=== PATIENT | female | born 1960 | race Caucasian/White ===

== ENCOUNTER 2021-01-13 15:37 | Outpatient (CLI) | payer MEDICARE, OTHER, SELFPAY ==
--- NOTE | ~2021-01-13 | US_ITS ---
EXAMINATION: US venous doppler [facility] DATE: 01/13/2021 16:29 INDICATION: Bilateral lower limb swelling TECHNIQUE: Townsend scale images without and with compression and Doppler images of the bilateral lower e xtremity veins were obtained. COMPARISON: None FINDINGS: The right common femoral vein, profunda femoral vein, femoral vein, popliteal vein, peroneal trunk, p osterior tibial veins, and greater saphenous vein are patent. The left common femoral vein, profunda femoral vein, femoral vein, popliteal vein, peroneal trunk, po sterior tibial veins, and greater saphenous vein are patent. IMPRESSION: 1. Patent bilateral lower extremity veins. No evidence of deep venous thrombosis. Reviewed, dictated and finalized at location A. M BOILER FIREMAN IMPRESSION: 1. Patent bilateral lower extremity veins. No evidence of deep venous thrombosi s.
== END 2021-01-13 15:38 | disposition home or self-care (01) ==
PROVIDERS: PCP Family Medicine; Visit Provider Family Medicine
DX: R60.9 Edema, unspecified (principal)
CPT/HCPCS: 93970

== ENCOUNTER 2021-10-06 12:41 | Outpatient (CLI) | payer MEDICARE, OTHER, SELFPAY ==
--- NOTE | ~2021-10-06 | US_ITS ---
EXAMINATION: US thyroid EXAM DATE: 10/06/2021 13:32 INDICATION: E04.9 - Nontoxic goiter, unspecified. TECHNIQUE: Multiple grayscale and Doppler images of the thyroid were obtained (by a technologist who performed the scan) and subsequently reviewed. Individual nodules and recommendations may be reporte d in accordance with TI-RADS system as designated by the 2017 ACR White Paper TI-RADS committee. The re is no prior study for comparison. FINDINGS: Right there are lobe measures 4.7 x 1.6 x 1.6 cm, the left measuring 4.8 x 1.5 x 1.4 cm. Mildly diffu sely heterogeneous thyroid echogenicity with expected amount of vascularity. Scattered thyroid nodule s which are all subcentimeter except for one in the left lower lobe inferior pole. Largest nodule in the left lower lobe measures 2.1 x 1.5 x 1.5 cm, solid (2 points), hypoechoic (2 po ints), wider than tall, smooth well defined margin, containing macrocalcification(s) causing acoustic shadowing (1 point), category TR4 for this nodule. IMPRESSION: 1. Left thyroid lobe nodule large enough to recommend ultrasound-guided FNA. 2. Mild thyromegaly. Reviewed, dictated and finalized at location A. TECHNICIAN
== END 2021-10-06 12:42 | disposition home or self-care (01) ==
PROVIDERS: PCP Family Medicine; Visit Provider Physician Assistant
DX: E04.9 Nontoxic goiter, unspecified (principal)
CPT/HCPCS: 76536

== ENCOUNTER 2022-08-11 13:03 | Outpatient (CLI) | payer MEDICARE, SELFPAY ==
--- NOTE | ~2022-08-11 | US_ITS ---
EXAMINATION: US thyroid DATE: 08/11/2022 13:55 INDICATION: Nontoxic goiter, unspecified. TECHNIQUE: Multiple ultrasound images of the thyroid were obtained. COMPARISON: Thyroid ultrasound 10/06/2021 FINDINGS: The right thyroid lobe measures 4.8 x 1.1 x 1.4 cm. The left thyroid lobe measures 5.0 x 1.5 x 1.7 c m. There are multiple subcentimeter nodules in the thyroid. In the left thyroid lobe, there is a 2.2 cm solid, hypoechoic, wider than tall nodule with smooth margin without echogenic foci (TI-RADS TR4) . IMPRESSION: 1. Stable left thyroid nodule. Ultrasound-guided fine-needle aspiration is recommended in this nodule has not previously been biopsied. Reviewed, dictated and finalized at location A. IMPRESSION: 1. Stable left thyroid nodule. Ultrasound-guided fine-needle aspiration is allison mmended in this nodule has not previously been biopsied.
== END 2022-08-11 13:04 | disposition home or self-care (01) ==
PROVIDERS: PCP Family Medicine; Visit Provider Physician Assistant
DX: E04.9 Nontoxic goiter, unspecified (principal)
CPT/HCPCS: 76536

== ENCOUNTER 2022-12-22 13:36 | Outpatient (CLI) | payer MEDICARE, SELFPAY ==
--- NOTE | ~2022-12-22 | CT_ITS ---
Non-contrast Head CT History: TIA, history of infarct Technique: Axial non-contrast imaging of the brain was performed. Dose reduction technique was used on this scan by utilizing automated exposure control and iterative reconstruction technique. The dose -length product (DLP) was 605.33 mGy-cm. Findings: There is no evidence of intracranial hemorrhage, mass lesion, or acute infarct. Brain par enchyma appears normal. The ventricles and subarachnoid spaces are normal in size. The calvarium ap pears normal. The visualized paranasal sinuses and mastoid air cells are clear. Impression: No significant abnormality seen. Reviewed, dictated and finalized at location . D CROP II FARMWORKER Impression: No significant abnormality seen.
--- NOTE | ~2022-12-22 | US_ITS ---
EXAMINATION: US thyroid DATE: 12/22/2022 14:47 INDICATION: Nontoxic goiter, unspecified. TECHNIQUE: Multiple ultrasound images of the thyroid were obtained. COMPARISON: Ultrasound 08/03/2022, 10/06/21 FINDINGS: The right thyroid lobe measures 5.0 x 1.6 x 1.2 cm. The left thyroid lobe measures 5.1 x 1.5 x 1.8 c m. In the right thyroid lobe, there is a 6 mm mixed cystic and solid, hypoechoic, wider than tall no dule with smooth margin without echogenic foci (TI-RADS TR3). In the right thyroid lobe, there is an 8 mm solid, hypoechoic, wider than tall nodule with ill-defined margin without echogenic foci (TR4). In the left thyroid lobe, there is a 2.1 cm predominantly solid, hypoechoic, wider than tall nodule w ith lobulated margin and macrocalcifications (TR5). IMPRESSION: 1. 2.1 cm left thyroid nodule, stable from 10/06/2021. Ultrasound-guided fine-needle aspiration is re commended. Reviewed, dictated and finalized at location A. R CREASER IMPRESSION: 1. 2.1 cm left thyroid nodule, stable from 10/06/2021. Ultrasound-guided fine-n eedle aspiration is recommended.
--- NOTE | ~2022-12-22 | CT_ITS ---
EXAMINATION:CT lung screening DATE: 12/22/2022 14:17 INDICATION: Tobacco use. Current smoker with 52 pack year history. TECHNIQUE: Computed tomography (CT) of the chest was performed without intravenous contrast. Automate d exposure control and iterative reconstruction technique were employed. The dose-length product (DLP ) was 605.33 mGy-cm. COMPARISON: None. FINDINGS: There is mild emphysema. A calcified right lung nodule is consistent with old granulomatous disease. There is peripheral septal thickening in the lower lobes. No pleural effusion. The heart si ze is normal. There are coronary artery calcifications. No pericardial effusion. There is a small sli ding hiatal hernia. There are surgical changes in the stomach. There are changes of cholecystectomy. There is levocurvature of thoracic spine. There is mild thoracic spondylosis. IMPRESSION: 1. Lung-RADS category 1: Negative. Continue annual screening with noncontrast low-dose chest CT in 12 months. Reviewed, dictated and finalized at location A. ENCY EXAMINER IMPRESSION: 1. Lung-RADS category 1: Negative. Continue annual screening with noncontrast l ow-dose chest CT in 12 months.
== END 2022-12-22 13:37 | disposition home or self-care (01) ==
PROVIDERS: PCP Family Medicine; Visit Provider Nurse Practitioner Gerontology
DX: R51.9 Headache, unspecified (principal); Z86.73 Personal history of transient ischemic attack (TIA), and cerebral infarction without residual deficits; E04.9 Nontoxic goiter, unspecified; Z87.891 Personal history of nicotine dependence; E04.1 Nontoxic single thyroid nodule
CPT/HCPCS: 70450; 71271; 76536

== ENCOUNTER 2023-01-03 12:24 | Outpatient (CLI) | payer MEDICARE, SELFPAY ==
--- NOTE | ~2023-01-03 | US_ITS ---
EXAMINATION: US FNA w image guidance DATE: 01/03/2023 13:36 INDICATION: Left thyroid mass TECHNIQUE: A time-out was performed to verify the patient's name, date of , and procedure to be performed . The procedure and its benefits and risks were discussed with the patient. Risks specifically discus sed included bleeding and infection. The patient understood the risks and agreed to proceed. The neck was prepped and draped in the usual sterile manner. 3 mL 1% lidocaine was used for local anesthesia . 6 passes were made with a 25G needle into the lesion. Appropriate needle location was documented with continuous sonographic guidance. A sterile bandage was applied. There were no immediate compli cations. FINDINGS: Grayscale ultrasound images demonstrate biopsy needles advanced into a 2.4 cm solid hypoechoic TI-RAD S 5 nodule with central coarse calcification at the inferior left thyroid. IMPRESSION: 1. Successful ultrasound-guided fine needle aspiration of a 2.4 cm TI RADS 5 left thyroid nodule. Reviewed, dictated and finalized at location A. TRONIC GLUER IMPRESSION: 1. Successful ultrasound-guided fine needle aspiration of a 2.4 cm TI RADS 5 l eft thyroid nodule.
== END 2023-01-03 12:25 | disposition home or self-care (01) ==
PROVIDERS: PCP Family Medicine; Visit Provider Nurse Practitioner Gerontology
DX: E04.1 Nontoxic single thyroid nodule (principal); R93.89 Abnormal findings on diagnostic imaging of other specified body structures
CPT/HCPCS: 10005; 88173; 88305

== ENCOUNTER 2025-03-07 14:18 | Outpatient (CLI) | payer MEDICARE, SELFPAY ==
[2025-03-07 14:53] LABS: Basophils Absolute Auto 0.1 K/mm3 (0.0-0.1); Basophils Percent Auto 0.9 % (0.2-1.2); Eosinophils Absolute Auto 0.1 K/mm3 (0-0.3); Hematocrit 35.6 % (37.0-47.0); Hemoglobin 10.7 g/dL (12.0-15.0); Immature Granulocyte Absolute 0.02 K/mm3 (0.00-0.031); Immature Granulocyte Percent A 0.3 % (0-0.5); Lymphocytes Absolute Auto 2.77 K/mm3 (0.9-3.2); Lymphocytes Percent Auto 39.6 % (18.3-44.2); Mean Corpuscular HGB Conc 30.1 g/dl (32-36); Mean Corpuscular Hemoglobin 25.2 pg (26-34); Mean Platelet Volume 9.6 fl (7.4-10.4); Monocytes Absolute Auto 0.6 K/mm3 (0.1-0.6); Monocytes Percent Auto 7.9 % (2.6-8.5); Neutrophils Absolute Auto 3.5 K/mm3 (1.3-6.7); Neutrophils Percent Auto 49.3 % (45.5-73.1); Platelet Count Result 280 k/mm3 (150-375); Red Blood Count 4.24 M/mm3 (4.2-5.4); Red Cell Distribution Width 23.6 % (11.5-14.5)
[2025-03-07 14:55] LABS: Add Urine Microscopic? NO; Appearance Urine Clear (Clear); Bilirubin Urine Negative (Negative); Blood Urine Negative (Negative); Color Urine Yellow (Yellow); Glucose Urine UA Negative (Negative); Ketones Urine Negative (Negative); Leukocyte Esterase Ur Negative LEU/UL (Negative); Nitrate Urine Negative (Negative); Protein Urine Negative (Negative); Urobilinogen Urine 0.2 mg/dL (<2.0)
[2025-03-07 15:04] LABS: Alanine Aminotransferase 24 U/L (6-35); Alkaline Phosphatase 134 U/L (38-126); Anion Gap 13 mmol/L (4-12); Aspartate Amino Transferase 24 U/L (14-36); Bilirubin,Total 0.4 mg/dL (0.2-1.3); Blood Urea Nitrogen 30 mg/dL (7-17); Calcium 10.2 mg/dL (8.4-10.2); Carbon Dioxide 21 mmol/L (22-30); Chloride 106 mmol/L (98-107); Estimated Glomerular Filt Rate 46; Glucose 121 mg/dL (65-110); Magnesium 1.9 mg/dL (1.6-2.3); Potassium 5.4 mmol/L (3.4-5.0); Sodium 140 mmol/L (137-145)
[2025-03-07 15:11] LABS: Anisocytosis 1+; Ovalocytes 1+; Platelet Estimate Adequate (Adequate)
[2025-03-07 15:12] LABS: Schistocytes None Seen
[2025-03-07 15:21] LABS: Free T4 Free Thyroxine 0.94 ng/dL (0.78-2.19)
--- OUTSIDE RECORDS SUMMARY | 2025-03-07 15:30 | XMS_ITS | Encounter Summary ---
Author Organization [facility] Address [address] [place] [address] Care Team Providers Care Bat Boy/Girl Name Role Phone Israel Carrillo MD Primary Care Provider Fadi Twin Hunter MD Primary Care Provider [phone] Darlene Saeed MD Primary Care Provider [phone] Kal Tellez MD Primary Care Provider [phone] Theresa Connors Primary Care Provider [phone] Encounter Details Date Type Department Care Team (Late st Contact Info) Description 11/12/2014 Abstract [facility] [address] [place] [address] , Generic Conversion, Social History Tobacco Use Types Packs/Day Years Used Date Smoking Tobacco: Never Assessed Comments Unknown Sex and Gender Information Value Date Recorded Sex Assigned at Female 12/21/2024 4:56 PM STATISTICAL PROGRAMMER Legal Sex Female 11:23 PM CDT Gender Identity Not on file Sexual Orientation Not on file documented as of this encounter Plan of Treatment Upcoming Encounters Date Type Department Care Team (Late st Contact Info) Description 03/22/2025 1:15 PM CDT Office Visit [facility], [address] [place] [address] Uche Leonard MD [facility] [address] [place], [place] [id number] documented as of this encounter Visit Diagnoses Not on filedocumented in this encounter Care Teams Bat Boy/Girl Relationship Specialty Start Date End Date Israel Carrillo MD PCP - General 10/17/14 11/02/19 Twin Tello MD [address] [facility] [address] [place] [address] PCP - General INTERNAL MEDICINE 11/03/19 09/26/21 Darlene Saeed MD [address] [facility] [address] [place] [address] PCP - General FAMILY PRACTICE 09/27/21 01/27/25 Kal Tellez MD [address] [place] [address] [address] [place] [address] PCP - General 01/28/25 02/19/25 Theresa Connors PA [address] [place] [address] PCP - General PHYSICIAN OPTICAL SALES ASSOCIATE 02/20/25 documented as of this encounter
--- OUTSIDE RECORDS SUMMARY | 2025-03-07 15:30 | XMS_ITS | Encounter Summary ---
Author Organization [facility] Address [address] [place] [address] Phone Care Team Providers Care Bee Worker Name Role Phone Israel Carrillo MD Unavailable [phone] Darlene Saeed MD Primary Care Provider Manish Singer MD Unavailable [phone] Katya Carpenter RN Unavailable [phone] Reason for Visit * Reason Onset Date Comments Tyron Clarification 07/14/2021 Encounter Details Date Type Department Care Team (Late st Contact Info) Description 07/14/2021 Telephone [facility] Orthopaedic Surgery [address] [place] [address] 2nd [address] [place] [address] Twin Machado MD [address] [facility] [address] [place] [address] MedRosalinoAllery Clarification Social History Tobacco Use Types Packs/Day Years Used Date Smoking Tobacco: Every Day Cigarettes 0.5 48 Smokeless Tobacco: Never Alcohol Use Standard Drinks/Week Comments Not Currently 0 (1 standard drink = 0.6 oz pur e alcohol) AUDIT-C Answer Date Recorded Q1: How often do you have a drink containing alc ohol? Never 07/03/2021 Average Number of Drinks Not on file 021 Q3: How often do you have si x or more drinks on one occasion? Never 07/03/2021 Comments No Sex and Gender Information Value Date Recorded Sex Assigned at Not on file Legal Sex Female 8:10 PM TERMINAL WORKER Gender Identity Not on file Sexual Orientation Not on file documented as of this encounter Miscellaneous Notes * Telephone Encounter - Narendra Singh CMA - 07/15/2021 1:57 PM CDT Rx canceled with [facility]. * Telephone Encounter - Scarlet Frazier - 07/15/2021 1:44 PM CDT Pharmacy is calling back needing a call back at [phone] option 2 reference number [id number] regarding drug/possible reaction * Telephone Encounter - Narendra Singh CMA - 07/14/2021 4:20 PM CDT Rx sent to Dr. Machado for e-scribe high priority. * Telephone Encounter - Scarlet Frazier - 07/14/2021 3:17 PM CDT Call [phone] before the end of the day regarding medication for the imaging that is tomorrow * Telephone Encounter - Brenda London - 07/14/2021 2:42 PM CDT Please see Prescription Clarification Request form that was received from [facility]. Possible drug allergy. Form placed in Dr Machado's E-Folder. documented in this encounter Plan of Treatment Not on file documented as of this encounter Goals Goal Patient Goal Type Associated Problems Recent Progress Patient-Stated? Author CCM Chronic Pain Care Plan Chronic Care Management On track(2021 12:44 PM CDT) Kirstie Stevens RN Note: Problem: Chronic Pain Goals: 1. Minimize further functional decline 2. Maximize quality of life 3. Control pain Strategies: - Activity/exercise program recommendation - Conservative stepwise pain medicine strategy with multi-disciplinary approach - Recommend healthy lifestyle strategies and compensatory methods as needed documented as of this encounter Visit Diagnoses Diagnosis Lumbosacral radiculopathy Thoracic or lumbosacral neuritis or radiculitis, unspecified documented in this encounter Additional Health Concerns Infection Onset Date Last Indicated Resolved Time Diarrhea 12/02/2023 12/02/2023 12/16/2023 3:06 AM TERMINAL WORKER COVID: Suspected 02/06/2024 02/06/2024 02/06/2024 2:46 PM CDT documented as of this encounter Care Teams Bee Worker Relationship Specialty Start Date End Date Darlene Saeed MD [address] [place] [address] PCP - General Family Medicine 01/09/21 Israel Carrillo MD [address] [facility] [address] [place] [address] Referring Physician Endocrinology Diabetes & Metabolism 06/01/19 Manish iSnger MD [address] [place] [address] Consulting Physician Otolaryngology 01/17/22 Katya Carpenter RN [address] [facility] [address] [place] [address] SHOP Outpatient Systems Architect 02/13/24 02/19/24 documented as of this encounter
--- OUTSIDE RECORDS SUMMARY | 2025-03-07 15:30 | XMS_ITS | Encounter Summary ---
Author Organization [facility] Healthcare Address [address] [place] [address] Care Team Providers Care Bioinformatics Research Technician Name Role Phone Israel Carrillo MD Primary Care Provider Gene Padilla MD Primary Care Provider [phone] Israel Carrillo MD Primary Care Provider Twin Tello MD Primary Care Provider Israel Carrillo MD Unavailable [phone] Twin Tello MD Primary Care Provider [phone] Miguel Field MD Primary Care Provider Israel Carrillo MD Primary Care Provider [phone] Miguel Field MD Primary Care Provider [phone] Israel Carrillo MD Primary Care Provider Darlene Saeed MD Primary Care Provider Manish Singer MD Unavailable [phone] Katya Carpenter RN Unavailable [phone] Encounter Details Date Type Department Care Team (Late st Contact Info) Description 05/18/2018 Community Orders [facility] EpicCare Link Israel Carrillo MD [address] [facility] [address] [place] [address] Social History Tobacco Use Types Packs/Day Years Used Date Smoking Tobacco: Some Days Smokeless Tobacco: Never Alcohol Use Standard Drinks/Week Comments Yes 0 (1 standard drink = 0.6 oz pur e alcohol) Comments Unknown Sex and Gender Information Value Date Recorded Sex Assigned at Not on file Legal Sex Female 8:10 PM SECURITY INTERN Gender Identity Not on file Sexual Orientation Not on file documented as of this encounter Plan of Treatment Not on file documented as of this encounter Visit Diagnoses Not on filedocumented in this encounter Additional Health Concerns Infection Onset Date Last Indicated Resolved Time COVID: Suspected 12/17/2020 12/17/2020 12/17/2020 6:45 PM SECURITY INTERN Diarrhea 12/02/2023 12/02/2023 12/16/2023 3:06 AM SECURITY INTERN COVID: Suspected 02/06/2024 02/06/2024 02/06/2024 2:46 PM CDT documented as of this encounter Care Teams Bioinformatics Research Technician Relationship Specialty Start Date End Date Israel Carrillo MD [address] [address] PCP - General 08/02/07 09/26/18 Gene Padilla MD [address] [place] [address] PCP - General Cardiovascular Disease 09/27/18 Israel Carrillo MD [address] [address] PCP - General 10/02/18 05/31/19 Twin Tello MD [address] [address] PCP - General Endocrinology Diabetes & Metabolism 06/01/19 07/03/19 Twin Tello MD [address] [address] PCP - General 07/04/19 05/04/20 Miguel Field MD [address] [address] PCP - General Internal Medicine 05/05/20 08/03/20 Israel Carrillo MD [address] [address] PCP - General Endocrinology Diabetes & Metabolism 08/04/20 09/02/20 Miguel Field MD [address] [address] PCP - General 09/03/20 10/05/20 Israel Carrillo MD [address] [address] PCP - General Endocrinology Diabetes & Metabolism 10/06/20 01/08/21 Darlene Saeed MD [address] [address] PCP - General Family Medicine 01/09/21 Israel Carrillo MD [address] [address] Referring Physician Endocrinology Diabetes & Metabolism 06/01/19 Manish Singer MD [address] [address] Consulting Physician Otolaryngology 01/17/22 Katya Carpenter RN [address] [facility] [address] [place] [address] SHOP Outpatient Hard Metals Engraver Hand 02/13/24 02/19/24 documented as of this encounter
--- OUTSIDE RECORDS SUMMARY | 2025-03-07 15:30 | XMS_ITS | Encounter Summary ---
Author Organization [facility] Address [facility] [place] [address] Care Team Providers Care Kilnman Name Role Phone Israel Carrillo MD Primary Care Provider Twin Smiley MD Primary Care Provider [phone] Darlene Saeed MD Primary Care Provider [phone] Kal Tellez MD Primary Care Provider [phone] Theresa Connors Primary Care Provider [phone] Encounter Details Date Type Department Care Team (Late st Contact Info) Description 11/07/2015 Abstract [facility] Juan Jose Vaz, Sujata Ingram MD Social History Tobacco Use Types Packs/Day Years Used Date Smoking Tobacco: Never Assessed Comments Unknown Sex and Gender Information Value Date Recorded Sex Assigned at Female 12/21/2024 4:56 PM BIOSOLIDS MANAGEMENT TECHNICIAN Legal Sex Female 11:23 PM CDT Gender Identity Not on file Sexual Orientation Not on file documented as of this encounter Plan of Treatment Upcoming Encounters Date Type Department Care Team (Late st Contact Info) Description 03/22/2025 1:15 PM CDT Office Visit [facility], [address] [place] [address] Uche Leonard MD [facility] [address] [place] [address] documented as of this encounter Visit Diagnoses Not on filedocumented in this encounter Care Teams Kilnman Relationship Specialty Start Date End Date Israel Carrillo MD PCP - General 10/17/14 11/02/19 Twin Tello MD [address] [facility] [address] [place] [address] PCP - General INTERNAL MEDICINE 11/03/19 09/26/21 Darlene Saeed MD [address] [facility] [address] [place] [address] PCP - General FAMILY PRACTICE 09/27/21 01/27/25 Kal Tellez MD [address] [place] [address] PCP - General 01/28/25 02/19/25 Theresa Connors PA [address] [place] [address] PCP - General PHYSICIAN GEOLOGY ASSOCIATE 02/20/25 documented as of this encounter
--- OUTSIDE RECORDS SUMMARY | 2025-03-07 15:30 | XMS_ITS | Encounter Summary ---
Author Organization [facility] Healthcare Address [address] [place] [address] Care Team Providers Care Refrigeration Tech Name Role Phone Israel Carrillo MD Primary Care Provider Gene Padilla MD Primary Care Provider [phone] Israel Carrillo MD Primary Care Provider [phone] Twin Tello MD Primary Care Provider Israel Carrillo MD Unavailable [phone] Twin Tello MD Primary Care Provider Miguel Field MD Primary Care Provider [phone] Israel Carrillo MD Primary Care Provider Miguel Field MD Primary Care Provider Israel Carrillo MD Primary Care Provider Darlene Saeed MD Primary Care Provider Manish Signer MD Unavailable [phone] Katya Carpenter RN Unavailable [phone] Reason for Visit * Reason Onset Date Comments FYI 09/26/2018 Encounter Details Date Type Department Care Team (Late st Contact Info) Description 09/26/2018 Telephone [facility] [address] [facility] [address] [place] [address] Momo Pérez MD [address] [facility] [phone] [place] [address] FYI Social History Tobacco Use Types Packs/Day Years Used Date Smoking Tobacco: Some Days Smokeless Tobacco: Never Alcohol Use Standard Drinks/Week Comments Yes 0 (1 standard drink = 0.6 oz pur e alcohol) Comments No Sex and Gender Information Value Date Recorded Sex Assigned at Not on file Legal Sex Female 8:10 PM CURING OVEN TENDER Gender Identity Not on file Sexual Orientation Not on file documented as of this encounter Plan of Treatment Not on file documented as of this encounter Visit Diagnoses Not on filedocumented in this encounter Additional Health Concerns Infection Onset Date Last Indicated Resolved Time COVID: Suspected 12/17/2020 12/17/2020 12/17/2020 6:45 PM CURING OVEN TENDER Diarrhea 12/02/2023 12/02/2023 12/16/2023 3:06 AM CURING OVEN TENDER COVID: Suspected 02/06/2024 02/06/2024 02/06/2024 2:46 PM CDT documented as of this encounter Care Teams Refrigeration Tech Relationship Specialty Start Date End Date Israel Carrillo MD [address] [address] PCP - General 08/02/07 09/26/18 Gene Padilla MD [address] [place] [address] [address] [address] PCP - General Cardiovascular Disease 09/27/18 Israel Carrillo MD [address] [address] PCP - General 10/02/18 05/31/19 Twin Tello MD [address] [address] PCP - General Endocrinology Diabetes & Metabolism 06/01/19 07/03/19 Twin Tello MD [address] [address] PCP - General 07/04/19 05/04/20 Miguel Field MD [address] [address] PCP - General Internal Medicine 05/05/20 08/03/20 Israel Carrillo MD [address] [address] PCP - General Endocrinology Diabetes & Metabolism 08/04/20 09/02/20 Miguel Field MD [address] [address] PCP - General 09/03/20 10/05/20 Israel Carrillo MD [address] [address] PCP - General Endocrinology Diabetes & Metabolism 10/06/20 01/08/21 Darlene Saeed MD [address] [address] PCP - General Family Medicine 01/09/21 Israel Carrillo MD [address] [address] Referring Physician Endocrinology Diabetes & Metabolism 06/01/19 Manish Singer MD [address] [place] [address] Consulting Physician Otolaryngology 01/17/22 Katya Carpenter, RN [address] [facility] [address] [place] [address] SHOP Outpatient Circus Hand 02/13/24 02/19/24 documented as of this encounter
--- OUTSIDE RECORDS SUMMARY | 2025-03-07 15:30 | XMS_ITS | Encounter Summary ---
Author Organization [facility] Address [address] [place] [address] Care Team Providers Care Batch Freezer Operator Name Role Phone Israel Carrillo MD Primary Care Provider Fadi Twin Hunter MD Primary Care Provider [phone] Darlene Saeed MD Primary Care Provider [phone] Kal Tellez MD Primary Care Provider [phone] Theresa Connors Primary Care Provider [phone] Encounter Details Date Type Department Care Team (Late st Contact Info) Description 09/17/2017 Abstract [place] [address] , Generic Conversion, Social History Tobacco Use Types Packs/Day Years Used Date Smoking Tobacco: Never Assessed Comments Unknown Sex and Gender Information Value Date Recorded Sex Assigned at Female 12/21/2024 4:56 PM HOSPITAL MEDICAL ASSISTANT Legal Sex Female 11:23 PM CDT Gender Identity Not on file Sexual Orientation Not on file documented as of this encounter Plan of Treatment Upcoming Encounters Date Type Department Care Team (Late st Contact Info) Description 03/22/2025 1:15 PM CDT Office Visit [facility] [place] [facility], [address] [place], [place] [id number] Uche Leonard MD [facility] [address] [place], [place] [id number] documented as of this encounter Visit Diagnoses Not on filedocumented in this encounter Care Teams Batch Freezer Operator Relationship Specialty Start Date End Date Israel Carrillo MD PCP - General 10/17/14 11/02/19 Twin Tello MD [address] [facility] [address] [place] [address] PCP - General INTERNAL MEDICINE 11/03/19 09/26/21 Darlene Saeed MD [address] [facility] [address] [place] [address] PCP - General FAMILY PRACTICE 09/27/21 01/27/25 Kal Tellez MD [address] [facility] [address] [place] [address] PCP - General 01/28/25 02/19/25 Theresa Connors PA [address] [facility] [address] [place] [address] PCP - General PHYSICIAN ICE CREAM TRUCK DRIVER 02/20/25 documented as of this encounter
--- OUTSIDE RECORDS SUMMARY | 2025-03-07 15:31 | XMS_ITS | Clinical Summary ---
Author Organization [facility] Address [address] [place] [address] Care Team Providers Care Federal Appellate Clerk Name Role Phone Theresa Connors Primary Care Provider [phone] Allergies Active Allergy Reactions Criticality Noted Date Comments Bee Venom Anaphylaxis High 09/19/2018 Cortisone Unknown 09/19/2018 Ibuprofen Other (see comment) High 03/31/2019 Muscle constriction of not being able to move Ketorolac Other (see comment) Medium 12/22/2021 Eye drops -itching; eyes also swell Latex Unknown 11/03/2019 Levofloxacin Unknown 09/19/2018 Naproxen Other (see comment) Medium 09/19/2007 Disoriented/ dysphoric Nsaids Unknown 09/19/2018 Oxycodone Unknown 09/19/2018 Prednisone Unknown 09/19/2018 Weight gain per patient. Has used topical steriods in past with no issue Wasp Venom Protein Anaphylaxis High 03/19/2024 Medications lisinopril (PRINIVIL) 40 MG tablet Take 1 tablet (40 mg total) by mouth daily. 04/24/2024 Active glucagon (GLUCAGON EMERGENCY) 1 MG injection Inject 1 mg into the muscle once as needed. 04/24/2024 Active budesonide EC (ENTOCORT EC) 3 MG capsule Take 1 capsule (3 mg total) by mouth daily. 04/24/2024 Active Cholecalciferol 50 MCG (2000 UT) Tab Take 2,000 Units by mouth daily. 04/24/2024 Active omeprazole (PRILOSEC) 40 MG capsule Take 1 capsule (40 mg total) by mouth 2 (two) times a day. 04/24/2024 Active PARoxetine (PAXIL) 20 MG tablet Take 1 tablet (20 mg total) by mouth daily. 04/24/2024 Active rosuvastatin (CRESTOR) 5 MG tablet Take 1 tablet (5 mg total) by mouth daily. 04/24/2024 Active SUMAtriptan (IMITREX) 50 MG tablet Take 1 tablet (50 mg total) by mouth 2 (two) times daily as needed for Migraine. Max of 4 tablets (200 mg) in 24 hours. 04/24/2024 Active tolterodine LA (DETROL LA) 4 MG 24 hr capsule Take 1 capsule (4 mg total) by mouth daily. 04/24/2024 Active pregabalin (LYRICA) 150 MG capsuleIndicati ons:Polyneuropa thy Take 1 capsule (150 mg total) by mouth 3 (three) times daily. 04/24/2024 Active multivitamin (THERA) tablet Take 1 tablet by mouth daily. 04/24/2024 Active tiZANidine (ZANAFLEX) 4 MG tablet Take 1 tablet (4 mg total) by mouth every 6 (six) hours as needed. 12/18/2024 Active HYDROcodone-yaa taminophen (NORCO) 5-325 MG tablet Take 1 tablet by mouth every 8 (eight) hours as needed for Pain. 11/29/2024 Active amLODIPine (NORVASC) 5 MG tablet Take 1 tablet (5 mg total) by mouth daily. 90 tablet 1 01/09/2025 Active furosemide (LASIX) 40 MG tablet Take 1 tablet (40 mg total) by mouth 2 (two) times daily. New dose 180 tablet 1 01/09/2025 Active metoprolol succinate ER (TOPROL-XL) 25 MG 24 hr tablet TAKE 1 TABLET BY MOUTH DAILY 30 tablet 3 01/21/2025 Active Active Problems Problem Noted Date Diagnosed Date Iron deficiency anemia due to chronic blood loss 03/20/2024 Shortness of breath 03/20/2024 Physical deconditioning 02/20/2024 Angina at rest 02/15/2024 Hypotension 02/14/2024 Hyperkalemia 02/06/2024 Overview (03/13/2024): Last Assessment & Plan: K 6.7 in setting of DEANNE and lisinopril. S/p calcium gluconate. Managed medically with insulin/dextrose, lasix, lokelma to 4's - Hold ACEi - Trend renal function Vertigo 02/26/2022 Ataxia due to recent stroke 02/04/2021 History of hemorrhagic strok e with residual hemiparesis ([facility]) 02/04/2021 Syncope due to sick sinus syndrome ([facility]) 02/04/2021 Hypoglycemia 12/10/2020 Overview (03/13/2024): Last Assessment & Plan: - resolved. - reported on admission that patient has had this issue before. Has gotten as low as 12 with convulsions but no issues over the last few years and usually reports that her BS remains more than 100. No notes from endocrinology for hypoglycemia. Ddx factitious ( says no access to insulin) vs poor nutrition vs ?possible sepsis vs insulin tumor - initially required to be on D5. Patient has extremely poor oral intake. Monitored with q6h blood glucose check. Subsequently improved. With hypokalemia I had concerns for possible insulinoma as well but her glucose spontaneously improved and held off from checking C peptide, proinsulin levels. GERD (gastroesophageal reflux disease) 9 Hyperlipidemia, unspecified 03/31/2019 Paroxysmal atrial fibrillation ([facility]) 03/31/2019 COPD (chronic obstructive pu lmonary disease) ([facility]) 01/09/2019 Resolved Problems Problem Noted Date Diagnosed Date Resolved Date Chest pain 02/14/2024 03/20/2024 Near syncope 02/13/2024 03/20/2024 Encounters Date Type Department Care Team Description 02/27/2025 Results Follow-Up [facility] [place] [address] [place] [address] Kaylee Joseph, ANP-BC NM NUC STRESS TEST SINGLE 02/21/2025 10:08 AM CDT - 02/21/2025 11:59 PM CDT Hospital Encounter [facility] [place] [address] Uche Leonard MD Discharge Disposition: Home or Self Care (Routine Discharge) 02/21/2025 Travel 01/31/2025 MyChart Message [facility] [address] [place] [phone] Kaylee Joseph ANP-BC Test Results 01/29/2025 2:27 PM CDT - 01/29/2025 11:59 PM CDT Hospital Encounter [facility] [place] [address] Uche Leonard MD Discharge Disposition: Home or Self Care (Routine Discharge) 01/29/2025 Travel 01/09/2025 12:00 PM DESIGN ENGINEER Office Visit [address] [address] Uche Leonard MD Coronary Artery Disease (F/up) 01/09/2025 Travel 12/21/2024 4:58 PM DESIGN ENGINEER - 12/21/2024 10:13 PM DESIGN ENGINEER Emergency [facility] [place] [address] Nick Miller MD Chest Pain Discharge Disposition: Home or Self Care (Routine Discharge) 12/21/2024 Travel 12/20/[address] [address] Kaylee Joseph ANP-AKILAH Concerns from Last 3 Months Immunizations Immunization Administration Dates Next Due Influenza (Generic) 11/09/2013 Influenza Adult (Generic) 09/16/2020,12/19/2018, 01/15/2018 Tdap (Generic) 09/23/2014 Social History Tobacco Use Types Packs/Day Years Used Date Smoking Tobacco: Every Day Cigarettes 0.3 51 Started: 02/18/1974 Smokeless Tobacco: Never Tobacco Cessation:Ready to Q uit: Not Asked; Counseling Given: Not Answered Alcohol Use Standard Drinks/Week Comments No 0 (1 standard drink = 0.6 oz pur e alcohol) [facility] Utilities Answer Date Recorded In the past 12 months has th e electric, gas, oil, or water company threatened to shut off services in your home? Patient unable to answer 02/13/2024 Humiliation, Afraid, Rape, a nd Kick questionnaire Answer Date Recorded Within the last year, have y ou been afraid of your partner or ex-partner? Patient unable to answer 02/13/2024 Within the last year, have y ou been humiliated or emotionally abused in other ways by your partner or ex-partner? Patient unable to answer 02/13/2024 Within the last year, have y ou been kicked, hit, slapped, or otherwise physically hurt by your partner or ex-partner? Patient unable to answer 02/13/2024 Within the last year, have y ou been raped or forced to have any kind of sexual activity by your partner or ex-partner? Patient unable to answer 02/13/2024 AUDIT-C Answer Date Recorded Frequency of Alcohol Consumption Never 11/03/2019 Average Number of Drinks Not on file 019 Frequency of Binge Drinking Not on file 10/15 Overall Financial Resource Strain (CARDIA) Answe r Date Recorded How hard is it for you to pa y for the very basics like food, housing, medical care, and heating? Patient unable to answer 02/13/2024 Hunger Vital Sign Answer Date Recorded Within the past 12 months, y ou worried that your food would run out before you got the money to buy more. Patient unable to answer 02/13/2024 Within the past 12 months, t he food you bought just didn't last and you didn't have money to get more. Patient unable to answer 02/13/2024 PRAPARE - Transportation Answer Date Re corded In the past 12 months, has l ack of transportation kept you from medical appointments or from getting medications? Patient unable to answer 02/13/2024 In the past 12 months, has l ack of transportation kept you from meetings, work, or from getting things needed for daily living? Patient unable to answer 02/13/2024 Housing Stability Vital Sign Answer Alec e Recorded In the last 12 months, was t here a time when you were not able to pay the mortgage or rent on time? Patient unable to answer 02/13/2024 In the last 12 months, how m any places have you lived? 1 02/13/2024 In the last 12 months, was t here a time when you did not have a steady place to sleep or slept in a group home (including now)? Patient unable to answer 02/13/2024 Housing Stability Vital Sign Answer Alec e Recorded Unable to Pay for Housing in the Last Year Not o n file 02/19/2024 In the past 12 months, how m any times have you moved where you were living? 0 02/19/2024 At any time in the past 12 m [facility], were you homeless or living in a group home (including now)? No 02/19/2024 Comments Unknown Sex and Gender Information Value Date Recorded Sex Assigned at Female 12/21/2024 4:56 PM DESIGN ENGINEER Legal Sex Female 11:23 PM CDT Gender Identity Not on file Sexual Orientation Not on file Last Filed Vital Signs Vital Sign Reading Time Taken Comments Blood Pressure 142/88 01/09/2025 11:44 AM DESIGN ENGINEER Pulse 106 01/09/2025 11:44 AM DESIGN ENGINEER Temperature 36.4 C (97.6 F) 12/21/2024 4:58 PM DESIGN ENGINEER Respiratory Rate 21 12/21/2024 8:30 PM DESIGN ENGINEER Oxygen Saturation 98% 01/09/2025 11:44 AM DESIGN ENGINEER Inhaled Oxygen Concentration - - Weight 101.2 kg (223 lb) 01/09/2025 11:44 AM DESIGN ENGINEER Height 147.3 cm (4' 10 ) 01/09/2025 11:44 AM DESIGN ENGINEER Body Mass Index 46.61 01/09/2025 11:44 AM DESIGN ENGINEER Plan of Treatment Upcoming Encounters Date Type Department Care Team (Late st Contact Info) Description 03/22/2025 1:15 PM CDT Office Visit [facility] [address] [place] [address] Uche Leonard MD [facility] [address] [place] [address] Health Maintenance Due Date Last Done Comments Pneumococcal Vaccine: 50+ Years (1 of 2 - PCV) 1978 Zoster Vaccines (1 of 2) 2009 RSV Immunization or 60+ Years (1 - Risk 60-74 years 1-dose series) 2019 Mammogram Screening 07/16/2022 07/16/2020, 9 Annual Medicare Wellness Visit 02/12/2024 COVID-19 Vaccine (1 - season) 2024 DTaP, Tdap and Td Vaccines (2 - Td or Tdap) 09/23/2024 09/23/2014 Colorectal Cancer Screening FIT/FOBT (1 Year) 02/12/2025 02/13/2024 ASCVD LDL 02/13/2025 02/14/2024 Dexa Scan (General) Completed 08/04/2021, 06/16/2020, 05/08/2019, Additional history exists Hepatitis C Completed 02/07/2024 Meningococcal B Vaccine Aged Out No l onger eligible based on patient's age to complete this topic Meningococcal Vaccine Aged Out No august eleuterio eligible based on patient's age to complete this topic RSV Immunizations Under 20 Months Aged Out No longer eligible based on patient's age to complete this topic Procedures Procedure Name Priority Date/Time Associated Diagnosis Comments NM NUC STRESS TEST SINGLE Routine 2024 1:21 PM CDT SOB (shortness of breath) Chest pain, unspecified CARDIOLOGY STRESS TEST ONLY, EXERCISE Routine 02/21/2025 10:08 AM CDT SOB (shortness of breath) Chest pain, unspecified USE ECHOCARDIOGRAM Routine 01/29/2025 4: 42 PM CDT SOB (shortness of breath) Chest pain, unspecified ELECTROCARDIOGRAM REPORT Routine 025 7:22 PM DESIGN ENGINEER ELECTROCARDIOGRAM REPORT Routine 025 7:22 PM DESIGN ENGINEER ECG 12-LEAD STAT 12/21/2024 7:16 PM DESIGN ENGINEER GI PANEL PCR - STOOL STAT 12/21/2024 7:04 PM DESIGN ENGINEER TROPONIN, QUANT STAT 12/21/2024 7:04 PM DESIGN ENGINEER XR CHEST PORTABLE STAT 12/21/2024 5:1 0 PM DESIGN ENGINEER TROPONIN, QUANT STAT 12/21/2024 5:05 PM DESIGN ENGINEER COMPREHENSIVE METABOLIC PANEL STAT 12/21/2024 5:05 PM DESIGN ENGINEER CBC W/DIFF AUTOMATED STAT 12/21/2024 5:05 PM DESIGN ENGINEER ECG 12-LEAD STAT 12/21/2024 4:56 PM DESIGN ENGINEER LIPID PANEL STAT 02/14/2024 6:06 AM CDT OCCULT BLOOD, FECES STAT 02/13/2024 7 :26 PM CDT from Last 3 Months or Most Recently Relevant to Health Maintenance Results * NM NUC STRESS TEST SINGLE (02/21/2025 1:21 PM CDT) Anatomical Region Laterality Modality Cardiac Nuclear Medicine 02/21/2025 11:2 7 AM CDT Narrative 02/22/2025 1:29 PM CDT Myocardial Perfusion Imaging Pat.Name: BERNADINE SIMMS.ID: [id number] .Date: 02/21/2025 Refer.: Gordo Exam Time: 11:27:00 AM Study Type:JURGEN NC HT MUSCLE IMAGE SPECT MULTI Height: 58 in Weight: 223 lb BSA: 1.91 m2 Age: 3 1960,65Y Sex: F Sonogrphr: RAKEL Smith Pat. Stat.:Outpatient Reason for Study:Chest pain, Shortness of breath, Syncope History / Clinical:Ex-Smoker, COPD Procedures: Nuclear Stress Test with Lexiscan Race: W Surgery: Stress Echo ++++++++++++++++++++++++++++++++++++ SUMMARY: ++++++++++++++++++++++++++++++++++++ Stress conclusion: 1. Clinically negative. 2. Electrocardiographically negative stress test for ischemia. 3. Scintigraphic images to follow. Perfusion conclusion: 1. Excellent study quality. No motion correction was applied to images. Breast attenuation is noted. Prone imaging was performed. 2. Normal myocardial perfusion SPECT imaging. 3. Normal wall motion with an ejection fraction of 79%. 4. Stress test with myocardial perfusion imaging shows overall low risk for a cardiac event. ++++++++++++++++++++++++++++++++++++ FINDINGS: ++++++++++++++++++++++++++++++++++++ Protocol: Lexiscan 0.4mg was given as a rapid injection IV over a period of 10 seconds with the radiopharmaceutical injected at 20 seconds. The images were processed using the standard SPECT technique. A gated study was performed on the stress images. Impression: SPECT images demonstrate normal perfusion of normal intensity. Heart Size: The left ventricle is normal. LV Wall Motion: The LVEF is calculated to be 79%. Gated SPECT images reveal normal wall motion. ++++++++++++++++++++++++++++++++++++ STRESS: ++++++++++++++++++++++++++++++++++++ Baseline Vital Signs: ECG: Normal sinus rhythm, prominent T waves HR: 70 bmp Rest BP: 100/42 Regadenoson Peak Dose: 0.4 mg Stress Test Results: Max HR: 96 bmp Target HR: 154 bmp % Target: 62 % Max BP: 139/71 Max RPP: 61476 O2 sat: 100 % Symptoms and Complications: Terminated: Protocol completed Symptoms: Dizziness Complications: None Stress ECG Interp: No significant changes <Electronic Signature> 02/22/2025 01:29 PM Uche Leonard M.D. Procedure Note Uche Leonard MD - 02/22/2025 Myocardial Perfusion Imaging Pat.Name: BERNADINE SIMMS Pat.ID: [id number] .Date: 02/21/2025 Refer.: Gordo Exam Time: 11:27:00 AM Study Type:JURGEN NC HT MUSCLE IMAGE SPECT MULTI Height: 58 in Weight: 223 lb BSA: 1.91 m2 Age: 3 1960,65Y Sex: F Sonogrphr: RAKEL Smith Pat. Stat.:Outpatient Reason for Study:Chest pain, Shortness of breath, Syncope History / Clinical:Ex-Smoker, COPD Procedures: Nuclear Stress Test with Lexiscan Race: W Surgery: Stress Echo ++++++++++++++++++++++++++++++++++++ SUMMARY: ++++++++++++++++++++++++++++++++++++ Stress conclusion: 1. Clinically negative. 2. Electrocardiographically negative stress test for ischemia. 3. Scintigraphic images to follow. Perfusion conclusion: 1. Excellent study quality. No motion correction was applied to images. Breast attenuation is noted. Prone imaging was performed. 2. Normal myocardial perfusion SPECT imaging. 3. Normal wall motion with an ejection fraction of 79%. 4. Stress test with myocardial perfusion imaging shows overall low risk for a cardiac event. ++++++++++++++++++++++++++++++++++++ FINDINGS: ++++++++++++++++++++++++++++++++++++ Protocol: Lexiscan 0.4mg was given as a rapid injection IV over a period of 10 seconds with the radiopharmaceutical injected at 20 seconds. The images were processed using the standard SPECT technique. A gated study was performed on the stress images. Impression: SPECT images demonstrate normal perfusion of normal intensity. Heart Size: The left ventricle is normal. LV Wall Motion: The LVEF is calculated to be 79%. Gated SPECT images reveal normal wall motion. ++++++++++++++++++++++++++++++++++++ STRESS: ++++++++++++++++++++++++++++++++++++ Baseline Vital Signs: ECG: Normal sinus rhythm, prominent T waves HR: 70 bmp Rest BP: 100/42 Regadenoson Peak Dose: 0.4 mg Stress Test Results: Max HR: 96 bmp Target HR: 154 bmp % Target: 62 % Max BP: 139/71 Max RPP: 88422 O2 sat: 100 % Symptoms and Complications: Terminated: Protocol completed Symptoms: Dizziness Complications: None Stress ECG Interp: No significant changes <Electronic Signature> 02/22/2025 01:29 PM Uche Leonard M.D. Uche Leonard MD [facility] Final Res ult * USE ECHOCARDIOGRAM (01/29/2025 4:42 PM CDT) Anatomical Region Laterality Modality Cardiac Echocardiogram 01/29/2025 2:13 PM CDT Narrative 01/31/2025 11:59 AM CDT Echocardiography Report Pat.Name: BERNADINE SIMMS Pat.ID: [id number] .Date: 01/29/2025 Refer.MD: [id number] MADELINE De La Torre EWDPROV EWDPROV Exam Time: 2:13:00 PM Study Type:ECHO WITH CARDIAC DOPPLER COMP Height: 58 in Weight: 223 lb BSA: 1.91 m2 Age: 3 1960,64Y Sex: F BP: 151/81 HR: 79 bpm Sonogrphr: Rosemary Gonsales Pat. Stat.:Outpatient Reason for Study:Chest pain, Shortness of breath Procedures: 2D, M-mode, Doppler, Color Flow, The study quality is technically adequate. Race: W ++++++++++++++++++++++++++++++++++++ SUMMARY: ++++++++++++++++++++++++++++++++++++ The left ventricular size is normal. Estimated left ventricular ejection fraction is 55-60%. Mild concentric left ventricular hypertrophy. Left ventricular diastolic function is abnormal (grade 1 - impaired relaxation). Wall motion appears normal in all segments. The peak pulmonary artery systolic pressure is estimated to be approximately 29 mmHg. No evidence of aortic valve stenosis. Trace aortic regurgitation. Mild calcification of aortic valve leaflets. Mild mitral regurgitation. Mild calcification of the mitral valve leaflets. Mild tricuspid regurgitation. ++++++++++++++++++++++++++++++++++++ FINDINGS: ++++++++++++++++++++++++++++++++++++ LV: The left ventricular size is normal. Estimated left ventricular ejection fraction is 55-60%. Mild concentric left ventricular hypertrophy. Left ventricular diastolic function is abnormal (grade 1 - impaired relaxation). WM: Wall motion appears normal in all segments. RV: The right ventricular size is normal. Right ventricular systolic function is normal. IVS: No evidence of ventricular septal defect. LA: The left atrial size is normal. RA: Right atrial size is normal. IAS: Atrial septum appears intact. JAVIER: No evidence of pericardial effusion. AO: Normal aortic root. PA: The peak pulmonary artery systolic pressure is estimated to be approximately 29 mmHg. Estimated right atrial pressure of 3 mmHg. SVn: Inferior vena cava is normal. AV: No evidence of aortic valve stenosis. The peak velocity across the aortic valve measures 1.6m/sec with a peak gradient of 13mmHg and a mean gradient of 7mmHg. The calculated aortic valve area is 2.1cm2. Trace aortic regurgitation. Mild calcification of aortic valve leaflets. MV: Mild mitral regurgitation. No evidence of mitral valve stenosis. Mild calcification of the mitral valve leaflets. PV: No evidence of pulmonic valve stenosis. No evidence of pulmonic regurgitation. TV: Mild tricuspid regurgitation. No evidence of tricuspid valve stenosis. ++++++++++++++++++++++++++++++++++++ MEASUREMENTS: ++++++++++++++++++++++++++++++++++++ DOPPLER LVOT LVOTpkPG 4 mmHg LVOTmnPG 3 mmHg LVOTpkVel 105 cm/s (70-110) LVOT SV 69 ml LVOT TVI 22.1 cm AV Forward Flow AV TVI 39.4 cm AV pkPG 13 mmHg AV pkVel 181 cm/s (100-170)* Area (TVI) 1.76 cm2 (3-5)* AV mnPG 7 mmHg Area (Jordan) 1.82 cm2 (3-5)* MV Forward Flow MV DeTm 159 msec MV E/A 0.7 MVA P1/2t 4.78 cm2 (4-6) MV pkE 94.1 cm/s (60-130) MV P1/2t 46 msec (30-60)+ MV pkA 131 cm/s PV Forward Flow PV pkVel 107 cm/s (60-90)* PV AC 79 msec PV pkPG 5 mmHg RVOT RVOTpkV 72.8 cm/s TV Regurg Flow TV pkPG 26 mmHg TV pkVel 255 cm/s (30-70)* TV Forward Flow TV E/A 0.9 TV pkA 45.9 cm/s TV pkE 41.6 cm/s Lat E' Lat e 6.85 cm/s Lat E/E' Lat E/e 13.7 Med E' Med e 5.66 cm/s Med E/E' Med E/e 16.6 Aortic Valve Aortic Valve Ar 0.92 Aortic Valve Ve 0.58 PV Antegrade Flow Acceleration Sl 903 cm/s2 Right Atrium David's Disk 20 Right Ventricle Right Ventricle 13.1 cm/s 2D Left Ventricle LVIDd 3.6 cm (3.6-5.2) LV ESV 30.4 ml LVIDs 2.52 cm (2.3-3.9) LV ESV 44.9 ml LngAxd 7.04 cm LVESV BP 38.3 ml LngAxd 7.64 cm LV EF 57.2 % LV EDV 71.2 ml LV EF 60.6 % LV EDV 114 ml LV EF BP 58.9 % LVEDV BP 93.3 ml LV SV 40.7 ml LngAxs 6.15 cm LV SV 69.1 ml LngAxs 6.63 cm LV SV BP 55 ml LVPW LVPWd 1.29 cm Ventricular Septum IVSd 1.21 cm Left Atrium LA VOLBP 50.2 ml Aorta Ao Rtd 3.4 cm (zsc 1.9) Ao Asc 3.2 cm (zsc 2.6)* LVOT LVOT 2 cm LVOTArea 3.14 cm2 Ratios IVS LA Biplane LAVol I BP 26.3 ml/m2 RA Single Plane Right Atrium MO 8.68 mm Right Atrium Sy 15.6 ml Right Atrium Sy 45.8 mm Right Atrium Sy 8.2 ml/m2 Right Atrium Sy 9.35 cm2 Right Ventricle Right Ventricle 27.5 mm Right Ventricle 19.3 mm Major Mastic 52.4 mm MMODE TA Tricuspid Annul 17.5 mm <Electronic Signature> 01/31/2025 11:59 AM Gregg Wyatt M.D. Procedure Note Gregg Wyatt MD - 01/31/2025 Echocardiography Report Pat.Name: MENDEZBERNADINE CAROL Pat.ID: [id number] .Date: 01/29/2025 Refer.: [id number] MADELINE WILSON O EWDPROV EWDPROV Exam Time: 2:13:00 PM Study Type:ECHO WITH CARDIAC DOPPLER COMP Height: 58 in Weight: 223 lb BSA: 1.91 m2 Age: 3 1960,64Y Sex: F BP: 151/81 HR: 79 bpm Sonogrphr: Rosemary Gonsales [facility] Pat. Stat.:Outpatient Reason for Study:Chest pain, Shortness of breath Procedures: 2D, M-mode, Doppler, Color Flow, The study quality is technically adequate. Race: W ++++++++++++++++++++++++++++++++++++ SUMMARY: ++++++++++++++++++++++++++++++++++++ The left ventricular size is normal. Estimated left ventricular ejection fraction is 55-60%. Mild concentric left ventricular hypertrophy. Left ventricular diastolic function is abnormal (grade 1 - impaired relaxation). Wall motion appears normal in all segments. The peak pulmonary artery systolic pressure is estimated to be approximately 29 mmHg. No evidence of aortic valve stenosis. Trace aortic regurgitation. Mild calcification of aortic valve leaflets. Mild mitral regurgitation. Mild calcification of the mitral valve leaflets. Mild tricuspid regurgitation. ++++++++++++++++++++++++++++++++++++ FINDINGS: ++++++++++++++++++++++++++++++++++++ LV: The left ventricular size is normal. Estimated left ventricular ejection fraction is 55-60%. Mild concentric left ventricular hypertrophy. Left ventricular diastolic function is abnormal (grade 1 - impaired relaxation). WM: Wall motion appears normal in all segments. RV: The right ventricular size is normal. Right ventricular systolic function is normal. IVS: No evidence of ventricular septal defect. LA: The left atrial size is normal. RA: Right atrial size is normal. IAS: Atrial septum appears intact. JAVIER: No evidence of pericardial effusion. AO: Normal aortic root. PA: The peak pulmonary artery systolic pressure is estimated to be approximately 29 mmHg. Estimated right atrial pressure of 3 mmHg. SVn: Inferior vena cava is normal. AV: No evidence of aortic valve stenosis. The peak velocity across the aortic valve measures 1.6m/sec with a peak gradient of 13mmHg and a mean gradient of 7mmHg. The calculated aortic valve area is 2.1cm2. Trace aortic regurgitation. Mild calcification of aortic valve leaflets. MV: Mild mitral regurgitation. No evidence of mitral valve stenosis. Mild calcification of the mitral valve leaflets. PV: No evidence of pulmonic valve stenosis. No evidence of pulmonic regurgitation. TV: Mild tricuspid regurgitation. No evidence of tricuspid valve stenosis. ++++++++++++++++++++++++++++++++++++ MEASUREMENTS: ++++++++++++++++++++++++++++++++++++ DOPPLER LVOT LVOTpkPG 4 mmHg LVOTmnPG 3 mmHg LVOTpkVel 105 cm/s (70-110) LVOT SV 69 ml LVOT TVI 22.1 cm AV Forward Flow AV TVI 39.4 cm AV pkPG 13 mmHg AV pkVel 181 cm/s (100-170)* Area (TVI) 1.76 cm2 (3-5)* AV mnPG 7 mmHg Area (Jordan) 1.82 cm2 (3-5)* MV Forward Flow MV DeTm 159 msec MV E/A 0.7 MVA P1/2t 4.78 cm2 (4-6) MV pkE 94.1 cm/s (60-130) MV P1/2t 46 msec (30-60)+ MV pkA 131 cm/s PV Forward Flow PV pkVel 107 cm/s (60-90)* PV AC 79 msec PV pkPG 5 mmHg RVOT RVOTpkV 72.8 cm/s TV Regurg Flow TV pkPG 26 mmHg TV pkVel 255 cm/s (30-70)* TV Forward Flow TV E/A 0.9 TV pkA 45.9 cm/s TV pkE 41.6 cm/s Lat E' Lat e 6.85 cm/s Lat E/E' Lat E/e 13.7 Med E' Med e 5.66 cm/s Med E/E' Med E/e 16.6 Aortic Valve Aortic Valve Ar 0.92 Aortic Valve Ve 0.58 PV Antegrade Flow Acceleration Sl 903 cm/s2 Right Atrium David's Disk 20 Right Ventricle Right Ventricle 13.1 cm/s 2D Left Ventricle LVIDd 3.6 cm (3.6-5.2) LV ESV 30.4 ml LVIDs 2.52 cm (2.3-3.9) LV ESV 44.9 ml LngAxd 7.04 cm LVESV BP 38.3 ml LngAxd 7.64 cm LV EF 57.2 % LV EDV 71.2 ml LV EF 60.6 % LV EDV 114 ml LV EF BP 58.9 % LVEDV BP 93.3 ml LV SV 40.7 ml LngAxs 6.15 cm LV SV 69.1 ml LngAxs 6.63 cm LV SV BP 55 ml LVPW LVPWd 1.29 cm Ventricular Septum IVSd 1.21 cm Left Atrium LA VOLBP 50.2 ml Aorta Ao Rtd 3.4 cm (zsc 1.9) Ao Asc 3.2 cm (zsc 2.6)* LVOT LVOT 2 cm LVOTArea 3.14 cm2 Ratios IVS LA Biplane LAVol I BP 26.3 ml/m2 RA Single Plane Right Atrium MO 8.68 mm Right Atrium Sy 15.6 ml Right Atrium Sy 45.8 mm Right Atrium Sy 8.2 ml/m2 Right Atrium Sy 9.35 cm2 Right Ventricle Right Ventricle 27.5 mm Right Ventricle 19.3 mm Major Mastic 52.4 mm MMODE TA Tricuspid Annul 17.5 mm <Electronic Signature> 01/31/2025 11:59 AM Gregg Wyatt M.D. us Uche Leonard MD ECHO Final Res ult * EKG Reading (12/21/2024 7:22 PM DESIGN ENGINEER) Only the most recent of2 resultswithin the time period is included. Narrative Nick Miller MD - 12/21/2024 7:22 PM DESIGN ENGINEER Nick Miller MD 12/21/2024 9:52 PM EKG Reading Date/Time: 12/21/2024 7:22 PM Performed by: Nick Miller MD Authorized by: Nick Miller MD Interpreted by ED physician Comparison: compared with previous ECG from 12/21/2024 Rhythm: sinus rhythm Rate: normal BPM: 75 Comments: Normal sinus rhythm. Heart rate 75. Normal axis normal interval normal QRS nonspecific ST-T wave changes. Compared to EKG earlier today. Rhythm strip are interpreted 1916 Normal sinus rhythm. Heart rate 75. No ectopy us Nick Miller MD CT CARDIOVASCULAR SYSTEM SERVI DANG Final Result * ECG 12 lead (12/21/2024 7:16 PM DESIGN ENGINEER) Only the most recent of2 resultswithin the time period is included. 12/21/2024 7:16 PM DESIGN ENGINEER Narrative [facility] - 12/21/2024 7:24 PM DESIGN ENGINEER [address] Test Date: 2024-12-21 Pat Name: BERNADINE SIMMS Department: 41 Room: [facility] Gender: Female Financial Director: [id number] : 1960 Requested By: NICK MILLER Order Number: [id number] Reading : Marcella Horowitz Measurements Intervals Mastic Rate: 75 P: -4 CT: 130 QRS: 0 QRSD: 80 T: 46 QT: 378 QTc: 424 Interpretive Statements SINUS RHYTHM Early transition MINIMAL VOLTAGE CRITERIA FOR LVH, CONSIDER NORMAL VARIANT [MEETS CRITERIA IN ONE OF: R(aVL), S(V1), R(V5), R(V5/V6)+S(V1)] Compared to ECG 12/21/2024 16:56:41 No significant change GN ENGINEER Procedure Note Marcella Horowitz MD - 12/21/[address] Test Date: 2024-12-21 Pat Name: BERNADINE SIMMS Department: 41 Room: [facility] Gender: Female Financial Director: [id number] : 1960 Requested By: NICK MILLER Order Number: [id number] Reading MD: Marcella Horowitz Measurements Intervals Mastic Rate: 75 P: -4 CT: 130 QRS: 0 QRSD: 80 T: 46 QT: 378 QTc: 424 Interpretive Statements SINUS RHYTHM Early transition MINIMAL VOLTAGE CRITERIA FOR LVH, CONSIDER NORMAL VARIANT [MEETS CRITERIAIN ONE OF: R(aVL), S(V1), R(V5), R(V5/V6)+S(V1)] Compared to ECG 12/21/2024 16:56:41 No significant change GN ENGINEER us Nick Miller MD ECG ORDERABLES Final Result [facility] * GI PANEL PCR - STOOL (12/21/2024 7:04 PM DESIGN ENGINEER) CAMPYLOBACTER PCR (STOOL) NOT DETECTED NOT DETECTED 12/21/2024 9:49 PM DESIGN ENGINEER [facility] PLESIOMONAS SHIGELLOIDES PCR (STOOL) NOT DETECTED NOT DETECTED 12/21/2024 9:49 PM DESIGN ENGINEER [facility] SALMONELLA PCR (STOOL) NOT DETECTED NOT DETECTED 12/21/2024 9:49 PM DESIGN ENGINEER [facility] VIBRIO PCR (STOOL) NOT DETECTED NOT DETECTED 12/21/2024 9:49 PM DESIGN ENGINEER [facility] VIBRIO CHOLERAE PCR (STOOL) NOT DETECTED NOT DETECTED 12/21/2024 9:49 PM DESIGN ENGINEER [facility] YERSINIA ENTEROCOLITICA PCR (STOOL) NOT DETECTED NOT DETECTED 12/21/2024 9:49 PM DESIGN ENGINEER [facility] ENTEROAGGREGATIVE ECOLI PCR (STOOL) NOT DETECTED NOT DETECTED 12/21/2024 9:49 PM DESIGN ENGINEER [facility] ENTEROPATHOGENIC ECOLI PCR (STOOL) NOT DETECTED NOT DETECTED 12/21/2024 9:49 PM DESIGN ENGINEER [facility] ENTEROTOXIGENIC ECOLI PCR (STOOL) NOT DETECTED NOT DETECTED 12/21/2024 9:49 PM DESIGN ENGINEER [facility] SHIGA LIKE TOXIN ECOLI PCR (STOOL) NOT DETECTED NOT DETECTED 12/21/2024 9:49 PM DESIGN ENGINEER [facility] SHIG/ENTEROINVASIVE ECOLI PCR (STOOL) NOT DETECTED NOT DETECTED 12/21/2024 9:49 PM DESIGN ENGINEER [facility] CRYPTOSPORIDIUM PCR (STOOL) NOT DETECTED NOT DETECTED 12/21/2024 9:49 PM DESIGN ENGINEER [facility] CYCLOSPORA CAYETANENSIS PCR (STOOL) NOT DETECTED NOT DETECTED 12/21/2024 9:49 PM DESIGN ENGINEER [facility] ENTAMOEBA HISTOLYTICA PCR (STOOL) NOT DETECTED NOT DETECTED 12/21/2024 9:49 PM DESIGN ENGINEER [facility] GIARDIA LAMBLIA PCR (STOOL) NOT DETECTED NOT DETECTED 12/21/2024 9:49 PM DESIGN ENGINEER [facility] ADENOVIRUS F40/41 PCR (STOOL) NOT DETECTED NOT DETECTED 12/21/2024 9:49 PM DESIGN ENGINEER [facility] ASTROVIRUS PCR (STOOL) NOT DETECTED NOT DETECTED 12/21/2024 9:49 PM DESIGN ENGINEER [facility] NOROVIRUS GI/GII PCR (STOOL) NOT DETECTED NOT DETECTED 12/21/2024 9:49 PM DESIGN ENGINEER [facility] ROTAVIRUS A PCR (STOOL) NOT DETECTED NOT DETECTED 12/21/2024 9:49 PM DESIGN ENGINEER [facility] SAPOVIRUS PCR (STOOL) NOT DETECTED NOT DETECTED 12/21/2024 9:49 PM DESIGN ENGINEER [facility] STOOL SPECIMEN / Unknown 12/21/2024 7:04 PM DESIGN ENGINEER Nick Miller MD MICROBIOLOGY - GENERAL ORDERAB LES Final Result Performing Organization Address City/[facility]/ZIP Co de Phone Number [facility] [address] [place] [id number], [place] [phone] * TROPONIN, QUANT (12/21/2024 7:04 PM DESIGN ENGINEER) Only the most recent of2 resultswithin the time period is included. TROPONIN I HIGH SENSITIVITY 9 <54 ng/L 12/21/2024 7:34 PM DESIGN ENGINEER [facility] Comment: HIGH DOSES OF BIOTIN, TROPONIN-SPECIFIC AUTOANTIBODIES, AND ANTIBODY THERAPY CONTAINING HAMA MAY INTERFERE WITH THIS TEST RESULT. CORRELATION TO CLINICAL HISTORY AND PRESENTATION RECOMMENDED. 12/21/2024 7:04 PM DESIGN ENGINEER us Nick Miller MD LABORATORY Final Result Performing Organization Address City/[facility]/ZIP Co de Phone Number [facility] [address] [place] [address], [place] [phone] * XR CHEST PORTABLE (12/21/2024 5:10 PM DESIGN ENGINEER) Anatomical Region Laterality Modality Chest Radiographic Dasia ging 12/21/2024 5:24 PM DESIGN ENGINEER Impressions 12/21/2024 5:27 PM DESIGN ENGINEER Impression: No acute findings. Referred By: Interpreted By: Lowell Carr MD, 12/21/2024 5:24 PM Narrative 12/21/2024 5:27 PM DESIGN ENGINEER [address] [address] Examination: Chest 1 view portable History: Chest pain DATE/TIME: 12/21/2024 4:59 PM Comparison: February 13, 2024 Technique: AP upright portable view of the chest was obtained. Findings: Heart size, mediastinal contours and pulmonary vasculature are within normal limits. No pulmonary consolidation, pleural effusion or pneumothorax. No acute osseous abnormality. Procedure Note Lowell Carr MD - 12/21/[address] [address] Examination: Chest 1 view portable History: Chest pain DATE/TIME: 12/21/2024 4:59 PM Comparison: February 13, 2024 Technique: AP upright portable view of the chest was obtained. Findings: Heart size, mediastinal contours and pulmonary vasculature arewithin normal limits. No pulmonary consolidation, pleural effusion orpneumothorax. No acute osseous abnormality. Impression: No acute findings. Referred By: Interpreted By: Lowell Carr MD, 12/21/2024 5:24 PM Nick Miller MD GENERAL IMAGING Final Result * (ABNORMAL) COMPREHENSIVE METABOLIC PANEL (12/21/2024 5:05 PM DESIGN ENGINEER) GLUCOSE 147(H) 70 - 99 MG/DL 12/21/2024 5:39 PM DESIGN ENGINEER [facility] BUN 10 7 - 18 MG/DL 12/21/2024 5:39 PM [facility] CREATININE S/P/B 0.75 0.55 - 1.02 MG/DL 12/21/2024 5:39 PM [facility] SODIUM S/P/B 141 136 - 145 MMOL/L 12/21/2024 5:39 PM [facility] POTASSIUM S/P/B 3.4(L) 3.5 - 5.1 MMOL/L 12/21/2024 5:39 PM [facility] CHLORIDE S/P/B 111 97 - 115 MMOL/L 12/21/2024 5:39 PM [facility] CO2 26.0 21 - 32 MMOL/L 12/21/2024 5:39 PM [facility] CALCIUM S/P/B 8.7 8.5 - 10.1 MG/DL 12/21/2024 5:39 PM [facility] BILIRUBIN TOTAL S/P/B 0.3 0.2 - 1.2 MG/DL 12/21/2024 5:39 PM [facility] Comment: THIS ASSAY IS NOT RECOMMENDED FOR PATIENTS UNDERGOING TREATMENT WITH ELTROMBOPAG DUE TO THE POTENTIAL FOR FALSELY ELEVATED RESULTS. TOTAL PROTEIN S/P/B 7.9 6.4 - 8.2 G/DL 12/21/2024 5:39 PM [facility] ALBUMIN S/P/B 3.5 3.4 - 5.0 G/DL 12/21/2024 5:39 PM [facility] AST 19 15 - 37 U/L 12/21/2024 5:39 PM [facility] ALT 28 14 - 55 U/L 12/21/2024 5:39 PM [facility] ALKALINE PHOSPHATASE S/P/B 170(H) 50 - 136 U/L 12/21/2024 5:39 PM DESIGN ENGINEER [facility] ANION GAP 4.0 2 - 10 MMOL/L 12/21/2024 5:39 PM [facility] BUN CREATININE RATIO 13.4 6 - 26 12/21/2024 5:39 PM [facility] A/G RATIO 0.8(L) 1.0 - 2.0 RATIO 12/21/2024 5:39 PM [facility] GFR ESTIMATE 88(L) >90 ML/MIN/1.7 3 M2 12/21/2024 5:39 PM [facility] Comment: NOTE: eGFR is not calculated for patients <18 years of age or gender unknown. This is an estimated GFR calculation using the new CKD EPI creatinine equation without race and so does not require a correction factor for race. This estimated GFR should not be used for calculating drug doses. 12/21/2024 5:05 PM DESIGN ENGINEER Nick Miller MD LABORATORY Final Result [facility] [address] [place] [address], [place] [phone] * (ABNORMAL) CBC W/DIFF AUTOMATED (12/21/2024 5:05 PM DESIGN ENGINEER) WBC 6.59 4.5 - 11.0 x10'3/uL 12/21/2024 5:17 PM DESIGN ENGINEER [facility] RBC 4.29 4.20 - 5.40 x10'6/uL 12/21/2024 5:17 PM [facility] HGB 10.7(L) 12.0 - 16.0 G/DL 12/21/2024 5:17 PM [facility] HCT 35.3(L) 38.0 - 48.0 % 12/21/2024 5:17 PM [facility] MCV 82.3 81.0 - 99.0 FL 12/21/2024 5:17 PM [facility] MCH 24.9(L) 27.0 - 31.0 PG 12/21/2024 5:17 PM [facility] MCHC 30.3(L) 32.0 - 36.0 G/DL 12/21/2024 5:17 PM [facility] RDW 18.3(H) 11.5 - 14.5 % 12/21/2024 5:17 PM [facility] PLT 285 130 - 400 x10'3/uL 12/21/2024 5:17 PM [facility] MPV 10.1 9.3 - 12.2 FL 12/21/2024 5:17 PM [facility] DIFFERENTIAL TYPE AUTOMATED DIFFERENTIAL 12/21/2024 5:17 PM [facility] NEUTROPHILS % 49.6 % 12/21/2024 5:17 PM [facility] LYMPHOCYTES % 40.5 % 12/21/2024 5:17 PM [facility] MONOCYTES % 7.4 % 12/21/2024 5:17 PM [facility] EOSINOPHILS 1.4 % 12/21/2024 5:17 PM [facility] BASOPHILS 0.9 % 12/21/2024 5:17 PM [facility] IMMATURE GRANS % 0.2 % 12/21/19 5:17 PM [facility] ABS. NEUTROPHILS 3.27 1.80 - 7.70 x10'3/uL 12/21/2024 5:17 PM [facility] ABS. LYMPHOCYTES 2.67 1.00 - 4.80 x10'3/uL 12/21/2024 5:17 PM DESIGN ENGINEER [facility] ABS. MONOCYTES 0.49 0.24 - 0.86 x10'3/uL 12/21/2024 5:17 PM DESIGN ENGINEER [facility] ABS. EOSINOPHILS 0.09 0.04 - 0.36 x10'3/uL 12/21/2024 5:17 PM DESIGN ENGINEER [facility] ABS. BASOPHILS 0.06 0.01 - 0.08 x10'3/uL 12/21/2024 5:17 PM DESIGN ENGINEER [facility] ABS. IMMATURE GRANULOCYTES 0.01 0.00 - 0.49 x10'3/uL 12/21/2024 5:17 PM [facility] 12/21/2024 5:05 PM DESIGN ENGINEER Nick Miller MD LABORATORY Final Result [facility] [address] [place] [address], * LIPID PANEL (02/14/2024 6:06 AM CDT) CHOLESTEROL 161 <200 MG/DL 02/14/2024 7:25 AM CDT [facility] TRIGLYCERIDES 105 <150 MG/DL 02/14/2024 7:25 AM CDT [facility] HDL 68 >40.0 MG/DL 02/14/2024 7:25 AM CDT [facility] LDL (CALCULATED) 72 <100 MG/DL 02/14/20 7:25 AM CDT [facility] NON HDL CHOLESTEROL 93 <130 MG/DL 02/13 7:25 AM CDT [facility] CHOL/HDL RATIO 2.4 0.0 - 4.5 02/14/2024 7:25 AM CDT [facility] VLDL CALCULATION 21 5 - 55 MG/DL 02/14/2024 7:25 AM CDT [facility] LIPID INTERPRETATION 02/14/2024 7:25 AM CDT [facility] Comment: [facility] REPORT RECOMMENDATIONS: ADULT CHILD LOW RISK: CHOLESTEROL <200 <170 TRIGLYCERIDE <150 --- HDL >=60 --- LDL <100 <110 BORDERLINE: CHOLESTEROL 200-239 170-199 TRIGLYCERIDE 150-199 --- HDL 40-59 --- LDL 100-159 110-129 HIGH RISK: CHOLESTEROL >=240 >=200 TRIGLYCERIDE >=200 --- HDL <40 --- LDL >=160 >=130 02/14/2024 6:06 AM CDT Yuko Patel VALVE SETTER LABORATORY Final Resul t [facility] [address] [place] [id number], [place] [phone] * OCCULT BLOOD, FECES (02/13/2024 7:26 PM CDT) OCCULT BLOOD FECAL NEGATIVE 02/13/2024 8:10 PM CDT [facility] STOOL SPECIMEN / Unknown 02/13/2024 7:26 PM CDT us Kal Salinas MD,PHD BODY FLUIDS AND STOOLS ORD ERABLES Final Result [facility] [address] [place] [address], [place] [phone] from Last 3 Months or Most Recently Relevant to Health Maintenance Insurance MED REPLACE [facility] MEDICARE Advance Directives Documents on File Type Date Recorded Patient Town Justice Expl anation Advance Directives and Living Will 02/29/2024 3:02 PM 05/02/2017 POA FOR HC * Full Code (Latest Code Status on File) Date Activated Date Inactivated Comments 02/19/2024 1:22 PM 02/25/2024 11:57 AM * Full Code Date Activated Date Inactivated Comments 02/16/2024 10:58 AM 02/19/2024 1:21 PM * Full Code Date Activated Date Inactivated Comments 02/14/2024 12:19 AM 02/16/2024 10:58 AM Care Teams Federal Appellate Clerk Relationship Specialty Start Date End Date Theresa Connors PA [address], [address] [place] [address] PCP - General PHYSICIAN MEAT MOLDER 02/20/25
--- OUTSIDE RECORDS SUMMARY | 2025-03-07 15:31 | XMS_ITS | Referral Summary ---
Author Organization [facility] Address [address] [place] [address] Care Team Providers Care Fixture Designer Name Role Phone Israel Carrillo MD Unavailable [phone] Darlene Saeed MD Primary Care Provider Manish Singer MD Unavailable [phone] Encounters Date Type Department Care Team Description 02/25/2025 10:54 AM CDT - 02/28/2025 1:50 PM CDT Hospital Encounter [facility] [address] [place] [id number] Layton Macario DO Shaukat, Bushra, MD Hyperkalemia (Primary Dx); Acute renal failure, unspecified acute renal failure type; Encephalopathy acute; Fibromyalgia; Fall, initial encounter; Unsteadiness on feet Discharge Disposition: Discharge to home or self care 02/19/2025 Telephone [facility] [address] [facility] 1st [address] [place] [address] Henry Machado MD 02/04/2025 Orders Only [facility] 6th [place] [address] [place] [address] Narendra Singh CMA 02/04/2025 1:00 PM CDT Office Visit [facility] [address] [place] [address] 6th [place] [address] [place] [address] Henry Machado MD Lumbar spondylosis (Primary Dx) 01/31/2025 9:18 AM CDT - 01/31/2025 11:59 PM CDT Hospital Encounter [facility] [address] [place] [id number] Hari Bowen MD Other spondylosis, lumbosacral region (Primary Dx); Lumbosacral radiculopathy Discharge Disposition: Discharge to home or self care 01/10/2025 9:40 AM ADMINISTRATIVE ASSISTANT DATA ENTRY - 01/10/2025 11:59 PM ADMINISTRATIVE ASSISTANT DATA ENTRY Hospital Encounter [facility] [address] [place] [phone] Hari Bowen MD Other spondylosis, lumbosacral region (Primary Dx); Lumbosacral radiculopathy Discharge Disposition: Discharge to home or self care 12/20/2024 11:02 AM ADMINISTRATIVE ASSISTANT DATA ENTRY - 12/20/2024 11:59 PM ADMINISTRATIVE ASSISTANT DATA ENTRY Hospital Encounter [facility] [address] [place] [id number] Hari Bowen MD Other spondylosis, lumbosacral region (Primary Dx); Lumbosacral radiculopathy Discharge Disposition: Discharge to home or self care from Last 3 Months Allergies Active Allergy Reactions Criticality Noted Date Comments Cortisone Other (See comments) Medium 10/08/2015 Extreme and rapid weight gain Hymenoptera Allergenic Extract Anaphylaxis High 03/19/2024 Ibuprofen Other (See comments) High 08/07/2019 Muscle constriction of not being able to move Ketorolac Other (See comments) Medium 12/22/2021 Eye drops -itching; eyes also swell Latex Rash Medium 05/14/2019 Levofloxacin Other (See comments) Medium 05/14/2019 Disoriented/ dysphoric Naproxen Other (See comments) Medium 09/19/2007 Disoriented/ dysphoric Nsaids (Non-Steroidal Anti-Inflammatory Drug) Muscle pain Medium 12/08/2012 painful muscle cramping to the point of not being able to move... tolerates ASA Oxycodone Other (See comments) High 08/07/2019 Feels disoriented/ dysphoric Polymyxin B Sulfate-Hc Other (See comments) Medium 12/22/2021 Eye drops- itching and swelling Prednisone Other (See comments) Medium 10/08/2015 Extreme and rapid weight gain Venom-Honey Bee Anaphylaxis High 08/05/2017 Wasp Venom Anaphylaxis High Medications nitroglycerin (NITROSTAT) 0.4 mg SL tabletIndication s:acute episode of anginal pain Place 1 tablet (0.4 mg total) under the tongue every 5 (five) minutes as needed for chest pain (pt states she is taking for acid reflux) No more than 3 tablets within 15 mintues Active ARTIFICIAL TEARS,HYPROMELLO SE, OPHT Administer 1-2 drops into both eyes as needed Active acetaminophen (TYLENOL) 500 mg tablet Take 1 tablet (500 mg total) by mouth every 6 (six) hours as needed Active multivit,iron,mi nerals/lutein (CENTRUM SILVER ULTRA WOMEN'S ORAL) Take 1 tablet by mouth daily Active rosuvastatin (CRESTOR) 5 mg tablet Take 1 tablet (5 mg total) by mouth daily 03/21/20 23 Active aspirin 81 mg enteric coated tablet Take 1 tablet (81 mg total) by mouth daily 30 tablet 11 06/15/20 23 2024 Active omeprazole (PriLOSEC) 40 mg capsule Take 1 capsule (40 mg total) by mouth 2 (two) times a day 06/16/20 24 Active PARoxetine (PAXIL) 20 mg tablet Take 1 tablet (20 mg total) by mouth every morning 06/16/20 24 Active potassium chloride ER (KLOR-CON) 10 mEq CR tablet Take 1 tablet/capsul e (10 mEq total) by mouth 3 (three) times a day 08/05/20 24 Active SUMAtriptan (IMITREX) 50 mg tablet Take 1 tablet (50 mg total) by mouth 2 (two) times a day as needed 04/24/20 24 Active metoprolol XL (TOPROL-XL) 25 mg extended release tablet Take 1 tablet (25 mg total) by mouth daily 10/16/20 24 Active metFORMIN (GLUCOPHAGE) 500 mg tablet Take 1 tablet (500 mg total) by mouth 2 (two) times a day with meals Active HYDROcodone-acet aminophen (NORCO) 5-325 mg per tabletIndication s:Lumbosacral radiculopathy Take 1 tablet by mouth every 6 (six) hours as needed for pain MAX 4 A DAY for pain 120 tablet 02/23/20 25 Active lidocaine (LIDODERM) 5 % Place 1 patch on the skin daily as needed for pain Remove & discard patch within 12 hours or as directed by MD. Active pregabalin (LYRICA) 75 mg capsule Take 1 capsule (75 mg total) by mouth 3 (three) times a day 90 capsule 02/29/20 25 2024 Active lisinopriL (PRINIVIL,ZESTRI L) 20 mg tablet Take 1 tablet (20 mg total) by mouth daily 30 tablet 02/29/20 25 2024 Active riboflavin, vitamin B2, (VITAMIN B-2 ORAL) Take 450 mg by mouth every morning Every day unsure med dosage 2024 Discontinued cyanocobalamin (Vitamin B-12) 500 mcg tablet Take 1 tablet (500 mcg total) by mouth every morning 2024 Discontinued lidocaine (LIDODERM) 5 %Indications:Chr onic low back pain with sciatica, sciatica laterality unspecified, unspecified back pain laterality PLACE 1 PATCH ON THE SKIN DAILY REMOVE AND DISCARD PATCH WITHIN 12 HOURS OR DIRECTED BY MD. 30 patch 02/26/20 22 2024 Discontinued omega-3 fatty acids-fish oil 300-1,000 mg capsule Take 2 capsules (2 g total) by mouth big machine consultant before breakfast 2024 Discontinued tamsulosin (FLOMAX) 0.4 mg extended release capsule Take 2 capsules (0.8 mg total) by mouth daily with dinner 60 capsule 02/10/20 24 2024 Discontinued furosemide (LASIX) 40 mg tabletIndication s:Edema Take 0.5 tablets (20 mg total) by mouth daily as needed (LE swelling) 15 tablet 02/10/20 24 2024 Discontinued lisinopriL (PRINIVIL,ZESTRI L) 40 mg tablet Take 1 tablet (40 mg total) by mouth daily 04/24/20 24 2024 Discontinued(S top Taking at Discharge) pregabalin (LYRICA) 150 mg capsuleIndicatio ns:Lumbosacral radiculopathy,Sa croiliac joint pain,Thoracic spine pain TAKE 1 CAPSULE BY MOUTH 3 TIMES DAILY 270 capsule 09/26/20 24 2024 Discontinued tiZANidine (ZANAFLEX) 4 mg tabletIndication s:Spasm of muscle TAKE 1 TABLET BY MOUTH EVERY 6 HOURS NEEDED 120 tablet 2 12/18/19 25 2024 Discontinued(S top Taking at Discharge) HYDROcodone-acet aminophen (NORCO) 5-325 mg per tabletIndication s:Lumbosacral radiculopathy Take 1 tablet by mouth 3 (three) times a day as needed for pain for pain 90 tablet 01/29/20 25 2024 Discontinued(R eorder) pregabalin (LYRICA) 150 mg capsuleIndicatio ns:Lumbosacral radiculopathy,Sa croiliac joint pain,Thoracic spine pain TAKE 1 CAPSULE BY MOUTH 3 TIMES DAILY 270 capsule 02/19/20 25 2024 Discontinued(S top Taking at Discharge) amLODIPine (NORVASC) 5 mg tablet Take 1 tablet (5 mg total) by mouth daily 01/09/202024 Discontinued(S top Taking at Discharge) Active Problems Problem Noted Date Diagnosed Date Acute metabolic acidosis 02/25/2025 Weight gain 02/25/2025 Fibromyalgia 02/25/2025 Iron deficiency anemia due to chronic blood loss 03/20/2024 Shortness of breath 03/20/2024 Physical deconditioning 02/20/2024 Angina at rest 02/15/2024 Urinary retention 02/08/2024 Assessment & Plan (02/09/2024 1:50 PM CDT): - has been retaining urine since the damian's was removed 02/07 - Bladder scan overnight 425 ml and was 325 ml today; mentioned that she feels like she wants to go but is unable to - will give trial of flomax -02/08- continues to have urinary retention; increased dose to 0.8 mg and urocholine added Hypotension, unspecified hypotension type 2023 Assessment & Plan (02/06/2024 11:39 PM CDT): Presented hypotensive to pain clinic, brought to ED has ACT. Given IV fluids, nilo stick X 2 with improvement. Per workup may be in setting of hypovolemia due to dehydration and diuretic, possible urinary tract infection, KAT inhibitor with lower concern cardiogenic or neurogenic at this time. - s/p 2 L IVF, nilo stick - CTX (02/05-) for UTI elsewhere - can consider TTE though history is pretty revealing - PT/OT Prediabetes 02/06/2024 Assessment & Plan (02/06/2024 11:35 PM CDT): Diet-controlled Urinary tract infection 02/06/2024 Assessment & Plan (02/09/2024 1:50 PM CDT): Positive nitrites, 3+ LE in setting of presentation with hypotension. - CTX (02/05-) - UCx positive for E.coli - blood cultures negative to date Hyperkalemia 02/06/2024 Assessment & Plan (02/06/2024 11:45 PM CDT): K 6.7 in setting of DEANNE and lisinopril. S/p calcium gluconate. Managed medically with insulin/dextrose, lasix, lokelma to 4's - Hold ACEi - Trend renal function Temporomandibular joint (TMJ) pain 09/12/2023 Cystitis 05/18/2023 Pelvic pain 05/18/2023 Inverted papilloma of maxillary sinus 09/06/2022 Sacroiliitis 07/10/2022 Osteoarthritis of spine with radiculopathy, lumb ar region 07/10/2022 Sagittal plane imbalance 03/23/2022 Overview (03/23/2022): Added automatically from request for surgery [id number] Other secondary scoliosis, lumbar region 022 Overview (03/23/2022): Added automatically from request for surgery [id number] Kyphosis (acquired) (postural) 03/23/2022 Overview (03/23/2022): Added automatically from request for surgery [id number] Vertigo 02/26/2022 Fecal occult blood test positive 06/30/2021 Overview (06/30/2021): Added automatically from request for surgery [id number] Chronic maxillary sinusitis 06/22/2021 Overview (06/22/2021): Added automatically from request for surgery [id number] Lip lesion 06/22/2021 Overview (06/22/2021): Added automatically from request for surgery [id number] Allergic rhinitis 03/23/2021 Hypertrophy of nasal turbinates 03/23/2021 Seizure 03/21/2021 Age-related osteoporosis wit hout current pathological fracture 03/15/2021 Nasal obstruction 02/16/2021 Deviated nasal septum 02/16/2021 Chronic rhinitis 02/16/2021 Acute dehydration 02/04/2021 Ataxia due to recent stroke 02/04/2021 Chronic ear pain 02/04/2021 Dementia 02/04/2021 Elevated creatine kinase level 02/04/2021 Well child examination 02/04/2021 Fall on board fishing boat 02/04/2021 Functional weakness 02/04/2021 History of hemorrhagic stroke with residual saritha paresis 02/04/2021 Metabolic encephalopathy 02/04/2021 Neurogenic bladder 02/04/2021 Obesity, Class I, BMI 30-34.9 02/04/2021 Paroxysmal atrial fibrillation 02/04/2021 Benign skin lesion of forearm 02/04/2021 Recurrent falls while walking 02/04/2021 Repeated falls 02/04/2021 Mass of cerebellum 02/04/2021 Sepsis due to gram-negative urinary tract infect ion 02/04/2021 Syncope due to sick sinus syndrome 02/04/2021 Moderate malnutrition 12/12/2020 Altered mental status 12/10/2020 Assessment & Plan (12/18/2020 11:25 AM ADMINISTRATIVE ASSISTANT DATA ENTRY): - appears resolved now with discontinuation of multiple neuro active meds - most likely 2/2 polypharmacy or due to known PNES exacerbated by polypharmacy. Also might have underlying dementia vs undiagnsoed psychiatric disease vs hypokalemic period paralysis syndrome (unlikely) etc. - held many central NS acting meds including: hyoscyamine, mirtazapine, paxil, nortryptiline, buspar, pregabalin, solifenacin, pramipexole, trazodone, tolteradine, morphine until mental status clear. Has never seen psychiatry; pcp manages meds. Psych consulted and recommended to hold off all anti-depressant. Initiated baclofen at lower dose to prevent baclofen withdrawal symptoms - psychiatry consulted who recommended discontinuing all her 5 anti-depressants and set up outpatient follow up for further evaluation. 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 Discussed with and patient and both of them are agreeable. Assessment & Plan (12/17/2020 11:03 AM ADMINISTRATIVE ASSISTANT DATA ENTRY): - appears resolved now with discontinuation of multiple neuro active meds - most likely 2/2 polypharmacy or due to known PNES exacerbated by polypharmacy. Also might have underlying dementia vs undiagnsoed psychiatric disease vs hypokalemic period paralysis syndrome (unlikely) etc. - held many central NS acting meds including: hyoscyamine, mirtazapine, paxil, nortryptiline, buspar, pregabalin, solifenacin, pramipexole, trazodone, tolteradine, morphine until mental status clear. Has never seen psychiatry; pcp manages meds. Psych consulted and recommended to hold off all anti-depressant. Initiated baclofen at lower dose to prevent baclofen withdrawal symptoms - psychiatry consulted who recommended discontinuing all her 5 anti-depressants and set up outpatient follow up for further evaluation. 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 Discussed with and patient and both of them are agreeable. Assessment & Plan (12/16/2020 11:06 AM ADMINISTRATIVE ASSISTANT DATA ENTRY): - appears resolved now with discontinuation of multiple neuro active meds - most likely 2/2 polypharmacy or due to known PNES exacerbated by polypharmacy. Also might have underlying dementia vs undiagnsoed psychiatric disease vs hypokalemic period paralysis syndrome (unlikely) etc. - held many central NS acting meds including: hyoscyamine, mirtazapine, paxil, nortryptiline, buspar, pregabalin, solifenacin, pramipexole, trazodone, tolteradine, morphine until mental status clear. Has never seen psychiatry; pcp manages meds. Psych consulted and recommended to hold off all anti-depressant. Initiated baclofen at lower dose to prevent baclofen withdrawal symptoms - psychiatry consulted who recommended discontinuing all her 5 anti-depressants and set up outpatient follow up for further evaluation. 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 Discussed with and patient and both of them are agreeable. Hypoglycemia 12/10/2020 Assessment & Plan (12/18/2020 11:25 AM ADMINISTRATIVE ASSISTANT DATA ENTRY): - resolved. - reported on admission that [...] off from checking C peptide, proinsulin levels. Assessment & Plan (12/17/2020 11:03 AM ADMINISTRATIVE ASSISTANT DATA ENTRY): - resolved. - reported on admission that [...] off from checking C peptide, proinsulin levels. Assessment & Plan (12/15/2020 7:36 PM ADMINISTRATIVE ASSISTANT DATA ENTRY): - resolved. - reported on admission that [...] off from checking C peptide, proinsulin levels. HTN (hypertension) 12/10/2020 Assessment & Plan (02/06/2024 11:35 PM CDT): - hold home lisinopril while DEANNE Assessment & Plan (12/18/2020 11:25 AM ADMINISTRATIVE ASSISTANT DATA ENTRY): - given softer BPs (likely related to ativan/haldol) holding antihypertensive meds amlodipine, 2.5, aldactone 100, and lasix 40 bid (stopped after recent discharge) Assessment & Plan (12/17/2020 11:04 AM ADMINISTRATIVE ASSISTANT DATA ENTRY): - given softer BPs (likely related to ativan/haldol) holding antihypertensive meds amlodipine, 2.5, aldactone 100, and lasix 40 bid (stopped after recent discharge) Assessment & Plan (12/12/2020 5:27 PM ADMINISTRATIVE ASSISTANT DATA ENTRY): - given softer BPs (likely related to ativan/haldol) holding antihypertensive meds amlodipine, 2.5, aldactone 100, and lasix 40 bid (stopped after recent discharge) History of pseudoseizure 12/10/2020 Assessment & Plan (12/18/2020 11:25 AM ADMINISTRATIVE ASSISTANT DATA ENTRY): - vEEG in 2019 with no epileptiform activity, showed mild generalized slowing. Soft diagnosis of non-epipileptic seizures - unclear if these previous episodes are the same as the current spells. H and P from vEEG states onset in 2015 and said these current spells started 1.5 years ago - EEG ordered which showed no seizure activity. As per neurology presentation appears consistent with her known PNES that may have been exacerbated by polypharmacy given the significant number of psychotropic and deliriogenic medications she takes at home. Discontinued most psychotropic medication. Continuing baclofen at lower doses. Assessment & Plan (12/17/2020 11:04 AM ADMINISTRATIVE ASSISTANT DATA ENTRY): - vEEG in 2019 with no epileptiform activity, showed mild generalized slowing. Soft diagnosis of non-epipileptic seizures - unclear if these previous episodes are the same as the current spells. H and P from vEEG states onset in 2015 and said these current spells started 1.5 years ago - EEG ordered which showed no seizure activity. As per neurology presentation appears consistent with her known PNES that may have been exacerbated by polypharmacy given the significant number of psychotropic and deliriogenic medications she takes at home. Discontinued most psychotropic medication. Continuing baclofen at lower doses. Assessment & Plan (12/14/2020 1:15 PM ADMINISTRATIVE ASSISTANT DATA ENTRY): - vEEG in 2019 with no epileptiform activity, showed mild generalized slowing. Soft diagnosis of non-epipileptic seizures - unclear if these previous episodes are the same as the current spells. H and P from vEEG states onset in 2015 and said these current spells started 1.5 years ago - EEG ordered which showed no seizure activity. As per neurology presentation appears consistent with her known PNES that may have been exacerbated by polypharmacy given the significant number of psychotropic and deliriogenic medications she takes at home. Discontinued most psychotropic medication. Continuing baclofen at lower doses. Hx of diabetes mellitus 12/10/2020 Assessment & Plan (12/18/2020 11:25 AM ADMINISTRATIVE ASSISTANT DATA ENTRY): - Pt previously overweight and on meds, but none recently - said patient has no access to insulin. Hgb a1c is 4.9 Assessment & Plan (12/17/2020 11:04 AM ADMINISTRATIVE ASSISTANT DATA ENTRY): - Pt previously overweight and on meds, but none recently - said patient has no access to insulin. Hgb a1c is 4.9 Assessment & Plan (12/12/2020 5:27 PM ADMINISTRATIVE ASSISTANT DATA ENTRY): - Pt previously overweight and on meds, but none recently - said patient has no access to insulin. Hgb a1c is 4.9 Acute renal failure 12/10/2020 Assessment & Plan (02/09/2024 1:51 PM CDT): Baseline Cr 0.9-1.1, admit BUN/Cr 46/2.08. UA with hyaline casts, infectious, otherwise bland. - monitor strict I/O's, avoid nephrotoxic medications, renally dose medications - kidney ultrasound - remove damian 02/06; see urinary retension - Cr elevated 02/08; will continue to observe and encouraged hydration Assessment & Plan (12/12/2020 5:36 PM ADMINISTRATIVE ASSISTANT DATA ENTRY): - resolved. Cr up from 0.9 to 1.32 on admission. - renal function improved with IV fluid. Moderate malnutrition 06/25/2020 Overview (06/25/2020): Added automatically from request for surgery [id number] Assessment & Plan (12/18/2020 11:25 AM ADMINISTRATIVE ASSISTANT DATA ENTRY): - due to poor oral intake. RD consulted. Encourage better oral intake. Assessment & Plan (12/17/2020 11:03 AM ADMINISTRATIVE ASSISTANT DATA ENTRY): - due to poor oral intake. RD consulted. Encourage better oral intake. Assessment & Plan (12/15/2020 7:32 PM ADMINISTRATIVE ASSISTANT DATA ENTRY): - due to poor oral intake. RD consulted. Encourage better oral intake. Odynophagia 05/20/2020 Complications of gastric bypass surgery 04/02/20 20 Constipation due to opioid therapy 04/02/2020 GERD (gastroesophageal reflux disease) 0 Mixed anxiety depressive disorder 04/02/2020 Narcotic dependency, continuous 04/02/2020 Tobacco use disorder, continuous 04/02/2020 Pseudoseizures 04/02/2020 Functional neurological symp nelli disorder with attacks or seizures 04/02/2020 Thyroid nodule 08/06/2019 Constipation, unspecified 03/31/2019 Difficulty in walking, not elsewhere classified 03/31/2019 Hyperlipidemia, unspecified 03/31/2019 Irritable bowel syndrome, unspecified 03/31/2019 Major depressive disorder, recurrent, unspecifie d 03/31/2019 Muscle weakness (generalized) 03/31/2019 Other idiopathic peripheral autonomic neuropathy 03/31/2019 Other insomnia 03/31/2019 Type 2 diabetes mellitus without complications 0 03/31/2019 Unspecified sequelae of cerebral infarction 03/14 Unsteadiness on feet 03/31/2019 Neck mass 03/05/2019 Mass of nasal sinus 03/05/2019 Lung nodule 01/09/2019 COPD (chronic obstructive pulmonary disease) Spinal stenosis of lumbar re gion with neurogenic claudication 08/21/2017 Sensorimotor neuropathy 03/16/2017 Cervicalgia 10/26/2016 Opioid dependence 10/25/2016 Chronic pain syndrome 12/17/2015 Assessment & Plan (12/18/2020 11:25 AM ADMINISTRATIVE ASSISTANT DATA ENTRY): - has chronic back pain - given altered mental status, will hold meds that may cloud picture: these include pregabalin 100 tid, morphine 15mg q8h, hyoscyamine 0.375 bid (abd pain). Also on baclofen 20 mg TID, changed to 5 mg TID to avoid withdrawal effect. Assessment & Plan (12/17/2020 11:03 AM ADMINISTRATIVE ASSISTANT DATA ENTRY): - has chronic back pain - given altered mental status, will hold meds that may cloud picture: these include pregabalin 100 tid, morphine 15mg q8h, hyoscyamine 0.375 bid (abd pain). Also on baclofen 20 mg TID, changed to 5 mg TID to avoid withdrawal effect. Assessment & Plan (12/12/2020 5:31 PM ADMINISTRATIVE ASSISTANT DATA ENTRY): - has chronic back pain - given altered mental status, will hold meds that may cloud picture: these include pregabalin 100 tid, morphine 15mg q8h, hyoscyamine 0.375 bid (abd pain). Also on baclofen 20 mg TID, which I started at 5 mg TID to avoid withdrawal effect. Herniated lumbar intervertebral disc 12/17/2015 Osteoarthritis of lumbar spine 12/17/2015 Lumbago 06/23/2015 Eczema 10/23/2014 Nuclear senile cataract 07/20/2013 Knee pain 06/15/2013 Epigastric pain 01/13/2012 Diabetes mellitus 09/20/2011 Resolved Problems Problem Noted Date Diagnosed Date Resolved Date Damian catheter in place 12/10/2020 07/0 03/2023 Assessment & Plan (12/18/2020 11:25 AM ADMINISTRATIVE ASSISTANT DATA ENTRY): Removed 12/16 and has urinated since Assessment & Plan (12/17/2020 11:04 AM ADMINISTRATIVE ASSISTANT DATA ENTRY): Removed 12/16 and has urinated since Assessment & Plan (12/16/2020 11:07 AM ADMINISTRATIVE ASSISTANT DATA ENTRY): Ordered for removal Will follow I/Os Hypoxia 12/10/2020 12/14/2020 Assessment & Plan (12/12/2020 5:21 PM ADMINISTRATIVE ASSISTANT DATA ENTRY): - resolved. Presented on admission. Likely related to mental status/somnolence. No distress, CXR wnl. VSS. covid negative Hypokalemia 12/09/2020 12/16/2020 Assessment & Plan (12/18/2020 11:25 AM ADMINISTRATIVE ASSISTANT DATA ENTRY): - At recent hospitalization at [facility], had hyperkalemia. Discontinued lasix and potassium supplement. Previously taking lasix for leg swelling and hypertension - on admission, noted to be hypokalemic. Intermittently getting hypokalemic spontaneously. Most likely due to poor oral intake. No hypertension and not concerned about primary hyperaldosteronism. Also not on diuretics. Has no diarrhea. Will check urine K Cr ratio to evaluate for urinary K wasting. Magnesium level is wnl. - CTM Assessment & Plan (12/15/2020 7:45 PM ADMINISTRATIVE ASSISTANT DATA ENTRY): - At recent hospitalization at [facility], had hyperkalemia. Discontinued lasix and potassium supplement. Previously taking lasix for leg swelling and hypertension - on admission, noted to be hypokalemic. Intermittently getting hypokalemic spontaneously. Most likely due to poor oral intake. No hypertension and not concerned about primary hyperaldosteronism. Also not on diuretics. Has no diarrhea. Will check urine K Cr ratio to evaluate for urinary K wasting. Magnesium level is wnl. - CTM Immunizations Immunization Administration Dates Next Due Influenza, Quadrivalent, Spl it, Preservative Free, Intramuscular 09/16/2020,09/16/2020,12/19/2018,01/15,01/15/2018 Influenza, Trivalent, IM (MDV) 11/09/2013 Influenza, Unspecified 12/19/2018,11/09/2013 Tdap 09/23/2014,09/23/2014 Social History Tobacco Use Types Packs/Day Years Used Date Smoking Tobacco: Every Day Cigarettes 0.5 59.7 Started: 1962; Last attempted to quit: 07/23/2021 Smokeless Tobacco: Never Tobacco Cessation:Ready to Q uit: Not Asked; Counseling Given: Not Answered Comments:pt reports started smoking at 11 years old Alcohol Use Standard Drinks/Week Comments Not Currently 0 (1 standard drink = 0.6 oz pur e alcohol) [facility] [employer] Answer Date Recorded In the past 12 months has e [employer], gas, oil, or water [employer] threatened to shut off services in your home? No 02/27/2025 Social Connection and Isolat ion Panel [NHANES] Answer Date Recorded In a typical week, how many times do you talk on the phone with family, friends, or neighbors? More than three times a week 02/27/2025 How often do you get togethe r with friends or relatives? Once a week 02/27/2025 How often do you attend chur ch or sikhism services? Never 02/27/2025 Do you belong to any clubs o r organizations such as taoist groups, unions, fraternal or athletic groups, or school groups? No 02/27/2025 How often do you attend meet ings of the clubs or organizations you belong to? Never 02/27/2025 Are you , , di vorced, , never , or living with a partner? 02/27/2025 AUDIT-C Answer Date Recorded Q1: How often do you have a drink containing alc ohol? Never 06/18/2022 Average Number of Drinks Not on file 022 Frequency of Binge Drinking Not on file 03/2022 Overall Financial Resource Strain (CARDIA) Answe r Date Recorded How hard is it for you to pa y for the very basics like food, housing, medical care, and heating? Not hard at all 02/27/2025 PHQ-2 Answer Date Recorded PHQ-2 Total Score 0 02/10/2024 Hunger Vital Sign Answer Date Recorded Within the past 12 months, y ou worried that your food would run out before you got the money to buy more. Never true 02/28/20 25 Within the past 12 months, t he food you bought just didn't last and you didn't have money to get more. Never true 02/27/2025 PRAPARE - Transportation Answer Date Re corded In the past 12 months, has l ack of transportation kept you from medical appointments or from getting medications? No 02/12 In the past 12 months, has l ack of transportation kept you from meetings, work, or from getting things needed for daily living? No 02/27/2025 Housing Stability Vital Sign Answer Alec e Recorded In the last 12 months, was t here a time when you were not able to pay the mortgage or rent on time? No 02/13/2024 In the last 12 months, how many places have you lived? 1 02/13/2024 In the last 12 months, was t here a time when you did not have a steady place to sleep or slept in a long term (including now)? No 02/13/2024 Housing Stability Vital Sign Answer Alec e Recorded In the last 12 months, was t here a time when you were not able to pay the mortgage or rent on time? No 02/27/2025 In the past 12 months, how m any times have you moved where you were living? 0 02/27/2025 At any time in the past 12 m [facility], were you homeless or living in a long term (including now)? No 02/27/2025 Personal Safety Answer Date Recorded Have you ever been in or are you currently in a harmful physical or emotional relationship or is someone making you feel afraid or unsafe? Denies 02/25/2025 Comments No Sex and Gender Information Value Date Recorded Sex Assigned at Not on file Legal Sex Female 8:10 PM ADMINISTRATIVE ASSISTANT DATA ENTRY Gender Identity Not on file Sexual Orientation Not on file Last Filed Vital Signs Vital Sign Reading Time Taken Comments Blood Pressure 146/82 02/28/2025 10:38 AM CDT Pulse 93 02/28/2025 10:38 AM CDT Temperature 36.7 C (98.1 F) 02/26/2025 8:00 PM CDT Respiratory Rate 18 02/28/2025 8:00 AM CDT Oxygen Saturation 97% 02/26/2025 9:00 PM CDT Inhaled Oxygen Concentration - - Weight 107 kg (235 lb 14.3 oz) 02/25/2025 3:00 P M CDT Height 149.9 cm (4' 11 ) 02/25/2025 3:00 PM CDT Body Mass Index 47.64 02/25/2025 3:00 PM CDT Plan of Treatment Not on file Goals Goal Patient Goal Type Associated Problems Recent Progress Patient-Stated? Author CCM Chronic Pain Care Plan Chronic Care Management On track(2021 12:44 PM CDT) No Kirstie Ya RN Note: Problem: Chronic Pain Goals: 1. Minimize further functional decline 2. Maximize quality of life 3. Control pain Strategies: - Activity/exercise program recommendation - Conservative stepwise pain medicine strategy with multi-disciplinary approach - Recommend healthy lifestyle strategies and compensatory methods as needed Medical Devices Implanted Type Area Asic Engineer Device Identifier Shelf Expiration Date Model / Serial / Lot [email or web address] [id number] - [id number] - [id number] Implanted:Qty: 1 on 10/28/2021 by Dann Contreras MD at [facility] Lens Right: Eye [employer] [id number] 05/13/2024 [id number] / [id number] / [id number] Description:[id number] 18.5D Righ t eye [place] [employer] [id number] 18.0 Tecnis Optiedge 6mm 13mm 3 Piece Anterior Aspheric Monofocal Uv - [id number] - [id number] Implanted:Qty: 1 on 12/30/2021 by Dann Contreras MD at [facility] Lens Left: Lens [place] [employer] [id number] 02/15/2025 [id number] / [id number] / Knee Bilatera l: Knee Screw Right: Wrist Procedures Procedure Name Priority Date/Time Associated Diagnosis Comments POCT GLUCOSE DEVICE Routine 02/28/2025 1 2:16 PM CDT POCT GLUCOSE DEVICE Routine 02/28/2025 7 :50 AM CDT POCT GLUCOSE DEVICE Routine 02/28/2025 6 :35 AM CDT DIFFERENTIAL AUTO Routine 02/28/2025 2:5 8 AM CDT CBC WITH AUTO DIFFERENTIAL Routine 02/28/2025 2:58 AM CDT POCT GLUCOSE DEVICE Routine 02/28/2025 1 2:07 AM CDT POCT GLUCOSE DEVICE Routine 02/27/2025 9 :11 PM CDT POCT GLUCOSE DEVICE Routine 02/27/2025 4 :49 PM CDT POCT GLUCOSE DEVICE Routine 02/27/2025 1 1:50 AM CDT POCT GLUCOSE DEVICE Routine 02/27/2025 7 :50 AM CDT EGFR Routine 02/27/2025 4:12 AM CDT DIFFERENTIAL AUTO Routine 02/27/2025 4:1 2 AM CDT IRON PROFILE W/ IBC Routine 02/27/2025 4 :12 AM CDT FOLATE Routine 02/27/2025 4:12 AM CDT PHOSPHORUS Routine 02/27/2025 4:12 AM CDT MAGNESIUM Routine 02/27/2025 4:12 AM CDT BASIC METABOLIC PANEL Routine 02/27/2025 4:12 AM CDT CBC WITH AUTO DIFFERENTIAL Routine 02/27/2025 4:12 AM CDT TROPONIN T HIGH-SENSITIVITY Timed 02/27/2025 4:12 AM CDT POCT GLUCOSE DEVICE Routine 02/27/2025 4 :11 AM CDT POCT GLUCOSE DEVICE Routine 02/27/2025 1 :32 AM CDT POCT GLUCOSE DEVICE Routine 02/26/2025 8 :48 PM CDT POCT GLUCOSE DEVICE Routine 02/26/2025 5 :53 PM CDT TRANSTHORACIC ECHO (TTE) COMPLETE W DOPPLER/CF W CONTRAST Routine 02/26/2025 1:08 PM CDT POCT GLUCOSE DEVICE Routine 02/26/2025 1 :[address] ABDOMEN PELVIS WO CONTRAST ED Urgent/IP Urgent 02/26/2025 10:53 AM CDT CRITICAL CARE Routine 02/26/2025 7:43 AM CDT Hyperkalemia Acute renal failure, unspecified acute renal failure type Encephalopathy acute PROTIME-INR Timed 02/26/2025 6:12 AM CDT EGFR Routine 02/26/2025 3:54 AM CDT DIFFERENTIAL AUTO Routine 02/26/2025 3:5 4 AM CDT CBC WITH AUTO DIFFERENTIAL Routine 02/26/2025 3:54 AM CDT COMPREHENSIVE METABOLIC PANEL Routine 02/26/2025 3:54 AM CDT PROTIME-INR Timed 02/26/2025 3:54 AM CDT POC BLOOD GAS AND CHEMISTRIES, VENOUS Routine 02/26/2025 3:20 AM CDT POCT GLUCOSE DEVICE Routine 02/26/2025 3 :14 AM CDT EGFR Timed 02/26/2025 3:14 AM CDT TROPONIN T HIGH-SENSITIVITY Timed 02/26/2025 3:14 AM CDT BASIC METABOLIC PANEL Timed 02/26/2025 3:14 AM CDT PHOSPHORUS Timed 02/26/2025 3:14 AM CDT MAGNESIUM Timed 02/26/2025 3:14 AM CDT POCT GLUCOSE DEVICE Routine 02/26/2025 1 2:20 AM CDT PROTIME-INR Timed 02/26/2025 12:20 AM CDT POC BLOOD GAS AND CHEMISTRIES, VENOUS Routine 02/25/2025 9:11 PM CDT POCT GLUCOSE DEVICE Routine 02/25/2025 9 :01 PM CDT TROPONIN T HIGH-SENSITIVITY Timed 02/25/2025 8:54 PM CDT EGFR Timed 02/25/2025 8:54 PM CDT VITAMIN B12 Routine 02/25/2025 8:54 PM CDT AMMONIA Routine 02/25/2025 8:54 PM CDT PROTIME-INR Timed 02/25/2025 8:54 PM CDT BASIC METABOLIC PANEL Timed 02/25/2025 8:54 PM CDT OPIATES CONFIRMATION MS, URINE Routine 02/25/2025 7:41 PM CDT DRUGS OF ABUSE SCREEN, URINE WITH REFLEX CONFIRMATION Routine 02/25/2025 7:41 PM CDT TROPONIN T HIGH-SENSITIVITY Timed 02/25/2025 5:17 PM CDT PRO B-TYPE NATRIURETIC PEPTIDE Timed 02/25/2025 5:17 PM CDT RENAL FUNCTION PANEL Timed 02/25/2025 5:17 PM CDT EGFR Timed 02/25/2025 5:17 PM CDT MAGNESIUM Timed 02/25/2025 5:17 PM CDT CRITICAL CARE Routine 02/25/2025 5:07 PM CDT Hyperkalemia Acute renal failure, unspecified acute renal failure type Encephalopathy acute POC BLOOD GAS AND CHEMISTRIES, VENOUS Routine 02/25/2025 2:56 PM CDT POCT GLUCOSE DEVICE Routine 02/25/2025 2 :47 PM CDT BETA-HYDROXYBUTYRATE Routine 02/25/2025 2:30 PM CDT EGFR Timed 02/25/2025 2:27 PM CDT CREATINE KINASE (CK), TOTAL Timed 02/25/2025 2:27 PM CDT PHOSPHORUS Timed 02/25/2025 2:27 PM CDT LACTATE STAT 02/25/2025 2:27 PM CDT BASIC METABOLIC PANEL Timed 02/25/2025 2:27 PM CDT TROPONIN T HIGH-SENSITIVITY 2-HOUR Timed 02/25/2025 2:27 PM CDT POCT GLUCOSE DEVICE Routine 02/25/2025 1 :44 PM CDT [place] CRITICAL CARE ILL/INJURED PATIENT INIT 30-74 MIN Routine 02/25/2025 1:31 PM CDT XR CHEST 1 VIEW ED 02/25/2025 12:34 PM CDT ECG 12-LEAD STAT 02/25/2025 12:24 PM CDT THYROID FUNCTION CASCADE STAT 02/25/2025 12:20 PM CDT TROPONIN T HIGH-SENSITIVITY SERIES (BASELINE, 2HR, 4HR, 6HR) STAT 02/25/2025 12:20 PM CDT EGFR STAT 02/25/2025 12:20 PM CDT COMPREHENSIVE METABOLIC PANEL STAT 02/25/2025 12:[address] HEAD WO CONTRAST ED 02/25/2025 1 1:32 AM CDT URINALYSIS AND REFLEX TO MICROSCOPIC AND CULTURE STAT 02/25/2025 11:21 AM CDT HEMOGLOBIN A1C STAT 02/25/2025 11:16 AM CDT DIFFERENTIAL AUTO STAT 02/25/2025 11: 16 AM CDT CBC WITH AUTO DIFFERENTIAL STAT 02/25/2025 11:16 AM CDT ECG 12-LEAD STAT 02/25/2025 11:06 AM CDT ABLATION LUMBAR SACRAL FACET RIGHT Schedule Routine, Read Routine (OP Routine) 01/31/2025 11:50 AM CDT Lumbosacral radiculopathy Other spondylosis, lumbosacral region FACET BLOCK LUMBAR/SACRAL 1 LEVEL RIGHT Schedule Routine, Read Routine (OP Routine) 01/10/2025 10:45 AM ADMINISTRATIVE ASSISTANT DATA ENTRY Lumbosacral radiculopathy Other spondylosis, lumbosacral region FACET BLOCK LUMBAR/SACRAL 1 LEVEL RIGHT Schedule Routine, Read Routine (OP Routine) 12/20/2024 11:54 AM ADMINISTRATIVE ASSISTANT DATA ENTRY Lumbosacral radiculopathy Other spondylosis, lumbosacral region HEPATITIS C ANTIBODY Routine 02/07/2024 9:08 PM CDT COLONOSCOPY 09/24/2021 2:13 PM ADMINISTRATIVE ASSISTANT DATA ENTRY DEXA APPENDICULAR BONE DENSITY Schedule Routine, Read Routine (OP Routine) 08/04/2021 2:32 PM CDT Osteopenia of multiple sites LIPID PANEL STAT 12/09/2020 4:03 PM ADMINISTRATIVE ASSISTANT DATA ENTRY SCREENING MAMMOGRAM BILATERAL W SOTO Schedule Routine, Read Routine (OP Routine) 07/16/2020 11:16 AM CDT Screening for breast cancer from Last 3 Months or Most Recently Relevant to Health Maintenance Results * POCT glucose (02/28/2025 12:16 PM CDT) [facility] Signature Glucose, POC 158 70 - 199 mg/dL Comment:Testing performed by : [facility], [address] [place] [address], [place]., [address] Blood 02/28/2025 12:1 6 PM CDT 02/28/2025 12:16 PM CDT us Carmen Nayak MD LAB POCT ORDERABLES - DEVICE F inal Result [facility] [address] [facility] Department [place] [address] * POCT glucose (02/28/2025 7:50 AM CDT) Glucose, POC 133 70 - 199 mg/dL Comment:Testing performed by : [address] [address] Blood 02/28/2025 7:50 AM CDT 02/28/2025 7:50 AM CDT us Carmen Nayak MD LAB POCT ORDERABLES - DEVICE F inal Result Performing Organization Address [facility] de Phone Number [address] [place] [address] * POCT glucose (02/28/2025 6:35 AM CDT) [facility] Signature Glucose, POC 137 70 - 199 mg/dL Comment:Testing performed by : [address] [address] Blood 02/28/2025 6:35 AM CDT 02/28/2025 6:35 AM CDT us Carmen Nayak MD LAB POCT ORDERABLES - DEVICE F inal Result Performing Organization Address [facility] de Phone Number [address] [place] [address] * (ABNORMAL) Differential, auto (02/28/2025 2:58 AM CDT) [facility] Neutrophil abs 2.13 1.50 - 6.50 K/cumm Comment:Testing performed by : [address] [address] Imm gran abs 0.03 0.00 - 0.10 K/cumm [facility] Comment:Testing performed by : [address] [address] Lymphocyte abs 3.38(H) 0.80 - 3.30 K/cumm [facility] Comment:Testing performed by : [address] [address] Monocyte abs 0.59 0.20 - 0.80 K/cumm [facility] Comment:Testing performed by : [address] [address] Eosinophil abs 0.16 0.00 - 0.50 K/cumm [facility] Comment:Testing performed by : [address] [address] Basophil abs 0.05 0.00 - 0.10 K/cumm [facility] Comment:Testing performed by : [address] [address] Neutrophil pct 33.6 % [facility] Comment: Interpretive Data Percent cell count reference ranges are not reported, since discordance with absolute values may lead to misinterpretation of CBC data. Current Interpretive Data was last revised on 2018. Testing performed by: [address] [address] Imm gran pct 0.5 % [facility] Comment: Interpretive Data Percent cell count reference ranges are not reported, since discordance with absolute values may lead to misinterpretation of CBC data. Current Interpretive Data was last revised on 2018. Testing performed by: [address] [address] Lymphocyte pct 53.3 % [facility] Comment: Interpretive Data Percent cell count reference ranges are not reported, since discordance with absolute values may lead to misinterpretation of CBC data. Current Interpretive Data was last revised on 2018. Testing performed by: [address] [address] Monocyte pct 9.3 % [facility] Comment: Interpretive Data Percent cell count reference ranges are not reported, since discordance with absolute values may lead to misinterpretation of CBC data. Current Interpretive Data was last revised on 2018. Testing performed by: [address] [address] Eosinophil pct 2.5 % [facility] Comment: Interpretive Data Percent cell count reference ranges are not reported, since discordance with absolute values may lead to misinterpretation of CBC data. Current Interpretive Data was last revised on 2018. Testing performed by: [address] [address] Basophil pct 0.8 % [facility] Comment: Interpretive Data Percent cell count reference ranges are not reported, since discordance with absolute values may lead to misinterpretation of CBC data. Current Interpretive Data was last revised on 2018. Testing performed by: [address] [address] Blood 02/28/2025 2:58 AM CDT 02/28/2025 3:58 AM CDT us Mau VERONICA LAB BLOOD ORDERABLES Final Re sult [facility] [address] [facility] Department [place] [address] * (ABNORMAL) CBC with auto differential (02/28/2025 2:58 AM CDT) WBC 6.34 3.80 - 9.90 K/cumm Comment:Testing performed by : [address] [address] Hgb 9.2(L) 11.9 - 15.5 g/dL [facility] Comment:Testing performed by : [address] [address] Hct 30.4(L) 35.6 - 45.5 % [facility] Comment:Testing performed by : [address] [address] Plt 184 150 - 400 K/cumm [facility] Comment:Testing performed by : [address] [address] MPV 11.0 9.1 - 12.3 fL [facility] Comment:Testing performed by : [address] [address] RBC 3.74(L) 3.90 - 5.20 M/cumm [facility] Comment:Testing performed by : [address] [address] MCV 81.3 81.3 - 96.4 fL [facility] Comment:Testing performed by : [address] [place]., [address] MCH 24.6(L) 27.1 - 33.3 pg [facility] Comment:Testing performed by : [address] [address] MCHC 30.3(L) 32.3 - 35.7 g/dL [facility] Comment:Testing performed by : [address] [address] RDW CV 21.0(H) 11.1 - 14.9 % [facility] Comment:Testing performed by : [address], [address] RDW SD 59.5(H) 35.7 - 48.1 fL [facility] Comment:Testing performed by : [address] [address] NRBC abs 0.00 0.00 - 0.01 K/cumm [facility] Comment:Testing performed by : [address], [address] Blood 02/28/2025 2:58 AM CDT 02/28/2025 3:58 AM CDT us Mau VERONICA LAB BLOOD ORDERABLES Final Re sult Performing Organization Address [facility]/ZIP Co de Phone Number [address] [place] [address] * POCT glucose (02/28/2025 12:07 AM CDT) [facility] Signature Glucose, POC 126 70 - 199 mg/dL Comment:Testing performed by : [address] [address] Blood 02/28/2025 12:0 7 AM CDT 02/28/2025 12:07 AM CDT us Carmen Nayak MD LAB POCT ORDERABLES - DEVICE F inal Result Performing Organization Address [facility] Co de Phone Number [address] [place] [address] * POCT glucose (02/27/2025 9:11 PM CDT) Glucose, POC 113 70 - 199 mg/dL Comment:Testing performed by : [address] [address] Blood 02/27/2025 9:11 PM CDT 02/27/2025 9:11 PM CDT us Carmen Nayak MD LAB POCT ORDERABLES - DEVICE F inal Result Performing Organization Address City/[facility]/ZIP Co de Phone Number [address] [place] [address] * POCT glucose (02/27/2025 4:49 PM CDT) Glucose, POC 119 70 - 199 mg/dL Comment:Testing performed by : [address] [address] Blood 02/27/2025 4:49 PM CDT 02/27/2025 4:49 PM CDT us Carmen Nayak MD LAB POCT ORDERABLES - DEVICE F inal Result Performing Organization Address [facility] Co de Phone Number [address] [place] [address] * POCT glucose (02/27/2025 11:50 AM CDT) Glucose, POC 130 70 - 199 mg/dL Comment:Testing performed by : [address] [address] Blood 02/27/2025 11:5 0 AM CDT 02/27/2025 11:50 AM CDT us Carmen Nayak MD LAB POCT ORDERABLES - DEVICE F inal Result Performing Organization Address City/[facility]/ZIP Co de Phone Number [address] [place] [address] * POCT glucose (02/27/2025 7:50 AM CDT) [facility] Glucose, POC 146 70 - 199 mg/dL Comment:Testing performed by : [facility], [address] [place] [address]., [address] Glucose comment 1 RN/MD Notified [facility] Comment:Testing performed by : [facility], [address] [place] [address]., [address] Blood 02/27/2025 7:50 AM CDT 02/27/2025 7:50 AM CDT us Carmen Nayak MD LAB POCT ORDERABLES - DEVICE F inal Result Performing Organization Address [facility]/ZIP Co de Phone Number [address] [address] * Troponin T high-sensitivity (02/27/2025 4:12 AM CDT) [facility] Trop T hs 8 <=14 ng/L Comment: Interpretive Data For further hscTnT resources including the diagnostic algorithm and an aid in interpretation, copy and paste this link: [email or web address].testcatalog.org/show/[email or web address] Current Interpretive Data last revised 2020. Testing performed by: [address] [address] Blood 02/27/2025 4:12 AM CDT 02/27/2025 5:30 AM CDT us Mau VERONICA LAB BLOOD ORDERABLES Final Re sult Performing Organization Address City/[facility]/ZIP Co de Phone Number [address] [place] [address] * eGFR (02/27/2025 4:12 AM CDT) [facility] eGFR 62 >=60 mL/min/1. 73 m2 Comment: Interpretive Data Reference Interval Normal >/= 90 mL/min/1.73m2 Mildly decreased* 60 - 89 mL/min/1.73m2 Mildly to moderately decreased 45 - 59 mL/min/1.73m2 Moderately to severely decreased 30 - 44 mL/min/1.73m2 Severely decreased 15 - 29 mL/min/1.73m2 Kidney Failure < 15 mL/min/1.73m2 *Relative to young adult level Estimated glomerular filtration rate is determined by the 2020 CKD-EPI equation recommended by the National Kidney Foundation (A Unifying Approach to GFR Estimation: Recommendations of the NKF-ASK Task Force on Reassessing the Inclusion of Race in Diagnosing Kidney Disease, JASN 2020). The CKD-EPI equation should not be used for patients with unstable renal function and has not been validated in children and those over 70. Current interpretive data was last reviewed 2021. Testing performed by: [address] [address] Blood 02/27/2025 4:12 AM CDT 02/27/2025 5:30 AM CDT us Ángel Woodson MD LAB BLOOD ORDERABLES Final Re sult [facility] [address] [facility] Department [place] [address] * Differential, auto (02/27/2025 4:12 AM CDT) Neutrophil abs 2.55 1.50 - 6.50 K/cumm Comment:Testing performed by : [address] [address] Imm gran abs 0.01 0.00 - 0.10 K/cumm [facility] Comment:Testing performed by : [address] [address] Lymphocyte abs 2.72 0.80 - 3.30 K/cumm [facility] Comment:Testing performed by : [address] [address] Monocyte abs 0.49 0.20 - 0.80 K/cumm [facility] Comment:Testing performed by : [address] [address] Eosinophil abs 0.09 0.00 - 0.50 K/cumm [facility] Comment:Testing performed by : [address] [address] Basophil abs 0.04 0.00 - 0.10 K/cumm [facility] Comment:Testing performed by : [address] [address] Neutrophil pct 43.2 % [facility] Comment: Interpretive Data Percent cell count reference ranges are not reported, since discordance with absolute values may lead to misinterpretation of CBC data. Current Interpretive Data was last revised on 2018. Testing performed by: [address] [address] Imm gran pct 0.2 % [facility] Comment: Interpretive Data Percent cell count reference ranges are not reported, since discordance with absolute values may lead to misinterpretation of CBC data. Current Interpretive Data was last revised on 2018. Testing performed by: [address] [address] Lymphocyte pct 46.1 % [facility] Comment: Interpretive Data Percent cell count reference ranges are not reported, since discordance with absolute values may lead to misinterpretation of CBC data. Current Interpretive Data was last revised on 2018. Testing performed by: [address] [address] Monocyte pct 8.3 % [facility] Comment: Interpretive Data Percent cell count reference ranges are not reported, since discordance with absolute values may lead to misinterpretation of CBC data. Current Interpretive Data was last revised on 2018. Testing performed by: [address] [address] Eosinophil pct 1.5 % [facility] Comment: Interpretive Data Percent cell count reference ranges are not reported, since discordance with absolute values may lead to misinterpretation of CBC data. Current Interpretive Data was last revised on 2018. Testing performed by: [address] [address] Basophil pct 0.7 % [facility] Comment: Interpretive Data Percent cell count reference ranges are not reported, since discordance with absolute values may lead to misinterpretation of CBC data. Current Interpretive Data was last revised on 2018. Testing performed by: [address] [address] Blood 02/27/2025 4:12 AM CDT 02/27/2025 5:36 AM CDT Mau VERONICA LAB BLOOD ORDERABLES Final Re sult Performing Organization Address [facility] de Phone Number [facility] [place] [address] * (ABNORMAL) Iron profile w/ IBC (02/27/2025 4:12 AM CDT) Pathologist [facility] Iron 45 35 - 145 mcg/dL Comment:Testing performed by : [address] [address] TIBC 309 250 - 400 mcg/dL BLANCA Comment:Testing performed by : [address] [address] Transferrin saturation 15(L) 20 - 50 % BLANCA Comment:Testing performed by : [address] [address] Blood 02/27/2025 4:12 AM CDT 02/27/2025 5:30 AM CDT Ángel Woodson MD LAB BLOOD ORDERABLES Final Re sult Performing Organization Address [facility] de Phone Number [place] [id number] [facility] [place] [address] * (ABNORMAL) CBC with auto differential (02/27/2025 4:12 AM CDT) WBC 5.90 3.80 - 9.90 K/cumm Comment:Testing performed by : [address] [address] Hgb 8.9(L) 11.9 - 15.5 g/dL BLANCA Comment:Testing performed by : [address] [address] Hct 29.0(L) 35.6 - 45.5 % BLANCA Comment:Testing performed by : [address] [address] Plt 174 150 - 400 K/cumm BLANCA Comment:Testing performed by : [address] [address] MPV 10.6 9.1 - 12.3 fL BL[place]CA Comment:Testing performed by : [address], [address] RBC 3.59(L) 3.90 - 5.20 M/cumm BLANCA Comment:Testing performed by : [address] [address] MCV 80.8(L) 81.3 - 96.4 fL [place] Comment:Testing performed by : [address], [address] MCH 24.8(L) 27.1 - 33.3 pg BL[place]CA Comment:Testing performed by : [address] [address] MCHC 30.7(L) 32.3 - 35.7 g/dL BL[place]CA Comment:Testing performed by : [address], [address] RDW CV 21.0(H) 11.1 - 14.9 % BLANCA Comment:Testing performed by : [address], [address] RDW SD 60.4(H) 35.7 - 48.1 fL [place] Comment:Testing performed by : [address], [address] NRBC abs 0.00 0.00 - 0.01 K/cumm BLANCA Comment:Testing performed by : [address], [address] Blood 02/27/2025 4:12 AM CDT 02/27/2025 5:36 AM CDT Mau VERONICA LAB BLOOD ORDERABLES Final Re sult Performing Organization Address City/State/[facility] Co de Phone Number BLANCA [address] [address] * Phosphorus (02/27/2025 4:12 AM CDT) Phosphorus, pl 3.2 2.3 - 4.5 mg/dL Comment:Testing performed by : [address] [address] Blood 02/27/2025 4:12 AM CDT 02/27/2025 5:30 AM CDT us Ángel Woodson MD LAB BLOOD ORDERABLES Final Re sult Performing Organization Address [facility] Co de Phone Number BLAN[place] [address] [address] * Magnesium (02/27/2025 4:12 AM CDT) Pathologist [facility] Magnesium 2.0 1.4 - 2.5 mg/dL Comment:Testing performed by : [address] [address] Blood 02/27/2025 4:12 AM CDT 02/27/2025 5:30 AM CDT us Ángel Woodson MD LAB BLOOD ORDERABLES Final Re sult Performing Organization Address [facility] Co de Phone Number BLAN[place] [address] [address] * Folate (02/27/2025 4:12 AM CDT) Folic acid 16.5 >=5.0 ng/mL Comment:Testing performed by : [address] [address] Blood 02/27/2025 4:12 AM CDT 02/27/2025 5:30 AM CDT us Ángel Woodson MD LAB BLOOD ORDERABLES Final Re sult [facility] [address] [facility] Department [place] [address] * (ABNORMAL) Basic metabolic panel (02/27/2025 4:12 AM CDT) Sodium 144 135 - 145 mmol/L Comment:Testing performed by : [address] [address] Potassium, pl 4.6 3.3 - 4.9 mmol/L BLANCA Comment: Hemolyzed; Potassium value may be falsely elevated by as much as 1.0 mmol/L. Suggest redraw and reanalysis. Testing performed by: [address] [address] Chloride 108 97 - 110 mmol/L BL[place]CA Comment:Testing performed by : [address] [address] CO2 23 22 - 32 mmol/L [place] Comment:Testing performed by : [address] [address] Anion gap 13 2 - 15 mmol/L BL[place] Comment:Testing performed by : [address] [address] BUN 30(H) 6 - 25 mg/dL [place] Comment:Testing performed by : [address] [address] Creatinine 1.00 0.60 - 1.10 mg/dL [place] Comment:Testing performed by : [address] [address] Glucose 111 70 - 199 mg/dL BLANCA Comment: Interpretive Data Fasting glucose >/= 126 mg/dl is diagnostic for diabetes. Fasting is defined as no caloric intake for at least 8 hours. Fasting glucose between 100 mg/dl to 125 mg/dl is diagnostic of prediabetes. In a patient with classic symptoms of hyperglycemia or hyperglycemic crisis, a random glucose >/= 200 mg/dl is diagnostic for diabetes. In the absence of unequivocal hyperglycemia, results should be confirmed by repeat testing. The classification and Diagnosis of Diabetes Diabetes Care 202; 46: S19-S40. Current interpretive data was last revised 2022. Testing performed by: [facility], [address] [place] [address]., [address] Calcium 9.0 8.5 - 10.3 mg/dL BLANCA Comment:Testing performed by : [address] [address] Blood 02/27/2025 4:12 AM CDT 02/27/2025 5:30 AM CDT Ángel Woodson MD LAB BLOOD ORDERABLES Final Re sult Performing Organization Address City/[facility] Co de Phone Number [address] [place] [address] * POCT glucose (02/27/2025 4:11 AM CDT) Glucose, POC 114 70 - 199 mg/dL Comment:Testing performed by : [address] [address] Blood 02/27/2025 4:11 AM CDT 02/27/2025 4:11 AM CDT Carmen Nayak MD LAB POCT ORDERABLES - DEVICE F inal Result Performing Organization Address [facility] Co de Phone Number [address] [place] [address] * POCT glucose (02/27/2025 1:32 AM CDT) Glucose, POC 109 70 - 199 mg/dL Comment:Testing performed by : [address] [address] Blood 02/27/2025 1:32 AM CDT 02/27/2025 1:32 AM CDT Carmen Nayak MD LAB POCT ORDERABLES - DEVICE F inal Result Performing Organization Address City/[facility]/ZIP Co de Phone Number [address] [place] [address] * POCT glucose (02/26/2025 8:48 PM CDT) Glucose, POC 118 70 - 199 mg/dL Comment:Testing performed by : [address] [address] Blood 02/26/2025 8:48 PM CDT 02/26/2025 8:48 PM CDT Carmen Nayak MD LAB POCT ORDERABLES - DEVICE F inal Result Performing Organization Address [facility] Co de Phone Number [address] [place] [address] * POCT glucose (02/26/2025 5:53 PM CDT) Glucose, POC 134 70 - 199 mg/dL Comment:Testing performed by : [address] [address] Blood 02/26/2025 5:53 PM CDT 02/26/2025 5:53 PM CDT Carmen Nayak MD LAB POCT ORDERABLES - DEVICE F inal Result Performing Organization Address [facility] Co de Phone Number [address] [address] * TRANSTHORACIC ECHO (TTE) COMPLETE W DOPPLER/CF W CONTRAST (02/26/2025 1:08 PM CDT) LV EF 60-65 % CONS SCIMAGE Anatomical Region Laterality Modality Ultrasound 02/26/2025 12:2 7 PM CDT Narrative 02/26/2025 1:41 PM CDT Transthoracic Echocardiographic Report Patient Name: BERNADINE SIMMS A : 1960 (65y ) Gender: F Study Date: 02/26/2025 12:27:08 PM Ht(Inch): 59 Wt(Lb): 235.01 BSA: 2.11 Welt Treater: Olivia Patterson RDCS Location: [id number] Order Provider: YOUNG,MAU Heart Rate: 74 BMI: 47.46 BP: 118/54 Ref Provider: STACY YOUNGI PROCEDURES: Echocardiographic Report: ([id number]) Transthoracic complete echo with contrast, 2D, spectral and tissue Doppler, color flow Doppler, M-mode. Contrast: A contrast injection of Definity was performed to improve assessment of LV function. Definity Lot Number: [id number]. Technically difficult study due to: Technically difficult study due to body habitus. INDICATIONS: Acute Renal Failure. FINDINGS: Left Ventricle: Normal left ventricular cavity size. Normal left ventricular systolic function. The Ejection Fraction is visually estimated to be 60-65 %. Diastolic Function E to E' ratio is >15 suggesting a high pulminary wedge pressure and LV diastolic dysfunction. Right Ventricle: Normal right ventricular size. Normal right ventricular systolic function. Left Atrium: The left atrium is normal in size. Right Atrium: The right atrium is normal in size. Atrial Septum: Interatrial Septum is not well visualized due to poor echo windows. Mitral Valve: Normal mitral valve leaflet structure. No mitral regurgitation seen. No mitral valve stenosis. NO mitral valve prolapse seen. Aortic Valve: Trileaflet aortic valve. The aortic cusps appear mildly sclerosed. No aortic regurgitation seen. Mild aortic valve stenosis. The mean transaortic gradient is 7 mmHg. The aortic valve area by the continuity equation (using VTI) is 2.12 cm2. The aortic valve area by the continuity equation (using Peak Jordan) is 1.91 cm2. Tricuspid Valve: Tricuspid valve is not well visualized due to poor echo windows. The estimated right ventricular systolic pressure is 30 mmHg. Normal estimated pulmonary artery systolic pressure. Pulmonic Valve: Pulmonic Valve not well visualized due to poor echo windows. Pericardium: No pericardial effusion. Aorta: The aortic sinus is normal in size. IVC: The estimated RA pressure is 8 mmHg. CONCLUSIONS: 1. Technically Difficult Study. 2. Normal left ventricular systolic function. The Ejection Fraction is visually estimated to be 60-65 %. Diastolic Function E to E' ratio is >15 suggesting a high pulminary wedge pressure and LV diastolic dysfunction. 3. Mild aortic valve stenosis. MEASUREMENTS: 2D/MM Value Range Doppler Value LVIDd 2D 3.77 cm [ 3.50 - 5.70 ] AV Peak Jordan 2.04 m/s LVIDs 2D 2.54 cm [ 3.10 - 4.60 ] AV Peak PG 16.65 mmHg IVSd 2D 1.03 cm [ 0.60 - 1.20 ] AV Mean PG 7.00 mmHg LVPWd 2D 0.96 cm [ 0.60 - 1.10 ] AV VTI 32.40 cm LV Thickness Ratio 1.07 LVOT Peak Jordan 1.24 m/s LV Mass 2D 116.73 g LVOT Peak PG 6.15 mmHg LV Mass Index 2D 55.32 g/m2 LVOT Mean PG 3.00 mmHg RWT 0.51 LVOT VTI 21.90 cm Visually Estimated EF 60-65 % LVOT Diam 2.00 cm LA Dimension 2D 2.80 cm [ 1.90 - 4.00 ] LIZBETH VTI 2.12 cm2 AoR Diam 2D 3.10 cm [ 2.00 - 3.70 ] LIZBETH Vmax 1.91 cm2 Ao Root Index 1.47 cm/m2 [ 1.00 - 2.00 ] LVOT/AV VTI 0.68 - Dimensionless index (DVI) Asc Ao Diam 2D 2.90 cm MV E Peak Jordan 0.67 m/s Asc Ao Index 1.37 cm/m2 MV A Peak Jordan 1.03 m/s MV E/A 0.70 ratio MV Decel Time 203.00 msec Med E` Jordan 4.38 cm/sec Lat E` Jordan 4.64 cm/sec Average E/E` 14.86 TV Peak Jordan 0.49 m/s TV Peak PG 0.96 mmHg RV S` 13.90 cm/sec TR Peak Jordan 2.32 m/s TR Peak PG 21.5 mmHg RA Pressure 8.00 mmHg RVSP 29.50 mmHg PV Peak Jordan 1.27 m/s PV Peak PG 6.45 mmHg - ATTESTATION: I have reviewed and interpreted the pertinent images and measurements of this study. I attest to the conclusions in the final report that is provided above. DISCLAIMER: The study images and the final report will be retained in the patient chart by the Echo Laboratory for the legally required time period. This chart constitutes the legal record of any testing performed. Electronically Signed By: Benjy Neves MD 02/26/2025 1:41:03 PM CDT Procedure Note Benjy Neves MD - 02/26/2025 Transthoracic Echocardiographic Report Patient Name: BERNADINE SIMMS A : 1960 (65y ) Gender: F Study Date: 02/26/2025 12:27:08 PM Ht(Inch): 59 Wt(Lb): 235.01 BSA: 2.11 Welt Treater: Olivia Patterson RDCS Location: [id number] Order Provider:MAU YOUNG Heart Rate: 74 BMI: 47.46 BP: 118/54 Ref Provider: MAU YOUNG PROCEDURES: Echocardiographic Report: ([id number]) Transthoracic complete echo withcontrast, 2D, spectral and tissue Doppler, color flow Doppler, M-mode. Contrast: A contrast injection of Definity was performed to improveassessment of LV function. Definity Lot Number: [id number]. Technically difficult study due to: Technically difficult study due tobody habitus. INDICATIONS: Acute Renal Failure. FINDINGS: Left Ventricle: Normal left ventricular cavity size. Normal leftventricular systolic function. The Ejection Fraction is visually estimated to be 60-65 %.Diastolic Function E to E' ratio is >15 suggesting a high pulminary wedge pressure and LVdiastolic dysfunction. Right Ventricle: Normal right ventricular size. Normal right ventricularsystolic function. Left Atrium: The left atrium is normal in size. Right Atrium: The right atrium is normal in size. Atrial Septum: Interatrial Septum is not well visualized due to poor echowindows. Mitral Valve: Normal mitral valve leaflet structure. No mitralregurgitation seen. No mitral valve stenosis. NO mitral valve prolapse seen. Aortic Valve: Trileaflet aortic valve. The aortic cusps appear mildlysclerosed. No aortic regurgitation seen. Mild aortic valve stenosis. The meantransaortic gradient is 7 mmHg. The aortic valve area by the continuity equation (using VTI) is 2.12cm2. The aortic valve area by the continuity equation (using Peak Jordan) is 1.91cm2. Tricuspid Valve: Tricuspid valve is not well visualized due to poor echowindows. The estimated right ventricular systolic pressure is 30 mmHg. Normal estimatedpulmonary artery systolic pressure. Pulmonic Valve: Pulmonic Valve not well visualized due to poor echowindows. Pericardium: No pericardial effusion. Aorta: The aortic sinus is normal in size. IVC: The estimated RA pressure is 8 mmHg. CONCLUSIONS: 1. Technically Difficult Study. 2. Normal left ventricular systolic function. The Ejection Fraction isvisually estimated to be 60-65 %. Diastolic Function E to E' ratio is >15 suggesting a highpulminary wedge pressure and LV diastolic dysfunction. 3. Mild aortic valve stenosis. MEASUREMENTS: 2D/MM Value Range DopplerValue LVIDd 2D 3.77 cm [ 3.50 - 5.70 ] AV Peak Vel2.04 m/s LVIDs 2D 2.54 cm [ 3.10 - 4.60 ] AV Peak PG16.65 mmHg IVSd 2D 1.03 cm [ 0.60 - 1.20 ] AV Mean PG7.00 mmHg LVPWd 2D 0.96 cm [ 0.60 - 1.10 ] AV VTI32.40 cm LV Thickness Ratio 1.07 LVOT Peak Vel1.24 m/s LV Mass 2D 116.73 g LVOT Peak PG6.15 mmHg LV Mass Index 2D 55.32 g/m2 LVOT Mean PG3.00 mmHg RWT 0.51 LVOT VTI21.90 cm Visually Estimated EF 60-65 % LVOT Diam2.00 cm LA Dimension 2D 2.80 cm [ 1.90 - 4.00 ] LIZBETH VTI2.12 cm2 AoR Diam 2D 3.10 cm [ 2.00 - 3.70 ] LIZBETH Vmax1.91 cm2 Ao Root Index 1.47 cm/m2 [ 1.00 - 2.00 ] LVOT/AV VTI0.68 - Dimensionless index (DVI) Asc Ao Diam 2D 2.90 cm MV E Peak Vel0.67 m/s Asc Ao Index 1.37 cm/m2 MV A Peak Vel1.03 m/s MV E/A 0.70 ratio MV Decel Time 203.00 msec Med E` Jordan 4.38 cm/sec Lat E` Jordan 4.64 cm/sec Average E/E` 14.86 TV Peak Jordan 0.49 m/s TV Peak PG 0.96 mmHg RV S` 13.90 cm/sec TR Peak Jordan 2.32 m/s TR Peak PG 21.5 mmHg RA Pressure 8.00 mmHg RVSP 29.50 mmHg PV Peak Jordan 1.27 m/s PV Peak PG 6.45 mmHg - ATTESTATION: I have reviewed and interpreted the pertinent images and measurements ofthis study. I attest to the conclusions in the final report that is provided above. DISCLAIMER: The study images and the final report will be retained in the patientchart by the Echo Laboratory for the legally required time period. This chart constitutesthe legal record of any testing performed. Electronically Signed By: Benjy Neves MD 02/26/2025 1:41:03 PM CDT us Mau VERONICA CV ECHO PROCEDURES Final Resu lt * POCT glucose (02/26/2025 1:05 PM CDT) Glucose, POC 147 70 - 199 mg/dL Comment:Testing performed by : [facility], [address] [place] [address], [place]., [address] Blood 02/26/2025 1:05 PM CDT 02/26/2025 1:05 PM CDT us Carmen Nayak MD LAB POCT ORDERABLES - DEVICE F inal Result [facility] [address] [facility] Department [place] [address] * CT Abdomen Pelvis WO Contrast (02/26/2025 10:53 AM CDT) Anatomical Region Laterality Modality Body N/A Computed Tomogra phy 02/26/2025 11:2 6 AM CDT Narrative 02/26/2025 11:38 AM CDT EXAM DESCRIPTION: CT ABDOMEN PELVIS WO CONTRAST REASON FOR STUDY: Abdominal pain, acute, nonlocalized, Abdominal pain, chronic, diarrhea, prior history of gastric bypass Abdominal pain, acute, nonlocalized, Abdominal pain, chronic, diarrhea, prior history of gastric bypass TECHNIQUE: CT scan of the abdomen and pelvis performed without intravenous and without oral contrast using helical scanning technique. Reconstructed coronal and sagittal MPR images reviewed. All images stored on PACS. Automated exposure control was used as a dose optimization technique for this examination. COMPARISON: CT abdomen and pelvis 12/02/2023 FINDINGS: The sensitivity for detection of visceral lesions is diminished without the use of intravenous contrast. LOWER CHEST: No significant pulmonary abnormalities. No effusion. LIVER: Normal size. No identified cystic or solid masses. GALLBLADDER: Surgically absent. BILE DUCTS: No intrahepatic or extrahepatic ductal dilatation. SPLEEN: Normal size. No focal lesions. PANCREAS: No identified cystic or solid masses. No significant calcifications. No adjacent inflammation or peripancreatic fluid collections. Pancreatic duct not dilated. ADRENALS: Normal. KIDNEYS/URINARY TRACT: No identified significant cystic or solid masses. No stones. No hydronephrosis or hydroureter. A Damian catheter is present. No significant bladder wall thickening. GI: Stable postoperative changes of a gastric bypass. No dilated bowel loops. No obvious wall thickening. The appendix is not seen. No evidence of acute appendicitis. No significant diverticular disease. PERITONEUM: No ascites or free air. RETROPERITONEUM: No mass or adenopathy. REPRODUCTIVE: No significant abnormality. VASCULATURE: No abdominal aortic aneurysm. MUSCULOSKELETAL: No significant abnormality. OTHER: No other abnormality. IMPRESSION: No acute findings of the abdomen or pelvis. THIS IS AN ELECTRONICALLY VERIFIED FINAL REPORT 02/26/2025 11:38 AM - Electronically signed by Miguel Price M.D. KR: RAMAN Report ID: [id number] Reading Location: [id number] Procedure Note Miguel Price MD - 02/26/2025 EXAM DESCRIPTION: CT ABDOMEN PELVIS WO CONTRAST REASON FOR STUDY: Abdominal pain, acute, nonlocalized, Abdominal pain, chronic, diarrhea, prior history of gastric bypass Abdominal pain, acute, nonlocalized, Abdominal pain, chronic, diarrhea,prior history of gastric bypass TECHNIQUE: CT scan of the abdomen and pelvis performed without intravenousand without oral contrast using helical scanning technique. Reconstructed coronal and sagittal MPR images reviewed. All images stored on PACS.Automated exposure control was used as a dose optimization technique for this examination. COMPARISON: CT abdomen and pelvis 12/02/2023 FINDINGS: The sensitivity for detection of visceral lesions is diminished without the use of intravenous contrast. LOWER CHEST: No significant pulmonary abnormalities. No effusion. LIVER: Normal size. No identified cystic or solid masses. GALLBLADDER: Surgically absent. BILE DUCTS: No intrahepatic or extrahepatic ductal dilatation. SPLEEN: Normal size. No focal lesions. PANCREAS: No identified cystic or solid masses. No significant calcifications. No adjacent inflammation or peripancreatic fluidcollections. Pancreatic duct not dilated. ADRENALS: Normal. KIDNEYS/URINARY TRACT: No identified significant cystic or solid masses.No stones. No hydronephrosis or hydroureter. A Damian catheter is present.No significant bladder wall thickening. GI: Stable postoperative changes of a gastric bypass. No dilated bowel loops. No obvious wall thickening. The appendix is not seen. No evidenceof acute appendicitis. No significant diverticular disease. PERITONEUM: No ascites or free air. RETROPERITONEUM: No mass or adenopathy. REPRODUCTIVE: No significant abnormality. VASCULATURE: No abdominal aortic aneurysm. MUSCULOSKELETAL: No significant abnormality. OTHER: No other abnormality. IMPRESSION: No acute findings of the abdomen or pelvis. THIS IS AN ELECTRONICALLY VERIFIED FINAL REPORT 02/26/2025 11:38 AM - Electronically signed by Miguel Price M.D. KR: KR Report ID: [id number] Reading Location: [place] [address] us Carmen Nayak MD IMG CT PROCEDURES Final Result * Critical Care (02/26/2025 7:43 AM CDT) Narrative Les Vásquez MD - 02/26/2025 7:43 AM CDT Les Vásquez MD 02/26/2025 7:45 AM Critical Care Performed by: Les Vásquez MD Authorized by: Les Vásquez MD CRITICAL CARE: Team: EICU Shift: AM Level of Billing: Critical Care My time spent with this patient was 45 minutes: Critical Provider Statement: I have seen and examined the patient on this day of service. I have reviewed and confirmed the history, physical exam, laboratory and radiologic data as documented in the signed ICU note. I have reviewed and discussed my treatment plan with the ICU team and other medical/medical social consultant staff, making frequent assessments and decisions regarding this patient's complex medical care. Critical Care time was exclusive of time spent performing separately billed procedures, treating other patients, and teaching. This time was in addition to and separate from critical care provided by other practitioners in my group on this day of service. Critical Care was necessary to treat or prevent imminent or life-threatening deterioration of the following conditions: Encephalopathy/altered mental status Acute kidney injury, Hypo- or Hyperglycemia and Hyperkalemia This time was spent by me doing the following: Serial bedside patient exams, Serial laboratory checks and Obtaining peripheral venous access or blood draws Frequent neurologic exams Active and frequent reassessment of respiratory status and oxygen requirements Active and frequent monitoring of intake/output and volumen status and Glycemic control Hyperkalemia medical management Initiation/monitoring/titration of anticoagulants Review of prior or current culture/gram stain results I spent time reviewing and interpreting data from bedside monitors, laboratory results, and imaging, I spent time discussing the management of this critically ill patient with consultants and the medical staff and I spent time documenting in the medical record Les Vásquez MD IN CLINIC/BEDSIDE ORDER RITIKA Final Result * Protime-INR (02/26/2025 6:12 AM CDT) PT 13.8 12.0 - 14.6 sec Comment:Testing performed by : [facility], [address] [place] [address]., [id number] INR 1.1 0.9 - 1.2 RIRICHRISTIAN Comment: Ref Range High Interpretive data Oral anticoagulant therapeutic ranges: Venous thromboembolism prophylaxis or treatment: 2.0-3.0 CARDIOLOGY Standard range: 2.0-3.0 High-intensity range: 2.5-3.5 Refer to indication-specific guidelines for appropriate target ranges for prosthetic heart valve replacement. Current interpretive data was last revised on 2019. Testing performed by: [address] [address] Blood 02/26/2025 6:12 AM CDT 02/26/2025 6:23 AM CDT Mau VERONICA LAB BLOOD ORDERABLES Final Re sult [facility] [address] [facility] Department [place] [address] * (ABNORMAL) eGFR (02/26/2025 3:54 AM CDT) eGFR 39(L) >=60 mL/min/1. 73 m2 Comment: Interpretive Data Reference Interval Normal >/= 90 mL/min/1.73m2 Mildly decreased* 60 - 89 mL/min/1.73m2 Mildly to moderately decreased 45 - 59 mL/min/1.73m2 Moderately to severely decreased 30 - 44 mL/min/1.73m2 Severely decreased 15 - 29 mL/min/1.73m2 Kidney Failure < 15 mL/min/1.73m2 *Relative to young adult level Estimated glomerular filtration rate is determined by the 2021 CKD-EPI equation recommended by the National Kid[employer] (A Unifying Approach to GFR Estimation: Recommendations of the NKF-ASK Task Force on Reassessing the Inclusion of Race in Diagnosing Kidney Disease, JASN 202). The CKD-EPI equation should not be used for patients with unstable renal function and has not been validated in children and those over 70. Current interpretive data was last reviewed 2021. Testing performed by: [address] [address] Blood 02/26/2025 3:54 AM CDT 02/26/2025 4:56 AM CDT us Mau VERONICA LAB BLOOD ORDERABLES Final Re sult [facility] Department [place] [address] * Differential, auto (02/26/2025 3:54 AM CDT) Neutrophil abs 3.08 1.50 - 6.50 K/cumm Comment:Testing performed by : [address] [address] Imm gran abs 0.01 0.00 - 0.10 K/cumm BLANCA Comment:Testing performed by : [address] [address] Lymphocyte abs 2.89 0.80 - 3.30 K/cumm BLAN[place] Comment:Testing performed by : [address] [address] Monocyte abs 0.45 0.20 - 0.80 K/cumm BLANCA Comment:Testing performed by : [address] [address] Eosinophil abs 0.08 0.00 - 0.50 K/cumm BLAN[place] Comment:Testing performed by : [address] [address] Basophil abs 0.03 0.00 - 0.10 K/cumm [place] Comment:Testing performed by : [address] [address] Neutrophil pct 47.0 % [facility] Comment: Interpretive Data Percent cell count reference ranges are not reported, since discordance with absolute values may lead to misinterpretation of CBC data. Current Interpretive Data was last revised on 2018. Testing performed by: [address] [address] Imm gran pct 0.2 % [facility] Comment: Interpretive Data Percent cell count reference ranges are not reported, since discordance with absolute values may lead to misinterpretation of CBC data. Current Interpretive Data was last revised on 2018. Testing performed by: [address] [address] Lymphocyte pct 44.2 % [facility] Comment: Interpretive Data Percent cell count reference ranges are not reported, since discordance with absolute values may lead to misinterpretation of CBC data. Current Interpretive Data was last revised on 2018. Testing performed by: [address] [address] Monocyte pct 6.9 % [facility] Comment: Interpretive Data Percent cell count reference ranges are not reported, since discordance with absolute values may lead to misinterpretation of CBC data. Current Interpretive Data was last revised on 2018. Testing performed by: [address] [address] Eosinophil pct 1.2 % [facility] Comment: Interpretive Data Percent cell count reference ranges are not reported, since discordance with absolute values may lead to misinterpretation of CBC data. Current Interpretive Data was last revised on 2018. Testing performed by: [address] [address] Basophil pct 0.5 % [facility] Comment: Interpretive Data Percent cell count reference ranges are not reported, since discordance with absolute values may lead to misinterpretation of CBC data. Current Interpretive Data was last revised on 2018. Testing performed by: [address] [address] Blood 02/26/2025 3:54 AM CDT 02/26/2025 5:04 AM CDT Mau VERONICA LAB BLOOD ORDERABLES Final Re sult [facility] [address] [facility] Department [place] [address] * (ABNORMAL) CBC with auto differential (02/26/2025 3:54 AM CDT) WBC 6.54 3.80 - 9.90 K/cumm Comment:Testing performed by : [address] [address] Hgb 9.1(L) 11.9 - 15.5 g/dL [place] Comment:Testing performed by : [address] [address] Hct 29.0(L) 35.6 - 45.5 % [place] Comment:Testing performed by : [address] [address] Plt 190 150 - 400 K/cumm [place] Comment:Testing performed by : [address] [address] MPV 10.7 9.1 - 12.3 fL [place] Comment:Testing performed by : [address] [address] RBC 3.66(L) 3.90 - 5.20 M/cumm [place] Comment:Testing performed by : [address] [address] MCV 79.2(L) 81.3 - 96.4 fL [place] Comment:Testing performed by : [address] [address] MCH 24.9(L) 27.1 - 33.3 pg [place] Comment:Testing performed by : [address] [address] MCHC 31.4(L) 32.3 - 35.7 g/dL [place] Comment:Testing performed by : [address] [address] RDW CV 21.1(H) 11.1 - 14.9 % [place] Comment:Testing performed by : [address] [address] RDW SD 59.1(H) 35.7 - 48.1 fL [place] REESE Comment:Testing performed by : [address] [address] NRBC abs 0.00 0.00 - 0.01 K/cumm [place] REESE Comment:Testing performed by : [address] [address] Blood 02/26/2025 3:54 AM CDT 02/26/2025 5:04 AM CDT Mau VERONICA LAB BLOOD ORDERABLES Final Re sult Performing Organization Address [facility] Co de Phone Number [facility] [place] [place] [address] * Protime-INR (02/26/2025 3:54 AM CDT) PT 14.1 12.0 - 14.6 sec Comment:Testing performed by : [address] [address] INR 1.1 0.9 - 1.2 [place] REESE Comment: Ref Range High Interpretive data Oral anticoagulant therapeutic ranges: Venous thromboembolism prophylaxis or treatment: 2.0-3.0 CARDIOLOGY Standard range: 2.0-3.0 High-intensity range: 2.5-3.5 Refer to indication-specific guidelines for appropriate target ranges for prosthetic heart valve replacement. Current interpretive data was last revised on 2019. Testing performed by: [address] [address] Blood 02/26/2025 3:54 AM CDT 02/26/2025 4:56 AM CDT Mau VERONICA LAB BLOOD ORDERABLES Final Re sult Performing Organization Address City/[facility] Co de Phone Number [place] [id number] [facility] [place] [address] * (ABNORMAL) Comprehensive metabolic panel (02/26/2025 3:54 AM CDT) Sodium 138 135 - 145 mmol/L Comment:Testing performed by : [address] [address] Potassium, pl 4.8 3.3 - 4.9 mmol/L [place] Comment:Testing performed by : [address] [address] Chloride 105 97 - 110 mmol/L [place] Comment:Testing performed by : [address] [address] CO2 20(L) 22 - 32 mmol/L [place] Comment:Testing performed by : [address] [address] Anion gap 13 2 - 15 mmol/L [place] Comment:Testing performed by : [address] [address] BUN 67(H) 6 - 25 mg/dL [place] Comment:Testing performed by : [address] [address] Creatinine 1.47(H) 0.60 - 1.10 mg/dL [facility] Comment:Testing performed by : [address] [address] Glucose 127 70 - 199 mg/dL [facility] Comment: Interpretive Data Fasting glucose >/= 126 mg/dl is diagnostic for diabetes. Fasting is defined as no caloric intake for at least 8 hours. Fasting glucose between 100 mg/dl to 125 mg/dl is diagnostic of prediabetes. In a patient with classic symptoms of hyperglycemia or hyperglycemic crisis, a random glucose >/= 200 mg/dl is diagnostic for diabetes. In the absence of unequivocal hyperglycemia, results should be confirmed by repeat testing. The classification and Diagnosis of Diabetes Diabetes Care 202; 46: S19-S40. Current interpretive data was last revised 2022. Testing performed by: [address] [address] Calcium 9.6 8.5 - 10.3 mg/dL [place] Comment:Testing performed by : [address] [address] Bilirubin, total 0.2 0.1 - 1.2 mg/dL [place] Comment:Testing performed by : [address] [address] Protein, pl 6.9 6.5 - 8.5 g/dL [place] Comment:Testing performed by : [address], [place]., [address] Albumin 3.9 3.5 - 5.0 g/dL [place] Comment:Testing performed by : [address] [address] Alk phos 117 40 - 130 Units/L [place] Comment:Testing performed by : [address] [address] ALT 13 7 - 45 Units/L [place] Comment:Testing performed by : [address] [address] AST 19 10 - 45 Units/L [place] Comment:Testing performed by : [address] [address] Blood 02/26/2025 3:54 AM CDT 02/26/2025 4:56 AM CDT us Mau VERONICA LAB BLOOD ORDERABLES Final Re sult [facility] [facility] Department [place] [address] * (ABNORMAL) POC Blood Gas and Chemistries, Venous - (02/26/2025 3:20 AM CDT) [facility] pH,solange POC 7.37 7.32 - 7.43 Comment:Testing performed by : [address] [address] pCO2, solange POC 38(L) 40 - 50 mmHg [place] Comment:Testing performed by : [address] [address] pO2,solange POC 32 mmHg [place] Comment: Interpretive Data No reference range established. Current interpretive data was last revised 2020. Testing performed by: [address] [place]., [address] HCO3, solange (Calc) POC 22 20 - 30 mmol/L [place] REESE Comment:Testing performed by : [address] [address] Base excess, solange POC -3 mmol/L [place] REESE Comment: Interpretive Data No reference range established. Current interpretive data was last revised 2020. Testing performed by: [address] [address] Blood 02/26/2025 3:20 AM CDT 02/26/2025 3:20 AM CDT Carmen Nayak MD LAB POCT ORDERABLES - DEVICE F inal Result Performing Organization Address [facility] Co de Phone Number [place] [address] [employer] [place], [place] [id number] * Troponin T high-sensitivity (02/26/2025 3:14 AM CDT) Trop T hs 13 <=14 ng/L Comment: Interpretive Data For further hscTnT resources including the diagnostic algorithm and an aid in interpretation, copy and paste this link: https://nrl.testcatalog.org/show/hsTrop Current Interpretive Data last revised 2020. Testing performed by: [address] [address] Blood 02/26/2025 3:14 AM CDT 02/26/2025 3:42 AM CDT us Mau VERONICA LAB BLOOD ORDERABLES Final Re sult Performing Organization Address City/[facility]/ZIP Co de Phone Number [address] [place] [address] * (ABNORMAL) eGFR (02/26/2025 3:14 AM CDT) eGFR 35(L) >=60 mL/min/1. 73 m2 Comment: Interpretive Data Reference Interval Normal >/= 90 mL/min/1.73m2 Mildly decreased* 60 - 89 mL/min/1.73m2 Mildly to moderately decreased 45 - 59 mL/min/1.73m2 Moderately to severely decreased 30 - 44 mL/min/1.73m2 Severely decreased 15 - 29 mL/min/1.73m2 Kidney Failure < 15 mL/min/1.73m2 *Relative to young adult level Estimated glomerular filtration rate is determined by the 2020 CKD-EPI equation recommended by the National Kidney Foundation (A Unifying Approach to GFR Estimation: Recommendations of the NKF-ASK Task Force on Reassessing the Inclusion of Race in Diagnosing Kidney Disease, JASN 2020). The CKD-EPI equation should not be used for patients with unstable renal function and has not been validated in children and those over 70. Current interpretive data was last reviewed 2021. Testing performed by: [address] [address] Blood 02/26/2025 3:14 AM CDT 02/26/2025 3:42 AM CDT us Mau VERONICA LAB BLOOD ORDERABLES Final Re sult Performing Organization Address City/[facility]/ZIP Co de Phone Number RIRI[address] [place] [address] * POCT glucose (02/26/2025 3:14 AM CDT) Glucose, POC 142 70 - 199 mg/dL Comment:Testing performed by : [address] [address] Blood 02/26/2025 3:14 AM CDT 02/26/2025 3:14 AM CDT us Carmen Nayak MD LAB POCT ORDERABLES - DEVICE F inal Result IRRI[address] [place] [address] * Phosphorus (02/26/2025 3:14 AM CDT) Phosphorus, pl 4.4 2.3 - 4.5 mg/dL Comment:Testing performed by : [address] [address] Blood 02/26/2025 3:14 AM CDT 02/26/2025 3:42 AM CDT Mau VERONICA LAB BLOOD ORDERABLES Final Re sult Performing Organization Address [facility] Co de Phone Number [address] [place] [address] * Magnesium (02/26/2025 3:14 AM CDT) [facility] Magnesium 2.2 1.4 - 2.5 mg/dL Comment:Testing performed by : [address] [address] Blood 02/26/2025 3:14 AM CDT 02/26/2025 3:42 AM CDT Mau VERONICA LAB BLOOD ORDERABLES Final Re sult Performing Organization Address [facility] de Phone Number [address] [place] [address] * (ABNORMAL) Basic metabolic panel (02/26/2025 3:14 AM CDT) [facility] Sodium 138 135 - 145 mmol/L Comment:Testing performed by : [address] [address] Potassium, pl 5.0(H) 3.3 - 4.9 mmol/L [place] Comment:Testing performed by : [address] [address] Chloride 104 97 - 110 mmol/L [place] Comment:Testing performed by : [address] [address] CO2 21(L) 22 - 32 mmol/L [place] Comment:Testing performed by : [address] [address] Anion gap 13 2 - 15 mmol/L [place] Comment:Testing performed by : [address] [address] BUN 68(H) 6 - 25 mg/dL [place] Comment:Testing performed by : [address] [address] Creatinine 1.63(H) 0.60 - 1.10 mg/dL [place] Comment:Testing performed by : [address] [address] Glucose 130 70 - 199 mg/dL [facility] Comment: Interpretive Data Fasting glucose >/= 126 mg/dl is diagnostic for diabetes. Fasting is defined as no caloric intake for at least 8 hours. Fasting glucose between 100 mg/dl to 125 mg/dl is diagnostic of prediabetes. In a patient with classic symptoms of hyperglycemia or hyperglycemic crisis, a random glucose >/= 200 mg/dl is diagnostic for diabetes. In the absence of unequivocal hyperglycemia, results should be confirmed by repeat testing. The classification and Diagnosis of Diabetes Diabetes Care 2021; 46: S19-S40. Current interpretive data was last revised 2022. Testing performed by: [address] [address] Calcium 9.4 8.5 - 10.3 mg/dL [place] Comment:Testing performed by : [address] [address] Blood 02/26/2025 3:14 AM CDT 02/26/2025 3:42 AM CDT us Mau VERONICA LAB BLOOD ORDERABLES Final Re sult [facility] [address] [facility] Department [place] [address] * POCT glucose (02/26/2025 12:20 AM CDT) [facility] Signature Glucose, POC 141 70 - 199 mg/dL Comment:Testing performed by : [address] [address] Blood 02/26/2025 12:2 0 AM CDT 02/26/2025 12:20 AM CDT us Carmen Nayak MD LAB POCT ORDERABLES - DEVICE F inal Result Performing Organization Address [facility] Co de Phone Number [place] [address] [facility] [place] [address] * Protime-INR (02/26/2025 12:20 AM CDT) PT 13.8 12.0 - 14.6 sec Comment:Testing performed by : [address] [address] INR 1.1 0.9 - 1.2 [place] REESE Comment: Ref Range High Interpretive data Oral anticoagulant therapeutic ranges: Venous thromboembolism prophylaxis or treatment: 2.0-3.0 CARDIOLOGY Standard range: 2.0-3.0 High-intensity range: 2.5-3.5 Refer to indication-specific guidelines for appropriate target ranges for prosthetic heart valve replacement. Current interpretive data was last revised on 2019. Testing performed by: [address] [address] Blood 02/26/2025 12:2 0 AM CDT 02/26/2025 12:25 AM CDT us Mau VERONICA LAB BLOOD ORDERABLES Final Re sult Performing Organization Address [facility] Co de Phone Number RIRI[address] [place] [address] * (ABNORMAL) POC Blood Gas and Chemistries, Venous - (02/25/2025 9:11 PM CDT) pH,solange POC 7.31(L) 7.32 - 7.43 Comment:Testing performed by : [address] [address] pCO2, solange POC 35(L) 40 - 50 mmHg [place] REESE Comment:Testing performed by : [address] [address] pO2,solange POC 40 mmHg [place] RE[facility] Comment: Interpretive Data No reference range established. Current interpretive data was last revised 2020. Testing performed by: [address] [address] HCO3, solange (Calc) POC 18(L) 20 - 30 mmol/L [place] Comment:Testing performed by : [address] [address] Base excess, solange POC -8 mmol/L [place] Comment: Interpretive Data No reference range established. Current interpretive data was last revised 2020. Testing performed by: [address] [address] Blood 02/25/2025 9:11 PM CDT 02/25/2025 9:11 PM CDT Carmen Nayak MD LAB POCT ORDERABLES - DEVICE F inal Result Performing Organization Address [facility]/ZIP Co de Phone Number [address] [place] [address] * POCT glucose (02/25/2025 9:01 PM CDT) Glucose, POC 149 70 - 199 mg/dL Comment:Testing performed by : [address] [address] Blood 02/25/2025 9:01 PM CDT 02/25/2025 9:01 PM CDT Carmen Nayak MD LAB POCT ORDERABLES - DEVICE F inal Result Performing Organization Address [facility]/ZIP Co de Phone Number [address] [place] [address] * Troponin T high-sensitivity (02/25/2025 8:54 PM CDT) Trop T hs 12 <=14 ng/L Comment: Interpretive Data For further hscTnT resources including the diagnostic algorithm and an aid in interpretation, copy and paste this link: https://nrl.testcatalog.org/show/hsTrop Current Interpretive Data last revised 2020. Testing performed by: [address] [address] Blood 02/25/2025 8:54 PM CDT 02/25/2025 9:01 PM CDT us Carmen Nayak MD LAB BLOOD ORDERABLES Final Res ult Performing Organization Address [facility] de Phone Number [place] [address] [place] [address] * (ABNORMAL) eGFR (02/25/2025 8:54 PM CDT) eGFR 27(L) >=60 mL/min/1. 73 m2 Comment: Interpretive Data Reference Interval Normal >/= 90 mL/min/1.73m2 Mildly decreased* 60 - 89 mL/min/1.73m2 Mildly to moderately decreased 45 - 59 mL/min/1.73m2 Moderately to severely decreased 30 - 44 mL/min/1.73m2 Severely decreased 15 - 29 mL/min/1.73m2 Kidney Failure < 15 mL/min/1.73m2 *Relative to young adult level Estimated glomerular filtration rate is determined by the 2020 CKD-EPI equation recommended by the National Kidney Foundation (A Unifying Approach to GFR Estimation: Recommendations of the NKF-ASK Task Force on Reassessing the Inclusion of Race in Diagnosing Kidney Disease, JASN 2020). The CKD-EPI equation should not be used for patients with unstable renal function and has not been validated in children and those over 70. Current interpretive data was last reviewed 2021. Testing performed by: [facility], [address] [place] [address]., [address] Blood 02/25/2025 8:54 PM CDT 02/25/2025 9:01 PM CDT us Mau VERONICA LAB BLOOD ORDERABLES Final Re sult Performing Organization Address [facility] Co de Phone Number [place] [address] [place] [address] * Protime-INR (02/25/2025 8:54 PM CDT) [facility] PT 13.9 12.0 - 14.6 sec Comment:Testing performed by : [address] [address] INR 1.1 0.9 - 1.2 [place] Comment: Ref Range High Interpretive data Oral anticoagulant therapeutic ranges: Venous thromboembolism prophylaxis or treatment: 2.0-3.0 CARDIOLOGY Standard range: 2.0-3.0 High-intensity range: 2.5-3.5 Refer to indication-specific guidelines for appropriate target ranges for prosthetic heart valve replacement. Current interpretive data was last revised on 2019. Testing performed by: [address] [address] Blood 02/25/2025 8:54 PM CDT 02/25/2025 9:01 PM CDT us Mau VERONICA LAB BLOOD ORDERABLES Final Re sult Performing Organization Address City/[facility]/ZIP Co de Phone Number [address] [address] * (ABNORMAL) Vitamin B12 (02/25/2025 8:54 PM CDT) [facility] Vitamin B12 1,778(H) 230 - 1,250 pg/mL Comment:Testing performed by : [address] [address] Blood 02/25/2025 8:54 PM CDT 02/25/2025 9:01 PM CDT us Carmen Nayak MD LAB BLOOD ORDERABLES Final Res ult [facility] [address] [place] [address] * Ammonia (02/25/2025 8:54 PM CDT) Ammonia 14 <=50 mcmol/L Comment: Please note on 03/21/2024 the unit of measure changed from mcg/dL to mcmol/L. Current Interpretive Data was last revised on 2024 Testing performed by: [address] [address] Blood 02/25/2025 8:54 PM CDT 02/25/2025 8:59 PM CDT us Carmen Nayak MD LAB BLOOD ORDERABLES Final Res ult [place] [address] [facility] Department [place] [address] * (ABNORMAL) Basic metabolic panel (02/25/2025 8:54 PM CDT) Sodium 137 135 - 145 mmol/L Comment:Testing performed by : [address] [address] Potassium, pl 5.0(H) 3.3 - 4.9 mmol/L [place] Comment:Testing performed by : [address] [address] Chloride 106 97 - 110 mmol/L [place] Comment:Testing performed by : [address] [address] CO2 17(L) 22 - 32 mmol/L [place] Comment:Testing performed by : [address] [address] Anion gap 14 2 - 15 mmol/L [place] Comment:Testing performed by : [address] [address] BUN 75(H) 6 - 25 mg/dL [place] Comment:Testing performed by : [address] [address] Creatinine 1.99(H) 0.60 - 1.10 mg/dL [place] Comment:Testing performed by : [address] [address] Glucose 135 70 - 199 mg/dL [place] Comment: Interpretive Data Fasting glucose >/= 126 mg/dl is diagnostic for diabetes. Fasting is defined as no caloric intake for at least 8 hours. Fasting glucose between 100 mg/dl to 125 mg/dl is diagnostic of prediabetes. In a patient with classic symptoms of hyperglycemia or hyperglycemic crisis, a random glucose >/= 200 mg/dl is diagnostic for diabetes. In the absence of unequivocal hyperglycemia, results should be confirmed by repeat testing. The classification and Diagnosis of Diabetes Diabetes Care 2021; 46: S19-S40. Current interpretive data was last revised 2022. Testing performed by: [facility], [address] [place] [address]., [address] Calcium 9.9 8.5 - 10.3 mg/dL [place] REESE Comment:Testing performed by : [address] [address] Blood 02/25/2025 8:54 PM CDT 02/25/2025 9:01 PM CDT Mau VERONICA LAB BLOOD ORDERABLES Final Re sult [place] [address] [facility] Department [place] [address] * (ABNORMAL) Drugs of Abuse Screen, Urine with Reflex Confirmation (02/25/2025 7:41 PM CDT) [facility] Amphetamine, ur Not Detected CutOff 500ng/mL Comment: Interpretive Data - Amphetamines: Samples containing greater than 500 ng/mL d-methamphetamine or other cross-reacting amphetamine compounds are reported as positive. Amphetamine immunoassays are subject to significant false positive rates due to cross-reactivity of non-amphetamine drugs. Confirmatory testing required for definitive results. Current Interpretive Data was last reviewed 2023. Testing performed by: [address] [address] Barbiturates, ur Not Detected CutOff 200ng/mL [place] REESE Comment: Interpretive Data - Barbiturates: Samples containing greater than 200 ng/mL secobarbital or other cross-reacting barbiturate compounds are reported as positive. False positive and false negative results are possible. Confirmatory testing required for definitive results. Current Interpretive Data was last reviewed 2023. Testing performed by: [facility], [address] [place] [address]., [address] Benzodiazepines, ur Not Detected CutOff 100ng/mL [facility] Comment: Interpretive Data - Benzodiazepines: Samples containing greater than 100 ng/mL nordiazepam or other cross-reacting compounds are reported as positive. False positive and false negative results are possible. Confirmatory testing required for definitive results. Current Interpretive Data was last reviewed 2023. Testing performed by: [facility], [address] [place] [address], [place]., [address] Cannabinoids, ur Not Detected CutOff 50 ng/mL [facility] Comment: Interpretive Data - Cannabinoids: Samples containing greater than 50 ng/mL delta-9 THC -COOH or other cross- reacting compounds are reported as positive. False positive and false negative results are possible. Confirmatory testing required for definitive results. Current Interpretive Data was last reviewed 2023. Testing performed by: [address] [address] Cocaine, ur Not Detected CutOff 150ng/mL [facility] Comment: Interpretive Data - Cocaine: Samples containing greater than 150 ng/mL benzoylecgonine or other cross- reacting compounds are reported as positive. False positive and false negative results are possible. Confirmatory testing required for definitive results. Current Interpretive Data was last reviewed 2023. Testing performed by: [address] [address] Fentanyl, Ur Not Detected CutOff 5 ng/mL [facility] Comment: Interpretive Data - Fentanyl: Samples containing greater than 1 ng/mL fentanyl or other cross-reacting fentanyl compounds are reported as positive. False positive and false negative results are possible. Confirmatory testing required for definitive results. Current Interpretive Data was last reviewed 2023. Testing performed by: [address] [address] Methadone, ur Not Detected CutOff 300ng/mL [facility] Comment: Interpretive Data - Methadone: Samples containing greater than 300 ng/mL d,l-methadone or other cross-reacting compounds are reported as positive. False positive and false negative results are possible. Confirmatory testing required for definitive results. Current Interpretive Data was last reviewed 2023. Testing performed by: [address] [address] Opiates, ur Screen Positive, presumptive (A) CutOff 300ng/mL [facility] Comment: Interpretive Data - Opiates: Samples containing greater than 300 ng/mL morphine or other cross-reacting compounds are reported as positive. False positive and false negative results are possible. Confirmatory testing required for definitive results. Current Interpretive Data was last reviewed 2023. Testing performed by: [address] [address] Oxycodone, ur Not Detected CutOff 100ng/mL BLANCA Comment: Interpretive Data - Oxycodone: Samples containing greater than 100 ng/mL oxycodone or other cross-reacting compounds are reported as positive. False positive and false negative results are possible. Confirmatory testing required for definitive results. Current Interpretive Data was last reviewed 2023. Testing performed by: [address] [address] Phencyclidine, ur Not Detected CutOff 25 ng/mL BLANCA Comment: Interpretive Data - Phencyclidine: Samples containing greater than 25 ng/mL phencyclidine or other cross-reacting compounds are reported as positive. False positive and false negative results are possible. Confirmatory testing required for definitive results. Current Interpretive Data was last reviewed 2023. Testing performed by: [address] [address] Urine Creatinine 26 mg/dL BLANCA Comment: Interpretive Data Urine Creatinine: < 10 mg/dL is extremely dilute = or > 10 but < 20 mg/dL is dilute = or > 20 mg/dL is normal Current Interpretive Data was last revised on 2018. Testing performed by: [address] [address] Urine 02/25/2025 7:41 PM CDT 02/25/2025 8:00 PM CDT Narrative BLANCA - 02/25/2025 8:25 PM CDT Drug of Abuse screening is performed by immunoassay for medical purposes only. This is not to be used for Pain Management purposes. If Detected, confirmation testing will be performed for Amphetamines, Cocaine, Fentanyl, Methadone, Opiates, Oxycodone or Phencyclidine. us Carmen Nayak MD LAB URINE ORDERABLES Final Res ult BLANCA REESE [address] [facility] Department [place] [address] * Opiates Confirmation, Urine (02/25/2025 7:41 PM CDT) Codeine Conf, Ur Does Not Confirm CutOff 50 ng/mL Comment:Testing performed by : [facility], [address] [place]., [address] 6- Acetylmorphine Conf, Ur Does Not Confirm CutOff 10 ng/mL BLANCA Comment:Testing performed by : [facility], [address] [place]., [address] Hydrocodone Conf, Ur Does Not Confirm CutOff 50 ng/mL BLANCA Comment:Testing performed by : [facility], [address] [place]., [address] Morphine Conf, Ur Does Not Confirm CutOff 50 ng/mL BLANCA Comment:Testing performed by : [facility], [address] [place]., [address] Hydromorphone Conf, Ur Does Not Confirm CutOff 50 ng/mL BLANCA Comment: Interpretive Data This test detects the presence or absence of drug compounds using LC Tandem mass spectrometry and is not intended to assess compliance with prescribed medications. While this test is highly specific, false positive and false negative results may occur in very rare circumstances. Contact the laboratory for consultation, if needed. Performance characteristics were determined by the [facility] in a manner consistent with CLIA requirement and has not been cleared or approved by the U.S. Food and Drug Administration. Current interpretive data was last revised 2021. Testing performed by: [facility], [address] [place]., [address] Urine 02/25/2025 7:41 PM CDT 02/26/2025 3:01 AM CDT Carmen Nayak MD LAB URINE ORDERABLES Final Res ult Performing Organization Address City/[facility] Co de Phone Number BLANCA [address] [place] [address] * Troponin T high-sensitivity (02/25/2025 5:17 PM CDT) Trop T hs 13 <=14 ng/L Comment: Interpretive Data For further hscTnT resources including the diagnostic algorithm and an aid in interpretation, copy and paste this link: https://nrl.testcatalog.org/show/hsTrop Current Interpretive Data last revised 2020. Testing performed by: [facility], [address] [place] [address]., [address] Blood 02/25/2025 5:17 PM CDT 02/25/2025 5:22 PM CDT Carmen Nayak MD LAB BLOOD ORDERABLES Final Res ult Performing Organization Address [facility] Co de Phone Number BL[facility] Department [place] [address] * (ABNORMAL) eGFR (02/25/2025 5:17 PM CDT) eGFR 19(L) >=60 mL/min/1. 73 m2 Comment: Interpretive Data Reference Interval Normal >/= 90 mL/min/1.73m2 Mildly decreased* 60 - 89 mL/min/1.73m2 Mildly to moderately decreased 45 - 59 mL/min/1.73m2 Moderately to severely decreased 30 - 44 mL/min/1.73m2 Severely decreased 15 - 29 mL/min/1.73m2 Kidney Failure < 15 mL/min/1.73m2 *Relative to young adult level Estimated glomerular filtration rate is determined by the 2020 CKD-EPI equation recommended by the National Kidney Foundation (A Unifying Approach to GFR Estimation: Recommendations of the NKF-ASK Task Force on Reassessing the Inclusion of Race in Diagnosing Kidney Disease, JASN 2020). The CKD-EPI equation should not be used for patients with unstable renal function and has not been validated in children and those over 70. Current interpretive data was last reviewed 2021. Testing performed by: [facility], [address] [place] [address], [place]., [address] Blood 02/25/2025 5:17 PM CDT 02/25/2025 5:22 PM CDT us Carmen Nayak MD LAB BLOOD ORDERABLES Final Res ult [facility] [address] [facility] Department [place] [address] * Pro B-type natriuretic peptide (02/25/2025 5:17 PM CDT) NT-proBNP <36 <=300 pg/mL Comment: Interpretive Comments: A. Dyspnea in Acute Care Setting All Ages: < 300 pg/ml, acute heart failure unlikely. < 50 yrs: 300 - 450 pg/ml, further investigation warranted. > 450 pg/ml, acute heart failure likely. 50 - 74 yrs: 300 - 900 pg/ml, further investigation warranted. > 900 pg/ml, acute heart failure likely . > or = 75 yrs: 450 - 1800 pg/ml, further investigation warranted. > 1800 pg/ml, acute heart failure likely. B. Non-acute Setting < 75 yrs < 125 pg/ml, rules out heart failure. > or = 125 pg/ml, further investigation warranted. > or = 75 yrs < 450 pg/ml, rules out heart failure. > or = 450 pg/ml, further investigation warranted. - Knowledge of each individual patient's NT-proBNP range may be more useful than using similar cut-points for every patient. Please note that marked elevations in NT-proBNP levels may be observed in state other than Left Ventricular Congestive Failure, including: acute coronary syndromes, right heart strain/failure (including pulmonary embolism and cor pulmonale), critical illness, renal failure, as well as advanced age. - References: 1. Kari GARZA et.al. Eur Heart J. 2006:27:330-337. 2. Mitesh RW, Agustin AM. J. AM Ashley Cardiol: Cardiovasc Imag. 2009;2: 216- 225. Interpretive Data Last Revised Date: 2018. Testing performed by: [address] [address] Blood 02/25/2025 5:17 PM CDT 02/25/2025 5:22 PM CDT us Carmen Nayak MD LAB BLOOD ORDERABLES Final Res ult Performing Organization Address City/[facility] Co de Phone Number RIR[address] [place] [address] * Magnesium (02/25/2025 5:17 PM CDT) Magnesium 2.5 1.4 - 2.5 mg/dL Comment:Testing performed by : [address] [address] Blood 02/25/2025 5:17 PM CDT 02/25/2025 5:22 PM CDT Carmen Nayak MD LAB BLOOD ORDERABLES Final Res ult Performing Organization Address [facility] de Phone Number [address] [place] [address] * (ABNORMAL) Renal function panel (02/25/2025 5:17 PM CDT) Sodium 136 135 - 145 mmol/L Comment:Testing performed by : [address] [address] Potassium, pl 5.3(H) 3.3 - 4.9 mmol/L BLANCA Comment:Testing performed by : [address] [address] Chloride 105 97 - 110 mmol/L BL[facility]CA Comment:Testing performed by : [address] [address] CO2 13(L) 22 - 32 mmol/L BL[facility] Comment:Testing performed by : [address] [address] Anion gap 18(H) 2 - 15 mmol/L BL[facility] REESE Comment:Testing performed by : [address] [address] BUN 85(H) 6 - 25 mg/dL [facility] Comment:Testing performed by : [address] [address] Creatinine 2.69(H) 0.60 - 1.10 mg/dL BALNCA Comment:Testing performed by : [address] [address] Glucose 203(H) 70 - 199 mg/dL BLANCA Comment: Interpretive Data Fasting glucose >/= 126 mg/dl is diagnostic for diabetes. Fasting is defined as no caloric intake for at least 8 hours. Fasting glucose between 100 mg/dl to 125 mg/dl is diagnostic of prediabetes. In a patient with classic symptoms of hyperglycemia or hyperglycemic crisis, a random glucose >/= 200 mg/dl is diagnostic for diabetes. In the absence of unequivocal hyperglycemia, results should be confirmed by repeat testing. The classification and Diagnosis of Diabetes Diabetes Care 2021; 46: S19-S40. Current interpretive data was last revised 2022. Testing performed by: [address] [address] Calcium 10.6(H) 8.5 - 10.3 mg/dL BL[facility]CA Comment:Testing performed by : [address] [address] Phosphorus, pl 4.9(H) 2.3 - 4.5 mg/dL BL[facility] Comment:Testing performed by : [address] [address] Albumin 4.5 3.5 - 5.0 g/dL BLANCA Comment:Testing performed by : [address] [address] Blood 02/25/2025 5:17 PM CDT 02/25/2025 5:22 PM CDT us Carmen Nayak MD LAB BLOOD ORDERABLES Final Res ult [facility] [address] [facility] [place] [address] * Critical Care (02/25/2025 5:07 PM CDT) Narrative Les Vásquez MD - 02/25/2025 5:07 PM CDT Les Vásquez MD 02/25/2025 5:09 PM Critical Care Performed by: Les Vásquez MD Authorized by: Les Vásquez MD CRITICAL CARE: Team: EICU Shift: AM Level of Billing: Critical Care My time spent with this patient was 105 minutes: Critical Provider Statement: I have seen and examined the patient on this day of service. I have reviewed and confirmed the history, physical exam, laboratory and radiologic data as documented in the signed ICU note. I have reviewed and discussed my treatment plan with the ICU team and other medical/medical social consultant staff, making frequent assessments and decisions regarding this patient's complex medical care. Critical Care time was exclusive of time spent performing separately billed procedures, treating other patients, and teaching. This time was in addition to and separate from critical care provided by other practitioners in my group on this day of service. Critical Care was necessary to treat or prevent imminent or life-threatening deterioration of the following conditions: Encephalopathy/altered mental status Acute kidney injury, Hypo- or Hyperglycemia, Acute electrolyte derangement, Hyperkalemia and Acid-base disturbance This time was spent by me doing the following: Serial bedside patient exams, Serial laboratory checks, Obtaining peripheral venous access or blood draws and Resuscitation with fluids Frequent neurologic exams Active and frequent reassessment of respiratory status and oxygen requirements Active and frequent monitoring of intake/output and volumen status and Glycemic control Hyperkalemia medical management Initiation/monitoring/titration of anticoagulants Review of prior or current culture/gram stain results I spent time reviewing and interpreting data from bedside monitors, laboratory results, and imaging, I spent time discussing the management of this critically ill patient with consultants and the medical staff and I spent time documenting in the medical record Les Vásquez MD IN CLINIC/BEDSIDE ORDER RITIKA Final Result * (ABNORMAL) POC Blood Gas and Chemistries, Venous - (02/25/2025 2:56 PM CDT) [facility] pH,solange POC 7.22(C) 7.32 - 7.43 Comment:Testing performed by : [address] [address] pCO2, solange POC 34(L) 40 - 50 mmHg BL[facility] REESE Comment:Testing performed by : [address] [address] pO2,solange POC 38 mmHg BLANCA Comment: Interpretive Data No reference range established. Current interpretive data was last revised 2020. Testing performed by: [address] [address] HCO3, solange (Calc) POC 14(L) 20 - 30 mmol/L [facility] REESE Comment:Testing performed by : [address] [address] Base excess, solange POC -13 mmol/L [facility] REESE Comment: Interpretive Data No reference range established. Current interpretive data was last revised 2020. Testing performed by: [address] [address] Blood 02/25/2025 2:56 PM CDT 02/25/2025 2:56 PM CDT Carmen Nayak MD LAB POCT ORDERABLES - DEVICE F inal Result BL[facility]CA [address] [facility] Department [place] [address] * (ABNORMAL) POCT glucose (02/25/2025 2:47 PM CDT) [facility] Glucose, POC 237(H) 70 - 199 mg/dL Comment:Testing performed by : [address] [address] Glucose comment 1 RN/MD Notified BLANCA REESE Comment:Testing performed by : [address] [address] Blood 02/25/2025 2:47 PM CDT 02/25/2025 2:47 PM CDT us Carmen Nayak MD LAB POCT ORDERABLES - DEVICE F inal Result Performing Organization Address [facility] Co de Phone Number BLANCA [address] [place] [address] * (ABNORMAL) Beta-hydroxybutyrate (02/25/2025 2:30 PM CDT) Beta-Hydroxybut yrate 0.9(H) <=0.5 mmol/L Blood 02/25/2025 2:30 PM CDT 02/25/2025 4:57 PM CDT Ángel Woodson MD LAB BLOOD ORDERABLES Final Re sult Performing Organization Address [facility] de Phone Number [address] [address] * Troponin T high-sensitivity 2-hour (02/25/2025 2:27 PM CDT) Trop T hs 12 <=14 ng/L Comment: Interpretive Data For further hscTnT resources including the diagnostic algorithm and an aid in interpretation, copy and paste this link: https://nrl.testcatalog.org/show/hsTrop Current Interpretive Data last revised 2020. Testing performed by: [address] [address] Trop T hs delta -4 ng/L BLANCA Comment:Testing performed by : [address] [address] Trop T hs interp Insignificant BLANCA Comment:Testing performed by : [address] [address] Blood 02/25/2025 2:27 PM CDT 02/25/2025 2:32 PM CDT Layton Macario DO LAB BLOOD ORDERABLES Final Result Performing Organization Address [facility] Co de Phone Number [place] [id number] [facility] [place] [address] * Lactate (02/25/2025 2:27 PM CDT) Pathologist [facility] Lactate 1.8 0.7 - 2.0 mmol/L Comment:Testing performed by : [facility], [address] [place] [address]., [address] Blood 02/25/2025 2:27 PM CDT 02/25/2025 2:32 PM CDT Ángel Woodson MD LAB BLOOD ORDERABLES Final Re sult Performing Organization Address [facility] Co de Phone Number BLANCA [address] [place] [address] * (ABNORMAL) eGFR (02/25/2025 2:27 PM CDT) Pathologist [facility] eGFR 16(L) >=60 mL/min/1. 73 m2 Comment: Interpretive Data Reference Interval Normal >/= 90 mL/min/1.73m2 Mildly decreased* 60 - 89 mL/min/1.73m2 Mildly to moderately decreased 45 - 59 mL/min/1.73m2 Moderately to severely decreased 30 - 44 mL/min/1.73m2 Severely decreased 15 - 29 mL/min/1.73m2 Kidney Failure < 15 mL/min/1.73m2 *Relative to young adult level Estimated glomerular filtration rate is determined by the 2020 CKD-EPI equation recommended by the National Kidney Foundation (A Unifying Approach to GFR Estimation: Recommendations of the NKF-ASK Task Force on Reassessing the Inclusion of Race in Diagnosing Kidney Disease, JASN 2020). The CKD-EPI equation should not be used for patients with unstable renal function and has not been validated in children and those over 70. Current interpretive data was last reviewed 2021. Testing performed by: [facility], [address] [place] [address]., [address] Blood 02/25/2025 2:27 PM CDT 02/25/2025 2:32 PM CDT us Mau VERONICA LAB BLOOD ORDERABLES Final Re sult Performing Organization Address City/[facility]/ZIP Co de Phone Number [address] [address] * (ABNORMAL) Phosphorus (02/25/2025 2:27 PM CDT) [facility] Phosphorus, pl 4.8(H) 2.3 - 4.5 mg/dL Comment:Testing performed by : [address] [address] Blood 02/25/2025 2:27 PM CDT 02/25/2025 2:32 PM CDT Carmen Nayak MD LAB BLOOD ORDERABLES Final Res ult Performing Organization Address [facility]/ZIP Co de Phone Number [address] [address] * Creatine kinase (CK), total (02/25/2025 2:27 PM CDT) [facility] CK 50 30 - 200 Units/L Comment:Testing performed by : [address] [address] Blood 02/25/2025 2:27 PM CDT 02/25/2025 2:32 PM CDT us Carmen Nayak MD LAB BLOOD ORDERABLES Final Res ult Performing Organization Address City/[facility]/ZIP Co de Phone Number [address] [address] * (ABNORMAL) Basic metabolic panel (02/25/2025 2:27 PM CDT) [facility] Sodium 136 135 - 145 mmol/L Comment:Testing performed by : [address] [address] Potassium, pl 4.8 3.3 - 4.9 mmol/L BLANCA REESE Comment: Delta - Results Reviewed Testing performed by: [address] [address] Chloride 107 97 - 110 mmol/L BL[facility] REESE Comment:Testing performed by : [address] [place] [address] CO2 14(L) 22 - 32 mmol/L BLANCA Comment:Testing performed by : [address] [address] Anion gap 15 2 - 15 mmol/L BLANCA Comment:Testing performed by : [address] [address] BUN 93(H) 6 - 25 mg/dL BLANCA Comment:Testing performed by : [address] [address] Creatinine 3.05(H) 0.60 - 1.10 mg/dL BL[facility]CA Comment:Testing performed by : [address] [address] Glucose 204(H) 70 - 199 mg/dL BLANCA Comment: Delta - Results Reviewed Interpretive Data Fasting glucose >/= 126 mg/dl is diagnostic for diabetes. Fasting is defined as no caloric intake for at least 8 hours. Fasting glucose between 100 mg/dl to 125 mg/dl is diagnostic of prediabetes. In a patient with classic symptoms of hyperglycemia or hyperglycemic crisis, a random glucose >/= 200 mg/dl is diagnostic for diabetes. In the absence of unequivocal hyperglycemia, results should be confirmed by repeat testing. The classification and Diagnosis of Diabetes Diabetes Care 202; 46: S19-S40. Current interpretive data was last revised 2022. Testing performed by: [address] [address] Calcium 10.3 8.5 - 10.3 mg/dL BLANCA Comment:Testing performed by : [address] [address] Blood 02/25/2025 2:27 PM CDT 02/25/2025 2:32 PM CDT us Mau VERONICA LAB BLOOD ORDERABLES Final Re sult BLANCA [address] [facility] Department [place] [address] * POCT glucose (02/25/2025 1:44 PM CDT) Glucose, POC 108 70 - 199 mg/dL Comment:Testing performed by : [facility], [address] [place] [address]., [address] Glucose comment 1 RN/MD Notified BLANCA REESE Comment:Testing performed by : [facility], [address] [place] [address]., [address] Blood 02/25/2025 1:44 PM CDT 02/25/2025 1:44 PM CDT us Layton Macario DO LAB POCT ORDERABLES - DEVIC E Final Result BLANCA [address] [facility] Department [place] [address] * [place] CRITICAL CARE ILL/INJURED PATIENT INIT 30-74 MIN (02/25/2025 1:31 PM CDT) Narrative Layton Macario DO - 02/25/2025 1:31 PM CDT Layton Macario DO 02/25/2025 3:13 PM Critical Care Performed by: Layton Macario DO Authorized by: Layton Macario DO Critical care provider statement: As reflected in the history, physical exam, orders, notes, and/or MDM, I was personally present while the patient was critically ill and provided critical care services for 60 minutes, excluding time involved in separately billable procedures. Critical care was necessary to treat or prevent imminent or life-threatening deterioration of the following condition(s): acute electrolyte derangement Critical care was time spent by me providing the following: continuous telemetry and interpretation of bedside monitors, imaging, and arterial/venous lab draws hyperkalemia medical management I provided emergent necessary critical care medicine services to this patient. I spent time discussing the management of this critically ill patient with consultants and the medical staff. I ordered and reviewed test results and/or imaging studies. I spent time documenting in the medical record. I admitted this patient to an Intensive Care unit (ICU) and discussed management with the admitting team. us Layton Macario DO IN CLINIC/BEDSIDE ORDERABLE S Edited Result - Final * XR Chest 1 Vw Portable (02/25/2025 12:34 PM CDT) Anatomical Region Laterality Modality Body, Chest N/A Computed Radiogr aphy 02/25/2025 1:27 PM CDT Narrative 02/25/2025 1:29 PM CDT EXAM DESCRIPTION: XR CHEST 1 VIEW REASON FOR STUDY: general weakness Weakness and confusion for the past few days TECHNIQUE: Frontal radiographic view(s) of the chest. COMPARISON: 02/25/2025. FINDINGS: LUNGS: No focal opacity, pleural effusion, or pneumothorax. There is mild prominence of the interstitium. No focal consolidation, pleural effusion or pneumothorax. HEART/MEDIASTINUM: Cardiac silhouette normal in size. Mediastinal and hilar contours appear normal. LINES/TUBES: None. BONES: No acute osseous abnormality. IMPRESSION: Mild prominence of the interstitium may be due to mild vascular congestion. THIS IS AN ELECTRONICALLY VERIFIED FINAL REPORT 02/25/2025 1:29 PM - Electronically signed by Brian Lind M.D. CH: Report ID: [id number] Reading Location: [id number] Procedure Note Brian Lind Jr., MD - 02/25/2025 EXAM DESCRIPTION: XR CHEST 1 VIEW REASON FOR STUDY: general weakness Weakness and confusion for the past few days TECHNIQUE: Frontal radiographic view(s) of the chest. COMPARISON: 02/25/2025. FINDINGS: LUNGS: No focal opacity, pleural effusion, or pneumothorax.There is mild prominence of the interstitium. No focal consolidation, pleural effusion or pneumothorax. HEART/MEDIASTINUM: Cardiac silhouette normal in size. Mediastinal andhilar contours appear normal. LINES/TUBES: None. BONES: No acute osseous abnormality. IMPRESSION: Mild prominence of the interstitium may be due to mildvascular congestion. THIS IS AN ELECTRONICALLY VERIFIED FINAL REPORT 02/25/2025 1:29 PM - Electronically signed by Brian Lind M.D. CH: Report ID: [id number] Reading Location: [id number] Layton Macario DO IMG XR PROCEDURES Final Res ult * ECG 12 lead (02/25/2025 12:24 PM CDT) Ventricular Rate EKG/Min 69 BPM [facility] Atrial Rate 69 BPM [facility] [place]-Interval (MSEC) 142 ms [facility] QRS-Interval (MSEC) 90 ms [facility] QT-Interval (MSEC) 376 ms [facility] QTc 402 ms [facility] P [place] 41 degrees [facility] R [place] 43 degrees [facility] T [place] 57 degrees [facility] Diagnosis Normal sinus rhythm Normal ECG When compared with ECG of 25-FEB-2025 11:06, No significant change was found Confirmed by HENRY CHIRINOS M.D. ([id number]) on 02/26/2025 7:47:35 AM [facility] 02/25/2025 12:2 4 PM CDT 02/26/2025 7:47 AM CDT Layton Macario DO ECG ORDERABLES Final Resul t Performing Organization Address City/State/[facility] Co de Phone Number [facility] * (ABNORMAL) Troponin T high-sensitivity series (baseline, 2hr, 4hr, 6hr) (02/25/2025 12:20 PM CDT) Trop T hs 16(H) <=14 ng/L Comment: Interpretive Data For further hscTnT resources including the diagnostic algorithm and an aid in interpretation, copy and paste this link: https://nrl.testcatalog.org/show/hsTrop Current Interpretive Data last revised 2020. Testing performed by: [facility], [address] [place] [address]., [address] Blood 02/25/2025 12:2 0 PM CDT 02/25/2025 12:30 PM CDT Layton Macario DO LAB BLOOD ORDERABLES Final Result Performing Organization Address City/State/[facility] de Phone Number BLANCA [facility] [employer] [place], [place] [address] * (ABNORMAL) eGFR (02/25/2025 12:20 PM CDT) eGFR 13(L) >=60 mL/min/1. 73 m2 Comment: Interpretive Data Reference Interval Normal >/= 90 mL/min/1.73m2 Mildly decreased* 60 - 89 mL/min/1.73m2 Mildly to moderately decreased 45 - 59 mL/min/1.73m2 Moderately to severely decreased 30 - 44 mL/min/1.73m2 Severely decreased 15 - 29 mL/min/1.73m2 Kidney Failure < 15 mL/min/1.73m2 *Relative to young adult level Estimated glomerular filtration rate is determined by the 2020 CKD-EPI equation recommended by the National Kidney Foundation (A Unifying Approach to GFR Estimation: Recommendations of the NKF-ASK Task Force on Reassessing the Inclusion of Race in Diagnosing Kidney Disease, JASN 2020). The CKD-EPI equation should not be used for patients with unstable renal function and has not been validated in children and those over 70. Current interpretive data was last reviewed 2021. Testing performed by: [address] [address] Blood 02/25/2025 12:2 0 PM CDT 02/25/2025 12:30 PM CDT Layton Macario DO LAB BLOOD ORDERABLES Final Result Performing Organization Address [facility] Co de Phone Number BLANCA [address] [facility] [place] [address] * Thyroid Function Chama (02/25/2025 12:20 PM CDT) Pathologist [facility] TSH 0.74 0.30 - 4.20 mcIUnit/mL Comment:Testing performed by : [address] [address] Blood 02/25/2025 12:2 0 PM CDT 02/25/2025 12:30 PM CDT us Carmen Nayak MD LAB BLOOD ORDERABLES Final Res ult [facility] [address] [facility] Department [place] [address] * (ABNORMAL) Comprehensive metabolic panel (02/25/2025 12:20 PM CDT) Sodium 136 135 - 145 mmol/L Comment:Testing performed by : [address] [address] Potassium, pl 7.0(C) 3.3 - 4.9 mmol/L BLAN[facility] Comment: Critical Result called to and read back by [email or web address], DATE: 2025-02-25 13:27:00 BY: [email or web address] Testing performed by: [address] [address] Chloride 105 97 - 110 mmol/L BL[facility] Comment:Testing performed by : [address] [address] CO2 13(L) 22 - 32 mmol/L [facility] Comment:Testing performed by : [address] [address] Anion gap 18(H) 2 - 15 mmol/L [facility] Comment:Testing performed by : [address] [address] BUN 105(H) 6 - 25 mg/dL [facility] Comment:Testing performed by : [address] [address] Creatinine 3.80(H) 0.60 - 1.10 mg/dL [facility] Comment:Testing performed by : [address] [address] Glucose 98 70 - 199 mg/dL [facility] Comment: Interpretive Data Fasting glucose >/= 126 mg/dl is diagnostic for diabetes. Fasting is defined as no caloric intake for at least 8 hours. Fasting glucose between 100 mg/dl to 125 mg/dl is diagnostic of prediabetes. In a patient with classic symptoms of hyperglycemia or hyperglycemic crisis, a random glucose >/= 200 mg/dl is diagnostic for diabetes. In the absence of unequivocal hyperglycemia, results should be confirmed by repeat testing. The classification and Diagnosis of Diabetes Diabetes Care 202; 46: S19-S40. Current interpretive data was last revised 2022. Testing performed by: [facility], [address] [place] [address]., [address] Calcium 9.8 8.5 - 10.3 mg/dL [facility] Comment:Testing performed by : [address] [address] Bilirubin, total 0.2 0.1 - 1.2 mg/dL [facility] Comment:Testing performed by : [address] [address] Protein, pl 8.1 6.5 - 8.5 g/dL [facility] Comment:Testing performed by : [address] [address] Albumin 4.2 3.5 - 5.0 g/dL [facility] Comment:Testing performed by : [address] [address] Alk phos 143(H) 40 - 130 Units/L [facility] Comment:Testing performed by : [address] [address] ALT 12 7 - 45 Units/L [facility] Comment:Testing performed by : [address] [address] AST 16 10 - 45 Units/L [facility] Comment:Testing performed by : [address] [address] Blood 02/25/2025 12:2 0 PM CDT 02/25/2025 12:30 PM CDT us Layton Macario DO LAB BLOOD ORDERABLES Final Result [facility] REESE [address] [facility] Department [place] [address] * CT Head WO Contrast (02/25/2025 11:32 AM CDT) Anatomical Region Laterality Modality Head and Neck N/A Computed Tomogra phy 02/25/2025 12:2 7 PM CDT Narrative 02/25/2025 12:30 PM CDT EXAM DESCRIPTION: CT HEAD WO CONTRAST REASON FOR STUDY: Acute altered mental status with confusion and unspecified type weakness (without provided focal neurologic deficits) For a few days. No provided CT of trauma or inciting and/or aggravating events. No provided past medical or surgical history. TECHNIQUE: Axial images acquired through the brain without intravenous contrast. Images stored on PACS. Automated exposure control was used as a dose optimization technique for this examination. COMPARISON: CT head without contrast and CTA head/neck 06/11/2023; MRI brain without contrast 06/12/2023. FINDINGS: BRAIN: No acute intra-axial hemorrhage. No edema, mass effect, midline shift, or herniation. No evidence of acute territorial ischemia/infarct. No suspicious focal white matter lesions with preservation of the felton-white junction. Otherwise, please reference May 2023 MRI brain for evaluation of white matter. EXTRA-AXIAL SPACES: No extra-axial fluid collection. No unenhanced CT evidence of extra-axial mass. CALVARIUM: Diffuse demineralization of the osseous architecture. No acute calvarial fracture. SINUSES/MASTOIDS: No fluid levels of the paranasal sinuses. Mastoid air cells unchanged. ORBITS: No acute abnormality. [place] ocular lenses replaced bilaterally. OTHER: No other significant abnormality. IMPRESSION: No acute intracranial process. THIS IS AN ELECTRONICALLY VERIFIED FINAL REPORT 02/25/2025 12:30 PM - Electronically signed by Kal Hennessy M.D. MARLEY: MARLEY Report ID: [id number] Reading Location: [id number] Procedure Note Kal Hennessy MD - 02/25/2025 EXAM DESCRIPTION: CT HEAD WO CONTRAST REASON FOR STUDY: Acute altered mental status with confusion andunspecified type weakness (without provided focal neurologic deficits) For a few days. No provided CT of trauma or inciting and/or aggravating events. No provided past medical or surgical history. TECHNIQUE: Axial images acquired through the brain without intravenous contrast. Images stored on PACS. Automated exposure control was used asa dose optimization technique for this examination. COMPARISON: CT head without contrast and CTA head/neck 06/11/2023; MRIbrain without contrast 06/12/2023. FINDINGS: BRAIN: No acute intra-axial hemorrhage. No edema, masseffect, midline shift, or herniation. No evidence of acute territorial ischemia/infarct. No suspicious focal white matter lesions with preservation of the felton-white junction. Otherwise, please reference May 2023 MRI brain for evaluation of white matter. EXTRA-AXIAL SPACES: No extra-axial fluid collection. No unenhanced CT evidence of extra-axial mass. CALVARIUM: Diffuse demineralization of the osseous architecture. Noacute calvarial fracture. SINUSES/MASTOIDS: No fluid levels of the paranasal sinuses. Mastoid air cells unchanged. ORBITS: No acute abnormality. [place] ocular lenses replaced bilaterally. OTHER: No other significant abnormality. IMPRESSION: No acute intracranial process. THIS IS AN ELECTRONICALLY VERIFIED FINAL REPORT 02/25/2025 12:30 PM - Electronically signed by Kal Hennessy M.D. MARLEY: MARLEY Report ID: [id number] Reading Location: [place] [address] Layton Macario DO IMG CT PROCEDURES Final Res ult * Urinalysis reflex to microscopic and culture Urine (02/25/2025 11:21 AM CDT) Color, ur Yellow Yellow Comment:Testing performed by : [address] [address] Clarity, ur Clear Clear [facility] Comment:Testing performed by : [address] [address] Specific gravity, ur 1.016 1.003 - 1.030 [facility] Comment:Testing performed by : [address] [address] pH, urine 5.0 BL[facility] Comment: Interpretive Data U rine pH is affected by diet, medications, systemic acid-base disturbances, and renal tubular function. pH may affect urinary stone formation. For example, urine pH below 6.0 may help reduce the tendency for calcium phosphate stones and pH greater than 6.0 may reduce the tendency for uric acid stone formation. Source: [facility] Current Interpretive Data was last revised on 2017 Testing performed by: [address] [address] Protein, ur ql Negative Negative [facility] REESE Comment:Testing performed by : [address] [address] Glucose, ur ql Negative Negative [facility] Comment:Testing performed by : [address], [place]., [address] Ketones, ur Negative Negative [facility] Comment:Testing performed by : [address] [address] Bilirubin, ur Negative Negative [facility] Comment:Testing performed by : [address], [place]., [address] Blood, ur Negative Negative [facility] Comment:Testing performed by : [address], [place]., [address] Urobilinogen, ur <2.0 <2.0 mg/dL [facility] Comment:Testing performed by : [address], [place]., [address] Nitrite, ur Negative Negative [facility] Comment:Testing performed by : [address] [address] Leukocyte esterase, ur Negative Negative [facility] Comment:Testing performed by : [address] [address] UA reflex comment Reflex conditions for microscopic UA and culture not met. [facility] Comment:Testing performed by : [address] [address] Urine 02/25/2025 11:2 1 AM CDT 02/25/2025 11:28 AM CDT us Layton Macario DO LAB MICROBIOLOGY - GENERAL ORDERABLES Final Result [facility] [address] [facility] Department of Laboratories [place], [place] [id number] * Differential, auto (02/25/2025 11:16 AM CDT) Neutrophil abs 2.78 1.50 - 6.50 K/cumm Comment:Testing performed by : [address] [address] Imm gran abs 0.01 0.00 - 0.10 K/cumm BL[facility]CA Comment:Testing performed by : [address] [address] Lymphocyte abs 2.45 0.80 - 3.30 K/cumm [facility] Comment:Testing performed by : [address] [address] Monocyte abs 0.38 0.20 - 0.80 K/cumm [facility] Comment:Testing performed by : [address] [address] Eosinophil abs 0.07 0.00 - 0.50 K/cumm [facility] Comment:Testing performed by : [address] [address] Basophil abs 0.05 0.00 - 0.10 K/cumm [facility] Comment:Testing performed by : [address] [address] Neutrophil pct 48.4 % [facility] Comment: Interpretive Data Percent cell count reference ranges are not reported, since discordance with absolute values may lead to misinterpretation of CBC data. Current Interpretive Data was last revised on 2018. Testing performed by: [address] [address] Imm gran pct 0.2 % [facility] Comment: Interpretive Data Percent cell count reference ranges are not reported, since discordance with absolute values may lead to misinterpretation of CBC data. Current Interpretive Data was last revised on 2018. Testing performed by: [address] [address] Lymphocyte pct 42.7 % [facility] Comment: Interpretive Data Percent cell count reference ranges are not reported, since discordance with absolute values may lead to misinterpretation of CBC data. Current Interpretive Data was last revised on 2018. Testing performed by: [address] [address] Monocyte pct 6.6 % [facility] Comment: Interpretive Data Percent cell count reference ranges are not reported, since discordance with absolute values may lead to misinterpretation of CBC data. Current Interpretive Data was last revised on 2018. Testing performed by: [address] [address] Eosinophil pct 1.2 % [facility] REESE Comment: Interpretive Data Percent cell count reference ranges are not reported, since discordance with absolute values may lead to misinterpretation of CBC data. Current Interpretive Data was last revised on 2018. Testing performed by: [address] [address] Basophil pct 0.9 % [facility] Comment: Interpretive Data Percent cell count reference ranges are not reported, since discordance with absolute values may lead to misinterpretation of CBC data. Current Interpretive Data was last revised on 2018. Testing performed by: [address] [address] Blood 02/25/2025 11:1 6 AM CDT 02/25/2025 11:29 AM CDT Layton Macario DO LAB BLOOD ORDERABLES Final Result [facility] [address] [facility] Department of Laboratories [place], [place] [id number] * (ABNORMAL) CBC with auto differential (02/25/2025 11:16 AM CDT) WBC 5.74 3.80 - 9.90 K/cumm Comment:Testing performed by : [address] [address] Hgb 11.0(L) 11.9 - 15.5 g/dL [facility] REESE Comment:Testing performed by : [address] [address] Hct 37.3 35.6 - 45.5 % [facility] REESE Comment:Testing performed by : [address] [address] Plt 241 150 - 400 K/cumm [facility] REESE Comment:Testing performed by : [address] [address] MPV 10.4 9.1 - 12.3 fL [facility] REESE Comment:Testing performed by : [address] [address] RBC 4.49 3.90 - 5.20 M/cumm [facility] REESE Comment:Testing performed by : [address] [address] MCV 83.1 81.3 - 96.4 fL [facility] Comment:Testing performed by : [address] [address] MCH 24.5(L) 27.1 - 33.3 pg [facility] REESE Comment:Testing performed by : [address] [address] MCHC 29.5(L) 32.3 - 35.7 g/dL [facility] REESE Comment:Testing performed by : [address] [address] RDW CV 22.1(H) 11.1 - 14.9 % [facility] Comment:Testing performed by : [address] [address] RDW SD 65.4(H) 35.7 - 48.1 fL [facility] REESE Comment:Testing performed by : [address] [address] NRBC abs 0.00 0.00 - 0.01 K/cumm [facility] REESE Comment:Testing performed by : [address] [address] Blood 02/25/2025 11:1 6 AM CDT 02/25/2025 11:29 AM CDT Layton Macario DO LAB BLOOD ORDERABLES Final Result [facility] REESE [address] [facility] Department [place] [address] * (ABNORMAL) Hemoglobin A1c (02/25/2025 11:16 AM CDT) Pathologist [facility] Hgb A1C 7.4(H) 4.0 - 5.6 % Comment:Testing performed by : [facility], [address] [place] [address]., [address] Estimated Average Glucose 166 mg/dL [facility] Comment: The ADA recommends reporting an estimated Average Glucose (eAG) with all Hemoglobin A1c results using the equation derived from a study of 507 normal and diabetic adults. Minority populations were underrepresented and children were not included. (Diabetes Care 31:1784-4214, 2008). The eAG is not equivalent to a fasting glucose. Testing performed by: [facility], [address] [place] [address]., [address] Blood 02/25/2025 11:1 6 AM CDT 02/25/2025 11:29 AM CDT Carmen Nayak MD LAB BLOOD ORDERABLES Final Res ult [facility] [address] [facility] Department of Laboratories [place], [place] [id number] * ECG 12 lead (02/25/2025 11:06 AM CDT) [facility] Ventricular Rate EKG/Min 69 BPM [facility] Atrial Rate 69 BPM [facility] [place]-Interval (MSEC) 148 ms [facility] QRS-Interval (MSEC) 88 ms [facility] QT-Interval (MSEC) 382 ms [facility] QTc 409 ms [facility] P [place] 29 degrees [facility] R [place] 31 degrees [facility] T [place] 46 degrees [facility] Diagnosis Normal sinus rhythm Nonspecific ST abnormality Abnormal ECG When compared with ECG of 02-DEC-2023 14:31, Vent. rate has decreased BY 35 BPM QRS duration has increased Nonspecific T wave abnormality no longer evident in Lateral leads Confirmed by HENRY CHIRINOS M.D. ([id number]) on 02/26/2025 7:30:51 AM [facility] 02/25/2025 11:0 6 AM CDT 02/26/2025 7:30 AM CDT us Layton Macario DO ECG ORDERABLES Final Resul t Performing Organization Address [facility] de Phone Number [facility] * IR Ablation Lumbar Sacral Facet Right (01/31/2025 11:50 AM CDT) Narrative RAD_PACS_[facility] - 01/31/2025 11:50 AM CDT The images from this study are not interpreted by Radiology. Please refer to the physician's procedure / OR operative note. Henry Machado MD IMG IR PROCEDURES Final Res ult Performing Organization Address [facility] de Phone Number [email or web address] * IR Medial Branch Block Lumbar Sacral First Level Right (aka MBB) (01/10/2025 10:45 AM ADMINISTRATIVE ASSISTANT DATA ENTRY) Narrative RAD_PACS_[facility] - 01/10/2025 10:46 AM ADMINISTRATIVE ASSISTANT DATA ENTRY The images from this study are not interpreted by Radiology. Please refer to the physician's procedure / OR operative note. Henry Machado MD IMG IR PROCEDURES Final Res ult Performing Organization Address [facility] de Phone Number [email or web address] * IR Medial Branch Block Lumbar Sacral First Level Right (aka MBB) (12/20/2024 11:54 AM ADMINISTRATIVE ASSISTANT DATA ENTRY) Narrative RAD_PACS_[facility] - 12/20/2024 11:54 AM ADMINISTRATIVE ASSISTANT DATA ENTRY The images from this study are not interpreted by Radiology. Please refer to the physician's procedure / OR operative note. Henry Machado MD IMG IR PROCEDURES Final Res ult Performing Organization Address [facility] de Phone Number [email or web address] * Hepatitis C antibody Blood (02/07/2024 9:08 PM CDT) Hep C Ab Nonreactive Nonreactive Comment:Antibodies to HCV no t detected. Does NOT exclude the possibility of recent exposure to HCV. Current interpretive data was last revised on 22 Blood 02/07/2024 9:08 PM CDT 02/07/2024 9:43 PM CDT us Jim Rivera MD LAB MICROBIOLOGY - GENERAL ORDER RITIKA Final Result [facility] [place] [address] * COLONOSCOPY (09/24/2021 2:13 PM ADMINISTRATIVE ASSISTANT DATA ENTRY) Anatomical Region Laterality Modality Other Narrative Procedure Note Paul Chávez MD - 09/24/2021 2:13 PM CST ENDOSCOPY LAB Patient Name: Bernadine Rancho Procedure Date: 09/24/2021 2:13 PM Date of : 1960 Admit Type: Outpatient Age: 61 Gender: Female Attending MD: Paul Chávez M.D. Room: [facility] ENDOSCOPY ROOM 05 Note Status: Finalized Procedure: Colonoscopy Indications: Screening for colorectal malignant neoplasm, Last colonoscopy: June 2020, Incidental - Chronicdiarrhea Providers: Paul Chávez M.D. Referring MD: Darlene Saeed MD Medicines: Monitored Anesthesia Care Complications: No immediate complications. Estimated Blood Loss: Estimated blood loss: none. Procedure: Pre-Anesthesia Assessment: - Prior to the procedure, a History and Physicalwas performed, and patient medications, allergies and sensitivities were reviewed. The patient'stolerance of previous anesthesia was reviewed. The benefits, risks and alternatives of theprocedure and sedation were discussed and informed consentwas obtained. All questions were answered. Please referto the signed informed consent document in the medical record. The scope was passed under direct vision.The [id number] was introduced through the anusand advanced to the cecum, identified by appendiceal orifice and ileocecal valve. The colonoscopy was performed without difficulty. The patient tolerated the procedure well. The quality of the bowel preparation was evaluated using the BBPS (BostonBowel Preparation Scale) with scores of: Right Colon = 2 (minor amount of residual staining, small fragmentsof stool and/or opaque liquid, but mucosa seen well), Transverse Colon = 2 (minor amount of residual staining, small fragments of stool and/or opaque liquid, but mucosa seen well) and Left Colon = 2 (minor amount of residual staining, small fragmentsof stool and/or opaque liquid, but mucosa seen well).The total BBPS score equals 6. Findings: The digital rectal exam was normal. The colon (entire examined portion) appeared normal. Biopsies weretaken with a cold forceps for histology. The exam was otherwise without abnormality on direct and retroflexion views. Impression: - The entire examined colon is normal. Biopsied. - The examination was otherwise normal on directand retroflexion views. Recommendation: - Await pathology results. - Return to GI clinic as previously scheduled. - Repeat colonoscopy in 10 years for screening purposes. - Will check stool studies to rule out infectionand empirically start cholesytramine for treatment of diarrhea. Attending Participation: I personally performed the entire procedure. Electronically signed by Paul Chávez MD Paul Chávez M.D. 09/24/2021 3:38:44 PM Number of Addenda: 0 Note Initiated On: 09/24/2021 2:13 PM us Paul Chávez MD ENDOSCOPY PROCEDURES Edited R esult - Final * Dexa Appendicular Bone Density (08/04/2021 2:32 PM CDT) Anatomical Region Laterality Modality Wrist N/A Radiographic Dasia ging Narrative 08/04/2021 4:11 PM CDT Patient Name: Bernadine Simms Date of : 1960 Date of scan: 08/04/2021 Bone mineral density was performed on a [employer] Discovery Densitometer. Based on machine cross-calibration and precision studies the least significant changes of this densitometer is 0.024 g/cm2 at the spine, 0.020 g/cm2 at the total proximal femur, and 0.014g/cm2 at the forearm. HISTORY: This is a 61 y.o. postmenopausal female with a history of bariatric surgery, multiple fractures, osteoporosis, ulcerative colitis and vitamin D deficiency. She reports that she quit smoking 12 days ago. Her smoking use included cigarettes. She has a 24.00 pack-year smoking history. She has never used smokeless tobacco. She is currently on treatment with calcium, vitamin D, abaloparatide (Tymlos), anti-seizure medications and diuretics. She has a current complaint of back pain. INDICATIONS: Menopause status, treatment monitoring, history of prior wrist and vertebral fracture, vitamin D deficiency and history of osteoporosis. FINDINGS: BONE MINERAL DENSITY OF THE LUMBAR SPINE Bone Mineral Density (BMD) of the lumbar spine was measured from L1, L4 and the average density was calculated to be 0.749 gm/cm2. This corresponds to a T-score (standard deviations from the mean of young adults) of -2.6. When compared to the previous study of 06/16/2020 there has been a 0.098 gm/cm (15.0%) increase in bone density that is considered significant. BONE MINERAL DENSITY OF THE PROXIMAL FEMUR Bone Mineral Density (BMD) of the left hip total was found to be 0.649 gm/cm2. This corresponds to a T-score standard deviations from the mean of young adults of -2.4. Femoral neck is 0.589 gm/cm2 with a T-score (standard deviations from the mean of young adults) of -2.3. When compared to the previous study of 06/16/2020 there has been a 0.037 gm/cm (6.1%) increase in bone density that is considered significant. BONE MINERAL DENSITY OF THE FOREARM Bone Mineral density (BMD) of the left proximal 1/3 of the radius measures 0.381 gm/cm2. This corresponds to a T-score (standard deviations from the mean of young adults) of -5.2. When compared to the previous study of 06/16/2020 there has been no significant change noted. SUMMARY: Bone mineral density shows evidence of osteoporosis and marked increase risk of fracture. There has been a significant increase in bone density since previous measurement. LL2 and L3 excluded from bone mineral density analysis of the lumbar spine because of bone density being more than 1 standard deviation discrepant relative to one adjacent vertebra. Clinical correlation is recommended. ADDITIONAL COMMENTS: Postmenopausal Women and Men Over 50: Diagnostic criteria: Osteoporosis: BMD at or below -2.5 T-score; Osteopenia (low bone mass): BMD between -1.0 and -2.5 T-score. If the patient has a history of a fragility fracture, a fracture that occurred with trauma equivalent to a fall from a standing position or less, then the diagnosis is osteoporosis regardless of bone density. The history and data sections of the bone mineral density scan were prepared by Katya Brown (R)(CBDT) who is accredited by the International Society of Clinical Densitometry. The overall patient assessment and scan interpretation were performed by Junior Aguirre M.D. who is certified by the International Society of Clinical Densitometry. [id number] Junior Aguirre MD IM DXA PROCEDURES Final Result * Lipid panel (12/09/2020 4:03 PM ADMINISTRATIVE ASSISTANT DATA ENTRY) [facility] Cholesterol 151 30 - 199 mg/dL BLAN[facility] Comment: Interpretive Data Ages < or = 19 years Acceptable: <170 mg/dL Borderline high: 170-199 mg/dL High: >or= 200 mg/dL Ages > or = 20 years Desirable: <200 mg/dL Borderline high: 200-239 mg/dL High: >or= 240 mg/dL Literature References: 1. Expert Panel on Integrated Guidelines for Cardiovascular Health and Risk Reduction in Children and Adolescents. Pediatrics 2011;128:S213 2. NCEP Expert Panel. Circulation 2004;110:227 Current Interpretive Data was last revised on 2018. Triglycerides 90 <=149 mg/dL [facility] Comment: Interpretive Data Ages < or = 9 years Acceptable: <75 mg/dL Borderline high: 75-99 mg/dL High: >or= 100 mg/dL Ages 10 to 20 years Acceptable: <90 mg/dL Borderline high: 90-129 mg/dL High: >or= 130 mg/dL Ages > or = 20 years Desirable: <150 mg/dL Borderline high: 150-199 mg/dL High: 200-499 mg/dL Very high: >or= 499 mg/dL Literature References: 1. Expert Panel on Integrated Guidelines for Cardiovascular Health and Risk Reduction in Children and Adolescents. Pediatrics 2011;128:S213 2. NCEP Expert Panel. Circulation 2004;110:227 Current Interpretive Data was last revised on 2018. HDL 76 >=40 mg/dL [facility] Comment: Interpretive Data Ages < or = 19 years Acceptable: >45 mg/dL Borderline low: 40-45 mg/dL Low: <40 mg/dL Ages > or = 20 years Desirable: >or= 60 mg/dL Low: <40 mg/dL Literature References: 1. Expert Panel on Integrated Guidelines for Cardiovascular Health and Risk Reduction in Children and Adolescents. Pediatrics 2011;128:S213 2. NCEP Expert Panel. Circulation 2004;110:227 Current Interpretive Data was last revised on 2018. LDL, calculated 57 <=129 mg/dL [facility] Comment: Interpretive Data Ages < or = 19 years Acceptable: <110 mg/dL Borderline high: 110-129 mg/dL High: >or= 130 mg/dL Ages > or = 20 years Optimal: <100 mg/dL Near optimal: 100-129 mg/dL Borderline high: 130-159 mg/dL High: >160 mg/dL Literature References: 1. Expert Panel on Integrated Guidelines for Cardiovascular Health and Risk Reduction in Children and Adolescents. Pediatrics 2011;128:S213 2. NCEP Expert Panel. Circulation 2004;110:227 Current Interpretive Data was last revised on 2018. Non-HDL Cholesterol 75 mg/dL [facility] Comment: Interpretive Data Ages < or = 19 years Acceptable: <120 mg/dL Borderline high: 120-144 mg/dL High: >145 mg/dL Ages > or = 20 years When triglycerides are >200 mg/dL, Non-HDL cholesterol is a secondary target of therapy with treatment goals that are 30 mg/dL greater than the LDL cholesterol target. Literature References: 1. Expert Panel on Integrated Guidelines for Cardiovascular Health and Risk Reduction in Children and Adolescents. Pediatrics 2011;128:S213 2. NCEP Expert Panel. Circulation 2004;110:227 Current Interpretive Data was last revised on 2018. Chol/HDL ratio 2 [facility] Blood specimen (specimen) 12/09/2020 4:03 PM ADMINISTRATIVE ASSISTANT DATA ENTRY 12/09/2020 4:22 PM ADMINISTRATIVE ASSISTANT DATA ENTRY us David Liz MD LAB BLOOD ORDERABLES Final Re sult [facility] Department [place] [address] * Screening Mammogram Bilateral [place] (07/16/2020 11:16 AM CDT) Anatomical Region Laterality Modality Breast Bilateral Mammography Narrative 07/18/2020 12:37 PM CDT Mammogram Technique: Bilateral Digital Breast Tomosynthesis, Bilateral C-view 2D Screening mammogram. Views obtained: bilateral craniocaudal and bilateral mediolateral oblique. Computer Aided Detection was performed. Mammogram Findings: The present examination has been compared to prior imaging studies performed at [facility] on 05/13/2014, 07/04/2015 and 08/01/2019. There are scattered areas of fibroglandular density. There is no suspicious abnormality in either breast. Impression: Annual screening mammography is recommended. OVERALL FINAL ASSESSMENT: BI-RADS CATEGORY 1: Negative. Procedure Note Lorena Kaur MD - 07/18/2020 Mammogram Technique: Bilateral Digital Breast Tomosynthesis, Bilateral C-view 2D Screening mammogram. Views obtained: bilateral craniocaudal and bilateral mediolateral oblique. Computer Aided Detection was performed. Mammogram Findings: The present examination has been compared to prior imaging studies performed at [facility] on 05/13/2014, 07/04/2015 and 08/01/2019. There are scattered areas of fibroglandular density. There is no suspicious abnormality in either breast. Impression: Annual screening mammography is recommended. OVERALL FINAL ASSESSMENT: BI-RADS CATEGORY 1: Negative. Henry Tello MD IMG MAMMO PROCEDURES Final Re sult from Last 3 Months or Most Recently Relevant to Health Maintenance Insurance [facility] UHC MEDICARE ADVANTAGE MEDICARE [facility] SUPPLEMENT MEDICARE MEDICARE [facility] SUPPLEMENT [facility] SUPPLEMENT MEDICARE [facility] MEDICARE ADVANTAGE Advance Directives For more information, please contact: [phone] Documents on File Type Date Recorded Patient Vp & General Counsel Expl anation ADVANCE DIRECTIVE 01/09/2021 10:38 AM Lindsay r of Station Baggage Agent-Medical ADVANCE DIRECTIVE 07/13/2019 5:35 AM POWER OF PAYROLL AND BENEFITS SPECIALIST-MEDICAL ADVANCE DIRECTIVE 05/14/2019 10:01 AM * Full Code (Latest Code Status on File) Date Activated Date Inactivated Comments 02/25/2025 3:26 PM 02/28/2025 6:20 PM * Full Code Date Activated Date Inactivated Comments 02/06/2024 10:55 PM 2024 7:45 PM * Full Code Date Activated Date Inactivated Comments 06/12/2023 1:55 AM 06/18/2023 9:48 PM * Full Code Date Activated Date Inactivated Comments 02/26/2022 11:08 PM 02/28/2022 6:07 PM * Full Code Date Activated Date Inactivated Comments 12/30/2021 9:50 AM 12/30/2021 6:05 PM Care Teams Fixture Designer Relationship Specialty Start Date End Date Darlene Saeed MD [address] [place] [address] PCP - General Family Medicine 01/09/21 Israel Carrillo MD [address] [facility] [address] [place] [address] Referring Physician Endocrinology Diabetes & Metabolism 06/01/19 Manish Singer MD [address] [facility] [address] [place] [address] Consulting Physician Otolaryngology 01/17/22
--- OUTSIDE RECORDS SUMMARY | 2025-03-07 15:31 | XMS_ITS | Encounter Summary ---
Author Organization [facility] Address [address] [place] [address] Phone Care Team Providers Care Supervisor [employer] Name Role Phone Israel Carrillo MD Primary Care Provider Gene Padilla MD Primary Care Provider [phone] Israel Carrillo MD Primary Care Provider Twin Tello MD Primary Care Provider Israel Carrillo MD Unavailable Twin Tello MD Primary Care Provider Miguel Field MD Primary Care Provider Israel Carrillo MD Primary Care Provider Miguel Field MD Primary Care Provider Israel Carrillo MD Primary Care Provider [phone] Darlene Saeed MD Primary Care Provider Manish Singer MD Unavailable [phone] Katya Carpenter RN Unavailable [phone] Encounter Details Date Type Department Care Team (Latest Contact Info) Description 06/08/2017 Orders Only [facility] CONVERSION Scanning, Provider Social History Tobacco Use Types Packs/Day Years Used Date Smoking Tobacco: Some Days Alcohol Use Standard Drinks/Week Comments Yes 0 (1 standard drink = 0.6 oz pur e alcohol) Comments Unknown Sex and Gender Information Value Date Recorded Sex Assigned at Not on file Legal Sex Female 8:10 PM FREE LANCE MODEL Gender Identity Not on file Sexual Orientation Not on file documented as of this encounter Plan of Treatment Not on file documented as of this encounter Procedures Procedure Name Priority Date/Time Associated Diagnosis Comments VASCULAR LABORATORY REPORT 06/08/2017 9:31 PM CDT documented in this encounter Results * VASCULAR LABORATORY REPORT (06/08/2017 9:31 PM CDT) Anatomical Region Laterality Modality Ultrasound us Provider Scanning CV VASCULAR PROCEDURES Final R esult documented in this encounter Visit Diagnoses Not on filedocumented in this encounter Additional Health Concerns Infection Onset Date Last Indicated Resolved Time COVID: Suspected 12/17/2020 12/17/2020 12/17/2020 6:45 PM FREE LANCE MODEL Diarrhea 12/02/2023 12/02/2023 12/16/2023 3:06 AM FREE LANCE MODEL COVID: Suspected 02/06/2024 02/06/2024 02/06/2024 2:46 PM CDT documented as of this encounter Care Teams Supervisor [employer] Relationship Specialty Start Date End Date Israel Carrillo MD [address] [address] PCP - General 08/02/07 09/26/18 Gene Padilla MD [address] [place] [address] [address] [address] PCP - General Cardiovascular Disease 09/27/18 Israel Carrillo MD [address] [address] PCP - General 10/02/18 05/31/19 Twin Tello MD [address] [address] PCP - General Endocrinology Diabetes & Metabolism 06/01/19 07/03/19 Twin Tello MD [address] [address] PCP - General 07/04/19 05/04/20 Miguel Field MD [address] [address] PCP - General Internal Medicine 05/05/20 08/03/20 Israel Carrillo MD [address] [address] PCP - General Endocrinology Diabetes & Metabolism 08/04/20 09/02/20 Miguel Field MD [address] [address] PCP - General 09/03/20 10/05/20 Israel Carrillo MD [address] [address] PCP - General Endocrinology Diabetes & Metabolism 10/06/20 01/08/21 Darlene Saeed MD [address] [address] PCP - General Family Medicine 01/09/21 Israel Carrillo MD [address] [address] Referring Physician Endocrinology Diabetes & Metabolism 06/01/19 Manish Singer MD [address] [facility] [address] [place] [address] Consulting Physician Otolaryngology 01/17/22 Katya Carpenter, RN [address] [facility] [address] [place] [address] SHOP Outpatient Stripe Marker 02/13/24 02/19/24 documented as of this encounter
--- OUTSIDE RECORDS SUMMARY | 2025-03-07 15:31 | XMS_ITS | Clinical Summary ---
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 4:12 AM CDT) eGFR 62 >=60 mL/min/1. 73 m2 Comment: [...] was last reviewed 2021. Testing performed by: [address] [address] Blood 02/27/2025 4:12 AM CDT 02/27/2025 5:30 AM CDT us Ángel Woodson MD LAB BLOOD ORDERABLES Final Re sult [facility] [address] [facility] Department [place] [address] * Differential, auto (02/27/2025 4:12 AM CDT) Pathologist [facility] Neutrophil abs 2.55 1.50 - 6.50 K/cumm Comment:Testing performed by : [address] [address] Imm gran abs 0.01 0.00 - 0.10 K/cumm BLANCA Comment:Testing performed by : [address] [address] Lymphocyte abs 2.72 0.80 - 3.30 K/cumm BLACNA REESE Comment:Testing performed by : [address], [place]., [address] Monocyte abs 0.49 0.20 - 0.80 K/cumm [facility] Comment:Testing performed by : [address], [place]., [address] Eosinophil abs 0.09 0.00 - 0.50 K/cumm [facility] Comment:Testing performed by : [address], [place]., [address] Basophil abs 0.04 0.00 - 0.10 K/cumm [facility] Comment:Testing performed by : [address] [address] Neutrophil pct 43.2 % [facility] Comment: Interpretive Data Percent cell count reference ranges are not reported, since discordance with absolute values may lead to misinterpretation of CBC data. Current Interpretive Data was last revised on 2018. Testing performed by: [address] [address] Imm gran pct 0.2 % [facility] Comment: Interpretive Data Percent cell count reference ranges are not reported, since discordance with absolute values may lead to misinterpretation of CBC data. Current Interpretive Data was last revised on 2018. Testing performed by: [address] [address] Lymphocyte pct 46.1 % [facility] Comment: Interpretive Data Percent cell count reference ranges are not reported, since discordance with absolute values may lead to misinterpretation of CBC data. Current Interpretive Data was last revised on 2018. Testing performed by: [address] [address] Monocyte pct 8.3 % [facility] Comment: Interpretive Data Percent cell count reference ranges are not reported, since discordance with absolute values may lead to misinterpretation of CBC data. Current Interpretive Data was last revised on 2018. Testing performed by: [address] [address] Eosinophil pct 1.5 % [facility] Comment: Interpretive Data Percent cell count reference ranges are not reported, since discordance with absolute values may lead to misinterpretation of CBC data. Current Interpretive Data was last revised on 2018. Testing performed by: [address] [address] Basophil pct 0.7 % BLANCA REESE Comment: Interpretive Data Percent cell count reference ranges are not reported, since discordance with absolute values may lead to misinterpretation of CBC data. Current Interpretive Data was last revised on 2018. Testing performed by: [address] [address] Blood 02/27/2025 4:12 AM CDT 02/27/2025 5:36 AM CDT us Mau VERONICA LAB BLOOD ORDERABLES Final Re sult Performing Organization Address [facility] Co de Phone Number [address] [place] [address] * (ABNORMAL) Iron profile w/ IBC (02/27/2025 4:12 AM CDT) Pathologist [facility] Iron 45 35 - 145 mcg/dL Comment:Testing performed by : [address] [address] TIBC 309 250 - 400 mcg/dL BLANCA REESE Comment:Testing performed by : [address] [address] Transferrin saturation 15(L) 20 - 50 % BLANCA Comment:Testing performed by : [address] [address] Blood 02/27/2025 4:12 AM CDT 02/27/2025 5:30 AM CDT us Ángel Woodson MD LAB BLOOD ORDERABLES Final Re sult Performing Organization Address City/[facility] Co de Phone Number [address] [place] [address] * (ABNORMAL) CBC with auto differential (02/27/2025 4:12 AM CDT) WBC 5.90 3.80 - 9.90 K/cumm Comment:Testing performed by : [address] [address] Hgb 8.9(L) 11.9 - 15.5 g/dL BLANCA Comment:Testing performed by : [address] [address] Hct 29.0(L) 35.6 - 45.5 % BLANCA Comment:Testing performed by : [address] [address] Plt 174 150 - 400 K/cumm [facility]ERCHRISTIAN Comment:Testing performed by : [address] [address] MPV 10.6 9.1 - 12.3 fL BLANCA Comment:Testing performed by : [address] [address] RBC 3.59(L) 3.90 - 5.20 M/cumm BLANCA Comment:Testing performed by : [address] [address] MCV 80.8(L) 81.3 - 96.4 fL [facility]ER[facility] Comment:Testing performed by : [address] [address] MCH 24.8(L) 27.1 - 33.3 pg [facility] Comment:Testing performed by : [address] [address] MCHC 30.7(L) 32.3 - 35.7 g/dL BLANCA Comment:Testing performed by : [address] [address] RDW CV 21.0(H) 11.1 - 14.9 % BLANCA Comment:Testing performed by : [address] [address] RDW SD 60.4(H) 35.7 - 48.1 fL [facility] Comment:Testing performed by : [address] [address] NRBC abs 0.00 0.00 - 0.01 K/cumm BLANCA Comment:Testing performed by : [address] [place]., [address] Blood 02/27/2025 4:12 AM CDT 02/27/2025 5:36 AM CDT Mau VERONICA LAB BLOOD ORDERABLES Final Re sult Performing Organization Address [facility] de Phone Number [address] [address] * Phosphorus (02/27/2025 4:12 AM CDT) Phosphorus, pl 3.2 2.3 - 4.5 mg/dL Comment:Testing performed by : [address] [address] Blood 02/27/2025 4:12 AM CDT 02/27/2025 5:30 AM CDT Ángel Woodson MD LAB BLOOD ORDERABLES Final Re sult Performing Organization Address [facility] Co de Phone Number [address]IR[address] [address] * Magnesium (02/27/2025 4:12 AM CDT) Magnesium 2.0 1.4 - 2.5 mg/dL Comment:Testing performed by : [address] [address] Blood 02/27/2025 4:1 2 AM CDT 02/27/2025 5:30 AM CDT Ángel Woodson MD LAB BLOOD ORDERABLES Final Re sult Performing Organization Address [facility] Co de Phone Number [address] [address] * Folate (02/27/2025 4:12 AM CDT) Folic acid 16.5 >=5.0 ng/mL Comment:Testing performed by : [address] [address] Blood 02/27/2025 4:12 AM CDT 02/27/2025 5:30 AM CDT us Ángel Woodson MD LAB BLOOD ORDERABLES Final Re sult [facility] [address] [facility] Department [place] [address] * (ABNORMAL) Basic metabolic panel (02/27/2025 4:12 AM CDT) Sodium 144 135 - 145 mmol/L Comment:Testing performed by : [address] [address] Potassium, pl 4.6 3.3 - 4.9 mmol/L BLANCA Comment: Hemolyzed; Potassium value may be falsely elevated by as much as 1.0 mmol/L. Suggest redraw and reanalysis. Testing performed by: [address] [address] Chloride 108 97 - 110 mmol/L BLANCA Comment:Testing performed by : [address] [address] CO2 23 22 - 32 mmol/L BLANCA Comment:Testing performed by : [address] [address] Anion gap 13 2 - 15 mmol/L BLANCA Comment:Testing performed by : [address] [address] BUN 30(H) 6 - 25 mg/dL BL[facility]CA Comment:Testing performed by : [address] [address] Creatinine 1.00 0.60 - 1.10 mg/dL [facility]CA Comment:Testing performed by : [address] [address] Glucose 111 70 - 199 mg/dL BLANCA [...] was last revised 2022. Testing performed by: [address] [address] Calcium 9.0 8.5 - 10.3 mg/dL [facility] Comment:Testing performed by : [address] [address] Blood 02/27/2025 4:12 AM CDT 02/27/2025 5:30 AM CDT us Ángel Woodson MD LAB BLOOD ORDERABLES Final Re sult Performing Organization Address [facility]/ZIP Co de Phone Number [address] [place] [address] * POCT glucose (02/27/2025 4:11 AM CDT) Glucose, POC 114 70 - 199 mg/dL Comment:Testing performed by : [address] [address] Blood 02/27/2025 4:11 AM CDT 02/27/2025 4:11 AM CDT Carmen Nayak MD LAB POCT ORDERABLES - DEVICE F inal Result Performing Organization Address [facility]/ZIP Co de Phone Number [address] [place] [address] * POCT glucose (02/27/2025 1:32 AM CDT) Glucose, POC 109 70 - 199 mg/dL Comment:Testing performed by : [address] [address] Blood 02/27/2025 1:32 AM CDT 02/27/2025 1:32 AM CDT us Carmen Nayak MD LAB POCT ORDERABLES - DEVICE F inal Result Performing Organization Address [facility] Co de Phone Number RIRI[address] [address] * POCT glucose (02/26/2025 8:48 PM CDT) Glucose, POC 118 70 - 199 mg/dL Comment:Testing performed by : [facility], [address] [place] [address]., [address] Blood 02/26/2025 8:48 PM CDT 02/26/2025 8:48 PM CDT us Carmen Nayak MD LAB POCT ORDERABLES - DEVICE F inal Result Performing Organization Address [facility] de Phone Number [address] [address] * POCT glucose (02/26/2025 5:53 PM CDT) Glucose, POC 134 70 - 199 mg/dL Comment:Testing performed by : [facility], [address] [place] [address]., [address] Blood 02/26/2025 5:53 PM CDT 02/26/2025 5:53 PM CDT us Carmen Nayak MD LAB POCT ORDERABLES - DEVICE F inal Result Performing Organization Address [facility] de Phone Number [address] [address] * TRANSTHORACIC ECHO (TTE) COMPLETE W DOPPLER/CF W CONTRAST (02/26/2025 1:08 PM CDT) LV EF 60-65 % CONS SCIMAGE Anatomical Region Laterality Modality Ultrasound 02/26/2025 12:2 7 PM CDT Narrative 02/26/2025 1:41 PM CDT Transthoracic Echocardiographic Report Patient Name: BERNADINE SIMMS A : 1960 (65y ) Gender: F Study Date: 02/26/2025 12:27:08 PM Ht(Inch): 59 Wt(Lb): 235.01 BSA: 2.11 Educational Manager: Olivia Patterson RDCS Location: [id number] Order Provider: MAU YOUNG Heart Rate: 74 BMI: 47.46 BP: 118/54 Ref Provider: MAU YOUNG PROCEDURES: Echocardiographic Report: ([id number]) Transthoracic complete echo with contrast, 2D, spectral [...] PM Ht(Inch): 59 Wt(Lb): 235.01 BSA: 2.11 Educational Manager: Olivia Patterson RUDY Location: [id number] Order Provider:MAU YOUNG Heart Rate: 74 BMI: 47.46 BP: 118/54 Ref Provider: MAU YOUNG PROCEDURES: Echocardiographic Report: ([id number]) Transthoracic complete echo withcontrast, 2D, spectral and tissue Doppler, color flow Doppler, M-mode. Contrast: A contrast injection of Definity was performed to improveassessment of LV function. Definity Lot Number: [id number]. Technically difficult study due to: Technically difficult [...] Benjy Neves MD 02/26/2025 1:41:03 PM CDT Mau VERONICA CV ECHO PROCEDURES Final Resu lt * POCT glucose (02/26/2025 1:05 PM CDT) Glucose, POC 147 70 - 199 mg/dL Comment:Testing performed by : [facility], [address] [place] [address]., [address] Blood 02/26/2025 1:05 PM CDT 02/26/2025 1:05 PM CDT Carmen Nayak MD LAB POCT ORDERABLES - DEVICE F inal Result [facility] [address] [facility] Department [place] [address] * CT Abdomen Pelvis WO Contrast (02/26/2025 [...] Miguel Price M.D. KR: RAMAN Report ID: [id number] Reading Location: [id number] Procedure Note Miguel Price MD - 02/26/2025 [...] Miguel Price M.D. KR: RAMAN Report ID: [id number] Reading Location: [place] [address] Carmen Nayak MD IMG CT PROCEDURES Final [...] plan with the ICU team and other medical/intelligence consultant staff, making frequent assessments and decisions [...] spent time documenting in the medical record us Les Vásquez MD IN CLINIC/BEDSIDE ORDER RITIKA Final Result * Protime-INR (02/26/2025 6:12 AM CDT) PT 13.8 12.0 - 14.6 sec Comment:Testing performed by : [address] [address] INR 1.1 0.9 - 1.2 BLANCA REESE Comment: Ref Range High Interpretive data Oral anticoagulant therapeutic ranges: Venous thromboembolism prophylaxis or treatment: 2.0-3.0 CARDIOLOGY Standard range: 2.0-3.0 High-intensity range: 2.5-3.5 Refer to indication-specific guidelines for appropriate target ranges for prosthetic heart valve replacement. Current interpretive data was last revised on 2019. Testing performed by: [address] [address] Blood 02/26/2025 6:12 AM CDT 02/26/2025 6:23 AM CDT us Mau VERONICA LAB BLOOD ORDERABLES Final Re sult BLANCA [address] [facility] Department [place] [address] * (ABNORMAL) eGFR (02/26/2025 3:54 [...] was last reviewed 2021. Testing performed by: [address] [address] Blood 02/26/2025 3:54 AM CDT 02/26/2025 4:56 AM CDT us Mau VERONICA LAB BLOOD ORDERABLES Final Re sult [facility] [address] [facility] Department [place] [address] * Differential, auto (02/26/2025 3:54 AM CDT) Neutrophil abs 3.08 1.50 - 6.50 K/cumm Comment:Testing performed by : [address] [address] Imm gran abs 0.01 0.00 - 0.10 K/cumm BLANCA Comment:Testing performed by : [address] [address] Lymphocyte abs 2.89 0.80 - 3.30 K/cumm BLANCA Comment:Testing performed by : [address] [address] Monocyte abs 0.45 0.20 - 0.80 K/cumm BLANCA Comment:Testing performed by : [address] [address] Eosinophil abs 0.08 0.00 - 0.50 K/cumm [facility] Comment:Testing performed by : [address] [address] Basophil abs 0.03 0.00 - 0.10 K/cumm BLANCA Comment:Testing performed by : [address] [address] Neutrophil pct 47.0 % [facility] Comment: Interpretive Data Percent cell count reference ranges are not reported, since discordance with absolute values may lead to misinterpretation of CBC data. Current Interpretive Data was last revised on 2018. Testing performed by: [address] [address] Imm gran pct 0.2 % [facility] Comment: Interpretive Data Percent cell count reference ranges are not reported, since discordance with absolute values may lead to misinterpretation of CBC data. Current Interpretive Data was last revised on 2018. Testing performed by: [address] [address] Lymphocyte pct 44.2 % [facility] Comment: Interpretive Data Percent cell count reference ranges are not reported, since discordance with absolute values may lead to misinterpretation of CBC data. Current Interpretive Data was last revised on 2018. Testing performed by: [address] [address] Monocyte pct 6.9 % [facility] Comment: Interpretive Data Percent cell count reference ranges are not reported, since discordance with absolute values may lead to misinterpretation of CBC data. Current Interpretive Data was last revised on 2018. Testing performed by: [address] [address] Eosinophil pct 1.2 % [facility] Comment: Interpretive Data Percent cell count reference ranges are not reported, since discordance with absolute values may lead to misinterpretation of CBC data. Current Interpretive Data was last revised on 2018. Testing performed by: [address] [address] Basophil pct 0.5 % [facility] Comment: Interpretive Data Percent cell count reference ranges are not reported, since discordance with absolute values may lead to misinterpretation of CBC data. Current Interpretive Data was last revised on 2018. Testing performed by: [address] [address] Blood 02/26/2025 3:54 AM CDT 02/26/2025 5:04 AM CDT us Mau VERONICA LAB BLOOD ORDERABLES Final Re sult [facility] [address] [facility] Department [place] [address] * (ABNORMAL) CBC with auto differential (02/26/2025 3:54 AM CDT) WBC 6.54 3.80 - 9.90 K/cumm Comment:Testing performed by : [address] [address] Hgb 9.1(L) 11.9 - 15.5 g/dL BLANCA Comment:Testing performed by : [address] [address] Hct 29.0(L) 35.6 - 45.5 % BLANCA Comment:Testing performed by : [address] [address] Plt 190 150 - 400 K/cumm BLANCA Comment:Testing performed by : [address] [address] MPV 10.7 9.1 - 12.3 fL BL[facility]CA Comment:Testing performed by : [address] [address] RBC 3.66(L) 3.90 - 5.20 M/cumm BLANCA Comment:Testing performed by : [address] [address] MCV 79.2(L) 81.3 - 96.4 fL [facility] Comment:Testing performed by : [address] [address] MCH 24.9(L) 27.1 - 33.3 pg BLANCA REESE Comment:Testing performed by : [address] [address] MCHC 31.4(L) 32.3 - 35.7 g/dL BLANCA Comment:Testing performed by : [address] [address] RDW CV 21.1(H) 11.1 - 14.9 % BLANCA Comment:Testing performed by : [address] [address] RDW SD 59.1(H) 35.7 - 48.1 fL [facility] Comment:Testing performed by : [address] [address] NRBC abs 0.00 0.00 - 0.01 K/cumm [facility]ANCA Comment:Testing performed by : [address] [address] Blood 02/26/2025 3:54 AM CDT 02/26/2025 5:04 AM CDT us Mau VERONICA LAB BLOOD ORDERABLES Final Re sult [facility] [address] [facility] Department [place] [address] * Protime-INR (02/26/2025 3:54 AM CDT) PT 14.1 12.0 - 14.6 sec Comment:Testing performed by : [address] [address] INR 1.1 0.9 - 1.2 BLANCA Comment: Ref Range High Interpretive data Oral anticoagulant therapeutic ranges: Venous thromboembolism prophylaxis or treatment: 2.0-3.0 CARDIOLOGY Standard range: 2.0-3.0 High-intensity range: 2.5-3.5 Refer to indication-specific guidelines for appropriate target ranges for prosthetic heart valve replacement. Current interpretive data was last revised on 2019. Testing performed by: [address] [address] Blood 02/26/2025 3:54 AM CDT 02/26/2025 4:56 AM CDT us Mau VERONICA LAB BLOOD ORDERABLES Final Re sult [facility] [address] [facility] Department [place] [address] * (ABNORMAL) Comprehensive metabolic panel (02/26/2025 3:54 AM CDT) Sodium 138 135 - 145 mmol/L Comment:Testing performed by : [address] [address] Potassium, pl 4.8 3.3 - 4.9 mmol/L BLANCA Comment:Testing performed by : [address] [address] Chloride 105 97 - 110 mmol/L BLANCA Comment:Testing performed by : [address] [address] CO2 20(L) 22 - 32 mmol/L BL[facility]CA Comment:Testing performed by : [address] [address] Anion gap 13 2 - 15 mmol/L BLANCA Comment:Testing performed by : [address] [address] BUN 67(H) 6 - 25 mg/dL BLANCA Comment:Testing performed by : [address] [address] Creatinine 1.47(H) 0.60 - 1.10 mg/dL BLANCA Comment:Testing performed by : [address] [address] Glucose 127 70 - 199 mg/dL BLANCA Comment: Interpretive [...] was last revised 2022. Testing performed by: [address] [address] Calcium 9.6 8.5 - 10.3 mg/dL BLANCA Comment:Testing performed by : [address] [address] Bilirubin, total 0.2 0.1 - 1.2 mg/dL BLANCA Comment:Testing performed by : [address] [address] Protein, pl 6.9 6.5 - 8.5 g/dL BLANCA Comment:Testing performed by : [address], [address] Albumin 3.9 3.5 - 5.0 g/dL BLANCA Comment:Testing performed by : [address] [address] Alk phos 117 40 - 130 Units/L BLANCA Comment:Testing performed by : [address] [address] ALT 13 7 - 45 Units/L BLANCA Comment:Testing performed by : [address], [address] AST 19 10 - 45 Units/L BLANCA Comment:Testing performed by : [address] [address] Blood 02/26/2025 3:54 AM CDT 02/26/2025 4:56 AM CDT us Mau VERONICA LAB BLOOD ORDERABLES Final Re sult [facility] [address] [facility] Department [place] [address] * (ABNORMAL) POC Blood Gas and Chemistries, Venous - (02/26/2025 3:20 AM CDT) [facility] pH,solange POC 7.37 7.32 - 7.43 Comment:Testing performed by : [address] [address] pCO2, solange POC 38(L) 40 - 50 mmHg BLANCA Comment:Testing performed by : [address] [address] pO2,solange POC 32 mmHg BLANCA Comment: Interpretive Data No reference range established. Current interpretive data was last revised 2020. Testing performed by: [address] [address] HCO3, solange (Calc) POC 22 20 - 30 mmol/L BLANCA Comment:Testing performed by : [address] [address] Base excess, solange POC -3 mmol/L BLANCA Comment: Interpretive Data No reference range established. Current interpretive data was last revised 2020. Testing performed by: [address] [address] Blood 02/26/2025 3:20 AM CDT 02/26/2025 3:20 AM CDT us Carmen Nayak MD LAB POCT ORDERABLES - DEVICE F inal Result Performing Organization Address [facility] Co de Phone Number [address] [place] [address] * Troponin T high-sensitivity (02/26/2025 3:14 AM CDT) Trop T hs 13 <=14 ng/L Comment: Interpretive Data For further hscTnT resources including the diagnostic algorithm and an aid in interpretation, copy and paste this link: https://nrl.testcatalog.org/show/hsTrop Current Interpretive Data last revised 2020. Testing performed by: [address] [address] Blood 02/26/2025 3:14 AM CDT 02/26/2025 3:42 AM CDT us Mau VERONICA LAB BLOOD ORDERABLES Final Re sult Performing Organization Address City/[facility]/ZIP Co de Phone Number BLANCA [address] [place] [address] * (ABNORMAL) eGFR (02/26/2025 3:14 AM CDT) [...] was last reviewed 2021. Testing performed by: [address] [address] Blood 02/26/2025 3:14 AM CDT 02/26/2025 3:42 AM CDT us Mau VERONICA LAB BLOOD ORDERABLES Final Re sult [facility] [address] [facility] Department [place] [address] * POCT glucose (02/26/2025 3:14 AM CDT) Glucose, POC 142 70 - 199 mg/dL Comment:Testing performed by : [address] [address] Blood 02/26/2025 3:14 AM CDT 02/26/2025 3:14 AM CDT us Carmen Nayak MD LAB POCT ORDERABLES - DEVICE F inal Result Performing Organization Address [facility] [place] de Phone Number [address] [address] * Phosphorus (02/26/2025 3:14 AM CDT) [facility] Phosphorus, pl 4.4 2.3 - 4.5 mg/dL Comment:Testing performed by : [address] [address] Blood 02/26/2025 3:14 AM CDT 02/26/2025 3:42 AM CDT Mau VERONICA LAB BLOOD ORDERABLES Final Re sult Performing Organization Address [facility] Co de Phone Number [address] [address] * Magnesium (02/26/2025 3:14 AM CDT) [facility] Magnesium 2.2 1.4 - 2.5 mg/dL Comment:Testing performed by : [address] [address] Blood 02/26/2025 3:14 AM CDT 02/26/2025 3:42 AM CDT Mau VERONICA LAB BLOOD ORDERABLES Final Re sult Performing Organization Address [facility] de Phone Number [address] [place] [address] * (ABNORMAL) Basic metabolic panel (02/26/2025 3:14 AM CDT) [facility] Sodium 138 135 - 145 mmol/L Comment:Testing performed by : [address] [address] Potassium, pl 5.0(H) 3.3 - 4.9 mmol/L BLANCA Comment:Testing performed by : [address] [address] Chloride 104 97 - 110 mmol/L BLANCA Comment:Testing performed by : [address] [address] CO2 21(L) 22 - 32 mmol/L BL[facility]CA Comment:Testing performed by : [address] [address] Anion gap 13 2 - 15 mmol/L BL[facility]CA Comment:Testing performed by : [address] [address] BUN 68(H) 6 - 25 mg/dL LBANCA Comment:Testing performed by : [address] [address] Creatinine 1.63(H) 0.60 - 1.10 mg/dL BLANCA Comment:Testing performed by : [address] [address] Glucose 130 70 - 199 mg/dL BLANCA [...] was last revised 2022. Testing performed by: [address] [address] Calcium 9.4 8.5 - 10.3 mg/dL BLANCA Comment:Testing performed by : [address] [address] Blood 02/26/2025 3:14 AM CDT 02/26/2025 3:42 AM CDT us Mua VERONICA LAB BLOOD ORDERABLES Final Re sult BLANCA [address] [facility] Department [place] [address] * POCT glucose (02/26/2025 12:20 AM CDT) Pathologist [facility] Glucose, POC 141 70 - 199 mg/dL Comment:Testing performed by : [address] [address] Blood 02/26/2025 12:2 0 AM CDT 02/26/2025 12:20 AM CDT Carmen Nayak MD LAB POCT ORDERABLES - DEVICE F inal Result Performing Organization Address City/[facility]/ZIP Co de Phone Number [facility] [address] [facility] bulletn. [place], [place] [id number] * Protime-INR (02/26/2025 12:20 AM CDT) [facility] PT 13.8 12.0 - 14.6 sec Comment:Testing performed by : [facility], [address] [place] [address]., [address] INR 1.1 0.9 - 1.2 BLANCA Comment: Ref Range High Interpretive data Oral anticoagulant therapeutic ranges: Venous thromboembolism prophylaxis or treatment: 2.0-3.0 CARDIOLOGY Standard range: 2.0-3.0 High-intensity range: 2.5-3.5 Refer to indication-specific guidelines for appropriate target ranges for prosthetic heart valve replacement. Current interpretive data was last revised on 2019. Testing performed by: [facility], [address] [place] [address]., [address] Blood 02/26/2025 12:2 0 AM CDT 02/26/2025 12:25 AM CDT us Mau VERONICA LAB BLOOD ORDERABLES Final Re sult Performing Organization Address [facility]/ZIP Co de Phone Number [facility] [address] [facility] bulletn. [place], [place] [id number] * (ABNORMAL) POC Blood Gas and Chemistries, Venous - (02/25/2025 9:11 PM CDT) Pathologist [facility] pH,solange POC 7.31(L) 7.32 - 7.43 Comment:Testing performed by : [address] [address] pCO2, solange POC 35(L) 40 - 50 mmHg BLANCA Comment:Testing performed by : [address] [address] pO2,solange POC 40 mmHg BLANCA Comment: Interpretive Data No reference range established. Current interpretive data was last revised 2020. Testing performed by: [address] [address] HCO3, solange (Calc) POC 18(L) 20 - 30 mmol/L BLANCA Comment:Testing performed by : [address] [address] Base excess, solange POC -8 mmol/L BL[facility]CA Comment: Interpretive Data No reference range established. Current interpretive data was last revised 2020. Testing performed by: [address] [address] Blood 02/25/2025 9:11 PM CDT 02/25/2025 9:11 PM CDT Carmen Nayak MD LAB POCT ORDERABLES - DEVICE F inal Result Performing Organization Address [facility] Co de Phone Number [address] [place] [address] * POCT glucose (02/25/2025 9:01 PM CDT) [facility] Signature Glucose, POC 149 70 - 199 mg/dL Comment:Testing performed by : [address] [address] Blood 02/25/2025 9:01 PM CDT 02/25/2025 9:01 PM CDT us Carmen Nayak MD LAB POCT ORDERABLES - DEVICE F inal Result Performing Organization Address City/[facility]/ZIP Co de Phone Number [address] [place] [address] * Troponin T high-sensitivity (02/25/2025 8:54 PM CDT) Trop T hs 12 <=14 ng/L Comment: Interpretive Data For further hscTnT resources including the diagnostic algorithm and an aid in interpretation, copy and paste this link: https://nrl.testcatalog.org/show/hsTrop Current Interpretive Data last revised 2020. Testing performed by: [facility], [address] [place] [address]., [address] Blood 02/25/2025 8:54 PM CDT 02/25/2025 9:01 PM CDT us Carmen Nayak MD LAB BLOOD ORDERABLES Final Res ult [facility] [facility] Department [place] [address] * (ABNORMAL) eGFR (02/25/2025 8:54 PM CDT) [...] was last reviewed 2021. Testing performed by: [address] [address] Blood 02/25/2025 8:54 PM CDT 02/25/2025 9:01 PM CDT Mau VERONICA LAB BLOOD ORDERABLES Final Re sult Performing Organization Address [facility] Co de Phone Number [facility] [place] [address] * Protime-INR (02/25/2025 8:54 PM CDT) PT 13.9 12.0 - 14.6 sec Comment:Testing performed by : [address] [address] INR 1.1 0.9 - 1.2 BLANCA Comment: Ref Range High Interpretive data Oral anticoagulant therapeutic ranges: Venous thromboembolism prophylaxis or treatment: 2.0-3.0 CARDIOLOGY Standard range: 2.0-3.0 High-intensity range: 2.5-3.5 Refer to indication-specific guidelines for appropriate target ranges for prosthetic heart valve replacement. Current interpretive data was last revised on 2019. Testing performed by: [address] [address] Blood 02/25/2025 8:54 PM CDT 02/25/2025 9:01 PM CDT Mau VERONICA LAB BLOOD ORDERABLES Final Re sult Performing Organization Address [facility] Co de Phone Number [address] [place] [address] * (ABNORMAL) Vitamin B12 (02/25/2025 8:54 PM CDT) Vitamin B12 1,778(H) 230 - 1,250 pg/mL Comment:Testing performed by : [address] [address] Blood 02/25/2025 8:54 PM CDT 02/25/2025 9:01 PM CDT Carmen Nayak MD LAB BLOOD ORDERABLES Final Res ult Performing Organization Address [facility] Co de Phone Number BL[facility] [address] [place] [address] * Ammonia (02/25/2025 8:54 PM CDT) Pathologist [facility] Ammonia 14 <=50 mcmol/L Comment: Please note on 03/21/2024 the unit of measure changed from mcg/dL to mcmol/L. Current Interpretive Data was last revised on 2024 Testing performed by: [address] [address] Blood 02/25/2025 8:54 PM CDT 02/25/2025 8:59 PM CDT Carmen Nayak MD LAB BLOOD ORDERABLES Final Res ult Performing Organization Address [facility] de Phone Number BL[facility] [place] [address] * (ABNORMAL) Basic metabolic panel (02/25/2025 8:54 PM CDT) [facility] Sodium 137 135 - 145 mmol/L Comment:Testing performed by : [address] [address] Potassium, pl 5.0(H) 3.3 - 4.9 mmol/L BLANCA Comment:Testing performed by : [address] [address] Chloride 106 97 - 110 mmol/L BLANCA Comment:Testing performed by : [address] [address] CO2 17(L) 22 - 32 mmol/L BL[facility] Comment:Testing performed by : [address] [address] Anion gap 14 2 - 15 mmol/L BLANCA Comment:Testing performed by : [address] [address] BUN 75(H) 6 - 25 mg/dL BL[facility]CA Comment:Testing performed by : [address] [place] [address] Creatinine 1.99(H) 0.60 - 1.10 mg/dL BL[facility]CA Comment:Testing performed by : [address] [address] Glucose 135 70 - 199 mg/dL BLANCA [...] was last revised 2022. Testing performed by: [address] [address] Calcium 9.9 8.5 - 10.3 mg/dL [facility] Comment:Testing performed by : [address] [address] Blood 02/25/2025 8:54 PM CDT 02/25/2025 9:01 PM CDT us Mau VERONICA LAB BLOOD ORDERABLES Final Re sult [facility] [address] [facility] Department of Laboratories [place], [place] [id number] * (ABNORMAL) Drugs of Abuse Screen, Urine with Reflex Confirmation (02/25/2025 7:41 PM CDT) Pathologist [facility] Amphetamine, ur Not Detected CutOff 500ng/mL Comment: Interpretive Data - Amphetamines: Samples containing greater than 500 ng/mL d-methamphetamine or other cross-reacting amphetamine compounds are reported as positive. Amphetamine immunoassays are subject to significant false positive rates due to cross-reactivity of non-amphetamine drugs. Confirmatory testing required for definitive results. Current Interpretive Data was last reviewed 2023. Testing performed by: [address] [address] Barbiturates, ur Not Detected CutOff 200ng/mL [facility] Comment: Interpretive Data - Barbiturates: Samples containing greater than 200 ng/mL secobarbital or other cross-reacting barbiturate compounds are reported as positive. False positive and false negative results are possible. Confirmatory testing required for definitive results. Current Interpretive Data was last reviewed 2023. Testing performed by: [address] [address] Benzodiazepines, ur Not Detected CutOff 100ng/mL [facility] Comment: Interpretive Data - Benzodiazepines: Samples containing greater than 100 ng/mL nordiazepam or other cross-reacting compounds are reported as positive. False positive and false negative results are possible. Confirmatory testing required for definitive results. Current Interpretive Data was last reviewed 2023. Testing performed by: [address], [place]., [address] Cannabinoids, ur Not Detected CutOff 50 ng/mL [facility] Comment: Interpretive Data - Cannabinoids: Samples containing greater than 50 ng/mL delta-9 THC -COOH or other cross- reacting compounds are reported as positive. False positive and false negative results are possible. Confirmatory testing required for definitive results. Current Interpretive Data was last reviewed 2023. Testing performed by: [address] [address] Cocaine, ur Not Detected CutOff 150ng/mL [facility] Comment: Interpretive Data - Cocaine: Samples containing greater than 150 ng/mL benzoylecgonine or other cross- reacting compounds are reported as positive. False positive and false negative results are possible. Confirmatory testing required for definitive results. Current Interpretive Data was last reviewed 2023. Testing performed by: [address] [address] Fentanyl, Ur Not Detected CutOff 5 ng/mL [facility] Comment: Interpretive Data - Fentanyl: Samples containing greater than 1 ng/mL fentanyl or other cross-reacting fentanyl compounds are reported as positive. False positive and false negative results are possible. Confirmatory testing required for definitive results. Current Interpretive Data was last reviewed 2023. Testing performed by: [address] [address] Methadone, ur Not Detected CutOff 300ng/mL [facility] Comment: Interpretive Data - Methadone: Samples containing greater than 300 ng/mL d,l-methadone or other cross-reacting compounds are reported as positive. False positive and false negative results are possible. Confirmatory testing required for definitive results. Current Interpretive Data was last reviewed 2023. Testing performed by: [address] [address] Opiates, ur Screen Positive, presumptive (A) CutOff 300ng/mL [facility] Comment: Interpretive Data - Opiates: Samples containing greater than 300 ng/mL morphine or other cross-reacting compounds are reported as positive. False positive and false negative results are possible. Confirmatory testing required for definitive results. Current Interpretive Data was last reviewed 2023. Testing performed by: [address] [address] Oxycodone, ur Not Detected CutOff 100ng/mL [facility] Comment: Interpretive Data - Oxycodone: Samples containing greater than 100 ng/mL oxycodone or other cross-reacting compounds are reported as positive. False positive and false negative results are possible. Confirmatory testing required for definitive results. Current Interpretive Data was last reviewed 2023. Testing performed by: [address] [address] Phencyclidine, ur Not Detected CutOff 25 ng/mL [facility] Comment: Interpretive Data - Phencyclidine: Samples containing greater than 25 ng/mL phencyclidine or other cross-reacting compounds are reported as positive. False positive and false negative results are possible. Confirmatory testing required for definitive results. Current Interpretive Data was last reviewed 2023. Testing performed by: [address] [address] Urine Creatinine 26 mg/dL BL[facility]CA Comment: Interpretive Data Urine Creatinine: < 10 mg/dL is extremely dilute = or > 10 but < 20 mg/dL is dilute = or > 20 mg/dL is normal Current Interpretive Data was last revised on 2018. Testing performed by: [address] [address] Urine 02/25/2025 7:41 PM CDT 02/25/2025 8:00 PM CDT Narrative BLANCA REESE - 02/25/2025 8:25 PM CDT Drug of Abuse screening is performed by immunoassay for medical purposes only. This is not to be used for Pain Management purposes. If Detected, confirmation testing will be performed for Amphetamines, Cocaine, Fentanyl, Methadone, Opiates, Oxycodone or Phencyclidine. Carmen Nayak MD LAB URINE ORDERABLES Final Res ult [facility] REESE [address] [facility] Department [place] [address] * Opiates Confirmation, Urine (02/25/2025 7:41 PM CDT) Codeine Conf, Ur Does Not Confirm CutOff 50 ng/mL Comment:Testing performed by : [facility], [address] [place]., [address] 6- Acetylmorphine Conf, Ur Does Not Confirm CutOff 10 ng/mL BLANCA Comment:Testing performed by : [facility], [address] [place]., [address] Hydrocodone Conf, Ur Does Not Confirm CutOff 50 ng/mL BLANCA Comment:Testing performed by : [facility], [address] [place]., [address] Morphine Conf, Ur Does Not Confirm CutOff 50 ng/mL BLANCA Comment:Testing performed by : [facility], [address] [place]., [address] Hydromorphone Conf, Ur Does Not Confirm CutOff [...] needed. Performance characteristics were determined by the [facility] in a manner consistent with CLIA requirement and has not been cleared or approved by the U.S. Food and Drug Administration. Current interpretive data was last revised 2021. Testing performed by: [facility], [address] [facility], [place]., [address] Urine 02/25/2025 7:41 PM CDT 02/26/2025 3:01 AM CDT Carmen Nayak MD LAB URINE ORDERABLES Final Res ult Performing Organization Address [facility] Co de Phone Number BLANCA [address] [place] [address] * Troponin T high-sensitivity (02/25/2025 5:17 PM CDT) Pathologist [facility] Trop T hs 13 <=14 ng/L Comment: Interpretive Data For further hscTnT resources including the diagnostic algorithm and an aid in interpretation, copy and paste this link: https://nrl.testcatalog.org/show/hsTrop Current Interpretive Data last revised 2020. Testing performed by: [facility], [address] [place] [address]., [address] Blood 02/25/2025 5:17 PM CDT 02/25/2025 5:22 PM CDT Carmen Nayak MD LAB BLOOD ORDERABLES Final Res ult Performing Organization Address [facility] Co de Phone Number [address] [address] * (ABNORMAL) eGFR (02/25/2025 5:17 PM CDT) [...] reviewed 2021. Testing performed by: [facility], [address] [place] [address]., [address] Blood 02/25/2025 5:17 PM CDT 02/25/2025 5:22 PM CDT us Carmen Nayak MD LAB BLOOD ORDERABLES Final Res ult [facility] [address] [facility] Department [place] [address] * Pro B-type natriuretic peptide (02/25/2025 5:17 [...] et.al. Eur Heart J. 2006:27:330-337. 2. Mitesh LYLES, Agustin MOONEY. J. AM Ashley Cardiol: Cardiovasc Imag. 2009;2: 216- 225. Interpretive Data Last Revised Date: 2018. Testing performed by: [address] [address] Blood 02/25/2025 5:17 PM CDT 02/25/2025 5:22 PM CDT us Carmen Nayak MD LAB BLOOD ORDERABLES Final Res ult Performing Organization Address [facility] Co de Phone Number [place] [address] [facility] [place] [address] * Magnesium (02/25/2025 5:17 PM CDT) Pathologist [facility] Magnesium 2.5 1.4 - 2.5 mg/dL Comment:Testing performed by : [address] [address] Blood 02/25/2025 5:17 PM CDT 02/25/2025 5:22 PM CDT us Carmen Nayak MD LAB BLOOD ORDERABLES Final Res ult Performing Organization Address [facility] Co de Phone Number [address] [place] [address] * (ABNORMAL) Renal function panel (02/25/2025 5:17 PM CDT) Sodium 136 135 - 145 mmol/L Comment:Testing performed by : [address] [address] Potassium, pl 5.3(H) 3.3 - 4.9 mmol/L BL[facility] Comment:Testing performed by : [address] [address] Chloride 105 97 - 110 mmol/L [facility] Comment:Testing performed by : [address], [place]., [address] CO2 13(L) 22 - 32 mmol/L [facility] Comment:Testing performed by : [address] [address] Anion gap 18(H) 2 - 15 mmol/L [facility] Comment:Testing performed by : [address], [place]., [address] BUN 85(H) 6 - 25 mg/dL [facility] Comment:Testing performed by : [address], [place]., [address] Creatinine 2.69(H) 0.60 - 1.10 mg/dL BL[facility] Comment:Testing performed by : [address] [address] Glucose 203(H) 70 - 199 mg/dL [facility] Comment: Interpretive Data Fasting glucose >/= 126 [...] was last revised 2022. Testing performed by: [address] [address] Calcium 10.6(H) 8.5 - 10.3 mg/dL BL[facility]CA Comment:Testing performed by : [address] [address] Phosphorus, pl 4.9(H) 2.3 - 4.5 mg/dL [facility] Comment:Testing performed by : [address], [place]., [address] Albumin 4.5 3.5 - 5.0 g/dL BL[facility] Comment:Testing performed by : [address], [place]., [address] Blood 02/25/2025 5:17 PM CDT 02/25/2025 5:22 PM CDT Carmen Nayak MD LAB BLOOD ORDERABLES Final Res ult [facility] [address] [facility] Department [place] [address] * Critical Care (02/25/2025 5:07 PM CDT) [...] plan with the ICU team and other medical/intelligence consultant staff, making frequent assessments and decisions [...] Chemistries, Venous - (02/25/2025 2:56 PM CDT) pH,solange POC 7.22(C) 7.32 - 7.43 Comment:Testing performed by : [address] [address] pCO2, solange POC 34(L) 40 - 50 mmHg [facility] Comment:Testing performed by : [address] [address] pO2,solange POC 38 mmHg BL[facility]CA Comment: Interpretive Data No reference range established. Current interpretive data was last revised 2020. Testing performed by: [address] [address] HCO3, solange (Calc) POC 14(L) 20 - 30 mmol/L [facility] Comment:Testing performed by : [address] [address] Base excess, solange POC -13 mmol/L [facility] Comment: Interpretive Data No reference range established. Current interpretive data was last revised 2020. Testing performed by: [address] [address] Blood 02/25/2025 2:56 PM CDT 02/25/2025 2:56 PM CDT Carmen Nayak MD LAB POCT ORDERABLES - DEVICE F inal Result [facility] [address] [facility] Department [place] [address] * (ABNORMAL) POCT glucose (02/25/2025 2:47 PM CDT) Pathologist [facility] Glucose, POC 237(H) 70 - 199 mg/dL Comment:Testing performed by : [address] [address] Glucose comment 1 RN/MD Notified BL[facility]CA Comment:Testing performed by : [address] [address] Blood 02/25/2025 2:47 PM CDT 02/25/2025 2:47 PM CDT Carmen Nayak MD LAB POCT ORDERABLES - DEVICE F inal Result Performing Organization Address [facility] Co de Phone Number [address] [address] * (ABNORMAL) Beta-hydroxybutyrate (02/25/2025 2:30 PM CDT) Beta-Hydroxybut yrate 0.9(H) <=0.5 mmol/L Blood 02/25/2025 2:30 PM CDT 02/25/2025 4:57 PM CDT Ángel Woodson MD LAB BLOOD ORDERABLES Final Re sult Performing Organization Address [facility] Co de Phone Number [address] [address] * Troponin T high-sensitivity 2-hour (02/25/2025 2:27 PM CDT) Pathologist [facility] Trop T hs 12 <=14 ng/L Comment: Interpretive Data For further hscTnT resources including the diagnostic algorithm and an aid in interpretation, copy and paste this link: https://nrl.testcatalog.org/show/hsTrop Current Interpretive Data last revised 2020. Testing performed by: [address] [address] Trop T hs delta -4 ng/L [facility] REESE Comment:Testing performed by : [address] [address] Trop T hs interp Insignificant [facility] REESE Comment:Testing performed by : [address] [address] Blood 02/25/2025 2:27 PM CDT 02/25/2025 2:32 PM CDT Layton Macario DO LAB BLOOD ORDERABLES Final Result Performing Organization Address City/[facility]/ZIP Co de Phone Number BL[facility] [address] [place] [place] [address] * Lactate (02/25/2025 2:27 PM CDT) Lactate 1.8 0.7 - 2.0 mmol/L Comment:Testing performed by : [address] [address] Blood 02/25/2025 2:27 PM CDT 02/25/2025 2:32 PM CDT Ángel Woodson MD LAB BLOOD ORDERABLES Final Re sult Performing Organization Address [facility] Co de Phone Number BL[place] [address] [address] * (ABNORMAL) eGFR (02/25/2025 2:27 PM CDT) eGFR 16(L) >=60 mL/min/1. 73 m2 Comment: [...] was last reviewed 2021. Testing performed by: [address] [address] Blood 02/25/2025 2:27 PM CDT 02/25/2025 2:32 PM CDT Mau VERONICA LAB BLOOD ORDERABLES Final Re sult Performing Organization Address [facility] Co de Phone Number [address] [address] * (ABNORMAL) Phosphorus (02/25/2025 2:27 PM CDT) Pathologist [facility] Phosphorus, pl 4.8(H) 2.3 - 4.5 mg/dL Comment:Testing performed by : [address] [address] Blood 02/25/2025 2:27 PM CDT 02/25/2025 2:32 PM CDT Carmen Nayak MD LAB BLOOD ORDERABLES Final Res ult Performing Organization Address [facility] Co de Phone Number [address] [address] * Creatine kinase (CK), total (02/25/2025 2:27 PM CDT) [facility] CK 50 30 - 200 Units/L Comment:Testing performed by : [address] [address] Blood 02/25/2025 2:27 PM CDT 02/25/2025 2:32 PM CDT Carmen Nayak MD LAB BLOOD ORDERABLES Final Res ult Performing Organization Address [facility] Co de Phone Number [address] [address] * (ABNORMAL) Basic metabolic panel (02/25/2025 2:27 PM CDT) [facility] Sodium 136 135 - 145 mmol/L Comment:Testing performed by : [address] [address] Potassium, pl 4.8 3.3 - 4.9 mmol/L [facility] Comment: Delta - Results Reviewed Testing performed by: [address] [address] Chloride 107 97 - 110 mmol/L [facility] Comment:Testing performed by : [address], [place]., [address] CO2 14(L) 22 - 32 mmol/L [facility] Comment:Testing performed by : [address] [address] Anion gap 15 2 - 15 mmol/L [facility] Comment:Testing performed by : [address] [address] BUN 93(H) 6 - 25 mg/dL [facility] Comment:Testing performed by : [address], [place]., [address] Creatinine 3.05(H) 0.60 - 1.10 mg/dL [facility] Comment:Testing performed by : [address] [address] Glucose 204(H) 70 - 199 mg/dL [facility] Comment: Delta - Results Reviewed Interpretive Data [...] was last revised 2022. Testing performed by: [address] [address] Calcium 10.3 8.5 - 10.3 mg/dL [facility] Comment:Testing performed by : [address], [place]., [address] Blood 02/25/2025 2:27 PM CDT 02/25/2025 2:32 PM CDT us Mau Young PA LAB BLOOD ORDERABLES Final Re sult Performing Organization Address [facility] Co de Phone Number [facility] [address] [address] * POCT glucose (02/25/2025 1:44 PM CDT) Glucose, POC 108 70 - 199 mg/dL Comment:Testing performed by : [address] [address] Glucose comment 1 RN/MD Notified [facility] Comment:Testing performed by : [address] [address] Blood 02/25/2025 1:44 PM CDT 02/25/2025 1:44 PM CDT Layton Macario DO LAB POCT ORDERABLES - DEVIC E Final Result Performing Organization Address [facility] Co de Phone Number [facility] [place] [address] * OR CRITICAL CARE ILL/INJURED PATIENT INIT 30-74 MIN [...] by Brian Lind M.D. CH: Report ID: [id number] Reading Location: [id number] Procedure Note Brian Lind Jr., MD - [...] 02/25/2025 1:29 PM - Electronically signed by rBian Lind M.D. CH: BRAVO Report ID: [id number] Reading Location: [place] [address] Layton Macario DO IMG XR PROCEDURES Final Res ult * ECG 12 lead (02/25/2025 12:24 PM CDT) Ventricular Rate EKG/Min 69 BPM [facility] Atrial Rate 69 BPM [facility] OR-Interval (MSEC) 142 ms [facility] QRS-Interval (MSEC) 90 ms [facility] QT-Interval (MSEC) 376 ms [facility] QTc 402 ms [facility] P [place] 41 degrees [facility] R [place] 43 degrees [facility] T [place] 57 degrees [facility] Diagnosis Normal sinus rhythm Normal ECG When compared with ECG of 25-FEB-2025 11:06, No significant change was found Confirmed by HENRY CHIRINOS M.D. ([id number]) on 02/26/2025 7:47:35 AM [facility] 02/25/2025 12:2 4 PM CDT 02/26/2025 7:47 AM CDT Layton Macario DO ECG ORDERABLES Final Resul t [facility] * (ABNORMAL) Troponin T high-sensitivity series (baseline, 2hr, 4hr, 6hr) (02/25/2025 12:20 PM CDT) Trop T hs 16(H) <=14 ng/L Comment: Interpretive Data For further hscTnT resources including the diagnostic algorithm and an aid in interpretation, copy and paste this link: https://nrl.testcatalog.org/show/hsTrop Current Interpretive Data last revised 2020. Testing performed by: [facility], [address] [place] [address]., [address] Blood 02/25/2025 12:2 0 PM CDT 02/25/2025 12:30 PM CDT Layton Macario DO LAB BLOOD ORDERABLES Final Result Performing Organization Address [facility] Co de Phone Number [facility] [address] [address] * (ABNORMAL) eGFR (02/25/2025 12:20 PM CDT) [facility] eGFR 13(L) >=60 mL/min/1. 73 m2 Comment: [...] reviewed 2021. Testing performed by: [facility], [address] [place] [address]., [address] Blood 02/25/2025 12:2 0 PM CDT 02/25/2025 12:30 PM CDT Layton Macario DO LAB BLOOD ORDERABLES Final Result Performing Organization Address City/[facility]/ZIP Co de Phone Number [facility] [address] [place] [employer] [place] [address] * Thyroid Function Coos (02/25/2025 12:20 PM CDT) Pathologist [facility] TSH 0.74 0.30 - 4.20 mcIUnit/mL Comment:Testing performed by : [address] [address] Blood 02/25/2025 12:2 0 PM CDT 02/25/2025 12:30 PM CDT us Carmen Nayak MD LAB BLOOD ORDERABLES Final Res ult [facility] [address] [facility] Department [place] [address] * (ABNORMAL) Comprehensive metabolic panel (02/25/2025 12:20 PM CDT) [facility] Sodium 136 135 - 145 mmol/L Comment:Testing performed by : [address] [address] Potassium, pl 7.0(C) 3.3 - 4.9 mmol/L [facility] Comment: Critical Result called to and read back by [email or web address], DATE: 2025-02-25 13:27:00 BY: [email or web address] Testing performed by: [address] [address] Chloride 105 97 - 110 mmol/L [facility] Comment:Testing performed by : [address] [address] CO2 13(L) 22 - 32 mmol/L [facility] Comment:Testing performed by : [address] [address] Anion gap 18(H) 2 - 15 mmol/L [facility] Comment:Testing performed by : [address] [address] BUN 105(H) 6 - 25 mg/dL [facility] Comment:Testing performed by : [address] [address] Creatinine 3.80(H) 0.60 - 1.10 mg/dL [facility] Comment:Testing performed by : [address] [address] Glucose 98 70 - 199 mg/dL [facility] [...] was last revised 2022. Testing performed by: [address] [address] Calcium 9.8 8.5 - 10.3 mg/dL [facility] Comment:Testing performed by : [address] [address] Bilirubin, total 0.2 0.1 - 1.2 mg/dL [facility] Comment:Testing performed by : [address] [address] Protein, pl 8.1 6.5 - 8.5 g/dL [facility] Comment:Testing performed by : [address] [address] Albumin 4.2 3.5 - 5.0 g/dL [facility] Comment:Testing performed by : [address] [address] Alk phos 143(H) 40 - 130 Units/L [facility] Comment:Testing performed by : [address] [address] ALT 12 7 - 45 Units/L [facility] Comment:Testing performed by : [address] [address] AST 16 10 - 45 Units/L [facility] Comment:Testing performed by : [address] [address] Blood 02/25/2025 12:2 0 PM CDT 02/25/2025 12:30 PM CDT Layton Macario DO LAB BLOOD ORDERABLES Final Result [facility] [address] [facility] Department [place] [address] * CT Head WO Contrast (02/25/2025 11:32 [...] air cells unchanged. ORBITS: No acute abnormality. [employer] ocular lenses replaced bilaterally. OTHER: No other significant abnormality. IMPRESSION: No acute intracranial process. THIS IS AN ELECTRONICALLY VERIFIED FINAL REPORT 02/25/2025 12:30 PM - Electronically signed by Kal Hennessy M.D. MARLEY: MARLEY Report ID: [id number] Reading Location: [id number] Procedure Note Kal Hennessy MD - 04/14/2025 EXAM DESCRIPTION: CT HEAD WO CONTRAST REASON [...] air cells unchanged. ORBITS: No acute abnormality. [employer] ocular lenses replaced bilaterally. OTHER: No other significant abnormality. IMPRESSION: No acute intracranial process. THIS IS AN ELECTRONICALLY VERIFIED FINAL REPORT 02/25/2025 12:30 PM - Electronically signed by Kal Hennessy M.D. MARLEY: MARLEY Report ID: [id number] Reading Location: [place] [address] Layton Macario DO IM CT PROCEDURES Final Res ult * Urinalysis reflex to microscopic and culture Urine (02/25/2025 11:21 AM CDT) Color, ur Yellow Yellow Comment:Testing performed by : [address] [address] Clarity, ur Clear Clear [facility] Comment:Testing performed by : [address] [address] Specific gravity, ur 1.016 1.003 - 1.030 [facility] Comment:Testing performed by : [facility], [address] [place] [address], [place]., [address] pH, urine 5.0 [facility] Comment: Interpretive Data U rine pH is affected by diet, medications, systemic acid-base disturbances, and renal tubular function. pH may affect urinary stone formation. For example, urine pH below 6.0 may help reduce the tendency for calcium phosphate stones and pH greater than 6.0 may reduce the tendency for uric acid stone formation. Source: [facility] [employer] Current Interpretive Data was last revised on 2017 Testing performed by: [facility], [address] [place] [address], [place]., [address] Protein, ur ql Negative Negative [facility] Comment:Testing performed by : [address], [place]., [address] Glucose, ur ql Negative Negative [facility] Comment:Testing performed by : [address], [place]., [address] Ketones, ur Negative Negative [facility] Comment:Testing performed by : [address], [place]., [address] Bilirubin, ur Negative Negative [facility] Comment:Testing performed by : [address], [place]., [address] Blood, ur Negative Negative [facility] Comment:Testing performed by : [address], [place]., [address] Urobilinogen, ur <2.0 <2.0 mg/dL [facility] Comment:Testing performed by : [address], [place]., [address] Nitrite, ur Negative Negative [facility] Comment:Testing performed by : [address], [place]., [address] Leukocyte esterase, ur Negative Negative [facility] Comment:Testing performed by : [address], [place]., [address] UA reflex comment Reflex conditions for microscopic UA and culture not met. [facility] Comment:Testing performed by : [address], [place]., [address] Urine 02/25/2025 11:2 1 AM CDT 02/25/2025 11:28 AM CDT us Layton Macario DO LAB MICROBIOLOGY - GENERAL ORDERABLES Final Result [facility] [address] [facility] Department [place] [address] * Differential, auto (02/25/2025 11:16 AM CDT) Neutrophil abs 2.78 1.50 - 6.50 K/cumm Comment:Testing performed by : [address] [address] Imm gran abs 0.01 0.00 - 0.10 K/cumm [facility] Comment:Testing performed by : [address] [address] Lymphocyte abs 2.45 0.80 - 3.30 K/cumm [facility] Comment:Testing performed by : [address] [address] Monocyte abs 0.38 0.20 - 0.80 K/cumm [facility] Comment:Testing performed by : [address] [address] Eosinophil abs 0.07 0.00 - 0.50 K/cumm [facility] Comment:Testing performed by : [address] [address] Basophil abs 0.05 0.00 - 0.10 K/cumm [facility] Comment:Testing performed by : [address] [address] Neutrophil pct 48.4 % [facility] Comment: Interpretive Data Percent cell count reference ranges are not reported, since discordance with absolute values may lead to misinterpretation of CBC data. Current Interpretive Data was last revised on 2018. Testing performed by: [address] [address] Imm gran pct 0.2 % [facility] Comment: Interpretive Data Percent cell count reference ranges are not reported, since discordance with absolute values may lead to misinterpretation of CBC data. Current Interpretive Data was last revised on 2018. Testing performed by: [address] [address] Lymphocyte pct 42.7 % [facility] Comment: Interpretive Data Percent cell count reference ranges are not reported, since discordance with absolute values may lead to misinterpretation of CBC data. Current Interpretive Data was last revised on 2018. Testing performed by: [address] [address] Monocyte pct 6.6 % [facility] Comment: Interpretive Data Percent cell count reference ranges are not reported, since discordance with absolute values may lead to misinterpretation of CBC data. Current Interpretive Data was last revised on 2018. Testing performed by: [address] [address] Eosinophil pct 1.2 % [facility] Comment: Interpretive Data Percent cell count reference ranges are not reported, since discordance with absolute values may lead to misinterpretation of CBC data. Current Interpretive Data was last revised on 2018. Testing performed by: [address] [address] Basophil pct 0.9 % [facility] Comment: Interpretive Data Percent cell count reference ranges are not reported, since discordance with absolute values may lead to misinterpretation of CBC data. Current Interpretive Data was last revised on 2018. Testing performed by: [address] [address] Blood 02/25/2025 11:1 6 AM CDT 02/25/2025 11:29 AM CDT us Layton Macario DO LAB BLOOD ORDERABLES Final Result [facility] [address] [facility] Department [place] [address] * (ABNORMAL) CBC with auto differential (02/25/2025 11:16 AM CDT) WBC 5.74 3.80 - 9.90 K/cumm Comment:Testing performed by : [address] [address] Hgb 11.0(L) 11.9 - 15.5 g/dL [facility] Comment:Testing performed by : [address] [address] Hct 37.3 35.6 - 45.5 % [facility] Comment:Testing performed by : [address] [address] Plt 241 150 - 400 K/cumm [facility] Comment:Testing performed by : [address] [address] MPV 10.4 9.1 - 12.3 fL [facility] Comment:Testing performed by : [address] [address] RBC 4.49 3.90 - 5.20 M/cumm [facility] Comment:Testing performed by : [address] [address] MCV 83.1 81.3 - 96.4 fL [facility] Comment:Testing performed by : [address] [address] MCH 24.5(L) 27.1 - 33.3 pg [facility] Comment:Testing performed by : [address] [address] MCHC 29.5(L) 32.3 - 35.7 g/dL [facility] Comment:Testing performed by : [address] [address] RDW CV 22.1(H) 11.1 - 14.9 % [facility] Comment:Testing performed by : [address] [address] RDW SD 65.4(H) 35.7 - 48.1 fL [facility] Comment:Testing performed by : [address] [address] NRBC abs 0.00 0.00 - 0.01 K/cumm [facility] Comment:Testing performed by : [address] [address] Blood 02/25/2025 11:1 6 AM CDT 02/25/2025 11:29 AM CDT us Layton Macario DO LAB BLOOD ORDERABLES Final Result Performing Organization Address [facility]/ZIP Co de Phone Number [facility] [place] [address] * (ABNORMAL) Hemoglobin A1c (02/25/2025 11:16 AM CDT) [facility] Hgb A1C 7.4(H) 4.0 - 5.6 % Comment:Testing performed by : [address] [address] Estimated Average Glucose 166 mg/dL [facility] Comment: The ADA recommends reporting an estimated Average Glucose (eAG) with all Hemoglobin A1c results using the equation derived from a study of 507 normal and diabetic adults. Minority populations were underrepresented and children were not included. (Diabetes Care 31:7907-2956, 2008). The eAG is not equivalent to a fasting glucose. Testing performed by: [address] [address] Blood 02/25/2025 11:1 6 AM CDT 02/25/2025 11:29 AM CDT Carmen Nayak MD LAB BLOOD ORDERABLES Final Res ult Performing Organization Address City/[facility] Co de Phone Number [address] [address] * ECG 12 lead (02/25/2025 11:06 AM CDT) [facility] Ventricular Rate EKG/Min 69 BPM [facility] Atrial Rate 69 BPM [facility] OR-Interval (MSEC) 148 ms [facility] QRS-Interval (MSEC) 88 ms [facility] QT-Interval (MSEC) 382 ms [facility] QTc 409 ms [facility] P [place] 29 degrees [facility] R [place] 31 degrees [facility] T [place] 46 degrees [facility] Diagnosis Normal sinus rhythm Nonspecific ST abnormality Abnormal ECG When compared with ECG of 02-DEC-2023 14:31, Vent. rate has decreased BY 35 BPM QRS duration has increased Nonspecific T wave abnormality no longer evident in Lateral leads Confirmed by HENRY CHIRINOS M.D. ([id number]) on 02/26/2025 7:30:51 AM [facility] [employer] 02/25/2025 11:0 6 AM CDT 02/26/2025 7:30 AM CDT Layton Newton Renaldo DO ECG ORDERABLES Final Resul t Performing Organization Address [facility] Phone Number [facility] [employer] [facility] * IR Ablation Lumbar Sacral Facet Right (01/31/2025 11:50 AM CDT) Narrative [facility] - 01/31/2025 11:50 AM CDT The images from this study are not interpreted by Radiology. Please refer to the physician's procedure / OR operative note. Henry Machado MD IMG IR PROCEDURES Final Res ult Performing Organization Address [facility] de Phone Number [facility] * IR Medial Branch Block Lumbar Sacral First Level Right (aka MBB) (01/10/2025 10:45 AM AUTOMOBILE LOCATOR) Narrative [facility] - 01/10/2025 10:46 AM AUTOMOBILE LOCATOR The images from this study are not interpreted by Radiology. Please refer to the physician's procedure / OR operative note. Henry Machado MD IMG IR PROCEDURES Final Res ult Performing Organization Address [facility] de Phone Number [email or web address] * IR Medial Branch Block Lumbar Sacral First Level Right (aka MBB) (12/20/2024 11:54 AM AUTOMOBILE LOCATOR) Narrative [facility] - 12/20/2024 11:54 AM AUTOMOBILE LOCATOR The images from this study are not interpreted by Radiology. Please refer to the physician's procedure / OR operative note. Henry Machado MD IMG IR PROCEDURES Final Res ult [facility] * Hepatitis C antibody Blood (02/07/2024 9:08 PM CDT) Hep C Ab Nonreactive Nonreactive Comment:Antibodies to HCV no t detected. Does NOT exclude the possibility of recent exposure to HCV. Current interpretive data was last revised on 22 Blood 02/07/2024 9:08 PM CDT 02/07/2024 9:43 PM CDT us Jim Rivera MD LAB MICROBIOLOGY - GENERAL ORDER RITIKA Final Result Performing Organization Address City/[facility] Co de Phone Number [facility] Department [place] [address] * COLONOSCOPY (09/24/2021 2:13 PM AUTOMOBILE LOCATOR) Anatomical Region Laterality Modality Other Narrative Procedure Note Paul Chávez MD - 09/24/2021 2:13 PM CST ENDOSCOPY LAB Patient Name: Bernadine Mendez Procedure Date: 09/24/2021 2:13 PM Date of : 1960 Admit Type: Outpatient Age: 61 Gender: Female Attending MD: Paul Chávez M.D. Room: [facility] ENDOSCOPY ROOM 05 Note Status: Finalized [...] The scope was passed under direct vision.The [id number] was introduced through the anusand advanced to [...] Bone mineral density was performed on a HoloScaleGrid Discovery Densitometer. Based on machine cross-calibration and [...] by the International Society of Clinical Densitometry. [id number] us Junior Aguirre MD IMG DXA PROCEDURES Final Result * Lipid panel (12/09/2020 4:03 PM AUTOMOBILE LOCATOR) [facility] Cholesterol 151 30 - 199 mg/dL [facility] Comment: Interpretive Data Ages < or = [...] revised on 2018. Triglycerides 90 <=149 mg/dL [facility] Comment: Interpretive Data Ages < or = [...] revised on 2018. HDL 76 >=40 mg/dL [facility] Comment: Interpretive Data Ages < or = [...] on 2018. LDL, calculated 57 <=129 mg/dL [facility] Comment: Interpretive Data Ages < or = [...] on 2018. Non-HDL Cholesterol 75 mg/dL [facility] Comment: Interpretive Data Ages < [...] last revised on 2018. Chol/HDL ratio 2 [facility] Blood specimen (specimen) 12/09/2020 4:03 PM AUTOMOBILE LOCATOR 12/09/2020 4:22 PM AUTOMOBILE LOCATOR us David Liz MD LAB BLOOD ORDERABLES Final Re sult [facility] Department [place] [address] * Screening Mammogram Bilateral W [place] (07/16/2020 11:16 AM CDT) Anatomical Region Laterality Modality Breast Bilateral Mammography Narrative 07/18/2020 12:37 PM CDT Mammogram Technique: Bilateral Digital Breast Tomosynthesis, Bilateral C-view 2D Screening mammogram. Views obtained: bilateral craniocaudal and bilateral mediolateral oblique. Computer Aided Detection was performed. Mammogram Findings: The present examination has been compared to prior imaging studies performed at [facility] on 05/13/2014, 07/04/2015 and 08/01/2019. There are scattered areas of fibroglandular density. There is no suspicious abnormality in either breast. Impression: Annual screening mammography is recommended. OVERALL FINAL ASSESSMENT: BI-RADS CATEGORY 1: Negative. Procedure Note Ahmad, Lorena, MD - 07/18/2020 Mammogram Technique: Bilateral Digital Breast Tomosynthesis, Bilateral C-view 2D Screening mammogram. Views obtained: bilateral craniocaudal and bilateral mediolateral oblique. Computer Aided Detection was performed. Mammogram Findings: The present examination has been compared to prior imaging studies performed at [facility] on 05/13/2014, 07/04/2015 and 08/01/2019. There are scattered areas of fibroglandular density. There is no suspicious abnormality in either breast. Impression: Annual screening mammography is recommended. OVERALL FINAL ASSESSMENT: BI-RADS CATEGORY 1: Negative. Henry Tello MD IMG MAMMO PROCEDURES Final Re sult from Last 3 Months or Most Recently Relevant to Health Maintenance Insurance [facility] SUPPLEMENT UHC MEDICARE ADVANTAGE MEDICARE [facility] MEDICARE MEDICARE [facility] SUPPLEMENT [facility] SUPPLEMENT MEDICARE [facility] MEDICARE ADVANTAGE Advance Directives For more information, please contact: [phone] Documents on File Type Date Recorded Patient Inpatient Coder Expl anation ADVANCE DIRECTIVE 01/09/2021 10:38 AM Lindsay r of Territory Business Manager-Medical ADVANCE DIRECTIVE 07/13/2019 5:35 AM POWER OF GLAZING MACHINE OPERATOR-MEDICAL ADVANCE DIRECTIVE 05/14/2019 10:01 AM * Full [...] 9:50 AM 12/30/2021 6:05 PM Care Teams Financial Planning Assistant Relationship Specialty Start Date End Date Darlene Saeed MD [address] [address] PCP - General Family Medicine 01/09/21 Israel Carrillo MD [address] [facility] [address] [place] [address] Referring Physician Endocrinology Diabetes & Metabolism 06/01/19 Manish Singer MD [address] [place] [address] Consulting Physician Otolaryngology 01/17/22
--- OUTSIDE RECORDS SUMMARY | 2025-03-07 15:31 | XMS_ITS | Encounter Summary ---
Author Organization [facility] Address [address] [place] [address] Care Team Providers Care Security Control Assessor Name Role Phone Israel Carrillo MD Primary Care Provider Twin Tello MD Primary Care Provider [phone] Israel Carrillo MD Unavailable [phone] Twin Tello MD Primary Care Provider Miguel Field MD Primary Care Provider Israel Carrillo MD Primary Care Provider Miguel Field MD Primary Care Provider Israel Carrillo MD Primary Care Provider [phone] Darlene Saeed MD Primary Care Provider Manish Singer MD Unavailable [phone] Katya Carpenter RN Unavailable [phone] Reason for Referral * Diagnostic Imaging (Routine) - Closed Specialty Diagnoses / Procedures Referred By Contjose daniel t Referred To Contact Diagnoses Osteoarthritis of spine with radiculopathy, lumbar region Procedures Dexa Axial Skeleton Bone Density 1 or 2 Site Israel Carrillo MD Phone: tel: fax: [facility] [address] [place] [address] Referral ID Status Reason Start Date Expiration Date Visits Re quested Visits Authorized [id number] Closed 10/03/2018 04/13/2020 1 1 COOKER Encounter Details Date Type Department Care Team (Latest Contact Info) Description 10/03/2018 Community Orders [facility] EpicCare Link Israel Carrillo MD [address] [facility] [address] [place] [address] Osteoarthritis of spine with radiculopathy, lumbar region (Primary Dx) Social History Tobacco Use Types Packs/Day Years Used Date Smoking Tobacco: Some Days Smokeless Tobacco: Never Alcohol Use Standard Drinks/Week Comments Yes 0 (1 standard drink = 0.6 oz pur e alcohol) Comments No Sex and Gender Information Value Date Recorded Sex Assigned at Not on file Legal Sex Female 8:10 PM PULP COOKER Gender Identity Not on file Sexual Orientation Not on file documented as of this encounter Plan of Treatment Not on file documented as of this encounter Results * Dexa Axial Skeleton Bone Density 1 or 2 Site (10/17/2018 10:05 AM PULP COOKER) Anatomical Region Laterality Modality Body N/A Digital Radiogra phy 10/17/2018 10:0 5 AM PULP COOKER Impressions 10/17/2018 12:28 PM PULP COOKER 1. The bone mineral density of the lumbar spine is moderately decreased. 2. The bone mineral density of the left femoral neck is mildly decreased. 3. The bone mineral density of the left total hip is mildly decreased. 4. Overall, the above findings are diagnostic of osteoporosis by WHO criteria. 5. Based on the FRAX fracture risk model, the 10-year probability for major osteoporotic fracture is 10% and that for hip fracture is 2.4%. This 10-year fracture risk estimate was calculated using the risk factors noted in the history above, along with the femoral neck bone density. FRAX is intended to help guide treatment decisions in men over age 50 and postmenopausal women with low bone mass (osteopenia). The National Osteoporosis Foundation (NOF) recommends that FDA-approved medical therapies be considered in postmenopausal women and men age 50 years and older with osteoporosis and those with low bone mass whose 10-year fracture probability by FRAX is >= 20% for major osteoporotic fracture or >= 3% for hip fracture. However, all treatment decisions require clinical judgment and consideration of individual patient factors, including patient preferences, comorbidities, previous drug use, risk factors not captured in the FRAX model (e.g., frailty, falls, vitamin D deficiency, increased bone turnover, interval significant decline in bone density) and possible under- or overestimation of fracture risk by FRAX. General comments regarding interpretation of bone density measurements: A) In children, premenopausal woman and males under age 50 not at increased risk for fractures only Z-scores, not T-scores are used to indicate risk. A Z-score above -2.0 is defined as within the expected range for age and Z-score at or less than -2.0 is below the expected range for age . A Z-score below the expected range for age in a patient with recent fractures and/or chronic corticosteroid treatment is consistent with a diagnosis of osteoporosis. B) In post menopausal women and males over 50, comparison of the measured bone mineral density with the average value in young normal subjects (the T-score ) has been found to be useful in assessing fracture risk. Fracture risk approximately doubles for each 1.0 standard deviation (SD) in individual's hip or spine bone mineral density is below the average value of young normal subjects. The World Health Organization (WHO) has defined T-scores of -1.0 to -2.5 as diagnostic of low bone mass (OSTEOPENIA), and T-scores of -2.5 or lower to be diagnostic of OSTEOPOROSIS, based on the site of lowest bone density. Note that there will be a change in reporting format and reference databases as patients move from the younger population (group A) to the older population (group B) The National Osteoporosis Foundation (www.nof.org) recommends adequate intake of calcium and vitamin D and regular weight-bearing exercise in all patients. They recommend pharmacologic treatment in postmenopausal women and men age 50 and older presenting with any of the followin) Osteoporosis, after appropriate evaluation to exclude secondary causes. 2) A hip or vertebral (clinical or radiographic) fracture, regardless of the bone density. 3) Low bone mass (Osteopenia) and one or more of: other prior fractures, secondary causes associated with high risk of fracture (such as glucocorticoid use or total immobilization), or computed high risk of fracture (10-yr probability of hip fracture >= 3% or a 10-yr probability of any major osteoporosis-related fracture >= 20% based on the U.S.-adapted WHO algorithm), available at http://www.shef.ac.uk/FRAX). Dictated by: Vika Abebe M.D., PHD Electronically signed by: Simona Fink M.D. Narrative 10/17/2018 12:28 PM PULP COOKER BONE DENSITOMETRY OF THE SPINE AND HIP DATE OF STUDY: 10/17/2018 HISTORY: 58-year-old postmenopausal woman with known osteoporosis and osteoarthritis. The patient had oophorectomy and hysterectomy at age 23. She is being treated with no bone medication. Evaluate bone mineral density. Additional risk factors for fracture: smoking. FINDINGS (SPINE): The bone mineral density of L1, L4 was assessed by dual-energy x-ray absorptiometry. The L2 and L3 vertebral bodies were excluded secondary to severe degenerative changes. The average bone mineral density within this region is 0.704 gm/sq-cm. This is 1.6 standard deviations below the mean of the average bone mineral density for age- and gender-matched subjects (the Z-score). It is 3.0 standard deviations below the mean peak bone mineral density in young adults (the T-score). FINDINGS (FEMORAL NECK): The bone mineral density of the left femoral neck was assessed by dual-energy x-ray absorptiometry. The average bone mineral density within the femoral neck region is 0.599 gm/sq-cm. This is 1.0 standard deviations below the mean of the average bone mineral density for age- and gender-matched subjects (the Z-score). It is 2.3 standard deviations below the mean peak bone mineral density in young adults (the T-score). FINDINGS (TOTAL HIP): The bone mineral density of the left hip was assessed by dual-energy x-ray absorptiometry. The average bone mineral density within the total hip region is 0.742 gm/sq-cm. This is 0.7 standard deviations below the mean of the average bone mineral density for age- and gender-matched subjects (the Z-score). It is 1.6 standard deviations below the mean peak bone mineral density in young adults (the T-score). SUMMARY OF CURRENT RESULTS: Region BMD T-score Z-score AP Spine (L1, L4) 0.704 -3.0 -1.6 Femoral Neck (Left) 0.599 -2.3 -1.0 Total Hip (Left) 0.742 -1.6 -0.7 Procedure Note Simona Fink MD - 10/17/2018 BONE DENSITOMETRY OF THE SPINE AND HIP DATE OF STUDY: 10/17/2018 HISTORY: 58-year-old postmenopausal woman with known osteoporosis and osteoarthritis. The patient had oophorectomy and hysterectomy at age 23. She is being treated with no bone medication. Evaluate bone mineral density. Additional risk factors for fracture: smoking. FINDINGS (SPINE): The bone mineral density of L1, L4 was assessed by dual-energy x-ray absorptiometry. The L2 and L3 vertebral bodies were excluded secondary to severe degenerative changes. The average bone mineral density within this region is 0.704 gm/sq-cm. This is 1.6 standard deviations below the mean of the average bone mineral density for age- and gender-matched subjects (the Z-score). It is 3.0 standard deviations below the mean peak bone mineral density in young adults (the T-score). FINDINGS (FEMORAL NECK): The bone mineral density of the left femoral neck was assessed by dual-energy x-ray absorptiometry. The average bone mineral density within the femoral neck region is 0.599 gm/sq-cm. This is 1.0 standard deviations below the mean of the average bone mineral density for age- and gender-matched subjects (the Z-score). It is 2.3 standard deviations below the mean peak bone mineral density in young adults (the T-score). FINDINGS (TOTAL HIP): The bone mineral density of the left hip was assessed by dual-energy x-ray absorptiometry. The average bone mineral density within the total hip region is 0.742 gm/sq-cm. This is 0.7 standard deviations below the mean of the average bone mineral density for age- and gender-matched subjects (the Z-score). It is 1.6 standard deviations below the mean peak bone mineral density in young adults (the T-score). SUMMARY OF CURRENT RESULTS: Region BMD T-score Z-score AP Spine (L1, L4) 0.704 -3.0 -1.6 Femoral Neck (Left) 0.599 -2.3 -1.0 Total Hip (Left) 0.742 -1.6 -0.7 IMPRESSION: 1. The bone mineral density of the lumbar spine is moderately decreased. 2. The bone mineral density of the left femoral neck is mildly decreased. 3. The bone mineral density of the left total hip is mildly decreased. 4. Overall, the above findings are diagnostic of osteoporosis by WHO criteria. 5. Based on the FRAX fracture risk model, the 10-year probability for major osteoporotic fracture is 10% and that for hip fracture is 2.4%. This 10-year fracture risk estimate was calculated using the risk factors noted in the history above, along with the femoral neck bone density. FRAX is intended to help guide treatment decisions in men over age 50 and postmenopausal women with low bone mass (osteopenia). The National Osteoporosis Foundation (NOF) recommends that FDA-approved medical therapies be considered in postmenopausal women and men age 50 years and older with osteoporosis and those with low bone mass whose 10-year fracture probability by FRAX is >= 20% for major osteoporotic fracture or >= 3% for hip fracture. However, all treatment decisions require clinical judgment and consideration of individual patient factors, including patient preferences, comorbidities, previous drug use, risk factors not captured in the FRAX model (e.g., frailty, falls, vitamin D deficiency, increased bone turnover, interval significant decline in bone density) and possible under- or overestimation of fracture risk by FRAX. General comments regarding interpretation of bone density measurements: A) In children, premenopausal woman and males under age 50 not at increased risk for fractures only Z-scores, not T-scores are used to indicate risk. A Z-score above -2.0 is defined as within the expected range for age and Z-score at or less than -2.0 is below the expected range for age . A Z-score below the expected range for age in a patient with recent fractures and/or chronic corticosteroid treatment is consistent with a diagnosis of osteoporosis. B) In post menopausal women and males over 50, comparison of the measured bone mineral density with the average value in young normal subjects (the T-score ) has been found to be useful in assessing fracture risk. Fracture risk approximately doubles for each 1.0 standard deviation (SD) in individual's hip or spine bone mineral density is below the average value of young normal subjects. The World Health Organization (WHO) has defined T-scores of -1.0 to -2.5 as diagnostic of low bone mass (OSTEOPENIA), and T-scores of -2.5 or lower to be diagnostic of OSTEOPOROSIS, based on the site of lowest bone density. Note that there will be a change in reporting format and reference databases as patients move from the younger population (group A) to the older population (group B) The National Osteoporosis Foundation (www.nof.org) recommends adequate intake of calcium and vitamin D and regular weight-bearing exercise in all patients. They recommend pharmacologic treatment in postmenopausal women and men age 50 and older presenting with any of the followin) Osteoporosis, after appropriate evaluation to exclude secondary causes. 2) A hip or vertebral (clinical or radiographic) fracture, regardless of the bone density. 3) Low bone mass (Osteopenia) and one or more of: other prior fractures, secondary causes associated with high risk of fracture (such as glucocorticoid use or total immobilization), or computed high risk of fracture (10-yr probability of hip fracture >= 3% or a 10-yr probability of any major osteoporosis-related fracture >= 20% based on the [place].S.-adapted WHO algorithm), available at http://www.shef.ac.uk/FRAX). Dictated by: Vika Abebe M.D., PHD Electronically signed by: Simona Fink M.D. Israel Carrillo MD IMG DXA PROCEDURES Final Resul t documented in this encounter Visit Diagnoses Diagnosis Osteoarthritis of spine with radiculopathy, lumbar region- Primary Osteoarthritis of spine with radiculopathy, lumbar region documented in this encounter Additional Health Concerns Infection Onset Date Last Indicated Resolved Time COVID: Suspected 12/17/2020 12/17/2020 12/17/2020 6:45 PM PULP COOKER Diarrhea 12/02/2023 12/02/2023 12/16/2023 3:06 AM PULP COOKER COVID: Suspected 02/06/2024 02/06/2024 02/06/2024 2:46 PM CDT documented as of this encounter Care Teams Security Control Assessor Relationship Specialty Start Date End Date Israel Carrillo MD [address] [address] [address] PCP - General 10/02/18 05/31/19 Twin Tello MD [address] [employer] [facility] [address] [place] [address] PCP - General Endocrinology Diabetes & Metabolism 06/01/19 07/03/19 Twin Tello MD [address] [employer] [facility] [address] [place] [address] PCP - General 07/04/19 05/04/20 Miguel Field MD [address] [facility] [address] [place] [address] PCP - General Internal Medicine 05/05/20 08/03/20 Israel Carrillo MD [address] [address] PCP - General Endocrinology Diabetes & Metabolism 08/04/20 09/02/20 Miguel Field MD [address] [facility] [address], [place] [address] PCP - General 09/03/20 10/05/20 Israel Carrillo MD [address] [facility] [address] [place] [address] PCP - General Endocrinology Diabetes & Metabolism 10/06/20 01/08/21 Darlene Saeed MD [address] [address] PCP - General Family Medicine 01/09/21 Israel Carrillo MD [address] [address] Referring Physician Endocrinology Diabetes & Metabolism 06/01/19 Manish Singer MD [address] [facility] [address] [place] [address] Consulting Physician Otolaryngology 01/17/22 Katya Carpenter, RN [address] [facility] [address] [place] [address] SHOP Outpatient Science Job Titles 02/13/24 02/19/24 documented as of this encounter
[2025-03-07 15:35] LABS: Thyroid Stimulating Hormone 0.027 uIU/mL (0.465-4.680)
== END 2025-03-07 14:19 | disposition home or self-care (01) ==
PROVIDERS: PCP Family Medicine; Visit Provider Physician Assistant
DX: R53.1 Weakness (principal); N17.9 Acute kidney failure, unspecified; E87.8 Other disorders of electrolyte and fluid balance, not elsewhere classified; E07.9 Disorder of thyroid, unspecified
CPT/HCPCS: 36415; 80053; 81003; 83735; 84439; 84443; 85025

== ENCOUNTER 2025-04-03 14:12 | Outpatient (CLI) | payer MEDICARE, SELFPAY ==
--- NOTE | ~2025-04-03 | NM_ITS ---
EXAMINATION: NM thyroid scan w uptake DATE: 04/04/2025 14:57 INDICATION: Thyroid mass and other specified abnormal findings of blood chemistry COMPARISON: None. TECHNIQUE: 100-400 microcuries I-123 was administered orally in capsule form. Scintigraphic images o f the thyroid gland were obtained at 24 hours. Thyroid uptake was calculated by the technologist. FINDINGS: The thyroid uptake is 17.8% (normal 10-30%), with the right lobe measuring 4.8% uptake and the left 1 3.5%. The left thyroid lobe appears larger than the right with large region of focally increased upta ke at the inferior left thyroid lobe which corresponds to a 2.1 cm nodule at this location on prior u ltrasound. IMPRESSION: 1. Normal 24-hour iodine uptake but with large hyperfunctioning nodule at the inferior left thyroid lobe and secondary suppression of uptake throughout the remainder of the thyroid. This nodule was bio psied on 01/03/2023 and correlation with pathology from the biopsy. Reviewed, dictated and finalized at location A. IMPRESSION: 1. Normal 24-hour iodine uptake but with large hyperfunctioning nodule at the inferior left thyroid lobe and secondary suppression of uptake throughout the r emainder of the thyroid. This nodule was biopsied on 01/03/2023 and correlation with pathology from the biopsy.
--- OUTSIDE RECORDS SUMMARY | 2025-04-03 14:22 | XMS_ITS | Encounter Summary ---
Author Organization [facility] Address [address] [place] [address] Care Team Providers Care Manufacturing Engineer Paint Name Role Phone Israel Carrillo MD Primary Care Provider Gene Padilla MD Primary Care Provider [phone] Israel Carrillo MD Primary Care Provider [phone] Twin Tello MD Primary Care Provider Israel Carrillo MD Unavailable Twin Tello MD Primary Care Provider Miguel Field MD Primary Care Provider Israel Carrillo MD Primary Care Provider Miguel Field MD Primary Care Provider [phone] Israel Carrillo MD Primary Care Provider Darlene Saeed MD Primary Care Provider Manish Singer MD Unavailable [phone] Katya Carpenter RN Unavailable [phone] Reason for Visit * Reason Onset Date Comments 09/26/2018 Encounter Details Date Type Department Care Team (Late st Contact Info) Description 09/26/2018 Telephone [facility] [address] [facility] [address] [place] [address] Momo Pérez MD [address] [facility] [phone] [place] [address] FYI Social History Tobacco Use Types Packs/Day Years Used Date Smoking Tobacco: Some Days Smokeless Tobacco: Never Alcohol Use Standard Drinks/Week Comments Yes 0 (1 standard drink = 0.6 oz pur e alcohol) Comments No Sex and Gender Information Value Date Recorded Sex Assigned at Not on file Legal Sex Female 8:10 PM MIDDLEWARE SOLUTIONS ARCHITECT Gender Identity Not on file Sexual Orientation Not on file documented as of this encounter Plan of Treatment Not on file documented as of this encounter Visit Diagnoses Not on filedocumented in this encounter Additional Health Concerns Infection Onset Date Last Indicated Resolved Time COVID: Suspected 12/17/2020 12/17/2020 12/17/2020 6:45 PM MIDDLEWARE SOLUTIONS ARCHITECT Diarrhea 12/02/2023 12/02/2023 12/16/2023 3:06 AM MIDDLEWARE SOLUTIONS ARCHITECT COVID: Suspected 02/06/2024 02/06/2024 02/06/2024 2:46 PM CDT documented as of this encounter Care Teams Manufacturing Engineer Paint Relationship Specialty Start Date End Date Israel Carrillo MD [address] [address] PCP - General 08/02/07 09/26/18 Gene Padilla MD [address] [place] [address] PCP - General Cardiovascular Disease 09/27/18 Israel Carrillo MD [address] [address] PCP - General 10/02/18 05/31/19 Twin Tello MD [address] [address] PCP - General Endocrinology Diabetes & Metabolism 06/01/19 07/03/19 Twin Tello MD [address] [address] PCP - General 07/04/19 05/04/20 Miguel Field MD [address] [address] PCP - General Internal Medicine 05/05/20 08/03/20 Israel Carrillo MD [address] [address] PCP - General Endocrinology Diabetes & Metabolism 08/04/20 09/02/20 Miguel Field MD [address] [address] PCP - General 09/03/20 10/05/20 Israel Carrillo MD [address] [address] PCP - General Endocrinology Diabetes & Metabolism 10/06/20 01/08/21 Darlene Saeed MD [address] [address] PCP - General Family Medicine 01/09/21 Israel Carrillo MD [address] [address] Referring Physician Endocrinology Diabetes & Metabolism 06/01/19 Manish Singer MD [address] [place] [address] Consulting Physician Otolaryngology 01/17/22 Katya Carpenter, RN [address] [facility] [address] [place] [address] SHOP Outpatient Manager Business Operations 02/13/24 02/19/24 documented as of this encounter
--- OUTSIDE RECORDS SUMMARY | 2025-04-03 14:22 | XMS_ITS | Encounter Summary ---
Author Organization [facility] Address [address] [place] [address] Phone Care Team Providers Care Margarine Churn Operator Name Role Phone Israel Carrillo MD Unavailable [phone] Darlene Saeed MD Primary Care Provider Manish Singer MD Unavailable [phone] Katya Carpenter RN Unavailable [phone] Reason for Visit * Reason Onset Date Comments Med.Allery Clarification 07/14/2021 Encounter Details Date Type Department Care Team (Late st Contact Info) Description 07/14/2021 Telephone [facility] Orthopaedic Surgery [address] [facility] 2nd Floor [address] [place] [address] Twin Machado MD [address] [facility] [address] [place] [address] Med.Allery Clarification Social History Tobacco Use Types Packs/Day [...] on file Legal Sex Female 8:10 PM DONOR SERVICES TECHNICIAN Gender Identity Not on file Sexual Orientation Not on file documented as of this encounter Miscellaneous Notes * Telephone Encounter - Narendra Singh CMA - 07/15/2021 1:57 PM CDT Rx canceled with [facility]. * Telephone Encounter - Scarlet Frazier - 07/15/2021 1:44 PM CDT Pharmacy is calling back needing a call back at [phone] option 2 reference number [phone] regarding drug/possible reaction * Telephone Encounter - Narendra Singh CMA - 07/14/2021 4:20 PM CDT Rx sent to Dr. Machado for e-scribe high priority. * Telephone Encounter - Scarlet Frazier - 07/14/2021 3:17 PM CDT Call [phone] before the end of the day regarding medication for the imaging that is tomorrow * Telephone Encounter - Brenda London - 07/14/2021 2:42 PM CDT Please see Prescription Clarification Request form that was received from [facility]. Possible drug allergy. Form placed in Dr Machado's E-Folder. documented in this encounter Plan of Treatment Not on file documented as of this encounter Goals Goal Patient Goal Type Associated Problems Recent Progress Patient-Stated? Author CCM Chronic Pain Care Plan Chronic Care Management On track(2021 12:44 PM CDT) Kirstie Stevens, RN Note: Problem: Chronic Pain Goals: 1. [...] Time Diarrhea 12/02/2023 12/02/2023 12/16/2023 3:06 AM DONOR SERVICES TECHNICIAN COVID: Suspected 02/06/2024 02/06/2024 02/06/2024 2:46 PM CDT documented as of this encounter Care Teams Margarine Churn Operator Relationship Specialty Start Date End Date Darlene Saeed MD [address] [place] [address] PCP - General Family Medicine 01/09/21 Israel Carrillo MD [address] [facility] [address] [place] [address] Referring Physician Endocrinology Diabetes & Metabolism 06/01/19 Manish Singer MD [address] [place] [address] Consulting Physician Otolaryngology 01/17/22 Katya Carpenter RN [address] [facility] [address] [place] [address] SHOP Outpatient Heater Room Helper 02/13/24 02/19/24 documented as of this encounter
--- OUTSIDE RECORDS SUMMARY | 2025-04-03 14:22 | XMS_ITS | Referral Summary ---
Author Organization [facility] Address [address] [place] [address] Care Team Providers Care Director Of Operations Support Name Role Phone Israel Carrillo MD Unavailable [phone] Darlene Saeed MD Primary Care Provider Manish Singer MD Unavailable [phone] Encounters Date Type Department Care Team Description 02/25/2025 10:54 AM CDT - 02/28/2025 1:50 PM CDT Hospital Encounter [facility] Intensive Care Unit [address] [place] [address] Layton Macario DO Shaukat, Bushra, MD Hyperkalemia (Primary Dx); Acute renal failure, unspecified acute renal failure type; Encephalopathy acute; Fibromyalgia; Fall, initial encounter; Unsteadiness on feet Discharge Disposition: Discharge to home or self care 02/19/2025 Telephone [facility] Orthopaedic Surgery [address] [facility] 1st Floor [address] [place] [address] Henry Machado MD 02/04/2025 Orders Only [facility] Orthopaedic Surgery [address] [facility] 6th [place] [address] [place] [address] Narendra Singh CMA 02/04/2025 1:00 PM CDT Office Visit [facility] Orthopaedic Surgery [address] [facility] 6th [place] [address] [place] [address] Henry Machado MD Lumbar spondylosis (Primary Dx) 01/31/2025 9:18 AM CDT - 01/31/2025 11:59 PM CDT Hospital Encounter [facility] [address] [place] [phone] Hari Bowen MD Other spondylosis, lumbosacral region (Primary Dx); Lumbosacral radiculopathy Discharge Disposition: Discharge to home or self care 01/10/2025 9:40 AM FIXED ROUTE OPERATOR - 01/10/2025 11:59 PM FIXED ROUTE OPERATOR Hospital Encounter [facility] [address] [place] [address] Hari Bowen MD Other spondylosis, lumbosacral region [...] mouth daily 30 tablet 11 06/15/20 23 025 Active omeprazole (PriLOSEC) 40 mg capsule Take [...] (two) times a day with meals Active lidocaine (LIDODERM) 5 % Place 1 patch on the skin daily as needed for pain Remove & discard patch within 12 hours or as directed by MD. Active pregabalin (LYRICA) 75 mg capsule Take 1 capsule (75 mg total) by mouth 3 (three) times a day 90 capsule 02/29/20 25 Active lisinopriL (PRINIVIL,ZESTRI L) 20 mg tablet Take 1 tablet (20 mg total) by mouth daily 30 tablet 02/29/20 25 Active pregabalin (LYRICA) 150 mg capsuleIndicatio ns:Lumbosacral radiculopathy,Sa croiliac joint pain,Thoracic spine pain TAKE 1 CAPSULE BY MOUTH 3 TIMES DAILY 270 capsule 03/22/20 25 Active tiZANidine (ZANAFLEX) 4 mg tabletIndication s:Spasm of muscle TAKE 1 TABLET BY MOUTH EVERY 6 HOURS NEEDED 120 tablet 2 03/22/20 25 Active HYDROcodone-acet aminophen (NORCO) 5-325 mg per tabletIndication s:Lumbosacral radiculopathy TAKE 1 TABLET BY MOUTH EVERY 6 (SIX) HOURS NEEDED FOR PAIN MAX 4 A DAY FOR PAIN 120 tablet 03/25/20 25 Active HYDROcodone-acet aminophen (NORCO) 5-325 mg per tabletIndication s:Lumbosacral radiculopathy Take 1 tablet by mouth every 6 (six) hours as needed for pain MAX 4 A DAY for pain 120 tablet 02/23/20 25 025 Discontinued Active Problems Problem Noted Date Diagnosed Date [...] (03/23/2022): Added automatically from request for surgery [id number] Other secondary scoliosis, lumbar region 022 Overview (03/23/2022): Added automatically from request for surgery [id number] Kyphosis (acquired) (postural) 03/23/2022 Overview (03/23/2022): Added automatically from request for surgery [id number] Vertigo 02/26/2022 Fecal occult blood test positive 06/30/2021 Overview (06/30/2021): Added automatically from request for surgery [id number] Chronic maxillary sinusitis 06/22/2021 Overview (06/22/2021): Added automatically from request for surgery [id number] Lip lesion 06/22/2021 Overview (06/22/2021): Added automatically from request for surgery [id number] Allergic rhinitis 03/23/2021 Hypertrophy of nasal turbinates [...] 12/10/2020 Assessment & Plan (12/18/2020 11:25 AM FIXED ROUTE OPERATOR): - appears resolved now with discontinuation of [...] agreeable. Assessment & Plan (12/17/2020 11:03 AM FIXED ROUTE OPERATOR): - appears resolved now with discontinuation of [...] agreeable. Assessment & Plan (12/16/2020 11:06 AM FIXED ROUTE OPERATOR): - appears resolved now with discontinuation of [...] 12/10/2020 Assessment & Plan (12/18/2020 11:25 AM FIXED ROUTE OPERATOR): - resolved. - reported on admission that [...] levels. Assessment & Plan (12/17/2020 11:03 AM FIXED ROUTE OPERATOR): - resolved. - reported on admission that [...] levels. Assessment & Plan (12/15/2020 7:36 PM FIXED ROUTE OPERATOR): - resolved. - reported on admission that [...] DEANNE Assessment & Plan (12/18/2020 11:25 AM FIXED ROUTE OPERATOR): - given softer BPs (likely related to ativan/haldol) holding antihypertensive meds amlodipine, 2.5, aldactone 100, and lasix 40 bid (stopped after recent discharge) Assessment & Plan (12/17/2020 11:04 AM FIXED ROUTE OPERATOR): - given softer BPs (likely related to ativan/haldol) holding antihypertensive meds amlodipine, 2.5, aldactone 100, and lasix 40 bid (stopped after recent discharge) Assessment & Plan (12/12/2020 5:27 PM FIXED ROUTE OPERATOR): - given softer BPs (likely related to ativan/haldol) holding antihypertensive meds amlodipine, 2.5, aldactone 100, and lasix 40 bid (stopped after recent discharge) History of pseudoseizure 12/10/2020 Assessment & Plan (12/18/2020 11:25 AM FIXED ROUTE OPERATOR): - vEEG in 2019 with no epileptiform [...] doses. Assessment & Plan (12/17/2020 11:04 AM FIXED ROUTE OPERATOR): - vEEG in 2019 with no epileptiform [...] doses. Assessment & Plan (12/14/2020 1:15 PM FIXED ROUTE OPERATOR): - vEEG in 2019 with no epileptiform [...] 12/10/2020 Assessment & Plan (12/18/2020 11:25 AM FIXED ROUTE OPERATOR): - Pt previously overweight and on meds, but none recently - said patient has no access to insulin. Hgb a1c is 4.9 Assessment & Plan (12/17/2020 11:04 AM FIXED ROUTE OPERATOR): - Pt previously overweight and on meds, but none recently - said patient has no access to insulin. Hgb a1c is 4.9 Assessment & Plan (12/12/2020 5:27 PM FIXED ROUTE OPERATOR): - Pt previously overweight and on meds, [...] hydration Assessment & Plan (12/12/2020 5:36 PM FIXED ROUTE OPERATOR): - resolved. Cr up from 0.9 to 1.32 on admission. - renal function improved with IV fluid. Moderate malnutrition 06/25/2020 Overview (06/25/2020): Added automatically from request for surgery [id number] Assessment & Plan (12/18/2020 11:25 AM FIXED ROUTE OPERATOR): - due to poor oral intake. RD consulted. Encourage better oral intake. Assessment & Plan (12/17/2020 11:03 AM FIXED ROUTE OPERATOR): - due to poor oral intake. RD consulted. Encourage better oral intake. Assessment & Plan (12/15/2020 7:32 PM FIXED ROUTE OPERATOR): - due to poor oral intake. RD [...] 12/17/2015 Assessment & Plan (12/18/2020 11:25 AM FIXED ROUTE OPERATOR): - has chronic back pain - given altered mental status, will hold meds that may cloud picture: these include pregabalin 100 tid, morphine 15mg q8h, hyoscyamine 0.375 bid (abd pain). Also on baclofen 20 mg TID, changed to 5 mg TID to avoid withdrawal effect. Assessment & Plan (12/17/2020 11:03 AM FIXED ROUTE OPERATOR): - has chronic back pain - given altered mental status, will hold meds that may cloud picture: these include pregabalin 100 tid, morphine 15mg q8h, hyoscyamine 0.375 bid (abd pain). Also on baclofen 20 mg TID, changed to 5 mg TID to avoid withdrawal effect. Assessment & Plan (12/12/2020 5:31 PM FIXED ROUTE OPERATOR): - has chronic back pain - given [...] 03/2023 Assessment & Plan (12/18/2020 11:25 AM FIXED ROUTE OPERATOR): Removed 12/16 and has urinated since Assessment & Plan (12/17/2020 11:04 AM FIXED ROUTE OPERATOR): Removed 12/16 and has urinated since Assessment & Plan (12/16/2020 11:07 AM FIXED ROUTE OPERATOR): Ordered for removal Will follow I/Os Hypoxia 12/10/2020 12/14/2020 Assessment & Plan (12/12/2020 5:21 PM FIXED ROUTE OPERATOR): - resolved. Presented on admission. Likely related to mental status/somnolence. No distress, CXR wnl. VSS. covid negative Hypokalemia 12/09/2020 12/16/2020 Assessment & Plan (12/18/2020 11:25 AM FIXED ROUTE OPERATOR): - At recent hospitalization at [facility], had hyperkalemia. Discontinued lasix and potassium supplement. [...] CTM Assessment & Plan (12/15/2020 7:45 PM FIXED ROUTE OPERATOR): - At recent hospitalization at [facility], had hyperkalemia. Discontinued lasix and potassium supplement. [...] drink = 0.6 oz pur e alcohol) [facility] [employer] Answer Date Recorded In the past 12 months has [employer], oil, or water [employer] threatened to shut off services in your [...] often do you attend chur ch or presybeterian services? Never 02/27/2025 Do you belong to any clubs o r organizations such as jain groups, unions, fraternal or athletic groups, or [...] place to sleep or slept in a jail (including now)? No 02/13/2024 Housing Stability Vital Sign Answer Alec e Recorded In the last 12 months, was t here a time when you were not able to pay the mortgage or rent on time? No 02/27/2025 In the past 12 months, how m any times have you moved where you were living? 0 02/27/2025 At any time in the past 12 m [facility], were you homeless or living in a jail (including now)? No 02/27/2025 Personal Safety Answer Date Recorded Have you ever been in or are you currently in a harmful physical or emotional relationship or is someone making you feel afraid or unsafe? Denies 02/25/2025 Comments No Sex and Gender Information Value Date Recorded Sex Assigned at Not on file Legal Sex Female 8:10 PM FIXED ROUTE OPERATOR Gender Identity Not on file Sexual Orientation [...] as needed Medical Devices Implanted Type Area Salmon Troll Fisher Device Identifier Shelf Expiration Date Model / Serial / Lot [employer] [id number] - [id number] - [id number] Implanted:Qty: 1 on 10/28/2021 by Dann Contreras MD at [facility] Lens Right: Eye [employer] [id number] 05/13/2024 [id number] / [id number] / [id number] Description:[id number] 18.5D Righ t eye [employer]om [id number] 18.0 Tecnis Optiedge 6mm 13mm 3 Piece Anterior Aspheric Monofocal Uv - [id number] - [id number] Implanted:Qty: 1 on 12/30/2021 by Dann Contreras MD at [facility] Lens Left: Lens [employer] [id number] 02/15/2025 [id number] / [id number] / Knee Bilatera l: Knee Screw [...] DEVICE Routine 02/25/2025 1 :44 PM CDT [place] CRITICAL CARE ILL/INJURED PATIENT INIT 30-74 MIN [...] Read Routine (OP Routine) 01/10/2025 10:45 AM FIXED ROUTE OPERATOR Lumbosacral radiculopathy Other spondylosis, lumbosacral region HEPATITIS C ANTIBODY Routine 02/07/2024 9:08 PM CDT COLONOSCOPY 09/24/2021 2:13 PM FIXED ROUTE OPERATOR DEXA APPENDICULAR BONE DENSITY Schedule Routine, Read Routine (OP Routine) 08/04/2021 2:32 PM CDT Osteopenia of multiple sites LIPID PANEL STAT 12/09/2020 4:03 PM FIXED ROUTE OPERATOR SCREENING MAMMOGRAM BILATERAL W SOTO Schedule Routine, Read Routine (OP Routine) 07/16/2020 11:16 AM CDT Screening for breast cancer from Last 3 Months or Most Recently Relevant to Health Maintenance Results * POCT glucose (02/28/2025 12:16 PM CDT) Glucose, POC 158 70 - 199 mg/dL Comment:Testing performed by : [address] [address] Blood 02/28/2025 12:1 6 PM CDT 02/28/2025 12:16 PM CDT us Carmen Nayak MD LAB POCT ORDERABLES - DEVICE F inal Result Performing Organization Address [facility]/ZIP Co de Phone Number [facility] [address] [facility] Department [place] [address] * POCT glucose (02/28/2025 7:50 AM CDT) Glucose, POC 133 70 - 199 mg/dL Comment:Testing performed by : [address] [address] Blood 02/28/2025 7:50 AM CDT 02/28/2025 7:50 AM CDT us Carmen Nayak MD LAB POCT ORDERABLES - DEVICE F inal Result [facility] [address] [facility] Department [place] [address] * POCT glucose (02/28/2025 6:35 AM CDT) Pathologist [facility] Glucose, POC 137 70 - 199 mg/dL Comment:Testing performed by : [address] [address] Blood 02/28/2025 6:35 AM CDT 02/28/2025 6:35 AM CDT us Carmen Nayak MD LAB POCT ORDERABLES - DEVICE F inal Result [facility] [address] [facility] Department [place] [address] * (ABNORMAL) Differential, auto (02/28/2025 2:58 AM CDT) [facility] Neutrophil abs 2.13 1.50 - 6.50 K/cumm Comment:Testing performed by : [address] [address] Imm gran abs 0.03 0.00 - 0.10 K/cumm [facility] Comment:Testing performed by : [address] [address] Lymphocyte abs 3.38(H) 0.80 - 3.30 K/cumm [place] Comment:Testing performed by : [address] [address] Monocyte abs 0.59 0.20 - 0.80 K/cumm [place] Comment:Testing performed by : [address] [address] Eosinophil abs 0.16 0.00 - 0.50 K/cumm [place] Comment:Testing performed by : [address] [address] Basophil abs 0.05 0.00 - 0.10 K/cumm [place] Comment:Testing performed by : [address] [address] Neutrophil pct 33.6 % [facility] Comment: Interpretive Data Percent cell count reference ranges are not reported, since discordance with absolute values may lead to misinterpretation of CBC data. Current Interpretive Data was last revised on 2018. Testing performed by: [address] [address] Imm gran pct 0.5 % [facility] Comment: Interpretive Data Percent cell count reference ranges are not reported, since discordance with absolute values may lead to misinterpretation of CBC data. Current Interpretive Data was last revised on 2018. Testing performed by: [address] [address] Lymphocyte pct 53.3 % [facility] Comment: Interpretive Data Percent cell count reference ranges are not reported, since discordance with absolute values may lead to misinterpretation of CBC data. Current Interpretive Data was last revised on 2018. Testing performed by: [address] [address] Monocyte pct 9.3 % [facility] Comment: Interpretive Data Percent cell count reference ranges are not reported, since discordance with absolute values may lead to misinterpretation of CBC data. Current Interpretive Data was last revised on 2018. Testing performed by: [address] [address] Eosinophil pct 2.5 % [facility] Comment: Interpretive Data Percent cell count reference ranges are not reported, since discordance with absolute values may lead to misinterpretation of CBC data. Current Interpretive Data was last revised on 2018. Testing performed by: [address] [address] Basophil pct 0.8 % [facility] Comment: Interpretive Data Percent cell count reference ranges are not reported, since discordance with absolute values may lead to misinterpretation of CBC data. Current Interpretive Data was last revised on 2018. Testing performed by: [address] [address] Blood 02/28/2025 2:58 AM CDT 02/28/2025 3:58 AM CDT Mau VERONICA LAB BLOOD ORDERABLES Final Re sult [facility] [address] [facility] Department [place] [address] * (ABNORMAL) CBC with auto differential (02/28/2025 2:58 AM CDT) WBC 6.34 3.80 - 9.90 K/cumm Comment:Testing performed by : [address] [address] Hgb 9.2(L) 11.9 - 15.5 g/dL [facility] Comment:Testing performed by : [address] [address] Hct 30.4(L) 35.6 - 45.5 % [facility] Comment:Testing performed by : [address] [address] Plt 184 150 - 400 K/cumm [place] Comment:Testing performed by : [address] [address] MPV 11.0 9.1 - 12.3 fL [facility] Comment:Testing performed by : [address] [address] RBC 3.74(L) 3.90 - 5.20 M/cumm [place] Comment:Testing performed by : [address] [address] MCV 81.3 81.3 - 96.4 fL [place] Comment:Testing performed by : [address] [address] MCH 24.6(L) 27.1 - 33.3 pg [facility] Comment:Testing performed by : [address] [address] MCHC 30.3(L) 32.3 - 35.7 g/dL [facility] Comment:Testing performed by : [address] [address] RDW CV 21.0(H) 11.1 - 14.9 % [facility] Comment:Testing performed by : [address] [address] RDW SD 59.5(H) 35.7 - 48.1 fL [place] Comment:Testing performed by : [facility], [address] [place] [address]., [address] NRBC abs 0.00 0.00 - 0.01 K/cumm [place] Comment:Testing performed by : [address] [address] Blood 02/28/2025 2:58 AM CDT 02/28/2025 3:58 AM CDT Mau VERONICA LAB BLOOD ORDERABLES Final Re sult Performing Organization Address [facility]/RUST Co de Phone Number [address] [employer] [address] * POCT glucose (02/28/2025 12:07 AM CDT) Glucose, POC 126 70 - 199 mg/dL Comment:Testing performed by : [address], [address] Blood 02/28/2025 12:0 7 AM CDT 02/28/2025 12:07 AM CDT Carmen Nayak MD LAB POCT ORDERABLES - DEVICE F inal Result Performing Organization Address [facility] Co de Phone Number [address] [employer] [address] * POCT glucose (02/27/2025 9:11 PM CDT) Glucose, POC 113 70 - 199 mg/dL Comment:Testing performed by : [address] [address] Blood 02/27/2025 9:11 PM CDT 02/27/2025 9:11 PM CDT Carmen Nayka MD LAB POCT ORDERABLES - DEVICE F inal Result Performing Organization Address City/[facility]/ZIP Co de Phone Number [facility] [address] [address] * POCT glucose (02/27/2025 4:49 PM CDT) Glucose, POC 119 70 - 199 mg/dL Comment:Testing performed by : [address] [address] Blood 02/27/2025 4:49 PM CDT 02/27/2025 4:49 PM CDT us Carmen Nayak MD LAB POCT ORDERABLES - DEVICE F inal Result Performing Organization Address [facility] Co de Phone Number [facility] [address] [address] * POCT glucose (02/27/2025 11:50 AM CDT) Glucose, POC 130 70 - 199 mg/dL Comment:Testing performed by : [address] [address] Blood 02/27/2025 11:5 0 AM CDT 02/27/2025 11:50 AM CDT us Carmen Nayak MD LAB POCT ORDERABLES - DEVICE F inal Result Performing Organization Address [facility] Co de Phone Number [address] [address] * POCT glucose (02/27/2025 7:50 AM CDT) Glucose, POC 146 70 - 199 mg/dL Comment:Testing performed by : [address] [address] Glucose comment 1 RN/MD Notified [facility] Comment:Testing performed by : [address] [address] Blood 02/27/2025 7:50 AM CDT 02/27/2025 7:50 AM CDT Carmen Nayak MD LAB POCT ORDERABLES - DEVICE F inal Result Performing Organization Address [facility] Co de Phone Number [facility] [address] Department [place] [address] * Troponin T high-sensitivity (02/27/2025 4:12 AM CDT) Trop T hs 8 <=14 ng/L Comment: Interpretive Data For further hscTnT resources including the diagnostic algorithm and an aid in interpretation, copy and paste this link: https://nrl.testcatalog.org/show/hsTrop Current Interpretive Data last revised 2020. Testing performed by: [facility], [address] [place] [address]., [address] Blood 02/27/2025 4:12 AM CDT 02/27/2025 5:30 AM CDT Mau VERONICA LAB BLOOD ORDERABLES Final Re sult Performing Organization Address [facility] Co de Phone Number [facility] [address] Department [place] [address] * eGFR (02/27/2025 4:12 AM CDT) eGFR [...] was last reviewed 2021. Testing performed by: [address] [address] Blood 02/27/2025 4:12 AM CDT 02/27/2025 5:30 AM CDT us Ángel Woodson MD LAB BLOOD ORDERABLES Final Re sult [facility] [address] [facility] Department [place] [address] * Differential, auto (02/27/2025 4:12 AM CDT) Neutrophil abs 2.55 1.50 - 6.50 K/cumm Comment:Testing performed by : [address] [address] Imm gran abs 0.01 0.00 - 0.10 K/cumm [place] Comment:Testing performed by : [address] [address] Lymphocyte abs 2.72 0.80 - 3.30 K/cumm [place] Comment:Testing performed by : [address] [address] Monocyte abs 0.49 0.20 - 0.80 K/cumm [place] Comment:Testing performed by : [address] [address] Eosinophil abs 0.09 0.00 - 0.50 K/cumm [place] Comment:Testing performed by : [address] [address] Basophil abs 0.04 0.00 - 0.10 K/cumm [place] Comment:Testing performed by : [address] [address] Neutrophil pct 43.2 % [facility] Comment: Interpretive Data Percent cell count reference ranges are not reported, since discordance with absolute values may lead to misinterpretation of CBC data. Current Interpretive Data was last revised on 2018. Testing performed by: [address] [address] Imm gran pct 0.2 % [facility] Comment: Interpretive Data Percent cell count reference ranges are not reported, since discordance with absolute values may lead to misinterpretation of CBC data. Current Interpretive Data was last revised on 2018. Testing performed by: [address] [address] Lymphocyte pct 46.1 % [facility] Comment: Interpretive Data Percent cell count reference ranges are not reported, since discordance with absolute values may lead to misinterpretation of CBC data. Current Interpretive Data was last revised on 2018. Testing performed by: [address] [address] Monocyte pct 8.3 % [facility] Comment: Interpretive Data Percent cell count reference ranges are not reported, since discordance with absolute values may lead to misinterpretation of CBC data. Current Interpretive Data was last revised on 2018. Testing performed by: [address] [address] Eosinophil pct 1.5 % [facility] Comment: Interpretive Data Percent cell count reference ranges are not reported, since discordance with absolute values may lead to misinterpretation of CBC data. Current Interpretive Data was last revised on 2018. Testing performed by: [address] [address] Basophil pct 0.7 % [facility] Comment: Interpretive Data Percent cell count reference ranges are not reported, since discordance with absolute values may lead to misinterpretation of CBC data. Current Interpretive Data was last revised on 2018. Testing performed by: [address] [address] Blood 02/27/2025 4:12 AM CDT 02/27/2025 5:36 AM CDT us Mau VERONICA LAB BLOOD ORDERABLES Final Re sult [facility] [address] [facility] Department [place] [address] * (ABNORMAL) Iron profile w/ IBC (02/27/2025 4:12 AM CDT) Pathologist [facility] Iron 45 35 - 145 mcg/dL Comment:Testing performed by : [address] [address] TIBC 309 250 - 400 mcg/dL [facility] REESE Comment:Testing performed by : [address] [address] Transferrin saturation 15(L) 20 - 50 % [facility] Comment:Testing performed by : [address] [address] Blood 02/27/2025 4:12 AM CDT 02/27/2025 5:30 AM CDT us Ángel Woodson MD LAB BLOOD ORDERABLES Final Re sult [facility] [facility] Department [place] [address] * (ABNORMAL) CBC with auto differential (02/27/2025 4:12 AM CDT) Pathologist [facility] WBC 5.90 3.80 - 9.90 K/cumm Comment:Testing performed by : [address] [address] Hgb 8.9(L) 11.9 - 15.5 g/dL [facility] REESE Comment:Testing performed by : [address] [address] Hct 29.0(L) 35.6 - 45.5 % [facility] Comment:Testing performed by : [address] [address] Plt 174 150 - 400 K/cumm [facility] REESE Comment:Testing performed by : [address] [address] MPV 10.6 9.1 - 12.3 fL [facility] REESE Comment:Testing performed by : [address] [address] RBC 3.59(L) 3.90 - 5.20 M/cumm [facility] REESE Comment:Testing performed by : [facility], [address] [place] [address]., [address] MCV 80.8(L) 81.3 - 96.4 fL [facility] Comment:Testing performed by : [address] [address] [address] MCH 24.8(L) 27.1 - 33.3 pg [place]CA Comment:Testing performed by : [address] [address] MCHC 30.7(L) 32.3 - 35.7 g/dL BLNACA Comment:Testing performed by : [address] [address] RDW CV 21.0(H) 11.1 - 14.9 % [place]CA Comment:Testing performed by : [address] [address] RDW SD 60.4(H) 35.7 - 48.1 fL [place] Comment:Testing performed by : [address] [address] NRBC abs 0.00 0.00 - 0.01 K/cumm [place]CA Comment:Testing performed by : [address], [address] Blood 02/27/2025 4:12 AM CDT 02/27/2025 5:36 AM CDT us Mau VERONICA LAB BLOOD ORDERABLES Final Re sult [facility] [address] [facility] Department [place] [address] * Phosphorus (02/27/2025 4:12 AM CDT) Phosphorus, pl 3.2 2.3 - 4.5 mg/dL Comment:Testing performed by : [address] [address] Blood 02/27/2025 4:12 AM CDT 02/27/2025 5:30 AM CDT Ángel Woodson MD LAB BLOOD ORDERABLES Final Re sult Performing Organization Address [facility] Co de Phone Number [address] [employer] [place] [address] * Magnesium (02/27/2025 4:12 AM CDT) Pathologist [facility] Magnesium 2.0 1.4 - 2.5 mg/dL Comment:Testing performed by : [address] [address] Blood 02/27/2025 4:12 AM CDT 02/27/2025 5:30 AM CDT Ángel Woodson MD LAB BLOOD ORDERABLES Final Re sult Performing Organization Address [facility] de Phone Number [address] [employer] [address] * Folate (02/27/2025 4:12 AM CDT) [facility] Folic acid 16.5 >=5.0 ng/mL Comment:Testing performed by : [address] [address] Blood 02/27/2025 4:12 AM CDT 02/27/2025 5:30 AM CDT Ángel Woodson MD LAB BLOOD ORDERABLES Final Re sult Performing Organization Address [facility] de Phone Number [place] [id number] [facility] [employer] [place] [address] * (ABNORMAL) Basic metabolic panel (02/27/2025 4:12 AM CDT) [facility] Sodium 144 135 - 145 mmol/L Comment:Testing performed by : [address] [address] Potassium, pl 4.6 3.3 - 4.9 mmol/L BLANCA Comment: Hemolyzed; Potassium value may be falsely elevated by as much as 1.0 mmol/L. Suggest redraw and reanalysis. Testing performed by: [address] [address] Chloride 108 97 - 110 mmol/L [place] Comment:Testing performed by : [address] [address] CO2 23 22 - 32 mmol/L [place] Comment:Testing performed by : [address] [address] Anion gap 13 2 - 15 mmol/L [place] Comment:Testing performed by : [address] [address] BUN 30(H) 6 - 25 mg/dL [place] Comment:Testing performed by : [address] [address] Creatinine 1.00 0.60 - 1.10 mg/dL [place] Comment:Testing performed by : [address] [address] Glucose 111 70 - 199 mg/dL [facility] Comment: Interpretive Data Fasting glucose >/= 126 [...] was last revised 2022. Testing performed by: [address] [address] Calcium 9.0 8.5 - 10.3 mg/dL [place] Comment:Testing performed by : [address] [address] Blood 02/27/2025 4:12 AM CDT 02/27/2025 5:30 AM CDT us Ángel Woodson MD LAB BLOOD ORDERABLES Final Re sult [facility] [address] * POCT glucose (02/27/2025 4:11 AM CDT) Glucose, POC 114 70 - 199 mg/dL Comment:Testing performed by : [address] [address] Blood 02/27/2025 4:11 AM CDT 02/27/2025 4:11 AM CDT us Carmen Nayak MD LAB POCT ORDERABLES - DEVICE F inal Result Performing Organization Address [facility] de Phone Number [address] [address] * POCT glucose (02/27/2025 1:32 AM CDT) Glucose, POC 109 70 - 199 mg/dL Comment:Testing performed by : [address] [address] Blood 02/27/2025 1:32 AM CDT 02/27/2025 1:32 AM CDT us Carmen Nayak MD LAB POCT ORDERABLES - DEVICE F inal Result Performing Organization Address [facility] de Phone Number [address] [address] * POCT glucose (02/26/2025 8:48 PM CDT) Glucose, POC 118 70 - 199 mg/dL Comment:Testing performed by : [address] [address] Blood 02/26/2025 8:48 PM CDT 02/26/2025 8:48 PM CDT Result Amy Nayak MD LAB POCT ORDERABLES - DEVICE F inal Result Performing Organization Address [facility]/ZIP Co de Phone Number [facility] [address] [facility] [place] [address] * POCT glucose (02/26/2025 5:53 PM CDT) [facility] Glucose, POC 134 70 - 199 mg/dL Comment:Testing performed by : [facility], [address] [place] [address]., [address] Blood 02/26/2025 5:53 PM CDT 02/26/2025 5:53 PM CDT us Carmen Nayak MD LAB POCT ORDERABLES - DEVICE F inal Result Performing Organization Address [facility] Co de Phone Number [place] [address] [place] [address] * TRANSTHORACIC ECHO (TTE) COMPLETE W DOPPLER/CF W CONTRAST (02/26/2025 1:08 PM CDT) [facility] LV EF 60-65 % CONS SCIMAGE Anatomical Region Laterality Modality Ultrasound 02/26/2025 12:2 7 PM CDT Narrative 02/26/2025 1:41 PM CDT Transthoracic Echocardiographic Report Patient Name: BERNADINE SIMMS A : 1960 (65y ) Gender: F Study Date: 02/26/2025 12:27:08 PM Ht(Inch): 59 Wt(Lb): 235.01 BSA: 2.11 President: Olivia Patterson RDCS Location: [id number] Order Provider: MAU YOUNG Heart Rate: 74 BMI: 47.46 BP: 118/54 Ref Provider: MAU YOUNG PROCEDURES: Echocardiographic Report: ([id number]) Transthoracic complete echo with contrast, 2D, spectral [...] PM Ht(Inch): 59 Wt(Lb): 235.01 BSA: 2.11 President: Olivia Patterson RDCS Location: [place] [address] Order Provider:MAU YOUNG Heart Rate: 74 BMI: 47.46 BP: 118/54 Ref Provider: MAU YOUNG PROCEDURES: Echocardiographic Report: ([id number]) Transthoracic complete echo withcontrast, 2D, spectral and [...] * POCT glucose (02/26/2025 1:05 PM CDT) [facility] Signature Glucose, POC 147 70 - 199 mg/dL Comment:Testing performed by : [facility], [address] [place] [address]., [address] Blood 02/26/2025 1:05 PM CDT 02/26/2025 1:05 PM CDT us Carmen Nayak MD LAB POCT ORDERABLES - DEVICE F inal Result RIRIQSU [address] [facility] Department [place] [employer] [place] [address] * CT Abdomen Pelvis WO [...] Miguel Price M.D. KR: RAMAN Report ID: [id number] Reading Location: [id number] Procedure Note Miguel Price MD - 02/26/2025 [...] Miguel Price M.D. KR: RAMAN Report ID: [id number] Reading Location: [place] [address] Carmen Nayak MD [facility] CT PROCEDURES Final Result * Critical Care [...] plan with the ICU team and other medical/sql consultant staff, making frequent assessments and decisions [...] - 14.6 sec Comment:Testing performed by : [facility], [address] [place] [address], [place]., [address] INR 1.1 0.9 - 1.2 BLANCA REESE Comment: Ref Range High Interpretive data Oral anticoagulant therapeutic ranges: Venous thromboembolism prophylaxis or treatment: 2.0-3.0 CARDIOLOGY Standard range: 2.0-3.0 High-intensity range: 2.5-3.5 Refer to indication-specific guidelines for appropriate target ranges for prosthetic heart valve replacement. Current interpretive data was last revised on 2019. Testing performed by: [address] [address] Blood 02/26/2025 6:12 AM CDT 02/26/2025 6:23 AM CDT us Mau VERONICA LAB BLOOD ORDERABLES Final Re sult [facility] [address] [facility] Department [place] [address] * (ABNORMAL) eGFR (02/26/2025 3:54 AM CDT) [...] was last reviewed 2021. Testing performed by: [address] [address] Blood 02/26/2025 3:54 AM CDT 02/26/2025 4:56 AM CDT us Mau VERONICA LAB BLOOD ORDERABLES Final Re sult [facility] [address] [facility] Department [place] [address] * Differential, auto (02/26/2025 3:54 AM CDT) Neutrophil abs 3.08 1.50 - 6.50 K/cumm Comment:Testing performed by : [address] [address] Imm gran abs 0.01 0.00 - 0.10 K/cumm BLANCA Comment:Testing performed by : [address] [address] Lymphocyte abs 2.89 0.80 - 3.30 K/cumm BLANCA Comment:Testing performed by : [address] [address] Monocyte abs 0.45 0.20 - 0.80 K/cumm [place]CA Comment:Testing performed by : [address] [address] Eosinophil abs 0.08 0.00 - 0.50 K/cumm [place] Comment:Testing performed by : [address] [address] Basophil abs 0.03 0.00 - 0.10 K/cumm [place] Comment:Testing performed by : [address] [address] Neutrophil pct 47.0 % BLANCA Comment: Interpretive Data Percent cell count reference ranges are not reported, since discordance with absolute values may lead to misinterpretation of CBC data. Current Interpretive Data was last revised on 2018. Testing performed by: [address] [address] Imm gran pct 0.2 % [facility] Comment: Interpretive Data Percent cell count reference ranges are not reported, since discordance with absolute values may lead to misinterpretation of CBC data. Current Interpretive Data was last revised on 2018. Testing performed by: [address] [place]., [address] Lymphocyte pct 44.2 % [facility] Comment: Interpretive Data Percent cell count reference ranges are not reported, since discordance with absolute values may lead to misinterpretation of CBC data. Current Interpretive Data was last revised on 2018. Testing performed by: [address] [address] Monocyte pct 6.9 % [facility] Comment: Interpretive Data Percent cell count reference ranges are not reported, since discordance with absolute values may lead to misinterpretation of CBC data. Current Interpretive Data was last revised on 2018. Testing performed by: [address] [address] Eosinophil pct 1.2 % [facility] Comment: Interpretive Data Percent cell count reference ranges are not reported, since discordance with absolute values may lead to misinterpretation of CBC data. Current Interpretive Data was last revised on 2018. Testing performed by: [address] [address] Basophil pct 0.5 % [facility] Comment: Interpretive Data Percent cell count reference ranges are not reported, since discordance with absolute values may lead to misinterpretation of CBC data. Current Interpretive Data was last revised on 2018. Testing performed by: [address] [address] Blood 02/26/2025 3:54 AM CDT 02/26/2025 5:04 AM CDT us Mau VERONICA LAB BLOOD ORDERABLES Final Re sult [facility] [address] [facility] Department [place] [address] * (ABNORMAL) CBC with auto differential (02/26/2025 3:54 AM CDT) WBC 6.54 3.80 - 9.90 K/cumm Comment:Testing performed by : [address] [address] Hgb 9.1(L) 11.9 - 15.5 g/dL BL[facility]CA Comment:Testing performed by : [address] [address] Hct 29.0(L) 35.6 - 45.5 % [facility]CA Comment:Testing performed by : [address] [address] Plt 190 150 - 400 K/cumm BL[place]CA Comment:Testing performed by : [address] [address] MPV 10.7 9.1 - 12.3 fL [place] Comment:Testing performed by : [address] [address] RBC 3.66(L) 3.90 - 5.20 M/cumm [place]CA Comment:Testing performed by : [address] [address] MCV 79.2(L) 81.3 - 96.4 fL [place] Comment:Testing performed by : [address] [address] MCH 24.9(L) 27.1 - 33.3 pg [place] Comment:Testing performed by : [address] [address] MCHC 31.4(L) 32.3 - 35.7 g/dL [place] Comment:Testing performed by : [address] [address] RDW CV 21.1(H) 11.1 - 14.9 % [facility] Comment:Testing performed by : [address], [address] RDW SD 59.1(H) 35.7 - 48.1 fL [place] Comment:Testing performed by : [address] [address] NRBC abs 0.00 0.00 - 0.01 K/cumm [place] Comment:Testing performed by : [address] [address] Blood 02/26/2025 3:54 AM CDT 02/26/2025 5:04 AM CDT Mau VERONICA LAB BLOOD ORDERABLES Final Re sult Performing Organization Address [facility] Co de Phone Number BLAN[place] [address] [employer] [address] * Protime-INR (02/26/2025 3:54 AM CDT) PT 14.1 12.0 - 14.6 sec Comment:Testing performed by : [address] [address] INR 1.1 0.9 - 1.2 BLANCA Comment: Ref Range High Interpretive data Oral anticoagulant therapeutic ranges: Venous thromboembolism prophylaxis or treatment: 2.0-3.0 CARDIOLOGY Standard range: 2.0-3.0 High-intensity range: 2.5-3.5 Refer to indication-specific guidelines for appropriate target ranges for prosthetic heart valve replacement. Current interpretive data was last revised on 2019. Testing performed by: [address] [address] Blood 02/26/2025 3:54 AM CDT 02/26/2025 4:56 AM CDT Mau VERONICA LAB BLOOD ORDERABLES Final Re sult Performing Organization Address [facility] Co de Phone Number BLAN[place] [address] [employer] [place] [address] * (ABNORMAL) Comprehensive metabolic panel (02/26/2025 3:54 AM CDT) Sodium 138 135 - 145 mmol/L Comment:Testing performed by : [address] [address] Potassium, pl 4.8 3.3 - 4.9 mmol/L [place] REESE Comment:Testing performed by : [address] [address] Chloride 105 97 - 110 mmol/L [place] REESE Comment:Testing performed by : [address] [address] CO2 20(L) 22 - 32 mmol/L [place] Comment:Testing performed by : [address] [address] Anion gap 13 2 - 15 mmol/L [facility] Comment:Testing performed by : [address] [address] BUN 67(H) 6 - 25 mg/dL [facility] Comment:Testing performed by : [address] [address] Creatinine 1.47(H) 0.60 - 1.10 mg/dL [place] Comment:Testing performed by : [address], [place]., [address] Glucose 127 70 - 199 mg/dL [facility] Comment: Interpretive Data Fasting glucose >/= 126 [...] was last revised 2022. Testing performed by: [address] [address] Calcium 9.6 8.5 - 10.3 mg/dL [facility] Comment:Testing performed by : [address] [address] Bilirubin, total 0.2 0.1 - 1.2 mg/dL [facility] Comment:Testing performed by : [address] [address] Protein, pl 6.9 6.5 - 8.5 g/dL [place] Comment:Testing performed by : [address] [address] Albumin 3.9 3.5 - 5.0 g/dL [place] Comment:Testing performed by : [address] [address] Alk phos 117 40 - 130 Units/L [place] REESE Comment:Testing performed by : [address] [address] ALT 13 7 - 45 Units/L [place] REESE Comment:Testing performed by : [address] [address] AST 19 10 - 45 Units/L [place] REESE Comment:Testing performed by : [address] [address] Blood 02/26/2025 3:54 AM CDT 02/26/2025 4:56 AM CDT us Mau VERONICA LAB BLOOD ORDERABLES Final Re sult [place] REESE [address] [facility] Department [place] [address] * (ABNORMAL) POC Blood Gas and Chemistries, Venous - (02/26/2025 3:20 AM CDT) [facility] pH,solange POC 7.37 7.32 - 7.43 Comment:Testing performed by : [address] [address] pCO2, solange POC 38(L) 40 - 50 mmHg [place] REESE Comment:Testing performed by : [address] [address] pO2,solange POC 32 mmHg [facility]ANCA Comment: Interpretive Data No reference range established. Current interpretive data was last revised 2020. Testing performed by: [address] [address] HCO3, solange (Calc) POC 22 20 - 30 mmol/L [place] Comment:Testing performed by : [address] [address] Base excess, solange POC -3 mmol/L [place] Comment: Interpretive Data No reference range established. Current interpretive data was last revised 2020. Testing performed by: [address] [address] Blood 02/26/2025 3:20 AM CDT 02/26/2025 3:20 AM CDT Carmen Nayak MD LAB POCT ORDERABLES - DEVICE F inal Result Performing Organization Address [facility]/ZIP Co de Phone Number [place]AN[place] [address] [place] [address] * Troponin T high-sensitivity (02/26/2025 3:14 AM CDT) Trop T hs 13 <=14 ng/L Comment: Interpretive Data For further hscTnT resources including the diagnostic algorithm and an aid in interpretation, copy and paste this link: https://nrl.testcatalog.org/show/hsTrop Current Interpretive Data last revised 2020. Testing performed by: [facility], [address] [place] [address]., [address] Blood 02/26/2025 3:14 AM CDT 02/26/2025 3:42 AM CDT Mau VERONICA LAB BLOOD ORDERABLES Final Re sult Performing Organization Address [facility] Co de Phone Number BLAN[place] [address] [place] [address] * (ABNORMAL) eGFR (02/26/2025 3:14 AM CDT) Pathologist [facility] eGFR 35(L) >=60 mL/min/1. 73 m2 Comment: [...] of Race in Diagnosing Kidney Disease, JASN 2021). The CKD-EPI equation should not be used for patients with unstable renal function and has not been validated in children and those over 70. Current interpretive data was last reviewed 2021. Testing performed by: [address] [address] Blood 02/26/2025 3:14 AM CDT 02/26/2025 3:42 AM CDT Mau VERONICA LAB BLOOD ORDERABLES Final Re sult Performing Organization Address City/[facility] Co de Phone Number [address] [address] * POCT glucose (02/26/2025 3:14 AM CDT) Glucose, POC 142 70 - 199 mg/dL Comment:Testing performed by : [address] [address] Blood 02/26/2025 3:14 AM CDT 02/26/2025 3:14 AM CDT Carmen Naayk MD LAB POCT ORDERABLES - DEVICE F inal Result Performing Organization Address [facility] Co de Phone Number [address] [address] * Phosphorus (02/26/2025 3:14 AM CDT) Phosphorus, pl 4.4 2.3 - 4.5 mg/dL Comment:Testing performed by : [address] [address] Blood 02/26/2025 3:14 AM CDT 02/26/2025 3:42 AM CDT Mau VERONICA LAB BLOOD ORDERABLES Final Re sult Performing Organization Address [facility]/ZIP Co de Phone Number [address] [address] * Magnesium (02/26/2025 3:14 AM CDT) Magnesium 2.2 1.4 - 2.5 mg/dL Comment:Testing performed by : [address] [address] Blood 02/26/2025 3:14 AM CDT 02/26/2025 3:42 AM CDT us Mau VERONICA LAB BLOOD ORDERABLES Final Re sult [facility] [address] [facility] Department [place] [address] * (ABNORMAL) Basic metabolic panel (02/26/2025 3:14 AM CDT) Pathologist [facility] Sodium 138 135 - 145 mmol/L Comment:Testing performed by : [address] [address] Potassium, pl 5.0(H) 3.3 - 4.9 mmol/L [place] Comment:Testing performed by : [address] [address] Chloride 104 97 - 110 mmol/L [place] Comment:Testing performed by : [address] [address] CO2 21(L) 22 - 32 mmol/L [place] Comment:Testing performed by : [address] [address] Anion gap 13 2 - 15 mmol/L [place] Comment:Testing performed by : [address] [address] BUN 68(H) 6 - 25 mg/dL [place] Comment:Testing performed by : [address] [address] Creatinine 1.63(H) 0.60 - 1.10 mg/dL [place] Comment:Testing performed by : [address] [address] Glucose 130 70 - 199 mg/dL BLANCA [...] was last revised 2022. Testing performed by: [address] [address] Calcium 9.4 8.5 - 10.3 mg/dL [facility] Comment:Testing performed by : [address] [address] Blood 02/26/2025 3:14 AM CDT 02/26/2025 3:42 AM CDT Mau VERONICA LAB BLOOD ORDERABLES Final Re sult Performing Organization Address [facility] Co de Phone Number [address] [employer] [place] [address] * POCT glucose (02/26/2025 12:20 AM CDT) [facility] Glucose, POC 141 70 - 199 mg/dL Comment:Testing performed by : [address] [address] Blood 02/26/2025 12:2 0 AM CDT 02/26/2025 12:20 AM CDT Carmen Nayak MD LAB POCT ORDERABLES - DEVICE F inal Result Performing Organization Address [facility] Co de Phone Number [address] [place] [address] * Protime-INR (02/26/2025 12:20 AM CDT) [facility] PT 13.8 12.0 - 14.6 sec Comment:Testing performed by : [address] [address] INR 1.1 0.9 - 1.2 [place] Comment: Ref Range High Interpretive data Oral anticoagulant therapeutic ranges: Venous thromboembolism prophylaxis or treatment: 2.0-3.0 CARDIOLOGY Standard range: 2.0-3.0 High-intensity range: 2.5-3.5 Refer to indication-specific guidelines for appropriate target ranges for prosthetic heart valve replacement. Current interpretive data was last revised on 2019. Testing performed by: [address] [address] Blood 02/26/2025 12:2 0 AM CDT 02/26/2025 12:25 AM CDT us Mau VERONICA LAB BLOOD ORDERABLES Final Re sult [facility] [address] [facility] Department [place] [address] * (ABNORMAL) POC Blood Gas and Chemistries, Venous - (02/25/2025 9:11 PM CDT) pH,solange POC 7.31(L) 7.32 - 7.43 Comment:Testing performed by : [address] [address] pCO2, solange POC 35(L) 40 - 50 mmHg [place] Comment:Testing performed by : [address] [address] pO2,solange POC 40 mmHg [place] Comment: Interpretive Data No reference range established. Current interpretive data was last revised 2020. Testing performed by: [address] [address] HCO3, solange (Calc) POC 18(L) 20 - 30 mmol/L [place] Comment:Testing performed by : [address] [address] Base excess, solange POC -8 mmol/L [place] Comment: Interpretive Data No reference range established. Current interpretive data was last revised 2020. Testing performed by: [address] [place]., [address] Blood 02/25/2025 9:11 PM CDT 02/25/2025 9:11 PM CDT Result Amy Nayak MD LAB POCT ORDERABLES - DEVICE F inal Result Performing Organization Address [facility] Co de Phone Number RIRI[address] [employer] [place] [address] * POCT glucose (02/25/2025 9:01 PM CDT) Glucose, POC 149 70 - 199 mg/dL Comment:Testing performed by : [address] [address] Blood 02/25/2025 9:01 PM CDT 02/25/2025 9:01 PM CDT us Carmen Nayak MD LAB POCT ORDERABLES - DEVICE F inal Result Performing Organization Address [facility] de Phone Number [address] [address] * Troponin T high-sensitivity (02/25/2025 8:54 PM CDT) Trop T hs 12 <=14 ng/L Comment: Interpretive Data For further hscTnT resources including the diagnostic algorithm and an aid in interpretation, copy and paste this link: https://nrl.testcatalog.org/show/hsTrop Current Interpretive Data last revised 2020. Testing performed by: [address] [address] Blood 02/25/2025 8:54 PM CDT 02/25/2025 9:01 PM CDT us Carmen Nayak MD LAB BLOOD ORDERABLES Final Res ult Performing Organization Address [facility] Co de Phone Number [address]IRI[address] [employer] [place] [address] * (ABNORMAL) eGFR (02/25/2025 8:54 PM CDT) [...] was last reviewed 2021. Testing performed by: [address] [address] Blood 02/25/2025 8:54 PM CDT 02/25/2025 9:01 PM CDT us Mau VERONICA LAB BLOOD ORDERABLES Final Re sult [facility] [address] [facility] Department [place] [address] * Protime-INR (02/25/2025 8:54 PM CDT) PT 13.9 12.0 - 14.6 sec Comment:Testing performed by : [address] [address] INR 1.1 0.9 - 1.2 [place] REESE Comment: Ref Range High Interpretive data Oral anticoagulant therapeutic ranges: Venous thromboembolism prophylaxis or treatment: 2.0-3.0 CARDIOLOGY Standard range: 2.0-3.0 High-intensity range: 2.5-3.5 Refer to indication-specific guidelines for appropriate target ranges for prosthetic heart valve replacement. Current interpretive data was last revised on 2019. Testing performed by: [address] [address] Blood 02/25/2025 8:54 PM CDT 02/25/2025 9:01 PM CDT us Mau VERONICA LAB BLOOD ORDERABLES Final Re sult Performing Organization Address [facility] de Phone Number [address] [employer] [place] [address] * (ABNORMAL) Vitamin B12 (02/25/2025 8:54 PM CDT) Vitamin B12 1,778(H) 230 - 1,250 pg/mL Comment:Testing performed by : [address] [address] Blood 02/25/2025 8:54 PM CDT 02/25/2025 9:01 PM CDT Carmen Nayak MD LAB BLOOD ORDERABLES Final Res ult Performing Organization Address [facility] de Phone Number [address] [address] * Ammonia (02/25/2025 8:54 PM CDT) Ammonia 14 <=50 mcmol/L Comment: Please note on 03/21/2024 the unit of measure changed from mcg/dL to mcmol/L. Current Interpretive Data was last revised on 2024 Testing performed by: [address] [address] Blood 02/25/2025 8:54 PM CDT 02/25/2025 8:59 PM CDT us Carmen Nayak MD LAB BLOOD ORDERABLES Final Res ult [facility] [address] [facility] Department [place] [address] * (ABNORMAL) Basic metabolic panel (02/25/2025 8:54 PM CDT) Sodium 137 135 - 145 mmol/L Comment:Testing performed by : [facility], [address] [place] [address]., [address] Potassium, pl 5.0(H) 3.3 - 4.9 mmol/L BLANCA Comment:Testing performed by : [address] [address] Chloride 106 97 - 110 mmol/L BLANCA Comment:Testing performed by : [address] [address] CO2 17(L) 22 - 32 mmol/L [facility] Comment:Testing performed by : [address] [address] Anion gap 14 2 - 15 mmol/L BL[facility]CA Comment:Testing performed by : [address] [address] BUN 75(H) 6 - 25 mg/dL BL[facility]CA Comment:Testing performed by : [address] [address] Creatinine 1.99(H) 0.60 - 1.10 mg/dL [facility]CA Comment:Testing performed by : [address] [address] Glucose 135 70 - 199 mg/dL BLANCA [...] was last revised 2022. Testing performed by: [address] [address] Calcium 9.9 8.5 - 10.3 mg/dL [facility] Comment:Testing performed by : [address] [address] Blood 02/25/2025 8:54 PM CDT 02/25/2025 9:01 PM CDT us Mau VERNOICA LAB BLOOD ORDERABLES Final Re sult [facility] [address] [facility] Department [place] [address] * (ABNORMAL) Drugs of Abuse Screen, Urine with Reflex Confirmation (02/25/2025 7:41 PM CDT) [facility] Amphetamine, ur Not Detected CutOff 500ng/mL Comment: Interpretive Data - Amphetamines: Samples containing greater than 500 ng/mL d-methamphetamine or other cross-reacting amphetamine compounds are reported as positive. Amphetamine immunoassays are subject to significant false positive rates due to cross-reactivity of non-amphetamine drugs. Confirmatory testing required for definitive results. Current Interpretive Data was last reviewed 2023. Testing performed by: [address] [address] Barbiturates, ur Not Detected CutOff 200ng/mL [facility] Comment: Interpretive Data - Barbiturates: Samples containing greater than 200 ng/mL secobarbital or other cross-reacting barbiturate compounds are reported as positive. False positive and false negative results are possible. Confirmatory testing required for definitive results. Current Interpretive Data was last reviewed 2023. Testing performed by: [address] [address] Benzodiazepines, ur Not Detected CutOff 100ng/mL [facility] Comment: Interpretive Data - Benzodiazepines: Samples containing greater than 100 ng/mL nordiazepam or other cross-reacting compounds are reported as positive. False positive and false negative results are possible. Confirmatory testing required for definitive results. Current Interpretive Data was last reviewed 2023. Testing performed by: [address] [address] Cannabinoids, ur Not Detected CutOff 50 ng/mL [facility] Comment: Interpretive Data - Cannabinoids: Samples containing greater than 50 ng/mL delta-9 THC -COOH or other cross- reacting compounds are reported as positive. False positive and false negative results are possible. Confirmatory testing required for definitive results. Current Interpretive Data was last reviewed 2023. Testing performed by: [address] [address] Cocaine, ur Not Detected CutOff 150ng/mL [facility] Comment: Interpretive Data - Cocaine: Samples containing greater than 150 ng/mL benzoylecgonine or other cross- reacting compounds are reported as positive. False positive and false negative results are possible. Confirmatory testing required for definitive results. Current Interpretive Data was last reviewed 2023. Testing performed by: [address] [address] Fentanyl, Ur Not Detected CutOff 5 ng/mL [facility] Comment: Interpretive Data - Fentanyl: Samples containing greater than 1 ng/mL fentanyl or other cross-reacting fentanyl compounds are reported as positive. False positive and false negative results are possible. Confirmatory testing required for definitive results. Current Interpretive Data was last reviewed 2023. Testing performed by: [address] [address] Methadone, ur Not Detected CutOff 300ng/mL [facility] Comment: Interpretive Data - Methadone: Samples containing greater than 300 ng/mL d,l-methadone or other cross-reacting compounds are reported as positive. False positive and false negative results are possible. Confirmatory testing required for definitive results. Current Interpretive Data was last reviewed 2023. Testing performed by: [address] [address] Opiates, ur Screen Positive, presumptive (A) CutOff 300ng/mL [facility] Comment: Interpretive Data - Opiates: Samples containing greater than 300 ng/mL morphine or other cross-reacting compounds are reported as positive. False positive and false negative results are possible. Confirmatory testing required for definitive results. Current Interpretive Data was last reviewed 2023. Testing performed by: [address] [address] Oxycodone, ur Not Detected CutOff 100ng/mL [facility] Comment: Interpretive Data - Oxycodone: Samples containing greater than 100 ng/mL oxycodone or other cross-reacting compounds are reported as positive. False positive and false negative results are possible. Confirmatory testing required for definitive results. Current Interpretive Data was last reviewed 2023. Testing performed by: [address] [address] Phencyclidine, ur Not Detected CutOff 25 ng/mL [facility] Comment: Interpretive Data - Phencyclidine: Samples containing greater than 25 ng/mL phencyclidine or other cross-reacting compounds are reported as positive. False positive and false negative results are possible. Confirmatory testing required for definitive results. Current Interpretive Data was last reviewed 2023. Testing performed by: [address] [address] Urine Creatinine 26 mg/dL [facility] Comment: Interpretive Data Urine Creatinine: < 10 mg/dL is extremely dilute = or > 10 but < 20 mg/dL is dilute = or > 20 mg/dL is normal Current Interpretive Data was last revised on 2018. Testing performed by: [address] [address] Urine 02/25/2025 7:41 PM CDT 02/25/2025 8:00 [...] LAB URINE ORDERABLES Final Res ult [facility] [address] [facility] Department [place] [address] * Opiates Confirmation, Urine (02/25/2025 7:41 PM CDT) Codeine Conf, Ur Does Not Confirm CutOff 50 ng/mL Comment:Testing performed by : [facility], [address] [place]., [address] 6- Acetylmorphine Conf, Ur Does Not Confirm CutOff 10 ng/mL [facility] REESE Comment:Testing performed by : [facility], [address] [place]., [address] Hydrocodone Conf, Ur Does Not Confirm CutOff 50 ng/mL BL[facility]CA Comment:Testing performed by : [facility], [address] [place]., [address] Morphine Conf, Ur Does Not Confirm CutOff 50 ng/mL [facility] Comment:Testing performed by : [facility], [address] [place]., [address] Hydromorphone Conf, Ur Does Not Confirm CutOff [...] needed. Performance characteristics were determined by the [facility] in a manner consistent with CLIA requirement and has not been cleared or approved by the U.S. Food and Drug Administration. Current interpretive data was last revised 2021. Testing performed by: [facility], [address] [place]., [address] Urine 02/25/2025 7:41 PM CDT 02/26/2025 3:01 AM CDT us Carmen Nayak MD LAB URINE ORDERABLES Final Res ult [facility] [address] [facility] Department [place] [address] * Troponin T high-sensitivity (02/25/2025 5:17 PM CDT) Trop T hs 13 <=14 ng/L Comment: Interpretive Data For further hscTnT resources including the diagnostic algorithm and an aid in interpretation, copy and paste this link: https://nrl.testcatalog.org/show/hsTrop Current Interpretive Data last revised 2020. Testing performed by: [facility], [address] [place] [address]., [address] Blood 02/25/2025 5:17 PM CDT 02/25/2025 5:22 PM CDT us Carmen Nayak MD LAB BLOOD ORDERABLES Final Res ult Performing Organization Address [facility] de Phone Number BLAN[facility] [address] [employer] [place] [address] * (ABNORMAL) eGFR (02/25/2025 5:17 PM CDT) [...] was last reviewed 2021. Testing performed by: [facility], [address] [place] [address]., [address] Blood 02/25/2025 5:17 PM CDT 02/25/2025 5:22 PM CDT us Carmen Nayak MD LAB BLOOD ORDERABLES Final Res ult Performing Organization Address [facility]/ZIP Co de Phone Number RIRI[address] [employer] [place] [address] * Pro B-type natriuretic peptide (02/25/2025 5:17 [...] Last Revised Date: 2018. Testing performed by: [facility], [address] [place] [address]., [address] Blood 02/25/2025 5:17 PM CDT 02/25/2025 5:22 PM CDT us Carmen Nayak MD LAB BLOOD ORDERABLES Final Res ult [facility] [address] [facility] Department [place] [address] * Magnesium (02/25/2025 5:17 PM CDT) Magnesium 2.5 1.4 - 2.5 mg/dL Comment:Testing performed by : [address] [address] Blood 02/25/2025 5:17 PM CDT 02/25/2025 5:22 PM CDT us Carmen Nayak MD LAB BLOOD ORDERABLES Final Res ult [facility] [address] [facility] Department [place] [address] * (ABNORMAL) Renal function panel (02/25/2025 5:17 PM CDT) Sodium 136 135 - 145 mmol/L Comment:Testing performed by : [address] [address] Potassium, pl 5.3(H) 3.3 - 4.9 mmol/L [facility] Comment:Testing performed by : [address] [address] Chloride 105 97 - 110 mmol/L [facility] Comment:Testing performed by : [address] [address] CO2 13(L) 22 - 32 mmol/L [facility] Comment:Testing performed by : [address] [address] Anion gap 18(H) 2 - 15 mmol/L [facility] Comment:Testing performed by : [address] [address] BUN 85(H) 6 - 25 mg/dL [facility] Comment:Testing performed by : [address] [address] Creatinine 2.69(H) 0.60 - 1.10 mg/dL [facility] Comment:Testing performed by : [address] [address] Glucose 203(H) 70 - 199 mg/dL BL[facility] [...] was last revised 2022. Testing performed by: [address] [address] Calcium 10.6(H) 8.5 - 10.3 mg/dL [facility] Comment:Testing performed by : [address] [address] Phosphorus, pl 4.9(H) 2.3 - 4.5 mg/dL [facility] Comment:Testing performed by : [address] [address] Albumin 4.5 3.5 - 5.0 g/dL BLNACA Comment:Testing performed by : [address] [address] Blood 02/25/2025 5:17 PM CDT 02/25/2025 5:22 PM CDT us Carmen Nayak MD LAB BLOOD ORDERABLES Final Res ult [facility] [address] [facility] Department [place] [address] * Critical Care (02/25/2025 5:07 PM CDT) [...] plan with the ICU team and other medical/sql consultant staff, making frequent assessments and decisions [...] Chemistries, Venous - (02/25/2025 2:56 PM CDT) [facility] Signature pH,solange POC 7.22(C) 7.32 - 7.43 Comment:Testing performed by : [address] [address] pCO2, solange POC 34(L) 40 - 50 mmHg [facility]CA Comment:Testing performed by : [address] [address] pO2,solange POC 38 mmHg [facility] Comment: Interpretive Data No reference range established. Current interpretive data was last revised 2020. Testing performed by: [address] [address] HCO3, solange (Calc) POC 14(L) 20 - 30 mmol/L [facility] REESE Comment:Testing performed by : [facility], [address] [place] [address]., [address] Base excess, solange POC -13 mmol/L [facility] REESE Comment: Interpretive Data No reference range established. Current interpretive data was last revised 2020. Testing performed by: [address] [address] Blood 02/25/2025 2:56 PM CDT 02/25/2025 2:56 PM CDT Carmen Nayak MD LAB POCT ORDERABLES - DEVICE F inal Result Performing Organization Address [facility] Co de Phone Number [address] [employer] [place] [address] * (ABNORMAL) POCT glucose (02/25/2025 2:47 PM CDT) Glucose, POC 237(H) 70 - 199 mg/dL Comment:Testing performed by : [facility], [address] [place] [address]., [address] Glucose comment 1 RN/MD Notified [facility]CA Comment:Testing performed by : [address] [address] Blood 02/25/2025 2:47 PM CDT 02/25/2025 2:47 PM CDT Result [facility] Carmen Nayak MD LAB POCT ORDERABLES - DEVICE F inal Result Performing Organization Address City/[facility] Co de Phone Number [address] [employer] [place] [address] * (ABNORMAL) Beta-hydroxybutyrate (02/25/2025 2:30 PM CDT) Beta-Hydroxybut yrate 0.9(H) <=0.5 mmol/L Blood 02/25/2025 2:30 PM CDT 02/25/2025 4:57 PM CDT Ángel Woodson MD LAB BLOOD ORDERABLES Final Re sult Performing Organization Address City/[facility]/ZIP Co de Phone Number BL[facility] [employer] [address] * Troponin T high-sensitivity 2-hour (02/25/2025 2:27 PM CDT) Trop T hs 12 <=14 ng/L Comment: Interpretive Data For further hscTnT resources including the diagnostic algorithm and an aid in interpretation, copy and paste this link: https://nrl.testcatalog.org/show/hsTrop Current Interpretive Data last revised 2020. Testing performed by: [address] [address] Trop T hs delta -4 ng/L [facility] Comment:Testing performed by : [address] [address] Trop T hs interp Insignificant [facility] Comment:Testing performed by : [address] [address] Blood 02/25/2025 2:27 PM CDT 02/25/2025 2:32 PM CDT Layton Macario DO LAB BLOOD ORDERABLES Final Result Performing Organization Address [facility] Co de Phone Number RIRI[address] [employer] [address] * Lactate (02/25/2025 2:27 PM CDT) Lactate 1.8 0.7 - 2.0 mmol/L Comment:Testing performed by : [address] [address] Blood 02/25/2025 2:27 PM CDT 02/25/2025 2:32 PM CDT Ángel Woodson MD LAB BLOOD ORDERABLES Final Re sult Performing Organization Address City/[facility]/ZIP Co de Phone Number [facility] [address] [facility] [employer] [address] * (ABNORMAL) eGFR (02/25/2025 2:27 PM CDT) [...] was last reviewed 2021. Testing performed by: [facility], [address] [place] [address]., [address] Blood 02/25/2025 2:27 PM CDT 02/25/2025 2:32 PM CDT Mau VERONICA LAB BLOOD ORDERABLES Final Re sult RIRINER [address] [facility] Department [place] [address] * (ABNORMAL) Phosphorus (02/25/2025 2:27 PM CDT) Phosphorus, pl 4.8(H) 2.3 - 4.5 mg/dL Comment:Testing performed by : [address] [address] Blood 02/25/2025 2:27 PM CDT 02/25/2025 2:32 PM CDT us Carmen Nayak MD LAB BLOOD ORDERABLES Final Res ult Performing Organization Address City/[facility]/ZIP Co de Phone Number BLAN[facility] [address] [address] * Creatine kinase (CK), total (02/25/2025 2:27 PM CDT) CK 50 30 - 200 Units/L Comment:Testing performed by : [address] [address] Blood 02/25/2025 2:27 PM CDT 02/25/2025 2:32 PM CDT Carmen Nayak MD LAB BLOOD ORDERABLES Final Res ult Performing Organization Address [facility] Co de Phone Number RIR[address] [address] * (ABNORMAL) Basic metabolic panel (02/25/2025 2:27 PM CDT) Pathologist [facility] Sodium 136 135 - 145 mmol/L Comment:Testing performed by : [address] [address] Potassium, pl 4.8 3.3 - 4.9 mmol/L [facility] Comment: Delta - Results Reviewed Testing performed by: [address] [address] Chloride 107 97 - 110 mmol/L [facility] Comment:Testing performed by : [address] [address] CO2 14(L) 22 - 32 mmol/L [facility] Comment:Testing performed by : [address] [address] Anion gap 15 2 - 15 mmol/L [facility] Comment:Testing performed by : [address] [address] BUN 93(H) 6 - 25 mg/dL [facility] Comment:Testing performed by : [address] [address] Creatinine 3.05(H) 0.60 - 1.10 mg/dL [facility] Comment:Testing performed by : [address] [address] Glucose 204(H) 70 - 199 mg/dL BLANCA [...] was last revised 2022. Testing performed by: [address] [address] Calcium 10.3 8.5 - 10.3 mg/dL [facility] Comment:Testing performed by : [address] [address] Blood 02/25/2025 2:27 PM CDT 02/25/2025 2:32 PM CDT us Mau VERONICA LAB BLOOD ORDERABLES Final Re sult [facility] [address] [facility] Department [place] [address] * POCT glucose (02/25/2025 1:44 PM CDT) [facility] Signature Glucose, POC 108 70 - 199 mg/dL Comment:Testing performed by : [address] [address] Glucose comment 1 RN/MD Notified [facility] Comment:Testing performed by : [address] [address] Blood 02/25/2025 1:44 PM CDT 02/25/2025 1:44 PM CDT us Layton Macario DO LAB POCT ORDERABLES - DEVIC E Final Result RIRINER [address] [facility] Department [place] [address] * [place] CRITICAL CARE ILL/INJURED PATIENT INIT 30-74 MIN [...] and discussed management with the admitting team. Layton Macario DO IN CLINIC/BEDSIDE ORDERABLE S [...] Electronically signed by Brian Lind M.D. CH: BRAVO Report ID: [id number] Reading Location: [id number] Procedure Note Brian Lind Jr., MD - [...] Electronically signed by Brian Lind M.D. CH: BRAVO Report ID: [id number] Reading Location: [id number] us Layton Macario DO IMG XR PROCEDURES Final Res ult * ECG 12 lead (02/25/2025 12:24 PM CDT) Ventricular Rate EKG/Min 69 BPM [facility] Atrial Rate 69 BPM [facility] TN-Interval (MSEC) 142 ms [facility] QRS-Interval (MSEC) 90 ms [facility] QT-Interval (MSEC) 376 ms [facility] QTc 402 ms [facility] P [place] 41 degrees [facility] R [place] 43 degrees [facility] T [place] 57 degrees [facility] Diagnosis Normal sinus rhythm Normal ECG When compared with ECG of 25-FEB-2025 11:06, No significant change was found Confirmed by HENRY CHIRINOS M.D. ([id number]) on 02/26/2025 7:47:35 AM [facility] 02/25/2025 12:2 4 PM CDT 02/26/2025 7:47 AM CDT Layton Macario DO ECG ORDERABLES Final Resul t Performing Organization Address City/[facility] Co de Phone Number [facility] * (ABNORMAL) Troponin T high-sensitivity series (baseline, 2hr, 4hr, 6hr) (02/25/2025 12:20 PM CDT) Trop T hs 16(H) <=14 ng/L Comment: Interpretive Data For further hscTnT resources including the diagnostic algorithm and an aid in interpretation, copy and paste this link: https://nrl.testcatalog.org/show/hsTrop Current Interpretive Data last revised 2020. Testing performed by: [facility], [address] [place] [address]., [address] Blood 02/25/2025 12:2 0 PM CDT 02/25/2025 12:30 PM CDT Layton Macario DO LAB BLOOD ORDERABLES Final Result Performing Organization Address City/[facility]/ZIP Co de Phone Number [facility] [address] [facility] Department [place] [address] * (ABNORMAL) eGFR (02/25/2025 12:20 PM CDT) Pathologist [facility] eGFR 13(L) >=60 mL/min/1. 73 m2 Comment: [...] was last reviewed 2021. Testing performed by: [address] [address] Blood 02/25/2025 12:2 0 PM CDT 02/25/2025 12:30 PM CDT us Layton Macario DO LAB BLOOD ORDERABLES Final Result Performing Organization Address City/[facility]/ZIP Co de Phone Number BL[facility] [address] [employer] [place] [address] * Thyroid Function Greer (02/25/2025 12:20 PM CDT) TSH 0.74 0.30 - 4.20 mcIUnit/mL Comment:Testing performed by : [address] [address] Blood 02/25/2025 12:2 0 PM CDT 02/25/2025 12:30 PM CDT us Carmen Nayak MD LAB BLOOD ORDERABLES Final Res ult Performing Organization Address City/[facility]/ZIP Co de Phone Number RIRI[address] [employer] [place] [address] * (ABNORMAL) Comprehensive metabolic panel (02/25/2025 12:20 PM CDT) Sodium 136 135 - 145 mmol/L Comment:Testing performed by : [address] [address] Potassium, pl 7.0(C) 3.3 - 4.9 mmol/L BLANCA Comment: Critical Result called to and read back by [email or web address], DATE: 2025-02-25 13:27:00 BY: [email or web address] Testing performed by: [facility], [address] [place] [address]., [address] Chloride 105 97 - 110 mmol/L BL[facility] Comment:Testing performed by : [address] [address] CO2 13(L) 22 - 32 mmol/L [facility] Comment:Testing performed by : [address], [place]., [address] Anion gap 18(H) 2 - 15 mmol/L [facility]CA Comment:Testing performed by : [address] [address] BUN 105(H) 6 - 25 mg/dL [facility] Comment:Testing performed by : [address] [address] Creatinine 3.80(H) 0.60 - 1.10 mg/dL [facility] Comment:Testing performed by : [address] [address] Glucose 98 70 - 199 mg/dL BLANCA [...] was last revised 2022. Testing performed by: [address] [address] Calcium 9.8 8.5 - 10.3 mg/dL [facility] Comment:Testing performed by : [address] [address] Bilirubin, total 0.2 0.1 - 1.2 mg/dL [facility] Comment:Testing performed by : [address] [address] Protein, pl 8.1 6.5 - 8.5 g/dL [facility] REESE Comment:Testing performed by : [address] [address] Albumin 4.2 3.5 - 5.0 g/dL [facility] REESE Comment:Testing performed by : [address] [address] Alk phos 143(H) 40 - 130 Units/L [facility] REESE Comment:Testing performed by : [address] [address] ALT 12 7 - 45 Units/L [facility] REESE Comment:Testing performed by : [address] [address] AST 16 10 - 45 Units/L [facility] REESE Comment:Testing performed by : [address] [address] Blood 02/25/2025 12:2 0 PM CDT 02/25/2025 12:30 PM CDT Layton Macario DO LAB BLOOD ORDERABLES Final Result Performing Organization Address City/State/[facility] Co de Phone Number BLANCA REESE [address] [facility] Department [place] [address] * CT Head WO Contrast (02/25/2025 11:32 [...] air cells unchanged. ORBITS: No acute abnormality. [employer] [employer] ocular lenses replaced bilaterally. OTHER: No other significant abnormality. IMPRESSION: No acute intracranial process. THIS IS AN ELECTRONICALLY VERIFIED FINAL REPORT 02/25/2025 12:30 PM - Electronically signed by Kal Hennessy M.D. MARLEY: MARLEY Report ID: [id number] Reading Location: [place] [address] Procedure Note Kal Hennessy MD - 02/25/2025 [...] air cells unchanged. ORBITS: No acute abnormality. [employer] ocular lenses replaced bilaterally. OTHER: No other significant abnormality. IMPRESSION: No acute intracranial process. THIS IS AN ELECTRONICALLY VERIFIED FINAL REPORT 02/25/2025 12:30 PM - Electronically signed by Kal Hennessy M.D. MARLEY: MARLEY Report ID: [id number] Reading Location: [place] [address] us Layton Macario DO IMG CT PROCEDURES Final Res ult * Urinalysis reflex to microscopic and culture Urine (02/25/2025 11:21 AM CDT) Color, ur Yellow Yellow Comment:Testing performed by : [address] [address] Clarity, ur Clear Clear BLANCA Comment:Testing performed by : [address] [address] Specific gravity, ur 1.016 1.003 - 1.030 BL[facility]CA Comment:Testing performed by : [address] [address] pH, urine 5.0 BLANCA Comment: Interpretive Data U rine pH is affected by diet, medications, systemic acid-base disturbances, and renal tubular function. pH may affect urinary stone formation. For example, urine pH below 6.0 may help reduce the tendency for calcium phosphate stones and pH greater than 6.0 may reduce the tendency for uric acid stone formation. Source: [facility] [employer] Current Interpretive Data was last revised on 2017 Testing performed by: [address] [address] Protein, ur ql Negative Negative BLANCA Comment:Testing performed by : [address] [address] Glucose, ur ql Negative Negative BLANCA Comment:Testing performed by : [address] [address] Ketones, ur Negative Negative [facility] Comment:Testing performed by : [address], [place]., [address] Bilirubin, ur Negative Negative BLANCA Comment:Testing performed by : [address], [place]., [address] Blood, ur Negative Negative BLANCA Comment:Testing performed by : [address], [place]., [address] Urobilinogen, ur <2.0 <2.0 mg/dL [facility] Comment:Testing performed by : [address], [place]., [address] Nitrite, ur Negative Negative [facility] Comment:Testing performed by : [address], [place]., [address] Leukocyte esterase, ur Negative Negative [facility] Comment:Testing performed by : [address], [place]., [address] UA reflex comment Reflex conditions for microscopic UA and culture not met. [facility]CA Comment:Testing performed by : [address], [place]., [address] Urine 02/25/2025 11:2 1 AM CDT 02/25/2025 11:28 AM CDT Layton Macario DO LAB MICROBIOLOGY - GENERAL ORDERABLES Final Result RIRICHRISTIAN [address] [facility] Department of Laboratories [place], [place] [id number] * Differential, auto (02/25/2025 11:16 AM CDT) Neutrophil abs 2.78 1.50 - 6.50 K/cumm Comment:Testing performed by : [address], [place]., [address] Imm gran abs 0.01 0.00 - 0.10 K/cumm BLANCA Comment:Testing performed by : [address] [address] Lymphocyte abs 2.45 0.80 - 3.30 K/cumm [facility] Comment:Testing performed by : [address] [address] Monocyte abs 0.38 0.20 - 0.80 K/cumm [facility] Comment:Testing performed by : [address] [address] Eosinophil abs 0.07 0.00 - 0.50 K/cumm [facility] Comment:Testing performed by : [address] [address] Basophil abs 0.05 0.00 - 0.10 K/cumm [facility] Comment:Testing performed by : [address] [address] Neutrophil pct 48.4 % [facility] Comment: Interpretive Data Percent cell count reference ranges are not reported, since discordance with absolute values may lead to misinterpretation of CBC data. Current Interpretive Data was last revised on 2018. Testing performed by: [address] [address] Imm gran pct 0.2 % [facility] Comment: Interpretive Data Percent cell count reference ranges are not reported, since discordance with absolute values may lead to misinterpretation of CBC data. Current Interpretive Data was last revised on 2018. Testing performed by: [address] [address] Lymphocyte pct 42.7 % [facility] Comment: Interpretive Data Percent cell count reference ranges are not reported, since discordance with absolute values may lead to misinterpretation of CBC data. Current Interpretive Data was last revised on 2018. Testing performed by: [address] [address] Monocyte pct 6.6 % [facility] Comment: Interpretive Data Percent cell count reference ranges are not reported, since discordance with absolute values may lead to misinterpretation of CBC data. Current Interpretive Data was last revised on 2018. Testing performed by: [address] [address] Eosinophil pct 1.2 % [facility] Comment: Interpretive Data Percent cell count reference ranges are not reported, since discordance with absolute values may lead to misinterpretation of CBC data. Current Interpretive Data was last revised on 2018. Testing performed by: [address] [address] Basophil pct 0.9 % [facility] Comment: Interpretive Data Percent cell count reference ranges are not reported, since discordance with absolute values may lead to misinterpretation of CBC data. Current Interpretive Data was last revised on 2018. Testing performed by: [address] [address] Blood 02/25/2025 11:1 6 AM CDT 02/25/2025 11:29 AM CDT us Layton Macario DO LAB BLOOD ORDERABLES Final Result [facility] [address] [facility] Department [place] [address] * (ABNORMAL) CBC with auto differential (02/25/2025 11:16 AM CDT) WBC 5.74 3.80 - 9.90 K/cumm Comment:Testing performed by : [address] [address] Hgb 11.0(L) 11.9 - 15.5 g/dL [facility] Comment:Testing performed by : [address] [address] Hct 37.3 35.6 - 45.5 % [facility] Comment:Testing performed by : [address] [address] Plt 241 150 - 400 K/cumm [facility] Comment:Testing performed by : [address] [address] MPV 10.4 9.1 - 12.3 fL [facility] REESE Comment:Testing performed by : [address] [address] RBC 4.49 3.90 - 5.20 M/cumm [facility] REESE Comment:Testing performed by : [address] [address] MCV 83.1 81.3 - 96.4 fL [facility] REESE Comment:Testing performed by : [address] [place] [address] MCH 24.5(L) 27.1 - 33.3 pg [facility] REESE Comment:Testing performed by : [address] [address] MCHC 29.5(L) 32.3 - 35.7 g/dL [facility] REESE Comment:Testing performed by : [address] [address] RDW CV 22.1(H) 11.1 - 14.9 % [facility] Comment:Testing performed by : [address] [address] RDW SD 65.4(H) 35.7 - 48.1 fL [facility] REESE Comment:Testing performed by : [address] [address] NRBC abs 0.00 0.00 - 0.01 K/cumm [facility] Comment:Testing performed by : [address] [address] Blood 02/25/2025 11:1 6 AM CDT 02/25/2025 11:29 AM CDT Layton Macario DO LAB BLOOD ORDERABLES Final Result BLANAC [address] [facility] Department [place] [address] * (ABNORMAL) Hemoglobin A1c (02/25/2025 11:16 AM CDT) Hgb A1C 7.4(H) 4.0 - 5.6 % Comment:Testing performed by : [address] [address] Estimated Average Glucose 166 mg/dL [facility] Comment: The ADA recommends reporting an estimated Average Glucose (eAG) with all Hemoglobin A1c results using the equation derived from a study of 507 normal and diabetic adults. Minority populations were underrepresented and children were not included. (Diabetes Care 31:8852-1275, 2008). The eAG is not equivalent to a fasting glucose. Testing performed by: [address] [address] Blood 02/25/2025 11:1 6 AM CDT 02/25/2025 11:29 AM CDT Result [facility] Carmen Nayak MD LAB BLOOD ORDERABLES Final Res ult Performing Organization Address [facility] de Phone Number BLANCA [address] [facility] Department of Laboratories [place] [id number] * ECG 12 lead (02/25/2025 11:06 AM CDT) Ventricular Rate EKG/Min 69 BPM [facility] Atrial Rate 69 BPM [facility] TN-Interval (MSEC) 148 ms [facility] QRS-Interval (MSEC) 88 ms [facility] QT-Interval (MSEC) 382 ms [facility] QTc 409 ms [facility] P [place] 29 degrees [facility] R [place] 31 degrees [facility] T [place] 46 degrees [facility] Diagnosis Normal sinus rhythm Nonspecific ST abnormality Abnormal ECG When compared with ECG of 02-DEC-2023 14:31, Vent. rate has decreased BY 35 BPM QRS duration has increased Nonspecific T wave abnormality no longer evident in Lateral leads Confirmed by HENRY CHIRINOS M.D. ([id number]) on 02/26/2025 7:30:51 AM [facility] 02/25/2025 11:0 6 AM CDT 02/26/2025 7:30 AM CDT Layton Macario DO ECG ORDERABLES Final Resul t Performing Organization Address [facility] de Phone Number [facility] * IR Ablation Lumbar Sacral Facet Right (01/31/2025 11:50 AM CDT) Narrative RAD_PACS_[facility] - 01/31/2025 11:50 AM CDT The images from this study are not interpreted by Radiology. Please refer to the physician's procedure / OR operative note. Henry Machado MD IMG IR PROCEDURES Final Res ult Performing Organization Address [facility] de Phone Number [facility]_PACS[facility] * IR Medial Branch Block Lumbar Sacral First Level Right (aka MBB) (01/10/2025 10:45 AM FIXED ROUTE OPERATOR) Narrative [facility]MON_[facility] - 01/10/2025 10:46 AM FIXED ROUTE OPERATOR The images from this study are not interpreted by Radiology. Please refer to the physician's procedure / OR operative note. us Henry Machado MD IMG IR PROCEDURES Final Res ult Performing Organization Address [facility] de Phone Number [facility] * Hepatitis C [...] ORDER RITIKA Final Result Performing Organization Address [facility] de Phone Number [facility] [place] [address] * COLONOSCOPY (09/24/2021 2:13 PM FIXED ROUTE OPERATOR) Anatomical Region Laterality Modality Other Narrative Procedure Note Paul Chávez MD - 09/24/2021 2:13 PM CST ENDOSCOPY LAB Patient Name: Bernadine Mendez Procedure Date: 09/24/2021 2:13 PM Date of : 1960 Admit Type: Outpatient Age: 61 Gender: Female Attending MD: Paul Chávez M.D. Room: [facility] ENDOSCOPY ROOM 05 Note Status: Finalized [...] The scope was passed under direct vision.The [id number] was introduced through the anusand advanced to [...] Bone mineral density was performed on a [employer] Discovery Densitometer. Based on machine cross-calibration and [...] by the International Society of Clinical Densitometry. [id number] us Junior Aguirre MD IMG DXA PROCEDURES Final Result * Lipid panel (12/09/2020 4:03 PM FIXED ROUTE OPERATOR) Cholesterol 151 30 - 199 mg/dL [facility] Comment: Interpretive Data Ages < [...] revised on 2018. Triglycerides 90 <=149 mg/dL [facility] Comment: Interpretive Data Ages < [...] revised on 2018. HDL 76 >=40 mg/dL [facility] Comment: Interpretive Data Ages < [...] 2018. LDL, calculated 57 <=129 mg/dL [facility] Comment: Interpretive Data Ages < or = [...] on 2018. Non-HDL Cholesterol 75 mg/dL [facility] Comment: Interpretive Data Ages < or = [...] last revised on 2018. Chol/HDL ratio 2 [facility] Blood specimen (specimen) 12/09/2020 4:03 PM FIXED ROUTE OPERATOR 12/09/2020 4:22 PM FIXED ROUTE OPERATOR us David Liz MD LAB BLOOD ORDERABLES Final Re sult [facility] [place] [address] * Screening Mammogram Bilateral [place] (07/16/2020 11:16 AM CDT) Anatomical Region Laterality Modality Breast Bilateral Mammography Narrative 07/18/2020 12:37 PM CDT Mammogram Technique: Bilateral Digital Breast Tomosynthesis, Bilateral C-view 2D Screening mammogram. Views obtained: bilateral craniocaudal and bilateral mediolateral oblique. Computer Aided Detection was performed. Mammogram Findings: The present examination has been compared to prior imaging studies performed at [facility] on 05/13/2014, 07/04/2015 and 08/01/2019. There are [...] compared to prior imaging studies performed at [facility] on 05/13/2014, 07/04/2015 and 08/01/2019. There are scattered areas of fibroglandular density. There is no suspicious abnormality in either breast. Impression: Annual screening mammography is recommended. OVERALL FINAL ASSESSMENT: BI-RADS CATEGORY 1: Negative. Henry Tello MD IMG MAMMO PROCEDURES Final Re sult from Last 3 Months or Most Recently Relevant to Health Maintenance Insurance [facility] MCR SUPPLEMENT BRAYDEN SIMONS [id number] UHC MEDICARE ADVANTAGE MEDICARE [facility] SUPPLEMENT [place]RAY[place]ONS [id number] [facility] SUPPLEMENT BRAYDEN SIMONS [id number] [facility] SUPPLEMENT BRAYDEN SIMONS [id number] MEDICARE [facility] MEDICARE ADVANTAGE Advance Directives For more information, please contact: [phone] Documents on File Type Date Recorded Patient Weight Guesser Expl anation ADVANCE DIRECTIVE 01/09/2021 10:38 AM Lindsay r of Quality Assurance/R&D Lab Technician-Medical ADVANCE DIRECTIVE 07/13/2019 5:35 AM POWER OF WHEEL PRESS CLERK-MEDICAL ADVANCE DIRECTIVE 05/14/2019 10:01 AM * Full [...] 9:50 AM 12/30/2021 6:05 PM Care Teams Director Of Operations Support Relationship Specialty Start Date End Date Darlene Saeed MD [address] [facility] [address] [place] [address] PCP - General Family Medicine 01/09/21 Israel Carrillo MD [address] [address] Referring Physician Endocrinology Diabetes & Metabolism 06/01/19 Manish Singer MD [address] [place] [address] [place] [address] Consulting Physician Otolaryngology 01/17/22
--- OUTSIDE RECORDS SUMMARY | 2025-04-03 14:22 | XMS_ITS | Encounter Summary ---
Author Organization [facility] Healthcare Address [address] [place] [address] Care Team Providers Care Jewel Grinder Name Role Phone Israel Carrillo MD Primary Care Provider Gene Padilla MD Primary Care Provider [phone] Israel Carrillo MD Primary Care Provider [phone] Twin Tello MD Primary Care Provider Israel Carrillo MD Unavailable [phone] Twin Tello MD Primary Care Provider Miguel Field MD Primary Care Provider Israel Carrillo MD Primary Care Provider Miguel Field MD Primary Care Provider Israel Carrillo MD Primary Care Provider [phone] Darlene Saeed MD Primary Care Provider Manish Singer MD Unavailable [phone] Katya Carpenter RN Unavailable [phone] Encounter Details Date Type Department Care Team (Late st Contact Info) Description 05/18/2018 Community Orders [facility] EpicCare Link Israel Carrillo MD [address] [facility] [address] [place] [address] Social History Tobacco Use Types Packs/Day Years Used Date Smoking Tobacco: Some Days Smokeless Tobacco: Never Alcohol Use Standard Drinks/Week Comments Yes 0 (1 standard drink = 0.6 oz pur e alcohol) Comments Unknown Sex and Gender Information Value Date Recorded Sex Assigned at Not on file Legal Sex Female 8:10 PM EDGING CATCHER Gender Identity Not on file Sexual Orientation Not on file documented as of this encounter Plan of Treatment Not on file documented as of this encounter Visit Diagnoses Not on filedocumented in this encounter Additional Health Concerns Infection Onset Date Last Indicated Resolved Time COVID: Suspected 12/17/2020 12/17/2020 12/17/2020 6:45 PM EDGING CATCHER Diarrhea 12/02/2023 12/02/2023 12/16/2023 3:06 AM EDGING CATCHER COVID: Suspected 02/06/2024 02/06/2024 02/06/2024 2:46 PM CDT documented as of this encounter Care Teams Jewel Grinder Relationship Specialty Start Date End Date Israel Carrillo MD [address] [address] PCP - General 08/02/07 09/26/18 Gene Padilla MD [address] [place] [address] [address] PCP - General Cardiovascular Disease 09/27/18 Israel Carrillo MD [address] [address] PCP - General 10/02/18 05/31/19 Twin Tello MD [address] [address] PCP - General Endocrinology Diabetes & Metabolism 06/01/19 07/03/19 Twin Tello MD [address] [address] PCP - General 07/04/19 05/04/20 Miguel Field MD [address] [address] PCP - General Internal Medicine 05/05/20 08/03/20 Israel Carrillo MD [address] [address] PCP - General Endocrinology Diabetes & Metabolism 08/04/20 09/02/20 Miguel Field MD [address] [address] PCP - General 09/03/20 10/05/20 Israel Carrillo MD [address] [address] PCP - General Endocrinology Diabetes & Metabolism 10/06/20 01/08/21 Darlene Saeed MD [address] [address] PCP - General Family Medicine 01/09/21 Israel Carrillo MD [address] [address] Referring Physician Endocrinology Diabetes & Metabolism 06/01/19 Manish Singer MD [address] [facility] [address] [place] [address] Consulting Physician Otolaryngology 01/17/22 Katya Carpenter RN [address] [facility] [address] [place] [address] SHOP Outpatient Scissors Grinder 02/13/24 02/19/24 documented as of this encounter
--- OUTSIDE RECORDS SUMMARY | 2025-04-03 14:23 | XMS_ITS | Encounter Summary ---
Author Organization [facility] Healthcare Address [address] [place] [address] Care Team Providers Care Municipal Clerk Name Role Phone Israel Carrillo MD Primary Care Provider [phone] Twin Tello MD Primary Care Provider Israel Carrillo MD Unavailable [phone] Twin Tello MD Primary Care Provider [phone] Miguel Field MD Primary Care Provider Israel Carrillo MD Primary Care Provider Miguel Field MD Primary Care Provider [phone] Israel Carrillo MD Primary Care Provider [phone] Darlene Saeed MD Primary Care Provider Manish Singer MD Unavailable [phone] Katya Carpenter RN Unavailable [phone] Reason for Referral * Diagnostic Imaging (Routine) - Closed Specialty Diagnoses / Procedures Referred By Contac t Referred To Contact Diagnoses Osteoarthritis of spine with radiculopathy, lumbar region Procedures Dexa Axial Skeleton Bone Density 1 or 2 Site Israel Carrillo MD Phone: tel: fax: [address] [address] Referral ID Status Reason Start Date Expiration Date Visits Re quested Visits Authorized [id number] Closed 10/03/2018 04/13/2020 1 1 WARE DEVELOPER MANAGER Encounter Details Date Type Department Care Team (Latest Contact Info) Description 10/03/2018 Community Orders [facility] EpicCare Link Israel Carrillo MD [address] [facility] [address] [place] [address] Osteoarthritis of spine with radiculopathy, lumbar region (Primary Dx) Social History Tobacco Use Types Packs/Day Years Used Date Smoking Tobacco: Some Days Smokeless Tobacco: Never Alcohol Use Standard Drinks/Week Comments Yes 0 (1 standard drink = 0.6 oz pur e alcohol) Comments No Sex and Gender Information Value Date Recorded Sex Assigned at Not on file Legal Sex Female 8:10 PM SOFTWARE DEVELOPER MANAGER Gender Identity Not on file Sexual Orientation Not on file documented as of this encounter Plan of Treatment Not on file documented as of this encounter Results * Dexa Axial Skeleton Bone Density 1 or 2 Site (10/17/2018 10:05 AM SOFTWARE DEVELOPER MANAGER) Anatomical Region Laterality Modality Body N/A Digital Radiogra phy 10/17/2018 10:0 5 AM SOFTWARE DEVELOPER MANAGER Impressions 10/17/2018 12:28 PM SOFTWARE DEVELOPER MANAGER 1. The bone mineral density of the [...] Simona Fink M.D. Narrative 10/17/2018 12:28 PM SOFTWARE DEVELOPER MANAGER BONE DENSITOMETRY OF THE SPINE AND HIP [...] COVID: Suspected 12/17/2020 12/17/2020 12/17/2020 6:45 PM SOFTWARE DEVELOPER MANAGER Diarrhea 12/02/2023 12/02/2023 12/16/2023 3:06 AM SOFTWARE DEVELOPER MANAGER COVID: Suspected 02/06/2024 02/06/2024 02/06/2024 2:46 PM CDT documented as of this encounter Care Teams Municipal Clerk Relationship Specialty Start Date End Date Israel Carrillo MD [address] [employer] [address] [address] PCP - General 10/02/18 05/31/19 Twin Tello MD [address] [address] PCP - General Endocrinology Diabetes & Metabolism 06/01/19 07/03/19 Twin Tello MD [address] [address] PCP - General 07/04/19 05/04/20 Miguel Field MD [address] [address] PCP - General Internal Medicine 05/05/20 08/03/20 Israel Carrillo MD [address] [address] PCP - General Endocrinology Diabetes & Metabolism 08/04/20 09/02/20 Miguel Field MD [address] [address] PCP - General 09/03/20 10/05/20 Israel Carrillo MD [address] [address] PCP - General Endocrinology Diabetes & Metabolism 10/06/20 01/08/21 Darlene Saeed MD [address] [address] PCP - General Family Medicine 01/09/21 Israel Carrillo MD [address] [address] Referring Physician Endocrinology Diabetes & Metabolism 06/01/19 Manish Singer MD [address] [address] Consulting Physician Otolaryngology 01/17/22 Katya Carpenter, [place] [address] [facility] [address] [place] [address] SHOP Outpatient Environmental Emergencies Planner 02/13/24 02/19/24 documented as of this encounter
--- OUTSIDE RECORDS SUMMARY | 2025-04-03 14:23 | XMS_ITS | Clinical Summary ---
Author Organization [facility] Address [address] [place] [address] Care Team Providers Care Process Development Engineer Name Role Phone Israel Carrillo MD Unavailable [phone] Darlene Saeed MD Primary Care Provider Manish Singer MD Unavailable [phone] Allergies Active Allergy Reactions Criticality Noted Date [...] (03/23/2022): Added automatically from request for surgery [id number] Other secondary scoliosis, lumbar region 022 Overview (03/23/2022): Added automatically from request for surgery [id number] Kyphosis (acquired) (postural) 03/23/2022 Overview (03/23/2022): Added automatically from request for surgery [id number] Vertigo 02/26/2022 Fecal occult blood test positive 06/30/2021 Overview (06/30/2021): Added automatically from request for surgery [id number] Chronic maxillary sinusitis 06/22/2021 Overview (06/22/2021): Added automatically from request for surgery [id number] Lip lesion 06/22/2021 Overview (06/22/2021): Added automatically from request for surgery [id number] Allergic rhinitis 03/23/2021 Hypertrophy of nasal turbinates [...] 12/10/2020 Assessment & Plan (12/18/2020 11:25 AM CARE TAKER): - appears resolved now with discontinuation of [...] agreeable. Assessment & Plan (12/17/2020 11:03 AM CARE TAKER): - appears resolved now with discontinuation of [...] agreeable. Assessment & Plan (12/16/2020 11:06 AM CARE TAKER): - appears resolved now with discontinuation of [...] 12/10/2020 Assessment & Plan (12/18/2020 11:25 AM CARE TAKER): - resolved. - reported on admission that [...] levels. Assessment & Plan (12/17/2020 11:03 AM CARE TAKER): - resolved. - reported on admission that [...] levels. Assessment & Plan (12/15/2020 7:36 PM CARE TAKER): - resolved. - reported on admission that [...] DEANNE Assessment & Plan (12/18/2020 11:25 AM CARE TAKER): - given softer BPs (likely related to ativan/haldol) holding antihypertensive meds amlodipine, 2.5, aldactone 100, and lasix 40 bid (stopped after recent discharge) Assessment & Plan (12/17/2020 11:04 AM CARE TAKER): - given softer BPs (likely related to ativan/haldol) holding antihypertensive meds amlodipine, 2.5, aldactone 100, and lasix 40 bid (stopped after recent discharge) Assessment & Plan (12/12/2020 5:27 PM CARE TAKER): - given softer BPs (likely related to ativan/haldol) holding antihypertensive meds amlodipine, 2.5, aldactone 100, and lasix 40 bid (stopped after recent discharge) History of pseudoseizure 12/10/2020 Assessment & Plan (12/18/2020 11:25 AM CARE TAKER): - vEEG in 2019 with no epileptiform [...] doses. Assessment & Plan (12/17/2020 11:04 AM CARE TAKER): - vEEG in 2019 with no epileptiform [...] doses. Assessment & Plan (12/14/2020 1:15 PM CARE TAKER): - vEEG in 2019 with no epileptiform [...] 12/10/2020 Assessment & Plan (12/18/2020 11:25 AM CARE TAKER): - Pt previously overweight and on meds, but none recently - said patient has no access to insulin. Hgb a1c is 4.9 Assessment & Plan (12/17/2020 11:04 AM CARE TAKER): - Pt previously overweight and on meds, but none recently - said patient has no access to insulin. Hgb a1c is 4.9 Assessment & Plan (12/12/2020 5:27 PM CARE TAKER): - Pt previously overweight and on meds, [...] hydration Assessment & Plan (12/12/2020 5:36 PM CARE TAKER): - resolved. Cr up from 0.9 to 1.32 on admission. - renal function improved with IV fluid. Moderate malnutrition 06/25/2020 Overview (06/25/2020): Added automatically from request for surgery [id number] Assessment & Plan (12/18/2020 11:25 AM CARE TAKER): - due to poor oral intake. RD consulted. Encourage better oral intake. Assessment & Plan (12/17/2020 11:03 AM CARE TAKER): - due to poor oral intake. RD consulted. Encourage better oral intake. Assessment & Plan (12/15/2020 7:32 PM CARE TAKER): - due to poor oral intake. RD [...] 12/17/2015 Assessment & Plan (12/18/2020 11:25 AM CARE TAKER): - has chronic back pain - given altered mental status, will hold meds that may cloud picture: these include pregabalin 100 tid, morphine 15mg q8h, hyoscyamine 0.375 bid (abd pain). Also on baclofen 20 mg TID, changed to 5 mg TID to avoid withdrawal effect. Assessment & Plan (12/17/2020 11:03 AM CARE TAKER): - has chronic back pain - given altered mental status, will hold meds that may cloud picture: these include pregabalin 100 tid, morphine 15mg q8h, hyoscyamine 0.375 bid (abd pain). Also on baclofen 20 mg TID, changed to 5 mg TID to avoid withdrawal effect. Assessment & Plan (12/12/2020 5:31 PM CARE TAKER): - has chronic back pain - given [...] 03/2023 Assessment & Plan (12/18/2020 11:25 AM CARE TAKER): Removed 12/16 and has urinated since Assessment & Plan (12/17/2020 11:04 AM CARE TAKER): Removed 12/16 and has urinated since Assessment & Plan (12/16/2020 11:07 AM CARE TAKER): Ordered for removal Will follow I/Os Hypoxia 12/10/2020 12/14/2020 Assessment & Plan (12/12/2020 5:21 PM CARE TAKER): - resolved. Presented on admission. Likely related to mental status/somnolence. No distress, CXR wnl. VSS. covid negative Hypokalemia 12/09/2020 12/16/2020 Assessment & Plan (12/18/2020 11:25 AM CARE TAKER): - At recent hospitalization at [facility], had hyperkalemia. Discontinued lasix and potassium [...] CTM Assessment & Plan (12/15/2020 7:45 PM CARE TAKER): - At recent hospitalization at [facility], had hyperkalemia. Discontinued lasix and potassium [...] - 02/28/2025 1:50 PM CDT [facility] [address] [place] [id number] Layton Macario DO Shaukat, Bushra, MD Hyperkalemia (Primary Dx); Acute renal failure, unspecified acute renal failure type; Encephalopathy acute; Fibromyalgia; Fall, initial encounter; Unsteadiness on feet Discharge Disposition: Discharge to home or self care 02/19/2025 Telephone [facility] Orthopa[facility] Surgery [address] [facility] 1st Floor [address] [place] [address] Henry Machado MD 02/04/2025 1:00 PM CDT Office Visit [facility] Orthopaedic Surgery [address] [facility] 6th [place] [address] [place] [address] Henry Machado MD Lumbar spondylosis (Primary Dx) 02/04/2025 Orders Only [facility] Orthopaedic Surgery [address] [facility] 6th [place] [address] [place] [address] Narendra Singh CMA 01/31/2025 9:18 AM CDT - 01/31/2025 11:59 PM CDT Hospital Encounter [facility] [address] [address] Hari Bowen MD Other spondylosis, lumbosacral region (Primary Dx); Lumbosacral radiculopathy Discharge Disposition: Discharge to home or self care 01/10/2025 9:40 AM CARE TAKER - 01/10/2025 11:59 PM CARE TAKER Hospital Encounter [facility] [address] [address] Hari Bowen MD Other spondylosis, lumbosacral region [...] 05/02/2013 N/A ENTERIC TUBE INJECTION 03/27/2013 N/A VA DILATION & CURETTAGE DX&/THER NONOBSTETRIC VA NEUROPLASTY &/TRANSPOS MEDIAN NRV CARPAL TUNNE 11/14/1985 - 11/13/1986 Neuroplasty Decompression Median Nerve At Carpal Tunnel VA INJ LUMBAR/SACRAL,W/WO CNTRST injections APPENDECTOMY GASTRIC BYPASS [...] drink = 0.6 oz pur e alcohol) [facility] [employer] Answer Date Recorded In the past 12 months has [employer], gas, oil, or water [employer] threatened to shut off services in your [...] How often do you attend chur or samaritan services? Never 02/27/2025 Do you belong to any clubs o r organizations such as holiness groups, unions, fraternal or athletic groups, or [...] Frequency of Binge Drinking Not on file 0803/2022 Overall Financial Resource Strain (CARDIA) Answe r [...] place to sleep or slept in a nursing home (including now)? No 02/13/2024 Housing Stability [...] any time in the past 12 m [facility], were you homeless or living in a nursing home (including now)? No 02/27/2025 Personal Safety Answer Date Recorded Have you ever been in or are you currently in a harmful physical or emotional relationship or is someone making you feel afraid or unsafe? Denies 02/25/2025 Comments No Sex and Gender Information Value Date Recorded Sex Assigned at Not on file Legal Sex Female 8:10 PM CARE TAKER Gender Identity Not on file Sexual Orientation [...] as needed Medical Devices Implanted Type Area Shrimp Boat Captain Device Identifier Shelf Expiration Date Model / Serial / Lot [employer] [id number] - [id number] - [id number] Implanted:Qty: 1 on 10/28/2021 by Dann Contreras MD at [facility] Lens Right: Eye [employer] [id number] 05/13/2024 [id number] / [id number] / [id number] Description:[id number] 18.5D Righ t eye Stream [employer] [id number] 18.0 Tecnis Optiedge 6mm 13mm 3 Piece Anterior Aspheric Monofocal Uv - [id number] - [id number] Implanted:Qty: 1 on 12/30/2021 by Dann Contreras MD at [facility] Lens Left: Lens [place] [employer] [id number] 02/15/2025 [id number] / [id number] / Knee Bilatera l: Knee Screw [...] DEVICE Routine 02/25/2025 1 :44 PM CDT [facility] CRITICAL CARE ILL/INJURED PATIENT INIT 30-74 MIN [...] Read Routine (OP Routine) 01/10/2025 10:45 AM CARE TAKER Lumbosacral radiculopathy Other spondylosis, lumbosacral region HEPATITIS C ANTIBODY Routine 02/07/2024 9:08 PM CDT COLONOSCOPY 09/24/2021 2:13 PM CARE TAKER DEXA APPENDICULAR BONE DENSITY Schedule Routine, Read Routine (OP Routine) 08/04/2021 2:32 PM CDT Osteopenia of multiple sites LIPID PANEL STAT 12/09/2020 4:03 PM CARE TAKER SCREENING MAMMOGRAM BILATERAL W SOTO Schedule Routine, Read Routine (OP Routine) 07/16/2020 11:16 AM CDT Screening for breast cancer from Last 3 Months or Most Recently Relevant to Health Maintenance Results * POCT glucose (02/28/2025 12:16 PM CDT) Glucose, POC 158 70 - 199 mg/dL Comment:Testing performed by : [facility], [address] [place] [address]., [address] Blood 02/28/2025 12:1 6 PM CDT 02/28/2025 12:16 PM CDT us Carmen Nayak MD LAB POCT ORDERABLES - DEVICE F inal Result [facility] [address] [facility] [place] [address] * POCT glucose (02/28/2025 7:50 AM CDT) Glucose, POC 133 70 - 199 mg/dL Comment:Testing performed by : [address] [address] Blood 02/28/2025 7:50 AM CDT 02/28/2025 7:50 AM CDT Carmen Nayak MD LAB POCT ORDERABLES - DEVICE F inal Result Performing Organization Address [facility] de Phone Number [address] [place] [address] * POCT glucose (02/28/2025 6:35 AM CDT) [facility] Glucose, POC 137 70 - 199 mg/dL Comment:Testing performed by : [address] [address] Blood 02/28/2025 6:35 AM CDT 02/28/2025 6:35 AM CDT Carmen Nayak MD LAB POCT ORDERABLES - DEVICE F inal Result Performing Organization Address [facility] de Phone Number [address] [address] * (ABNORMAL) Differential, auto (02/28/2025 2:58 AM CDT) [facility] Neutrophil abs 2.13 1.50 - 6.50 K/cumm Comment:Testing performed by : [address] [address] Imm gran abs 0.03 0.00 - 0.10 K/cumm [facility] Comment:Testing performed by : [address] [address] Lymphocyte abs 3.38(H) 0.80 - 3.30 K/cumm [facility] Comment:Testing performed by : [address] [address] Monocyte abs 0.59 0.20 - 0.80 K/cumm [facility] Comment:Testing performed by : [address] [address] Eosinophil abs 0.16 0.00 - 0.50 K/cumm [facility] Comment:Testing performed by : [address] [address] Basophil abs 0.05 0.00 - 0.10 K/brandtm [facility] Comment:Testing performed by : [address] [address] Neutrophil pct 33.6 % [facility] Comment: Interpretive Data Percent cell count reference ranges are not reported, since discordance with absolute values may lead to misinterpretation of CBC data. Current Interpretive Data was last revised on 2018. Testing performed by: [address] [address] Imm gran pct 0.5 % [facility] Comment: Interpretive Data Percent cell count reference ranges are not reported, since discordance with absolute values may lead to misinterpretation of CBC data. Current Interpretive Data was last revised on 2018. Testing performed by: [address] [address] Lymphocyte pct 53.3 % [facility] Comment: Interpretive Data Percent cell count reference ranges are not reported, since discordance with absolute values may lead to misinterpretation of CBC data. Current Interpretive Data was last revised on 2018. Testing performed by: [address] [address] Monocyte pct 9.3 % [facility] Comment: Interpretive Data Percent cell count reference ranges are not reported, since discordance with absolute values may lead to misinterpretation of CBC data. Current Interpretive Data was last revised on 2018. Testing performed by: [address] [address] Eosinophil pct 2.5 % [facility] Comment: Interpretive Data Percent cell count reference ranges are not reported, since discordance with absolute values may lead to misinterpretation of CBC data. Current Interpretive Data was last revised on 2018. Testing performed by: [address] [address] Basophil pct 0.8 % [facility] Comment: Interpretive Data Percent cell count reference ranges are not reported, since discordance with absolute values may lead to misinterpretation of CBC data. Current Interpretive Data was last revised on 2018. Testing performed by: [address] [address] Blood 02/28/2025 2:58 AM CDT 02/28/2025 3:58 AM CDT us Mau VERONICA LAB BLOOD ORDERABLES Final Re sult [facility] [address] [facility] [place] [address] * (ABNORMAL) CBC with auto differential (02/28/2025 2:58 AM CDT) WBC 6.34 3.80 - 9.90 K/cumm Comment:Testing performed by : [address] [address] Hgb 9.2(L) 11.9 - 15.5 g/dL [facility] Comment:Testing performed by : [address] [address] Hct 30.4(L) 35.6 - 45.5 % [facility] Comment:Testing performed by : [address] [address] Plt 184 150 - 400 K/cumm [facility] Comment:Testing performed by : [address] [address] MPV 11.0 9.1 - 12.3 fL [facility] Comment:Testing performed by : [address] [address] RBC 3.74(L) 3.90 - 5.20 M/cumm [facility] Comment:Testing performed by : [address] [address] MCV 81.3 81.3 - 96.4 fL [facility] Comment:Testing performed by : [address] [address] MCH 24.6(L) 27.1 - 33.3 pg [facility] Comment:Testing performed by : [address] [address] MCHC 30.3(L) 32.3 - 35.7 g/dL [facility] Comment:Testing performed by : [address] [address] RDW CV 21.0(H) 11.1 - 14.9 % [facility] Comment:Testing performed by : [address] [address] RDW SD 59.5(H) 35.7 - 48.1 fL [facility] Comment:Testing performed by : [address] [address] NRBC abs 0.00 0.00 - 0.01 K/cumm [facility] Comment:Testing performed by : [address], [address] Blood 02/28/2025 2:58 AM CDT 02/28/2025 3:58 AM CDT us Mau VERONICA LAB BLOOD ORDERABLES Final Re sult Performing Organization Address [facility]/ZIP Co de Phone Number [address] [place] [address] * POCT glucose (02/28/2025 12:07 AM CDT) Glucose, POC 126 70 - 199 mg/dL Comment:Testing performed by : [address], [address] Blood 02/28/2025 12:0 7 AM CDT 02/28/2025 12:07 AM CDT us Carmen Nayak MD LAB POCT ORDERABLES - DEVICE F inal Result Performing Organization Address City/[facility] Co de Phone Number [address] [place] [address] * POCT glucose (02/27/2025 9:11 PM CDT) Glucose, POC 113 70 - 199 mg/dL Comment:Testing performed by : [address] [address] Blood 02/27/2025 9:11 PM CDT 02/27/2025 9:11 PM CDT us Carmen Nayak MD LAB POCT ORDERABLES - DEVICE F inal Result Performing Organization Address [facility] Co de Phone Number [address] [place] [address] * POCT glucose (02/27/2025 4:49 PM CDT) Glucose, POC 119 70 - 199 mg/dL Comment:Testing performed by : [address] [address] Blood 02/27/2025 4:49 PM CDT 02/27/2025 4:49 PM CDT us Carmen Nayak MD LAB POCT ORDERABLES - DEVICE F inal Result Performing Organization Address [facility] de Phone Number [address] [address] * POCT glucose (02/27/2025 11:50 AM CDT) Glucose, POC 130 70 - 199 mg/dL Comment:Testing performed by : [address] [address] Blood 02/27/2025 11:5 0 AM CDT 02/27/2025 11:50 AM CDT us Carmen Nayak MD LAB POCT ORDERABLES - DEVICE F inal Result Performing Organization Address [facility] de Phone Number [address] [address] * POCT glucose (02/27/2025 7:50 AM CDT) Glucose, POC 146 70 - 199 mg/dL Comment:Testing performed by : [address] [address] Glucose comment 1 RN/MD Notified [facility] Comment:Testing performed by : [facility], [address] [place] [address]., [address] Blood 02/27/2025 7:50 AM CDT 02/27/2025 7:50 AM CDT Carmen Nayak MD LAB POCT ORDERABLES - DEVICE F inal Result Performing Organization Address [facility] Co de Phone Number [address] [place] [address] * Troponin T high-sensitivity (02/27/2025 4:12 AM CDT) Pathologist [facility] Trop T hs 8 <=14 ng/L Comment: Interpretive Data For further hscTnT resources including the diagnostic algorithm and an aid in interpretation, copy and paste this link: [email or web address].testcatalog.org/show/[email or web address] Current Interpretive Data last revised 2020. Testing performed by: [facility], [address] [place] [address]., [address] Blood 02/27/2025 4:12 AM CDT 02/27/2025 5:30 AM CDT us Mau VERONICA LAB BLOOD ORDERABLES Final Re sult Performing Organization Address [facility] de Phone Number [address] [place] [address] * eGFR (02/27/2025 4:12 AM CDT) Pathologist [facility] eGFR 62 >=60 mL/min/1. 73 m2 [...] last reviewed 2021. Testing performed by: [address] [address] Blood 02/27/2025 4:12 AM CDT 02/27/2025 5:30 AM CDT us Ángel Woodson MD LAB BLOOD ORDERABLES Final Re sult [place] [address] [facility] Department [place] [address] * Differential, auto (02/27/2025 4:12 AM CDT) Neutrophil abs 2.55 1.50 - 6.50 K/cumm Comment:Testing performed by : [address] [address] Imm gran abs 0.01 0.00 - 0.10 K/cumm [facility] Comment:Testing performed by : [address] [address] Lymphocyte abs 2.72 0.80 - 3.30 K/cumm [facility] Comment:Testing performed by : [address] [address] Monocyte abs 0.49 0.20 - 0.80 K/cumm [facility] Comment:Testing performed by : [address] [address] Eosinophil abs 0.09 0.00 - 0.50 K/cumm [facility] Comment:Testing performed by : [address] [address] Basophil abs 0.04 0.00 - 0.10 K/cumm [facility] Comment:Testing performed by : [address] [address] Neutrophil pct 43.2 % [facility] Comment: Interpretive Data Percent cell count reference ranges are not reported, since discordance with absolute values may lead to misinterpretation of CBC data. Current Interpretive Data was last revised on 2018. Testing performed by: [address] [address] Imm gran pct 0.2 % [facility] Comment: Interpretive Data Percent cell count reference ranges are not reported, since discordance with absolute values may lead to misinterpretation of CBC data. Current Interpretive Data was last revised on 2018. Testing performed by: [address] [address] Lymphocyte pct 46.1 % [facility] Comment: Interpretive Data Percent cell count reference ranges are not reported, since discordance with absolute values may lead to misinterpretation of CBC data. Current Interpretive Data was last revised on 2018. Testing performed by: [address] [address] Monocyte pct 8.3 % [facility] Comment: Interpretive Data Percent cell count reference ranges are not reported, since discordance with absolute values may lead to misinterpretation of CBC data. Current Interpretive Data was last revised on 2018. Testing performed by: [address] [address] Eosinophil pct 1.5 % [facility] Comment: Interpretive Data Percent cell count reference ranges are not reported, since discordance with absolute values may lead to misinterpretation of CBC data. Current Interpretive Data was last revised on 2018. Testing performed by: [address] [address] Basophil pct 0.7 % [facility] Comment: Interpretive Data Percent cell count reference ranges are not reported, since discordance with absolute values may lead to misinterpretation of CBC data. Current Interpretive Data was last revised on 2018. Testing performed by: [address] [address] Blood 02/27/2025 4:12 AM CDT 02/27/2025 5:36 AM CDT us Mau VERONICA LAB BLOOD ORDERABLES Final Re sult [facility] [address] [facility] [place] [address] * (ABNORMAL) Iron profile w/ IBC (02/27/2025 4:12 AM CDT) Pathologist [facility] Iron 45 35 - 145 mcg/dL Comment:Testing performed by : [address] [address] TIBC 309 250 - 400 mcg/dL [facility] Comment:Testing performed by : [address] [address] Transferrin saturation 15(L) 20 - 50 % [facility] Comment:Testing performed by : [address] [address] Blood 02/27/2025 4:12 AM CDT 02/27/2025 5:30 AM CDT us Ángel Woodson MD LAB BLOOD ORDERABLES Final Re sult Performing Organization Address City/[facility]/ZIP Co de Phone Number [facility] [address] [facility] Department [place] [address] * (ABNORMAL) CBC with auto differential (02/27/2025 4:12 AM CDT) Pathologist [facility] WBC 5.90 3.80 - 9.90 K/cumm Comment:Testing performed by : [address] [address] Hgb 8.9(L) 11.9 - 15.5 g/dL [facility] Comment:Testing performed by : [address] [address] Hct 29.0(L) 35.6 - 45.5 % [facility] Comment:Testing performed by : [address] [address] Plt 174 150 - 400 K/cumm [facility] RE[facility] Comment:Testing performed by : [address] [address] MPV 10.6 9.1 - 12.3 fL [facility] Comment:Testing performed by : [address] [address] RBC 3.59(L) 3.90 - 5.20 M/cumm [facility] Comment:Testing performed by : [address] [address] MCV 80.8(L) 81.3 - 96.4 fL [facility] Comment:Testing performed by : [address] [address] MCH 24.8(L) 27.1 - 33.3 pg [facility] Comment:Testing performed by : [address] [address] MCHC 30.7(L) 32.3 - 35.7 g/dL [facility] Comment:Testing performed by : [address] [address] RDW CV 21.0(H) 11.1 - 14.9 % [facility] Comment:Testing performed by : [address] [address] RDW SD 60.4(H) 35.7 - 48.1 fL [facility] Comment:Testing performed by : [address] [address] NRBC abs 0.00 0.00 - 0.01 K/cumm [facility] Comment:Testing performed by : [address] [address] Blood 02/27/2025 4:1 2 AM CDT 02/27/2025 5:36 AM CDT us Mau VERONICA LAB BLOOD ORDERABLES Final Re sult [facility] [address] [facility] [place] [address] * Phosphorus (02/27/2025 4:12 AM CDT) Pathologist [facility] Phosphorus, pl 3.2 2.3 - 4.5 mg/dL Comment:Testing performed by : [address] [address] Blood 02/27/2025 4:12 AM CDT 02/27/2025 5:30 AM CDT Ángel Woodson MD LAB BLOOD ORDERABLES Final Re sult [facility] [address] [place] [address] * Magnesium (02/27/2025 4:12 AM CDT) [facility] Magnesium 2.0 1.4 - 2.5 mg/dL Comment:Testing performed by : [address] [address] Blood 02/27/2025 4:12 AM CDT 02/27/2025 5:30 AM CDT Ángel Woodson MD LAB BLOOD ORDERABLES Final Re sult Performing Organization Address City/[facility]/ZIP Co de Phone Number [address] [address] [place] [address] * Folate (02/27/2025 4:12 AM CDT) [facility] Folic acid 16.5 >=5.0 ng/mL Comment:Testing performed by : [address] [address] Blood 02/27/2025 4:12 AM CDT 02/27/2025 5:30 AM CDT Ángel Woodson MD LAB BLOOD ORDERABLES Final Re sult [address] [place] [address] * (ABNORMAL) Basic metabolic panel (02/27/2025 4:12 AM CDT) [facility] Sodium 144 135 - 145 mmol/L Comment:Testing performed by : [address] [address] Potassium, pl 4.6 3.3 - 4.9 mmol/L [facility] Comment: Hemolyzed; Potassium value may be falsely elevated by as much as 1.0 mmol/L. Suggest redraw and reanalysis. Testing performed by: [address], [place]., [address] Chloride 108 97 - 110 mmol/L [facility] Comment:Testing performed by : [address], [place]., [address] CO2 23 22 - 32 mmol/L [facility] Comment:Testing performed by : [address], [place]., [address] Anion gap 13 2 - 15 mmol/L [facility] Comment:Testing performed by : [address] [address] BUN 30(H) 6 - 25 mg/dL [facility] Comment:Testing performed by : [address], [place]., [address] Creatinine 1.00 0.60 - 1.10 mg/dL [facility] Comment:Testing performed by : [address] [address] Glucose 111 70 - 199 mg/dL BLANCA [...] was last revised 2022. Testing performed by: [address], [place]., [address] Calcium 9.0 8.5 - 10.3 mg/dL [facility] Comment:Testing performed by : [address] [address] Blood 02/27/2025 4:12 AM CDT 02/27/2025 5:30 AM CDT Ángel Woodson MD LAB BLOOD ORDERABLES Final Re sult Performing Organization Address [facility] Co de Phone Number [address] [place] [address] * POCT glucose (02/27/2025 4:11 AM CDT) Glucose, POC 114 70 - 199 mg/dL Comment:Testing performed by : [address] [address] Blood 02/27/2025 4:11 AM CDT 02/27/2025 4:11 AM CDT Carmen Nayak MD LAB POCT ORDERABLES - DEVICE F inal Result Performing Organization Address [facility] de Phone Number [address] [address] * POCT glucose (02/27/2025 1:32 AM CDT) Glucose, POC 109 70 - 199 mg/dL Comment:Testing performed by : [address] [address] Blood 02/27/2025 1:32 AM CDT 02/27/2025 1:32 AM CDT Carmen Nayak MD LAB POCT ORDERABLES - DEVICE F inal Result Performing Organization Address [facility] Co de Phone Number [address] [address] * POCT glucose (02/26/2025 8:48 PM CDT) Glucose, POC 118 70 - 199 mg/dL Comment:Testing performed by : [address] [address] Blood 02/26/2025 8:48 PM CDT 02/26/2025 8:48 PM CDT Carmen Nayak MD LAB POCT ORDERABLES - DEVICE F inal Result Performing Organization Address [facility] [place] [address] * POCT glucose (02/26/2025 5:53 PM CDT) [facility] Glucose, POC 134 70 - 199 mg/dL Comment:Testing performed by : [facility], [address] [place] [address], [address] Blood 02/26/2025 5:53 PM CDT 02/26/2025 5:53 PM CDT Carmen Nayak MD LAB POCT ORDERABLES - DEVICE F inal Result Performing Organization Address [facility] de Phone Number [address] [address] * TRANSTHORACIC ECHO (TTE) COMPLETE W DOPPLER/CF W CONTRAST (02/26/2025 1:08 PM CDT) [facility] LV EF 60-65 % CONS SCIMAGE Anatomical Region Laterality Modality Ultrasound 02/26/2025 12:2 7 PM CDT Narrative 02/26/2025 1:41 PM CDT Transthoracic Echocardiographic Report Patient Name: BERNADINE SIMMS A : 1960 (65y ) Gender: F Study Date: 02/26/2025 12:27:08 PM Ht(Inch): 59 Wt(Lb): 235.01 BSA: 2.11 Roving Frame Tender: Olivia Patterson RDCS Location: [address] Provider: MAU YOUNG Heart Rate: 74 BMI: 47.46 BP: 118/54 Ref Provider: YOUNG,LORI PROCEDURES: Echocardiographic Report: ([id number]) Transthoracic complete echo with contrast, 2D, spectral [...] of any testing performed. Electronically Signed By: Benyj Neves MD 02/26/2025 1:41:03 PM CDT Procedure Note Benjy Neves MD - 02/26/2025 Transthoracic Echocardiographic Report Patient Name: BERNADINE SIMMS A : 1960 (65y ) Gender: F Study Date: 02/26/2025 12:27:08 PM Ht(Inch): 59 Wt(Lb): 235.01 BSA: 2.11 Roving Frame Tender: Olivia Patterson RDCS Location: [id number] Order Provider:MAU YOUNG Heart Rate: 74 BMI: 47.46 BP: 118/54 Ref Provider: MAU YOUNG PROCEDURES: Echocardiographic Report: ([id number]) Transthoracic complete echo withcontrast, 2D, spectral and [...] * POCT glucose (02/26/2025 1:05 PM CDT) [facility] Signature Glucose, POC 147 70 - 199 mg/dL Comment:Testing performed by : [facility], [address] [place] [address], [place]., [address] Blood 02/26/2025 1:05 PM CDT 02/26/2025 1:05 PM CDT us Carmen Nayak MD LAB POCT ORDERABLES - DEVICE F inal Result [facility] MH [address] [facility] [place] [address] * CT Abdomen Pelvis WO Contrast (02/26/2025 [...] Miguel Price M.D. KR: RAMAN Report ID: [id number] Reading Location: [place] [address] Procedure Note Miguel Price MD - 02/26/2025 [...] Miguel Price M.D. KR: KR Report ID: [id number] Reading Location: [id number] Carmen Nayak MD IMG CT PROCEDURES Final Result * Critical Care (02/26/2025 7:43 AM CDT) Narrative eLs Vásquez MD - 02/26/2025 7:43 AM CDT [...] plan with the ICU team and other medical/regional sales consultant staff, making frequent assessments and decisions [...] - 14.6 sec Comment:Testing performed by : [facility], [address] [place] [address]., [address] INR 1.1 0.9 - 1.2 RIRICHRISTIAN Comment: Ref Range High Interpretive data Oral anticoagulant therapeutic ranges: Venous thromboembolism prophylaxis or treatment: 2.0-3.0 CARDIOLOGY Standard range: 2.0-3.0 High-intensity range: 2.5-3.5 Refer to indication-specific guidelines for appropriate target ranges for prosthetic heart valve replacement. Current interpretive data was last revised on 2019. Testing performed by: [address] [address] Blood 02/26/2025 6:12 AM CDT 02/26/2025 6:23 AM CDT us Mau VERONICA LAB BLOOD ORDERABLES Final Re sult [facility] [address] [facility] [place] [address] * (ABNORMAL) eGFR (02/26/2025 3:54 [...] last reviewed 2021. Testing performed by: [address] [address] Blood 02/26/2025 3:54 AM CDT 02/26/2025 4:56 AM CDT us Mau VERONICA LAB BLOOD ORDERABLES Final Re sult [facility] [address] [facility] [place] [address] * Differential, auto (02/26/2025 3:54 AM CDT) Neutrophil abs 3.08 1.50 - 6.50 K/cumm Comment:Testing performed by : [address] [address] Imm gran abs 0.01 0.00 - 0.10 K/cumm BLANCA Comment:Testing performed by : [address] [address] Lymphocyte abs 2.89 0.80 - 3.30 K/cumm BL[facility]CA Comment:Testing performed by : [address] [address] Monocyte abs 0.45 0.20 - 0.80 K/cumm [facility] Comment:Testing performed by : [address] [address] Eosinophil abs 0.08 0.00 - 0.50 K/cumm [facility] Comment:Testing performed by : [address] [address] Basophil abs 0.03 0.00 - 0.10 K/cumm [facility] Comment:Testing performed by : [address] [address] Neutrophil pct 47.0 % [facility] Comment: Interpretive Data Percent cell count reference ranges are not reported, since discordance with absolute values may lead to misinterpretation of CBC data. Current Interpretive Data was last revised on 2018. Testing performed by: [address] [place] [address] Imm gran pct 0.2 % [facility] Comment: Interpretive Data Percent cell count reference ranges are not reported, since discordance with absolute values may lead to misinterpretation of CBC data. Current Interpretive Data was last revised on 2018. Testing performed by: [address] [address] Lymphocyte pct 44.2 % [facility] Comment: Interpretive Data Percent cell count reference ranges are not reported, since discordance with absolute values may lead to misinterpretation of CBC data. Current Interpretive Data was last revised on 2018. Testing performed by: [address] [address] Monocyte pct 6.9 % [facility] Comment: Interpretive Data Percent cell count reference ranges are not reported, since discordance with absolute values may lead to misinterpretation of CBC data. Current Interpretive Data was last revised on 2018. Testing performed by: [address] [address] Eosinophil pct 1.2 % [facility] Comment: Interpretive Data Percent cell count reference ranges are not reported, since discordance with absolute values may lead to misinterpretation of CBC data. Current Interpretive Data was last revised on 2018. Testing performed by: [address] [address] Basophil pct 0.5 % [facility] Comment: Interpretive Data Percent cell count reference ranges are not reported, since discordance with absolute values may lead to misinterpretation of CBC data. Current Interpretive Data was last revised on 2018. Testing performed by: [address] [address] Blood 02/26/2025 3:54 AM CDT 02/26/2025 5:04 AM CDT us Mau VERONICA LAB BLOOD ORDERABLES Final Re sult [facility] [address] [facility] Department of Laboratories [place], [place] [id number] * (ABNORMAL) CBC with auto differential (02/26/2025 3:54 AM CDT) [facility] WBC 6.54 3.80 - 9.90 K/cumm Comment:Testing performed by : [address] [address] Hgb 9.1(L) 11.9 - 15.5 g/dL [facility] Comment:Testing performed by : [address] [address] Hct 29.0(L) 35.6 - 45.5 % [facility] Comment:Testing performed by : [address] [address] Plt 190 150 - 400 K/cumm [facility] Comment:Testing performed by : [address], [address] MPV 10.7 9.1 - 12.3 fL [facility] Comment:Testing performed by : [address], [address] RBC 3.66(L) 3.90 - 5.20 M/cumm [facility] Comment:Testing performed by : [address], [address] MCV 79.2(L) 81.3 - 96.4 fL [facility] Comment:Testing performed by : [address] [address] MCH 24.9(L) 27.1 - 33.3 pg [facility] Comment:Testing performed by : [address], [address] MCHC 31.4(L) 32.3 - 35.7 g/dL [facility] Comment:Testing performed by : [address], [address] RDW CV 21.1(H) 11.1 - 14.9 % [facility] Comment:Testing performed by : [address], [address] RDW SD 59.1(H) 35.7 - 48.1 fL [facility] Comment:Testing performed by : [address], [address] NRBC abs 0.00 0.00 - 0.01 K/cumm [facility] Comment:Testing performed by : [address] [address] Blood 02/26/2025 3:54 AM CDT 02/26/2025 5:04 AM CDT Mau VERONICA LAB BLOOD ORDERABLES Final Re sult Performing Organization Address [facility] Co de Phone Number [address] [place] [place] [address] * Protime-INR (02/26/2025 3:54 AM CDT) PT 14.1 12.0 - 14.6 sec Comment:Testing performed by : [address] [address] INR 1.1 0.9 - 1.2 [facility] Comment: Ref Range High Interpretive data Oral anticoagulant therapeutic ranges: Venous thromboembolism prophylaxis or treatment: 2.0-3.0 CARDIOLOGY Standard range: 2.0-3.0 High-intensity range: 2.5-3.5 Refer to indication-specific guidelines for appropriate target ranges for prosthetic heart valve replacement. Current interpretive data was last revised on 2019. Testing performed by: [address] [address] Blood 02/26/2025 3:54 AM CDT 02/26/2025 4:56 AM CDT Mau VERONICA LAB BLOOD ORDERABLES Final Re sult Performing Organization Address [facility] Co de Phone Number [address] [place] [address] * (ABNORMAL) Comprehensive metabolic panel (02/26/2025 3:54 AM CDT) Sodium 138 135 - 145 mmol/L Comment:Testing performed by : [address] [address] Potassium, pl 4.8 3.3 - 4.9 mmol/L [facility] Comment:Testing performed by : [address] [address] Chloride 105 97 - 110 mmol/L [facility] Comment:Testing performed by : [address] [address] CO2 20(L) 22 - 32 mmol/L [facility] Comment:Testing performed by : [address] [address] Anion gap 13 2 - 15 mmol/L [facility] Comment:Testing performed by : [address], [place]., [address] BUN 67(H) 6 - 25 mg/dL [facility] Comment:Testing performed by : [address] [address] Creatinine 1.47(H) 0.60 - 1.10 mg/dL [facility] Comment:Testing performed by : [address] [address] Glucose 127 70 - 199 mg/dL [facility] Comment: Interpretive Data Fasting glucose >/= [...] last revised 2022. Testing performed by: [address] [address] Calcium 9.6 8.5 - 10.3 mg/dL [facility] Comment:Testing performed by : [address] [address] Bilirubin, total 0.2 0.1 - 1.2 mg/dL [facility] Comment:Testing performed by : [address] [address] Protein, pl 6.9 6.5 - 8.5 g/dL [facility] REESE Comment:Testing performed by : [address] [address] Albumin 3.9 3.5 - 5.0 g/dL [facility] REESE Comment:Testing performed by : [address] [address] Alk phos 117 40 - 130 Units/L [facility] REESE Comment:Testing performed by : [address] [address] ALT 13 7 - 45 Units/L [place] REESE Comment:Testing performed by : [address], [place]., [address] AST 19 10 - 45 Units/L [facility] Comment:Testing performed by : [address] [address] Blood 02/26/2025 3:54 AM CDT 02/26/2025 4:56 AM CDT Mau VERONICA LAB BLOOD ORDERABLES Final Re sult [facility] [address] [facility] [place] [address] * (ABNORMAL) POC Blood Gas and Chemistries, Venous - (02/26/2025 3:20 AM CDT) pH,solange POC 7.37 7.32 - 7.43 Comment:Testing performed by : [address] [address] pCO2, solange POC 38(L) 40 - 50 mmHg [facility] REESE Comment:Testing performed by : [address] [address] pO2,solange POC 32 mmHg [facility] Comment: Interpretive Data No reference range established. Current interpretive data was last revised 2020. Testing performed by: [address] [address] HCO3, solange (Calc) POC 22 20 - 30 mmol/L BLACNA Comment:Testing performed by : [address] [address] Base excess, soalnge POC -3 mmol/L [facility] REESE Comment: Interpretive Data No reference range established. Current interpretive data was last revised 2020. Testing performed by: [facility], [address] [place] [address]., [address] Blood 02/26/2025 3:20 AM CDT 02/26/2025 3:20 AM CDT Carmen Nayak MD LAB POCT ORDERABLES - DEVICE F inal Result Performing Organization Address [facility] de Phone Number BL[facility] [address] [place] [address] * Troponin T high-sensitivity (02/26/2025 3:14 AM CDT) Trop T hs 13 <=14 ng/L Comment: Interpretive Data For further hscTnT resources including the diagnostic algorithm and an aid in interpretation, copy and paste this link: https://nrl.testcatalog.org/show/hsTrop Current Interpretive Data last revised 2020. Testing performed by: [facility], [address] [place] [address]., [address] Blood 02/26/2025 3:14 AM CDT 02/26/2025 3:42 AM CDT Mau VERONICA LAB BLOOD ORDERABLES Final Re sult Performing Organization Address [facility] de Phone Number [address] [place] [address] * (ABNORMAL) eGFR (02/26/2025 3:14 AM CDT) [...] last reviewed 2021. Testing performed by: [address] [address] Blood 02/26/2025 3:14 AM CDT 02/26/2025 3:42 AM CDT us Mau VERONICA LAB BLOOD ORDERABLES Final Re sult Performing Organization Address City/[facility]/ZIP Co de Phone Number [address] [place] [address] * POCT glucose (02/26/2025 3:14 AM CDT) Glucose, POC 142 70 - 199 mg/dL Comment:Testing performed by : [address] [address] Blood 02/26/2025 3:14 AM CDT 02/26/2025 3:14 AM CDT Carmen Nayak MD LAB POCT ORDERABLES - DEVICE F inal Result [address] [place] [address] * Phosphorus (02/26/2025 3:14 AM CDT) Phosphorus, pl 4.4 2.3 - 4.5 mg/dL Comment:Testing performed by : [address] [address] Blood 02/26/2025 3:14 AM CDT 02/26/2025 3:42 AM CDT Mau VERONICA LAB BLOOD ORDERABLES Final Re sult Performing Organization Address [facility] Co de Phone Number [facility]AN[facility] [address] [address] * Magnesium (02/26/2025 3:14 AM CDT) Pathologist [facility] Magnesium 2.2 1.4 - 2.5 mg/dL Comment:Testing performed by : [address] [address] Blood 02/26/2025 3:14 AM CDT 02/26/2025 3:42 AM CDT Mau VERONICA LAB BLOOD ORDERABLES Final Re sult Performing Organization Address [facility] de Phone Number [facility] [address] [address] * (ABNORMAL) Basic metabolic panel (02/26/2025 3:14 AM CDT) Pathologist [facility] Sodium 138 135 - 145 mmol/L Comment:Testing performed by : [address] [address] Potassium, pl 5.0(H) 3.3 - 4.9 mmol/L [facility] Comment:Testing performed by : [address] [address] Chloride 104 97 - 110 mmol/L [facility] Comment:Testing performed by : [address] [address] CO2 21(L) 22 - 32 mmol/L [facility] Comment:Testing performed by : [address] [address] Anion gap 13 2 - 15 mmol/L [facility] Comment:Testing performed by : [address] [address] BUN 68(H) 6 - 25 mg/dL [facility] Comment:Testing performed by : [address] [address] Creatinine 1.63(H) 0.60 - 1.10 mg/dL [facility] Comment:Testing performed by : [address] [address] Glucose 130 70 - 199 mg/dL BLANCA [...] last revised 2022. Testing performed by: [address] [address] Calcium 9.4 8.5 - 10.3 mg/dL [facility] Comment:Testing performed by : [address] [address] Blood 02/26/2025 3:14 AM CDT 02/26/2025 3:42 AM CDT us Mau VERONICA LAB BLOOD ORDERABLES Final Re sult Performing Organization Address [facility] Co de Phone Number [facility] [address] [facility] [place] [address] * POCT glucose (02/26/2025 12:20 AM CDT) Glucose, POC 141 70 - 199 mg/dL Comment:Testing performed by : [address] [address] Blood 02/26/2025 12:2 0 AM CDT 02/26/2025 12:20 AM CDT Carmen Nayak MD LAB POCT ORDERABLES - DEVICE F inal Result Performing Organization Address City/[facility]/ZIP Co de Phone Number [facility] [address] [facility] [place] [address] * Protime-INR (02/26/2025 12:20 AM CDT) Pathologist [facility] PT 13.8 12.0 - 14.6 sec Comment:Testing performed by : [address] [address] INR 1.1 0.9 - 1.2 [facility] Comment: Ref Range High Interpretive data Oral anticoagulant therapeutic ranges: Venous thromboembolism prophylaxis or treatment: 2.0-3.0 CARDIOLOGY Standard range: 2.0-3.0 High-intensity range: 2.5-3.5 Refer to indication-specific guidelines for appropriate target ranges for prosthetic heart valve replacement. Current interpretive data was last revised on 2019. Testing performed by: [address] [address] Blood 02/26/2025 12:2 0 AM CDT 02/26/2025 12:25 AM CDT us Mau VERONICA LAB BLOOD ORDERABLES Final Re sult [facility] [place] [address] * (ABNORMAL) POC Blood Gas and Chemistries, Venous - (02/25/2025 9:11 PM CDT) Pathologist [facility] pH,solange POC 7.31(L) 7.32 - 7.43 Comment:Testing performed by : [address] [address] pCO2, solange POC 35(L) 40 - 50 mmHg [facility] Comment:Testing performed by : [address] [address] pO2,solange POC 40 mmHg [facility] Comment: Interpretive Data No reference range established. Current interpretive data was last revised 2020. Testing performed by: [address] [address] HCO3, solange (Calc) POC 18(L) 20 - 30 mmol/L [facility] REESE Comment:Testing performed by : [facility], [address] [place] [address]., [address] Base excess, solange POC -8 mmol/L [facility] REESE Comment: Interpretive Data No reference range established. Current interpretive data was last revised 2020. Testing performed by: [address] [address] Blood 02/25/2025 9:11 PM CDT 02/25/2025 9:11 PM CDT us Carmen Nayak MD LAB POCT ORDERABLES - DEVICE F inal Result Performing Organization Address City/[facility]/ZIP Co de Phone Number [address] [place] [address] * POCT glucose (02/25/2025 9:01 PM CDT) Glucose, POC 149 70 - 199 mg/dL Comment:Testing performed by : [address] [address] Blood 02/25/2025 9:01 PM CDT 02/25/2025 9:01 PM CDT us Carmen Nayak MD LAB POCT ORDERABLES - DEVICE F inal Result Performing Organization Address [facility] Co de Phone Number [address] [address] * Troponin T high-sensitivity (02/25/2025 8:54 PM CDT) Trop T hs 12 <=14 ng/L Comment: Interpretive Data For further hscTnT resources including the diagnostic algorithm and an aid in interpretation, copy and paste this link: https://nrl.testcatalog.org/show/hsTrop Current Interpretive Data last revised 2020. Testing performed by: [address] [address] Blood 02/25/2025 8:54 PM CDT 02/25/2025 9:01 PM CDT us Carmen Nayak MD LAB BLOOD ORDERABLES Final Res ult Performing Organization Address [facility] Co de Phone Number [facility] [address] [place] [address] * (ABNORMAL) eGFR (02/25/2025 8:54 PM CDT) [...] last reviewed 2021. Testing performed by: [address] [address] Blood 02/25/2025 8:54 PM CDT 02/25/2025 9:01 PM CDT us Mau VERONICA LAB BLOOD ORDERABLES Final Re sult Performing Organization Address City/[facility]/ZIP Co de Phone Number LB[facility] [address] [place] [address] * Protime-INR (02/25/2025 8:54 PM CDT) PT 13.9 12.0 - 14.6 sec Comment:Testing performed by : [address] [address] INR 1.1 0.9 - 1.2 [facility] Comment: Ref Range High Interpretive data Oral anticoagulant therapeutic ranges: Venous thromboembolism prophylaxis or treatment: 2.0-3.0 CARDIOLOGY Standard range: 2.0-3.0 High-intensity range: 2.5-3.5 Refer to indication-specific guidelines for appropriate target ranges for prosthetic heart valve replacement. Current interpretive data was last revised on 2019. Testing performed by: [address] [address] Blood 02/25/2025 8:54 PM CDT 02/25/2025 9:01 PM CDT us Mau VERONICA LAB BLOOD ORDERABLES Final Re sult Performing Organization Address [facility] Co de Phone Number [place] [address] [facility] [place] [address] * (ABNORMAL) Vitamin B12 (02/25/2025 8:54 PM CDT) Vitamin B12 1,778(H) 230 - 1,250 pg/mL Comment:Testing performed by : [address] [address] Blood 02/25/2025 8:54 PM CDT 02/25/2025 9:01 PM CDT Carmen Nayak MD LAB BLOOD ORDERABLES Final Res ult Performing Organization Address [facility]/ZIP Co de Phone Number [facility] [address] [facility] [place] [address] * Ammonia (02/25/2025 8:54 PM CDT) Ammonia 14 <=50 mcmol/L Comment: Please note on 03/21/2024 the unit of measure changed from mcg/dL to mcmol/L. Current Interpretive Data was last revised on 2024 Testing performed by: [address] [address] Blood 02/25/2025 8:54 PM CDT 02/25/2025 8:59 PM CDT us Carmen Nayak MD LAB BLOOD ORDERABLES Final Res ult [facility]ST[facility] [address] [facility] [place] [address] * (ABNORMAL) Basic metabolic panel (02/25/2025 8:54 PM CDT) Sodium 137 135 - 145 mmol/L Comment:Testing performed by : [address] [address] Potassium, pl 5.0(H) 3.3 - 4.9 mmol/L [facility] Comment:Testing performed by : [address] [address] Chloride 106 97 - 110 mmol/L [facility] Comment:Testing performed by : [address] [address] CO2 17(L) 22 - 32 mmol/L [facility] Comment:Testing performed by : [address] [address] Anion gap 14 2 - 15 mmol/L [facility] Comment:Testing performed by : [address] [address] BUN 75(H) 6 - 25 mg/dL BLANCA Comment:Testing performed by : [address] [address] Creatinine 1.99(H) 0.60 - 1.10 mg/dL BLANCA Comment:Testing performed by : [address] [address] Glucose 135 70 - 199 mg/dL BLANCA [...] was last revised 2022. Testing performed by: [facility], [address] [place] [address]., [address] Calcium 9.9 8.5 - 10.3 mg/dL BLANCA REESE Comment:Testing performed by : [address] [address] Blood 02/25/2025 8:54 PM CDT 02/25/2025 9:01 PM CDT us Mau VERONICA LAB BLOOD ORDERABLES Final Re sult BLANCA REESE [address] [facility] [place] [address] * (ABNORMAL) Drugs of Abuse Screen, Urine [...] last reviewed 2023. Testing performed by: [address] [address] Barbiturates, ur Not Detected CutOff 200ng/mL BLANCA REESE Comment: Interpretive Data - Barbiturates: Samples containing greater than 200 ng/mL secobarbital or other cross-reacting barbiturate compounds are reported as positive. False positive and false negative results are possible. Confirmatory testing required for definitive results. Current Interpretive Data was last reviewed 2023. Testing performed by: [address] [address] Benzodiazepines, ur Not Detected CutOff 100ng/mL BLANCA REESE Comment: Interpretive Data - Benzodiazepines: Samples containing greater than 100 ng/mL nordiazepam or other cross-reacting compounds are reported as positive. False positive and false negative results are possible. Confirmatory testing required for definitive results. Current Interpretive Data was last reviewed 2023. Testing performed by: [facility], [address] [place] [address]., [address] Cannabinoids, ur Not Detected CutOff 50 ng/mL [facility] Comment: Interpretive Data - Cannabinoids: Samples containing greater than 50 ng/mL delta-9 THC -COOH or other cross- reacting compounds are reported as positive. False positive and false negative results are possible. Confirmatory testing required for definitive results. Current Interpretive Data was last reviewed 2023. Testing performed by: [address] [address] Cocaine, ur Not Detected CutOff 150ng/mL [facility] Comment: Interpretive Data - Cocaine: Samples containing greater than 150 ng/mL benzoylecgonine or other cross- reacting compounds are reported as positive. False positive and false negative results are possible. Confirmatory testing required for definitive results. Current Interpretive Data was last reviewed 2023. Testing performed by: [address] [address] Fentanyl, Ur Not Detected CutOff 5 ng/mL [facility] Comment: Interpretive Data - Fentanyl: Samples containing greater than 1 ng/mL fentanyl or other cross-reacting fentanyl compounds are reported as positive. False positive and false negative results are possible. Confirmatory testing required for definitive results. Current Interpretive Data was last reviewed 2023. Testing performed by: [address] [address] Methadone, ur Not Detected CutOff 300ng/mL [facility] Comment: Interpretive Data - Methadone: Samples containing greater than 300 ng/mL d,l-methadone or other cross-reacting compounds are reported as positive. False positive and false negative results are possible. Confirmatory testing required for definitive results. Current Interpretive Data was last reviewed 2023. Testing performed by: [address], [place]., [address] Opiates, ur Screen Positive, presumptive (A) CutOff 300ng/mL [facility] Comment: Interpretive Data - Opiates: Samples containing greater than 300 ng/mL morphine or other cross-reacting compounds are reported as positive. False positive and false negative results are possible. Confirmatory testing required for definitive results. Current Interpretive Data was last reviewed 2023. Testing performed by: [address] [address] Oxycodone, ur Not Detected CutOff 100ng/mL [facility] Comment: Interpretive Data - Oxycodone: Samples containing greater than 100 ng/mL oxycodone or other cross-reacting compounds are reported as positive. False positive and false negative results are possible. Confirmatory testing required for definitive results. Current Interpretive Data was last reviewed 2023. Testing performed by: [address] [address] Phencyclidine, ur Not Detected CutOff 25 ng/mL [facility] Comment: Interpretive Data - Phencyclidine: Samples containing greater than 25 ng/mL phencyclidine or other cross-reacting compounds are reported as positive. False positive and false negative results are possible. Confirmatory testing required for definitive results. Current Interpretive Data was last reviewed 2023. Testing performed by: [facility], [address] [place] [address]., [address] Urine Creatinine 26 mg/dL BLANCA Comment: Interpretive Data Urine Creatinine: < 10 mg/dL is extremely dilute = or > 10 but < 20 mg/dL is dilute = or > 20 mg/dL is normal Current Interpretive Data was last revised on 2018. Testing performed by: [address] [address] Urine 02/25/2025 7:41 PM CDT 02/25/2025 8:00 [...] URINE ORDERABLES Final Res ult BLANCA REESE [address] [facility] [place] [address] * Opiates Confirmation, Urine (02/25/2025 7:41 PM CDT) Codeine Conf, Ur Does Not Confirm CutOff 50 ng/mL Comment:Testing performed by : [facility], [address] [place]., [address] 6- Acetylmorphine Conf, Ur Does Not Confirm CutOff 10 ng/mL BLANCA REESE Comment:Testing performed by : [facility], [address] [place]., [address] Hydrocodone Conf, Ur Does Not Confirm CutOff 50 ng/mL BLANCA Comment:Testing performed by : [facility], [address] [place]., [address] Morphine Conf, Ur Does Not Confirm CutOff 50 ng/mL BLANCA Comment:Testing performed by : [facility], [address] [place]., [address] Hydromorphone Conf, Ur Does Not Confirm CutOff [...] needed. Performance characteristics were determined by the [facility] in a manner consistent with CLIA requirement and has not been cleared or approved by the U.S. Food and Drug Administration. Current interpretive data was last revised 2021. Testing performed by: [facility], [address] [place]., [address] Urine 02/25/2025 7:41 PM CDT 02/26/2025 3:01 AM CDT us Carmen Nayak MD LAB URINE ORDERABLES Final Res ult BLANCA REESE [address] [facility] [place] [address] * Troponin T high-sensitivity (02/25/2025 5:17 PM CDT) Trop T hs 13 <=14 ng/L Comment: Interpretive Data For further hscTnT resources including the diagnostic algorithm and an aid in interpretation, copy and paste this link: https://nrl.testcatalog.org/show/hsTrop Current Interpretive Data last revised 2020. Testing performed by: [address] [address] Blood 02/25/2025 5:17 PM CDT 02/25/2025 5:22 PM CDT us Carmen Nayak MD LAB BLOOD ORDERABLES Final Res ult BLANCA [address] [facility] Department [place] [address] * (ABNORMAL) eGFR (02/25/2025 5:17 PM CDT) [...] last reviewed 2021. Testing performed by: [address] [address] Blood 02/25/2025 5:17 PM CDT 02/25/2025 5:22 PM CDT us Carmen Nayak MD LAB BLOOD ORDERABLES Final Res ult BLANCA MH [address] [facility] [place] [address] * Pro B-type natriuretic peptide (02/25/2025 5:17 [...] Last Revised Date: 2018. Testing performed by: [facility], [address] [place] [address]., [address] Blood 02/25/2025 5:17 PM CDT 02/25/2025 5:22 PM CDT us Carmen Nayak MD LAB BLOOD ORDERABLES Final Res ult Performing Organization Address City/[facility] Co de Phone Number BLANCA [address] [address] * Magnesium (02/25/2025 5:17 PM CDT) Magnesium 2.5 1.4 - 2.5 mg/dL Comment:Testing performed by : [address] [address] Blood 02/25/2025 5:17 PM CDT 02/25/2025 5:22 PM CDT us Carmen Nayak MD LAB BLOOD ORDERABLES Final Res ult Performing Organization Address [facility] de Phone Number BLANCA [address] [address] * (ABNORMAL) Renal function panel (02/25/2025 5:17 PM CDT) Sodium 136 135 - 145 mmol/L Comment:Testing performed by : [address] [address] Potassium, pl 5.3(H) 3.3 - 4.9 mmol/L BLANCA Comment:Testing performed by : [address] [address] Chloride 105 97 - 110 mmol/L [facility]CA Comment:Testing performed by : [address] [address] CO2 13(L) 22 - 32 mmol/L BLANCA Comment:Testing performed by : [address] [address] Anion gap 18(H) 2 - 15 mmol/L [facility]CA Comment:Testing performed by : [address] [address] BUN 85(H) 6 - 25 mg/dL [facility]CA Comment:Testing performed by : [address] [address] Creatinine 2.69(H) 0.60 - 1.10 mg/dL [facility]CA Comment:Testing performed by : [address] [address] Glucose 203(H) 70 - 199 mg/dL BLANCA [...] last revised 2022. Testing performed by: [address] [address] Calcium 10.6(H) 8.5 - 10.3 mg/dL BL[facility]CA Comment:Testing performed by : [address] [address] Phosphorus, pl 4.9(H) 2.3 - 4.5 mg/dL [facility]CA Comment:Testing performed by : [address] [address] Albumin 4.5 3.5 - 5.0 g/dL [facility] Comment:Testing performed by : [address] [address] Blood 02/25/2025 5:17 PM CDT 02/25/2025 5:22 PM CDT us Carmen Nayak MD LAB BLOOD ORDERABLES Final Res ult BLANCA MARY ANN [address] [facility] Department of Laboratories [place], [place] [id number] * Critical Care (02/25/2025 5:07 PM CDT) [...] plan with the ICU team and other medical/regional sales consultant staff, making frequent assessments and decisions [...] Chemistries, Venous - (02/25/2025 2:56 PM CDT) [facility] pH,solange POC 7.22(C) 7.32 - 7.43 Comment:Testing performed by : [address] [address] pCO2, solange POC 34(L) 40 - 50 mmHg BLANCA REESE Comment:Testing performed by : [address] [address] pO2,solange POC 38 mmHg BLANCA Comment: Interpretive Data No reference range established. Current interpretive data was last revised 2020. Testing performed by: [address] [address] HCO3, solange (Calc) POC 14(L) 20 - 30 mmol/L BLANCA Comment:Testing performed by : [address] [address] Base excess, solange POC -13 mmol/L [facility]CA Comment: Interpretive Data No reference range established. Current interpretive data was last revised 2020. Testing performed by: [address] [address] Blood 02/25/2025 2:56 PM CDT 02/25/2025 2:56 PM CDT Carmen Nayak MD LAB POCT ORDERABLES - DEVICE F inal Result Performing Organization Address [facility] Co de Phone Number [address] [employer] [place] [address] * (ABNORMAL) POCT glucose (02/25/2025 2:47 PM CDT) [facility] Glucose, POC 237(H) 70 - 199 mg/dL Comment:Testing performed by : [address] [address] Glucose comment 1 RN/MD Notified BLANCA Comment:Testing performed by : [address] [address] Blood 02/25/2025 2:47 PM CDT 02/25/2025 2:47 PM CDT Carmen Nayak MD LAB POCT ORDERABLES - DEVICE F inal Result Performing Organization Address City/[facility]/ZIP Co de Phone Number [address] [place] [employer] [place] [address] * (ABNORMAL) Beta-hydroxybutyrate (02/25/2025 2:30 PM CDT) Pathologist [facility] Beta-Hydroxybut yrate 0.9(H) <=0.5 mmol/L Blood 02/25/2025 2:30 PM CDT 02/25/2025 4:57 PM CDT Ángel Woodson MD LAB BLOOD ORDERABLES Final Re sult Performing Organization Address City/[facility]/ZIP Co de Phone Number BLANCA [address] [facility] [place] [address] * Troponin T high-sensitivity 2-hour (02/25/2025 2:27 PM CDT) [facility] Trop T hs 12 <=14 ng/L Comment: Interpretive Data For further hscTnT resources including the diagnostic algorithm and an aid in interpretation, copy and paste this link: https://nrl.testcatalog.org/show/hsTrop Current Interpretive Data last revised 2020. Testing performed by: [address] [address] Trop T hs delta -4 ng/L BLANCA Comment:Testing performed by : [address] [address] Trop T hs interp Insignificant BLANCA Comment:Testing performed by : [address] [address] Blood 02/25/2025 2:27 PM CDT 02/25/2025 2:32 PM CDT Layton Macario DO LAB BLOOD ORDERABLES Final Result Performing Organization Address City/[facility]/ZIP Co de Phone Number [facility] [address] [facility] [place] [address] * Lactate (02/25/2025 2:27 PM CDT) [facility] Lactate 1.8 0.7 - 2.0 mmol/L Comment:Testing performed by : [address] [address] Blood 02/25/2025 2:27 PM CDT 02/25/2025 2:32 PM CDT us Ángel Woodson MD LAB BLOOD ORDERABLES Final Re sult Performing Organization Address [facility] Co de Phone Number BLANCA [address] [address] * (ABNORMAL) eGFR (02/25/2025 2:27 PM CDT) [...] was last reviewed 2021. Testing performed by: [facility], [address] [place] [address]., [address] Blood 02/25/2025 2:27 PM CDT 02/25/2025 2:32 PM CDT us Mau VERONICA LAB BLOOD ORDERABLES Final Re sult Performing Organization Address [facility] Co de Phone Number BLANCA [address] [place] [address] * (ABNORMAL) Phosphorus (02/25/2025 2:27 PM CDT) Phosphorus, pl 4.8(H) 2.3 - 4.5 mg/dL Comment:Testing performed by : [address] [address] Blood 02/25/2025 2:27 PM CDT 02/25/2025 2:32 PM CDT Result [facility] Carmen Nayak MD LAB BLOOD ORDERABLES Final Res ult Performing Organization Address [facility] Co de Phone Number [address] [place] [address] * Creatine kinase (CK), total (02/25/2025 2:27 PM CDT) Pathologist [facility] CK 50 30 - 200 Units/L Comment:Testing performed by : [address] [address] Blood 02/25/2025 2:27 PM CDT 02/25/2025 2:32 PM CDT Carmen Nayak MD LAB BLOOD ORDERABLES Final Res ult Performing Organization Address [facility] Co de Phone Number [address] [address] * (ABNORMAL) Basic metabolic panel (02/25/2025 2:27 PM CDT) Pathologist [facility] Sodium 136 135 - 145 mmol/L Comment:Testing performed by : [address] [address] Potassium, pl 4.8 3.3 - 4.9 mmol/L BLANCA REESE Comment: Delta - Results Reviewed Testing performed by: [address] [address] Chloride 107 97 - 110 mmol/L BLANCA REESE Comment:Testing performed by : [address] [address] CO2 14(L) 22 - 32 mmol/L BLANCA REESE Comment:Testing performed by : [address] [address] Anion gap 15 2 - 15 mmol/L BLANCA REESE Comment:Testing performed by : [address] [address] BUN 93(H) 6 - 25 mg/dL [facility]CA Comment:Testing performed by : [address] [address] Creatinine 3.05(H) 0.60 - 1.10 mg/dL [facility]CA Comment:Testing performed by : [address] [address] Glucose 204(H) 70 - 199 mg/dL BLANCA [...] last revised 2022. Testing performed by: [address] [address] Calcium 10.3 8.5 - 10.3 mg/dL [facility]CA Comment:Testing performed by : [address] [address] Blood 02/25/2025 2:27 PM CDT 02/25/2025 2:32 PM CDT us Mau VERONICA LAB BLOOD ORDERABLES Final Re sult BLANCA [address] [facility] [place] [address] * POCT glucose (02/25/2025 1:44 PM CDT) [facility] Glucose, POC 108 70 - 199 mg/dL Comment:Testing performed by : [address] [address] Glucose comment 1 RN/MD Notified BLANCA REESE Comment:Testing performed by : [facility] [address] [place] [address], [place]., [address] Blood 02/25/2025 1:44 PM CDT 02/25/2025 1:44 PM CDT Layton Macario DO LAB POCT ORDERABLES - DEVIC E Final Result BLANCA [address] [facility] [place] [address] * [facility] I[facility]/INJURED PATIENT INIT 30-74 MIN [...] by Brian Lind M.D. CH: Report ID: [id number] Reading Location: [place] [address] Procedure Note Brian Lind Jr., MD - [...] Brian Lind M.D. CH: BRAVO Report ID: [id number] Reading Location: [place] [address] us Layton Macario DO IMG XR PROCEDURES Final Res ult * ECG 12 lead (02/25/2025 12:24 PM CDT) [facility] Ventricular Rate EKG/Min 69 BPM [facility] Atrial Rate 69 BPM [facility] VA-Interval (MSEC) 142 ms [facility] QRS-Interval (MSEC) 90 ms [facility] QT-Interval (MSEC) 376 ms [facility] QTc 402 ms [facility] P [place] 41 degrees [facility] R [place] 43 degrees [facility] T [place] 57 degrees [facility] Diagnosis Normal sinus rhythm Normal ECG When compared with ECG of 25-FEB-2025 11:06, No significant change was found Confirmed by HENRY CHIRINOS M.D. ([id number]) on 02/26/2025 7:47:35 AM [facility] 02/25/2025 12:2 4 PM CDT 02/26/2025 7:47 AM CDT Layton Macario DO ECG ORDERABLES Final Resul t Performing Organization Address City/[facility]/ZIP Co de Phone Number [facility] * (ABNORMAL) Troponin T high-sensitivity series (baseline, 2hr, 4hr, 6hr) (02/25/2025 12:20 PM CDT) [facility] Trop T hs 16(H) <=14 ng/L Comment: Interpretive Data For further hscTnT resources including the diagnostic algorithm and an aid in interpretation, copy and paste this link: https://nrl.testcatalog.org/show/hsTrop Current Interpretive Data last revised 2020. Testing performed by: [facility], [address] [place] [address]., [address] Blood 02/25/2025 12:2 0 PM CDT 02/25/2025 12:30 PM CDT Layton Macario DO LAB BLOOD ORDERABLES Final Result BLANCA [address] [facility] [place] [address] * (ABNORMAL) eGFR (02/25/2025 12:20 PM CDT) [...] last reviewed 2021. Testing performed by: [address] [address] Blood 02/25/2025 12:2 0 PM CDT 02/25/2025 12:30 PM CDT us Layton Macario DO LAB BLOOD ORDERABLES Final Result Performing Organization Address [facility] de Phone Number [address] [place] [address] * Thyroid Function [place]cl[place] (02/25/2025 12:20 PM CDT) Pathologist [facility] TSH 0.74 0.30 - 4.20 mcIUnit/mL Comment:Testing performed by : [address] [address] Blood 02/25/2025 12:2 0 PM CDT 02/25/2025 12:30 PM CDT us Carmen Nayak MD LAB BLOOD ORDERABLES Final Res ult Performing Organization Address City/[facility] Co de Phone Number [address] [place] [address] * (ABNORMAL) Comprehensive metabolic panel (02/25/2025 12:20 PM CDT) Sodium 136 135 - 145 mmol/L Comment:Testing performed by : [address] [address] Potassium, pl 7.0(C) 3.3 - 4.9 mmol/L BLANCA Comment: Critical Result called to and read back by [email or web address], DATE: 2025-02-25 13:27:00 BY: [email or web address] Testing performed by: [address] [address] Chloride 105 97 - 110 mmol/L BLANCA Comment:Testing performed by : [address] [address] CO2 13(L) 22 - 32 mmol/L BL[facility]CA Comment:Testing performed by : [address] [address] Anion gap 18(H) 2 - 15 mmol/L BL[facility]CA Comment:Testing performed by : [address] [address] BUN 105(H) 6 - 25 mg/dL [facility]CA Comment:Testing performed by : [address] [address] Creatinine 3.80(H) 0.60 - 1.10 mg/dL [facility]CA Comment:Testing performed by : [address] [address] Glucose 98 70 - 199 mg/dL BLANCA [...] was last revised 2022. Testing performed by: [address] [place] [address] Calcium 9.8 8.5 - 10.3 mg/dL BLANCA Comment:Testing performed by : [facility], [address] [place] [address]., [address] Bilirubin, total 0.2 0.1 - 1.2 mg/dL BLANCA Comment:Testing performed by : [facility], [address] [place] [address]., [address] Protein, pl 8.1 6.5 - 8.5 g/dL BLANCA Comment:Testing performed by : [address] [address] Albumin 4.2 3.5 - 5.0 g/dL BL[facility]CA Comment:Testing performed by : [address] [address] Alk phos 143(H) 40 - 130 Units/L BL[facility]CA Comment:Testing performed by : [address] [address] ALT 12 7 - 45 Units/L [facility]CA Comment:Testing performed by : [facility], [address] [place] [address]., [address] AST 16 10 - 45 Units/L BL[facility]CA Comment:Testing performed by : [address] [address] Blood 02/25/2025 12:2 0 PM CDT 02/25/2025 12:30 PM CDT Layton Macario DO LAB BLOOD ORDERABLES Final Result Performing Organization Address City/State/[facility] Co de Phone Number BLANCA [address] [facility] Department of Laboratories [place], [place] [id number] * CT Head WO Contrast (02/25/2025 11:32 [...] air cells unchanged. ORBITS: No acute abnormality. [place] ocular lenses replaced bilaterally. OTHER: No other significant abnormality. IMPRESSION: No acute intracranial process. THIS IS AN ELECTRONICALLY VERIFIED FINAL REPORT 02/25/2025 12:30 PM - Electronically signed by Kal Hennessy M.D. MARLEY: MARLEY Report ID: [id number] Reading Location: [place] [address] Procedure Note Kal Hennessy MD - 02/25/2025 [...] air cells unchanged. ORBITS: No acute abnormality. [place] ocular lenses replaced bilaterally. OTHER: No other significant abnormality. IMPRESSION: No acute intracranial process. THIS IS AN ELECTRONICALLY VERIFIED FINAL REPORT 02/25/2025 12:30 PM - Electronically signed by Kal Hennessy M.D. MARLEY: MARLEY Report ID: [id number] Reading Location: [place] [address] Layton Macario DO IMG CT PROCEDURES Final Res ult * Urinalysis reflex to microscopic and culture Urine (02/25/2025 11:21 AM CDT) Color, ur Yellow Yellow Comment:Testing performed by : [address] [address] Clarity, ur Clear Clear BLANCA Comment:Testing performed by : [address] [address] Specific gravity, ur 1.016 1.003 - 1.030 BLANCA Comment:Testing performed by : [address] [address] pH, urine 5.0 BLANCA Comment: Interpretive Data U rine pH is affected by diet, medications, systemic acid-base disturbances, and renal tubular function. pH may affect urinary stone formation. For example, urine pH below 6.0 may help reduce the tendency for calcium phosphate stones and pH greater than 6.0 may reduce the tendency for uric acid stone formation. Source: [employer] Current Interpretive Data was last revised on 2017 Testing performed by: [address] [address] Protein, ur ql Negative Negative BLANCA Comment:Testing performed by : [facility], [address] [place] [address], [place]., [address] Glucose, ur ql Negative Negative BL[facility]CA Comment:Testing performed by : [facility], [address] [place] [address], [place]., [address] Ketones, ur Negative Negative BLANCA Comment:Testing performed by : [address], [place]., [address] Bilirubin, ur Negative Negative BLANCA Comment:Testing performed by : [address], [place]., [address] Blood, ur Negative Negative BLANCA Comment:Testing performed by : [address], [place]., [address] Urobilinogen, ur <2.0 <2.0 mg/dL BLANCA Comment:Testing performed by : [address], [place]., [address] Nitrite, ur Negative Negative BL[facility]CA Comment:Testing performed by : [address], [place]., [address] Leukocyte esterase, ur Negative Negative BL[facility]CA Comment:Testing performed by : [address], [place]., [address] UA reflex comment Reflex conditions for microscopic UA and culture not met. BLANCA Comment:Testing performed by : [address], [place]., [address] Urine 02/25/2025 11:2 1 AM CDT 02/25/2025 11:28 AM CDT Layton Macario DO LAB MICROBIOLOGY - GENERAL ORDERABLES Final Result BLANCA [address] [facility] [place] [address] * Differential, auto (02/25/2025 11:16 AM CDT) Neutrophil abs 2.78 1.50 - 6.50 K/cumm Comment:Testing performed by : [address], [place]., [address] Imm gran abs 0.01 0.00 - 0.10 K/cumm [facility] Comment:Testing performed by : [address] [address] [address] Lymphocyte abs 2.45 0.80 - 3.30 K/cumm [facility] Comment:Testing performed by : [address], [place]., [address] Monocyte abs 0.38 0.20 - 0.80 K/cumm [facility] Comment:Testing performed by : [address], [place]., [address] Eosinophil abs 0.07 0.00 - 0.50 K/cumm [facility] Comment:Testing performed by : [address] [address] Basophil abs 0.05 0.00 - 0.10 K/cumm [facility] Comment:Testing performed by : [address] [address] Neutrophil pct 48.4 % [facility] Comment: Interpretive Data Percent cell count reference ranges are not reported, since discordance with absolute values may lead to misinterpretation of CBC data. Current Interpretive Data was last revised on 2018. Testing performed by: [address] [address] Imm gran pct 0.2 % [facility] Comment: Interpretive Data Percent cell count reference ranges are not reported, since discordance with absolute values may lead to misinterpretation of CBC data. Current Interpretive Data was last revised on 2018. Testing performed by: [address] [address] Lymphocyte pct 42.7 % [facility] Comment: Interpretive Data Percent cell count reference ranges are not reported, since discordance with absolute values may lead to misinterpretation of CBC data. Current Interpretive Data was last revised on 2018. Testing performed by: [address] [address] Monocyte pct 6.6 % [facility] Comment: Interpretive Data Percent cell count reference ranges are not reported, since discordance with absolute values may lead to misinterpretation of CBC data. Current Interpretive Data was last revised on 2018. Testing performed by: [address] [address] Eosinophil pct 1.2 % [facility] Comment: Interpretive Data Percent cell count reference ranges are not reported, since discordance with absolute values may lead to misinterpretation of CBC data. Current Interpretive Data was last revised on 2018. Testing performed by: [address] [address] Basophil pct 0.9 % [facility] Comment: Interpretive Data Percent cell count reference ranges are not reported, since discordance with absolute values may lead to misinterpretation of CBC data. Current Interpretive Data was last revised on 2018. Testing performed by: [address] [address] Blood 02/25/2025 11:1 6 AM CDT 02/25/2025 11:29 AM CDT Layton Macario DO LAB BLOOD ORDERABLES Final Result [facility] [address] [facility] [place] [address] * (ABNORMAL) CBC with auto differential (02/25/2025 11:16 AM CDT) WBC 5.74 3.80 - 9.90 K/cumm Comment:Testing performed by : [address] [address] Hgb 11.0(L) 11.9 - 15.5 g/dL [facility] Comment:Testing performed by : [address] [address] Hct 37.3 35.6 - 45.5 % [facility] Comment:Testing performed by : [address] [address] Plt 241 150 - 400 K/cumm [facility] Comment:Testing performed by : [address] [address] MPV 10.4 9.1 - 12.3 fL [facility] Comment:Testing performed by : [address] [address] RBC 4.49 3.90 - 5.20 M/cumm [facility] Comment:Testing performed by : [address] [address] MCV 83.1 81.3 - 96.4 fL [facility] Comment:Testing performed by : [address] [address] MCH 24.5(L) 27.1 - 33.3 pg [facility] Comment:Testing performed by : [address], [address] MCHC 29.5(L) 32.3 - 35.7 g/dL [facility] Comment:Testing performed by : [address], [address] RDW CV 22.1(H) 11.1 - 14.9 % [facility] Comment:Testing performed by : [address], [address] RDW SD 65.4(H) 35.7 - 48.1 fL [facility] Comment:Testing performed by : [address] [address] NRBC abs 0.00 0.00 - 0.01 K/cumm [facility] Comment:Testing performed by : [address], [address] Blood 02/25/2025 11:1 6 AM CDT 02/25/2025 11:29 AM CDT Layton Macario DO LAB BLOOD ORDERABLES Final Result [facility] [address] [facility] [place] [address] * (ABNORMAL) Hemoglobin A1c (02/25/2025 11:16 AM CDT) Hgb A1C 7.4(H) 4.0 - 5.6 % Comment:Testing performed by : [address], [address] Estimated Average Glucose 166 mg/dL [facility] Comment: The ADA recommends reporting an estimated Average Glucose (eAG) with all Hemoglobin A1c results using the equation derived from a study of 507 normal and diabetic adults. Minority populations were underrepresented and children were not included. (Diabetes Care 31:6640-4895, 2008). The eAG is not equivalent to a fasting glucose. Testing performed by: [facility], [address] [place] [address]., [address] Blood 02/25/2025 11:1 6 AM CDT 02/25/2025 11:29 AM CDT us Carmen Nayak MD LAB BLOOD ORDERABLES Final Res ult Performing Organization Address City/[facility]/ZIP Co de Phone Number [facility] [address] [facility] [place] [address] * ECG 12 lead (02/25/2025 11:06 AM CDT) Ventricular Rate EKG/Min 69 BPM [facility] Atrial Rate 69 BPM [facility] VA-Interval (MSEC) 148 ms [facility] QRS-Interval (MSEC) 88 ms [facility] QT-Interval (MSEC) 382 ms [facility] QTc 409 ms [facility] P [place] 29 degrees [facility] R [place] 31 degrees [facility] T [place] 46 degrees [facility] Diagnosis Normal sinus rhythm Nonspecific ST abnormality Abnormal ECG When compared with ECG of 02-DEC-2023 14:31, Vent. rate has decreased BY 35 BPM QRS duration has increased Nonspecific T wave abnormality no longer evident in Lateral leads Confirmed by HENRY CHIRINOS M.D. ([id number]) on 02/26/2025 7:30:51 AM [facility] 02/25/2025 11:0 6 AM CDT 02/26/2025 7:30 AM CDT us Layton Macario DO ECG ORDERABLES Final Resul t Performing Organization Address City/[facility]/ZIP Co de Phone Number [facility] [employer] [facility] * IR Ablation Lumbar Sacral Facet Right (01/31/2025 11:50 AM CDT) Narrative [facility] - 01/31/2025 11:50 AM CDT The images from this study are not interpreted by Radiology. Please refer to the physician's procedure / OR operative note. Henry Machado MD IMG IR PROCEDURES Final Res ult Performing Organization Address [facility] de Phone Number [email or web address] * IR Medial Branch Block Lumbar Sacral First Level Right (aka MBB) (01/10/2025 10:45 AM CARE TAKER) Narrative [facility] - 01/10/2025 10:46 AM CARE TAKER The images from this study are not interpreted by Radiology. Please refer to the physician's procedure / OR operative note. Henry Machado MD IMG IR PROCEDURES Final Res ult Performing Organization Address [facility] Phone Number [email or web address] * Hepatitis C antibody Blood (02/07/2024 9:08 PM CDT) Hep C Ab Nonreactive Nonreactive Comment:Antibodies to HCV no t detected. Does NOT exclude the possibility of recent exposure to HCV. Current interpretive data was last revised on 22 Blood 02/07/2024 9:08 PM CDT 02/07/2024 9:43 PM CDT Jim Rivera MD LAB MICROBIOLOGY - GENERAL ORDER RITIKA Final Result Performing Organization Address [facility] de Phone Number [facility] Department [place] [address] * COLONOSCOPY (09/24/2021 2:13 PM CARE TAKER) Anatomical Region Laterality Modality Other Narrative Procedure Note Paul Chávez MD - 09/24/2021 2:13 PM CST ENDOSCOPY LAB Patient Name: Bernadine Simms Procedure Date: 09/24/2021 2:13 PM Date of : 1960 Admit Type: Outpatient Age: 61 Gender: Female Attending MD: Paul Chávez M.D. Room: [facility] ENDOSCOPY ROOM 05 Note Status: Finalized Procedure: [...] The scope was passed under direct vision.The [id number] was introduced through the anusand advanced to [...] Bone mineral density was performed on a 5 Minutes Discovery Densitometer. Based on machine cross-calibration and [...] by the International Society of Clinical Densitometry. [id number] us Junior Aguirre MD IMG DXA PROCEDURES Final Result * Lipid panel (12/09/2020 4:03 PM CARE TAKER) Cholesterol 151 30 - 199 mg/dL [facility] Comment: Interpretive Data Ages < or = [...] on 2018. Triglycerides 90 <=149 mg/dL [facility] Comment: Interpretive Data Ages < or = [...] revised on 2018. HDL 76 >=40 mg/dL [facility] Comment: Interpretive Data Ages < or = [...] on 2018. LDL, calculated 57 <=129 mg/dL [facility] Comment: Interpretive Data Ages < or = [...] revised on 2018. Non-HDL Cholesterol 75 mg/dL [facility] Comment: Interpretive Data Ages < or = [...] Pediatrics 2011;128:S213 2. NCEP Expert Panel. Circulation 2003;110:227 Current Interpretive Data was last revised on 2018. Chol/HDL ratio 2 [facility] Blood specimen (specimen) 12/09/2020 4:03 PM CARE TAKER 12/09/2020 4:22 PM CARE TAKER David Liz MD LAB BLOOD ORDERABLES Final Re sult [facility] Department [place] [address] * Screening Mammogram Bilateral W [place] (07/16/2020 11:16 AM CDT) Anatomical Region Laterality Modality Breast Bilateral Mammography Narrative 07/18/2020 12:37 PM CDT Mammogram Technique: Bilateral Digital Breast Tomosynthesis, Bilateral C-view 2D Screening mammogram. Views obtained: bilateral craniocaudal and bilateral mediolateral oblique. Computer Aided Detection was performed. Mammogram Findings: The present examination has been compared to prior imaging studies performed at [facility] on 05/13/2014, 07/04/2015 and 08/01/2019. There are [...] compared to prior imaging studies performed at [facility] on 05/13/2014, 07/04/2015 and 08/01/2019. There are scattered areas of fibroglandular density. There is no suspicious abnormality in either breast. Impression: Annual screening mammography is recommended. OVERALL FINAL ASSESSMENT: BI-RADS CATEGORY 1: Negative. Henry Tello MD IMG MAMMO PROCEDURES Final Re sult from Last 3 Months or Most Recently Relevant to Health Maintenance Insurance [facility] SUPPLEMENT UHC MEDICARE ADVANTAGE [facility] MEDICARE Address: [address] [address] [place] [address] [facility] MCR SUPPLEMENT [place] SIMONS [id number] MEDICARE MEDICARE [facility] SUPPLEMENT [place] [id number] [facility] MCR SUPPLEMENT MEDICARE [facility] MEDICARE ADVANTAGE Advance Directives For more information, please contact: [phone] Documents on File Type Date Recorded Patient Stitch Bonding Machine Drawer In Expl anation ADVANCE DIRECTIVE 01/09/2021 10:38 AM Lindsay r of [employer] Special Agent-Medical ADVANCE DIRECTIVE 07/13/2019 5:35 AM POWER OF WAREHOUSE PULLER-MEDICAL ADVANCE DIRECTIVE 05/14/2019 10:01 AM * Full [...] 9:50 AM 12/30/2021 6:05 PM Care Teams Process Development Engineer Relationship Specialty Start Date End Date Darlene Saeed MD [address] [facility] [address] [facility] [address] [place] [address] PCP - General Family Medicine 01/09/21 Israel Carrillo MD [address] [facility] [address] [address] Referring Physician Endocrinology Diabetes & Metabolism 06/01/19 Manish Singer MD [address] [facility] [address] [facility] [address] [place] [address] Consulting Physician Otolaryngology 01/17/22
--- OUTSIDE RECORDS SUMMARY | 2025-04-03 14:23 | XMS_ITS | Encounter Summary ---
Author Organization [facility] Address [address] [place] [address] Phone Care Team Providers Care Bilingual Recruiter Name Role Phone Israel Carrillo MD Primary Care Provider Gene Padilla MD Primary Care Provider [phone] Israel Carrillo MD Primary Care Provider [phone] Twin Tello MD Primary Care Provider [phone] Israel Carrillo MD Unavailable [phone] Twin Tello MD Primary Care Provider [phone] Miguel Field MD Primary Care Provider [phone] Israel Carrillo MD Primary Care Provider [phone] Miguel Field MD Primary Care Provider [phone] Israel Carrillo MD Primary Care Provider [phone] Darlene Saeed MD Primary Care Provider Manish Singer MD Unavailable [phone] Katya Carpenter RN Unavailable [phone] Encounter Details Date Type Department Care Team [...] on file Legal Sex Female 8:10 PM WHEEL BORER Gender Identity Not on file Sexual Orientation [...] COVID: Suspected 12/17/2020 12/17/2020 12/17/2020 6:45 PM WHEEL BORER Diarrhea 12/02/2023 12/02/2023 12/16/2023 3:06 AM WHEEL BORER COVID: Suspected 02/06/2024 02/06/2024 02/06/2024 2:46 PM CDT documented as of this encounter Care Teams Bilingual Recruiter Relationship Specialty Start Date End Date Israel Carrillo MD [address] [address] PCP - General 08/02/07 09/26/18 Gene Padilla MD [address] [place] [address] [address] [address] PCP - General Cardiovascular Disease 09/27/18 Israel Carrillo MD [address] [address] PCP - General 10/02/18 05/31/19 Twin Tello MD [address] [address] PCP - General Endocrinology Diabetes & Metabolism 06/01/19 07/03/19 Twin Tello MD [address] [address] PCP - General 07/04/19 05/04/20 Miguel Field MD [address] [address] PCP - General Internal Medicine 05/05/20 08/03/20 Israel Carrillo MD [address] [address] PCP - General Endocrinology Diabetes & Metabolism 08/04/20 09/02/20 Miguel Field MD [address] [address] PCP - General 09/03/20 10/05/20 Israel Carrillo MD [address] [address] PCP - General Endocrinology Diabetes & Metabolism 10/06/20 01/08/21 Darlene Saeed MD [address] [address] PCP - General Family Medicine 01/09/21 Israel Carrillo MD [address] [address] Referring Physician Endocrinology Diabetes & Metabolism 06/01/19 Manish Singer MD [address] [address] Consulting Physician Otolaryngology 01/17/22 Katya Carpenetr, RN [address] [address] SHOP Outpatient Powertrain Engineer 02/13/24 02/19/24 documented as of this encounter
== END 2025-04-03 14:13 | disposition home or self-care (01) ==
PROVIDERS: PCP Family Medicine; Visit Provider Physician Assistant
DX: E04.1 Nontoxic single thyroid nodule (principal); R79.89 Other specified abnormal findings of blood chemistry
CPT/HCPCS: 78014; A9516

== ENCOUNTER 2025-08-09 11:30 | Outpatient (CLI) | payer MEDICARE, SELFPAY ==
[2025-08-09 12:37] LABS: Anion Gap 13 mmol/L (4-12); Blood Urea Nitrogen 36 mg/dL (7-17); Calcium 9.7 mg/dL (8.4-10.2); Carbon Dioxide 17 mmol/L (22-30); Chloride 106 mmol/L (98-107); Estimated Glomerular Filt Rate 47; Glucose 129 mg/dL (65-110); Sodium 136 mmol/L (137-145)
[2025-08-09 12:45] LABS: Potassium 5.8 mmol/L (3.4-5.0)
== END 2025-08-09 11:31 | disposition home or self-care (01) ==
PROVIDERS: PCP Family Medicine; Visit Provider Physician Assistant
DX: E78.5 Hyperlipidemia, unspecified (principal)
CPT/HCPCS: 36415; 80048

== ENCOUNTER 2025-09-13 10:23 | Outpatient (CLI) | payer MEDICARE, SELFPAY ==
--- OUTSIDE RECORDS SUMMARY | 2025-09-13 10:55 | XMS_ITS | Encounter Summary ---
Author Organization [facility] Address [address] [place] [address] Care Team Providers Care Analytic Programmer Name Role Phone Israel Carrillo MD Primary Care Provider Twin Tello MD Primary Care Provider Israel Carrillo MD Unavailable [phone] Twin Tello MD Primary Care Provider Miguel Field MD Primary Care Provider Israel Carrillo MD Primary Care Provider Miguel Field MD Primary Care Provider Israel Carrillo MD Primary Care Provider Darlene Saeed MD Primary Care Provider Manish Singer MD Unavailable [phone] Katya Carpenter RN Unavailable [phone] Kal Tellez MD Primary Care Provider Reason for Referral * Diagnostic Imaging (Routine) - Closed Specialty Diagnoses / Procedures Referred By Contac t Referred To Contact Diagnoses Osteoarthritis of spine with radiculopathy, lumbar region Procedures Dexa Axial Skeleton Bone Density 1 or 2 Site Israel Carrillo MD Phone: tel: fax: [facility] [address] [place] [address] Referral ID Status Reason Start Date Expiration Date Visits Re quested Visits Authorized [id number] Closed 10/03/2018 04/13/2020 1 1 ION USHER Encounter Details Date Type Department Care Team (Latest Contact Info) Description 10/03/2018 Community Orders [facility] EpicCare Link Israel Carrillo MD [address] [facility] [address] [place], [place] [id number] Osteoarthritis of spine with radiculopathy, lumbar region (Primary Dx) Social History Tobacco Use Types Packs/Day Years Used Date Smoking Tobacco: Some Days Smokeless Tobacco: Never Alcohol Use Standard Drinks/Week Comments Yes 0 (1 standard drink = 0.6 oz pur e alcohol) Comments No Sex and Gender Information Value Date Recorded Sex Assigned at Not on file Legal Sex Female 8:10 PM STATION USHER Gender Identity Not on file Sexual Orientation Not on file documented as of this encounter Plan of Treatment Not on file documented as of this encounter Results * Dexa Axial Skeleton Bone Density 1 or 2 Site (10/17/2018 10:05 AM STATION USHER) Anatomical Region Laterality Modality Body N/A Digital Radiogra phy 10/17/2018 10:0 5 AM STATION USHER Impressions 10/17/2018 12:28 PM STATION USHER 1. The bone mineral density of the [...] -2.0 is below the expected range for age. A Z-score below the expected range for age in a patient with recent fractures and/or chronic corticosteroid treatment is consistent with a diagnosis of osteoporosis. B) In post menopausal women and males over 50, comparison of the measured bone mineral density with the average value in young normal subjects (the T-score) has been found to be useful in [...] Simona Fink M.D. Narrative 10/17/2018 12:28 PM STATION USHER BONE DENSITOMETRY OF THE SPINE AND HIP [...] -2.0 is below the expected range for age. A Z-score below the expected range for age in a patient with recent fractures and/or chronic corticosteroid treatment is consistent with a diagnosis of osteoporosis. B) In post menopausal women and males over 50, comparison of the measured bone mineral density with the average value in young normal subjects (the T-score) has been found to be useful in [...] COVID: Suspected 12/17/2020 12/17/2020 12/17/2020 6:45 PM STATION USHER Diarrhea 12/02/2023 12/02/2023 12/16/2023 3:06 AM STATION USHER COVID: Suspected 02/06/2024 02/06/2024 02/06/2024 2:46 PM CDT documented as of this encounter Care Teams Analytic Programmer Relationship Specialty Start Date End Date Israel Carrillo MD [address] [address] PCP - General 10/02/18 05/31/19 Twin Tello MD [address] [address] PCP - General Endocrinology Diabetes & Metabolism 06/01/19 07/03/19 Twin Tello MD [address] [address] PCP - General 07/04/19 05/04/20 Miguel Field MD [address] [address] PCP - General Internal Medicine 05/05/20 08/03/20 Israel Carrillo MD [address] [address] PCP - General Endocrinology Diabetes & Metabolism 08/04/20 09/02/20 Miguel Field MD [address] [address] PCP - General 09/03/20 10/05/20 Israel Carrillo MD [address] [address] PCP - General Endocrinology Diabetes & Metabolism 10/06/20 01/08/21 Darlene Saeed MD [address] [address] PCP - General Family Medicine 01/09/21 08/28/25 Kal Tellez MD [address] [address] PCP - General Family Medicine 08/29/25 Israel Carrillo MD [address] [address] Referring Physician Endocrinology Diabetes & Metabolism 06/01/19 Manish Singer MD [address] [place] [address] Consulting Physician Otolaryngology 01/17/22 Katya Carpenter, RN [address] [facility] [address] [place] [address] SHOP Outpatient Manager Business Development Hospice 02/13/24 02/19/24 documented as of this encounter
--- OUTSIDE RECORDS SUMMARY | 2025-09-13 10:55 | XMS_ITS | Encounter Summary ---
Author Organization [facility] Address [address] [place] [address] Phone Care Team Providers Care Bank Manager Name Role Phone Israel Carrillo MD Unavailable [phone] Darlene Saeed MD Primary Care Provider Manish Singer MD Unavailable [phone] Katya Carpenter RN Unavailable [phone] Kal Tellez MD Primary Care Provider Reason for Visit * Reason Onset Date Comments MedAbdirizak Clarification 07/14/2021 Encounter Details Date Type Department Care Team (Late st Contact Info) Description 07/14/2021 Telephone [facility] [place] [place] Orthopaedic Surgery [address] [facility] 2nd Floor [address] [place] [address] Twin Machado MD [address] [facility] [address] [place] [address] Med.Allery Clarification Social History Tobacco Use Types [...] on file Legal Sex Female 8:10 PM WELDER APPRENTICE Gender Identity Not on file Sexual Orientation Not on file documented as of this encounter Miscellaneous Notes * Telephone Encounter - Narendra Singh CMA - 07/15/2021 1:57 PM CDT Rx canceled with [facility]. * Telephone Encounter - Scarlet Frazier - 07/15/2021 1:44 PM CDT Pharmacy is calling back needing a call back at [phone] option 2 reference number [id number] regarding drug/possible reaction * Telephone Encounter - Narendra Singh CMA - 07/14/2021 4:20 PM CDT Rx sent to Dr. Machado for e-scribe high priority. * Telephone Encounter - Scarlet Frazier - 07/14/2021 3:17 PM CDT Call [phone] before the end of the day regarding medication for the imaging that is tomorrow * Telephone Encounter - Brenda London - 07/14/2021 2:42 PM CDT Please see Prescription Clarification Request form that was received from [employer]. Possible drug allergy. Form placed in Dr Machado's E-Folder. documented in this encounter Plan of Treatment Not on file documented as of this encounter Goals Goal Patient Goal Type Associated Problems Recent Progress Patient-Stated? Author CCM Chronic Pain Care Plan Chronic Care Management On track(2021 12:44 PM CDT) Kristie Stevens RN Note: Problem: Chronic Pain Goals: [...] Time Diarrhea 12/02/2023 12/02/2023 12/16/2023 3:06 AM WELDER APPRENTICE COVID: Suspected 02/06/2024 02/06/2024 02/06/2024 2:46 PM CDT documented as of this encounter Care Teams Bank Manager Relationship Specialty Start Date End Date Darlene Saeed MD [address] [address] PCP - General Family Medicine 01/09/21 08/28/25 Kal Tellez MD [address] [address] PCP - General Family Medicine 08/29/25 Israel Carrillo MD [address] [facility] [address] [place] [address] Referring Physician Endocrinology Diabetes & Metabolism 06/01/19 Manish Singer MD [address] [place] [address] Consulting Physician Otolaryngology 01/17/22 Katya Carpenter, RN [address] [address] SHOP Outpatient Continuous Mining Operator 02/13/24 02/19/24 documented as of this encounter
--- OUTSIDE RECORDS SUMMARY | 2025-09-13 10:55 | XMS_ITS | Encounter Summary ---
Author Organization [facility] Address [address] [place] [address] Care Team Providers Care Animal Laboratory Technician Name Role Phone Israel Carrillo MD Primary Care Provider [phone] Gene Padilla MD Primary Care Provider [phone] Israel Carrillo MD Primary Care Provider Twin Tello MD Primary Care Provider Israel Carrillo MD Unavailable Twin Tello MD Primary Care Provider [phone] Miguel Field MD Primary Care Provider Israel Carrillo MD Primary Care Provider Miguel Field MD Primary Care Provider Israel Carrillo MD Primary Care Provider Darlene Saeed MD Primary Care Provider Manish Singer MD Unavailable [phone] Katya Carpenter RN Unavailable [phone] Kal Tellez MD Primary Care Provider Reason for Visit * Reason Onset Date Comments FYI 09/26/2018 Encounter Details Date Type Department Care Team (Late st Contact Info) Description 09/26/2018 Telephone [facility] [address] [facility] [address] [place] [address] Momo Pérez MD [address] [facility] [id number] [place] [address] FYI Social History Tobacco Use Types Packs/Day Years Used Date Smoking Tobacco: Some Days Smokeless Tobacco: Never Alcohol Use Standard Drinks/Week Comments Yes 0 (1 standard drink = 0.6 oz pur e alcohol) Comments No Sex and Gender Information Value Date Recorded Sex Assigned at Not on file Legal Sex Female 8:10 PM M[employer]I MED[employer] SPECIALIST Gender Identity Not on file Sexual Orientation Not on file documented as of this encounter Plan of Treatment Not on file documented as of this encounter Visit Diagnoses Not on filedocumented in this encounter Additional Health Concerns Infection Onset Date Last Indicated Resolved Time COVID: Suspected 12/17/2020 12/17/2020 12/17/2020 6:45 PM M[employer]IST Diarrhea 12/02/2023 12/02/2023 12/16/2023 3:06 AM M[employer]I [employer] SPECIALIST COVID: Suspected 02/06/2024 02/06/2024 02/06/2024 2:46 PM CDT documented as of this encounter Care Teams Animal Laboratory Technician Relationship Specialty Start Date End Date Israel Carrillo MD [address] [facility] [address] [place] [address] PCP - General 08/02/07 09/26/18 Gene Padilla MD [address] [place] [address] DR Beck [facility] [address] [place] [address] PCP - General Cardiovascular Disease 09/27/18 Israel Carrillo MD [address] [facility] [address] [place] [address] PCP - General 10/02/18 05/31/19 Twin Tello MD [address] [address] PCP - General Endocrinology Diabetes & Metabolism 06/01/19 07/03/19 Twin Tello MD [address] [address] PCP - General 07/04/19 05/04/20 Miguel Field MD [address] [address] PCP - General Internal Medicine 05/05/20 08/03/20 Israel Carrillo MD [address] [address] PCP - General Endocrinology Diabetes & Metabolism 08/04/20 09/02/20 Miguel Field MD [address] [address] PCP - General 09/03/20 10/05/20 Israel Carrillo MD [address] [address] PCP - General Endocrinology Diabetes & Metabolism 10/06/20 01/08/21 Darlene Saeed MD [address] [place] [address] PCP - General Family Medicine 01/09/21 08/28/25 Kal Tellez MD [address] [place] [address] PCP - General Family Medicine 08/29/25 Israel Carrillo MD [address] [facility] [address] [place] [address] Referring Physician Endocrinology Diabetes & Metabolism 06/01/19 Manish Singer MD [address] [place], [place] [id number] Consulting Physician Otolaryngology 01/17/22 Katya Carpenter, RN [address] [facility] [address] [place] [address] SHOP Outpatient Chart Snatcher 02/13/24 02/19/24 documented as of this encounter
--- OUTSIDE RECORDS SUMMARY | 2025-09-13 10:55 | XMS_ITS | Clinical Summary ---
Author Organization [facility] Address [address] [place] [address] Care Team Providers Care Service Order Clerk Name Role Phone Israel Carrillo MD Unavailable [phone] Manish Singer MD Unavailable [phone] Kal Tellez MD Primary Care Provider Allergies Active Allergy Reactions Criticality Noted Date [...] mouth daily 30 tablet 11 06/15/20 23 Active omeprazole (PriLOSEC) 40 mg capsule Take 1 capsule (40 mg total) by mouth 2 (two) times a day 06/16/20 24 Active PARoxetine (PAXIL) 20 mg tablet Take 1 tablet (20 mg total) by mouth every morning 06/16/20 24 Active SUMAtriptan (IMITREX) 50 mg tablet Take 1 tablet (50 mg total) by mouth 2 (two) times a day as needed 04/24/20 24 Active metoprolol XL (TOPROL-XL) 25 mg extended release tablet Take 1 tablet (25 mg total) by mouth daily 10/16/20 24 Active lidocaine (LIDODERM) 5 % Place 1 [...] mouth daily 30 tablet 02/29/20 25 Active Jardiance 10 mg tablet 04/02/20 25 Active furosemide (LASIX) 40 mg tablet 03/18/20 25 Active predniSONE (DELTASONE) 20 mg tabletIndication s:Anti-inflammat ory Take 2 tablets (40 mg) by mouth daily 8 tablet 08/30/20 25 Active tiZANidine (ZANAFLEX) 4 mg tabletIndication s:Spasm of muscle Take 1 tablet (4 mg total) by mouth every 6 (six) hours as needed for muscle spasms 120 tablet 1 08/30/20 25 Active HYDROcodone-acet aminophen (NORCO) 5-325 mg per tabletIndication s:Lumbosacral radiculopathy Take 1 tablet by mouth every 6 (six) hours as needed for pain MAX 4 A DAY for pain 120 tablet 08/30/20 25 Active potassium chloride ER (KLOR-CON) 10 mEq CR tablet Take 1 tablet/capsul e (10 mEq total) by mouth 3 (three) times a day 08/05/20 24 2024 Discontinued metFORMIN (GLUCOPHAGE) 500 mg tablet Take 1 tablet (500 mg total) by mouth 2 (two) times a day with meals 2024 Discontinued tiZANidine (ZANAFLEX) 4 mg tabletIndication s:Spasm of muscle TAKE 1 TABLET BY MOUTH EVERY SIX HOURS NEEDED FOR MUSCLE SPASMS 120 tablet 1 08/01/20 25 2024 Discontinued(R eorder) HYDROcodone-acet aminophen (NORCO) 5-325 mg per tabletIndication s:Lumbosacral radiculopathy Take 1 tablet by mouth every 6 (six) hours as needed for pain MAX 4 A DAY for pain 120 tablet 08/01/20 25 2024 Discontinued(R eorder) pregabalin (LYRICA) 150 mg capsuleIndicatio ns:Lumbosacral radiculopathy,Sa croiliac joint pain,Thoracic spine pain TAKE 1 CAPSULE BY MOUTH 3 TIMES DAILY 270 capsule 2 08/14/20 25 2024 Discontinued Active Problems Problem Noted Date Diagnosed Date Acute metabolic acidosis 02/25/2025 Weight gain 02/25/2025 Fibromyalgia 02/25/2025 Iron deficiency anemia due to chronic blood loss 03/20/2024 Shortness of breath 03/20/2024 Physical deconditioning 02/20/2024 Angina at rest 02/15/2024 Urinary retention 02/08/2024 Assessment & Plan (02/09/2024 1:50 PM CDT): - has been retaining urine since the dmaian's was removed 02/07 - Bladder scan overnight [...] (03/23/2022): Added automatically from request for surgery [id number] Other secondary scoliosis, lumbar region 022 Overview (03/23/2022): Added automatically from request for surgery [id number] Kyphosis (acquired) (postural) 03/23/2022 Overview (03/23/2022): Added automatically from request for surgery [id number] Vertigo 02/26/2022 Fecal occult blood test positive 06/30/2021 Overview (06/30/2021): Added automatically from request for surgery [id number] Chronic maxillary sinusitis 06/22/2021 Overview (06/22/2021): Added automatically from request for surgery [id number] Lip lesion 06/22/2021 Overview (06/22/2021): Added automatically from request for surgery [id number] Allergic rhinitis 03/23/2021 Hypertrophy of nasal turbinates [...] 12/10/2020 Assessment & Plan (12/18/2020 11:25 AM PROJECT CREW WORKER): - appears resolved now with discontinuation of [...] agreeable. Assessment & Plan (12/17/2020 11:03 AM PROJECT CREW WORKER): - appears resolved now with discontinuation of [...] agreeable. Assessment & Plan (12/16/2020 11:06 AM PROJECT CREW WORKER): - appears resolved now with discontinuation of [...] 12/10/2020 Assessment & Plan (12/18/2020 11:25 AM PROJECT CREW WORKER): - resolved. - reported on admission that [...] levels. Assessment & Plan (12/17/2020 11:03 AM PROJECT CREW WORKER): - resolved. - reported on admission that [...] levels. Assessment & Plan (12/15/2020 7:36 PM PROJECT CREW WORKER): - resolved. - reported on admission that [...] DEANNE Assessment & Plan (12/18/2020 11:25 AM PROJECT CREW WORKER): - given softer BPs (likely related to ativan/haldol) holding antihypertensive meds amlodipine, 2.5, aldactone 100, and lasix 40 bid (stopped after recent discharge) Assessment & Plan (12/17/2020 11:04 AM PROJECT CREW WORKER): - given softer BPs (likely related to ativan/haldol) holding antihypertensive meds amlodipine, 2.5, aldactone 100, and lasix 40 bid (stopped after recent discharge) Assessment & Plan (12/12/2020 5:27 PM PROJECT CREW WORKER): - given softer BPs (likely related to ativan/haldol) holding antihypertensive meds amlodipine, 2.5, aldactone 100, and lasix 40 bid (stopped after recent discharge) History of pseudoseizure 12/10/2020 Assessment & Plan (12/18/2020 11:25 AM PROJECT CREW WORKER): - vEEG in 2019 with no epileptiform [...] doses. Assessment & Plan (12/17/2020 11:04 AM PROJECT CREW WORKER): - vEEG in 2019 with no epileptiform [...] doses. Assessment & Plan (12/14/2020 1:15 PM PROJECT CREW WORKER): - vEEG in 2019 with no epileptiform [...] 12/10/2020 Assessment & Plan (12/18/2020 11:25 AM PROJECT CREW WORKER): - Pt previously overweight and on meds, but none recently - said patient has no access to insulin. Hgb a1c is 4.9 Assessment & Plan (12/17/2020 11:04 AM PROJECT CREW WORKER): - Pt previously overweight and on meds, but none recently - said patient has no access to insulin. Hgb a1c is 4.9 Assessment & Plan (12/12/2020 5:27 PM PROJECT CREW WORKER): - Pt previously overweight and on meds, [...] hydration Assessment & Plan (12/12/2020 5:36 PM PROJECT CREW WORKER): - resolved. Cr up from 0.9 to 1.32 on admission. - renal function improved with IV fluid. Moderate malnutrition 06/25/2020 Overview (06/25/2020): Added automatically from request for surgery [id number] Assessment & Plan (12/18/2020 11:25 AM PROJECT CREW WORKER): - due to poor oral intake. RD consulted. Encourage better oral intake. Assessment & Plan (12/17/2020 11:03 AM PROJECT CREW WORKER): - due to poor oral intake. RD consulted. Encourage better oral intake. Assessment & Plan (12/15/2020 7:32 PM PROJECT CREW WORKER): - due to poor oral intake. RD [...] 12/17/2015 Assessment & Plan (12/18/2020 11:25 AM PROJECT CREW WORKER): - has chronic back pain - given altered mental status, will hold meds that may cloud picture: these include pregabalin 100 tid, morphine 15mg q8h, hyoscyamine 0.375 bid (abd pain). Also on baclofen 20 mg TID, changed to 5 mg TID to avoid withdrawal effect. Assessment & Plan (12/17/2020 11:03 AM PROJECT CREW WORKER): - has chronic back pain - given altered mental status, will hold meds that may cloud picture: these include pregabalin 100 tid, morphine 15mg q8h, hyoscyamine 0.375 bid (abd pain). Also on baclofen 20 mg TID, changed to 5 mg TID to avoid withdrawal effect. Assessment & Plan (12/12/2020 5:31 PM PROJECT CREW WORKER): - has chronic back pain - given [...] 03/2023 Assessment & Plan (12/18/2020 11:25 AM PROJECT CREW WORKER): Removed 12/16 and has urinated since Assessment & Plan (12/17/2020 11:04 AM PROJECT CREW WORKER): Removed 12/16 and has urinated since Assessment & Plan (12/16/2020 11:07 AM PROJECT CREW WORKER): Ordered for removal Will follow I/Os Hypoxia 12/10/2020 12/14/2020 Assessment & Plan (12/12/2020 5:21 PM PROJECT CREW WORKER): - resolved. Presented on admission. Likely related to mental status/somnolence. No distress, CXR wnl. VSS. covid negative Hypokalemia 12/09/2020 12/16/2020 Assessment & Plan (12/18/2020 11:25 AM PROJECT CREW WORKER): - At recent hospitalization at [facility], had hyperkalemia. Discontinued lasix and potassium supplement. [...] CTM Assessment & Plan (12/15/2020 7:45 PM PROJECT CREW WORKER): - At recent hospitalization at [facility], had hyperkalemia. Discontinued lasix and potassium supplement. [...] Encounters Date Type Department Care Team Description 09/10/2025 12:00 PM CDT Office Visit [facility] Medicine Orthopaedic Surgery [address] [place] [address] [place] [address] Twin Machado MD Lumbosacral radiculopathy (Primary Dx) 09/06/2025 Telephone [facility] Orthopaedic Surgery [address] [place] [address] Twin Machado MD 09/03/2025 Telephone [facility] Orthopaedic Surgery [address] [place] [address] [place] [address] Twin Machado MD 08/29/2025 9:36 PM CDT - 08/30/2025 6:12 AM CDT Emergency [facility] Emergency Department [address] [place] [id number] Gene Kennedy Jr., MD Right sided sciatica (Primary Dx) Discharge Disposition: Discharge to home or self care 08/19/2025 2:24 PM CDT - 08/19/2025 11:59 PM CDT Hospital Encounter [facility] [address] [place] [address] Twin Machado MD Chronic back pain, unspecified back location, unspecified back pain laterality Discharge Disposition: Discharge to home or self care 08/19/2025 1:20 PM CDT Office Visit [facility] Medicine Orthopaedic Surgery [address] [facility] [address]th [place] [address] [place] [address] Twin Machado MD Chronic pain syndrome (Primary Dx); Low back pain with right-sided sciatica, unspecified back pain laterality, unspecified chronicity; Chronic back pain, unspecified back location, unspecified back pain laterality; Lumbosacral radiculopathy; Sacroiliac joint pain; Thoracic spine pain; Spinal stenosis of lumbar region with neurogenic claudication 08/14/2025 9:40 PM CDT - 08/15/2025 12:46 AM CDT Emergency [facility] Emergency Department [address] [place] [id number] Right flank pain (Primary Dx) Discharge Disposition: Discharge to home or self care from Last 3 Months Immunizations Immunization Administration Dates Next Due Influenza, Quadrivalent, Spl it, Preservative Free, Intramuscular 09/16/2020,09/16/2020,12/19/2018,01/15,01/15/2018 Influenza, Trivalent, IM (MDV) 11/09/2013 Influenza, Unspecified 12/19/2018,11/09/2013 Tdap 09/23/2014,09/23/2014 Surgical History Surgery Date Site/Laterality Comments TONSILLECTOMY age 15 J-TUBE EXCHANGE 10/15/2013 N/A J-TUBE EXCHANGE 05/02/2013 N/A ENTERIC TUBE INJECTION 03/27/2013 N/A WV DILATION & CURETTAGE DX&/THER NONOBSTETRIC [place] NEUROPLASTY &/TRANSPOS MEDIAN NRV CARPAL TUNNE 11/14/1985 - 11/13/1986 Neuroplasty Decompression Median Nerve At Carpal Tunnel WV INJ LUMBAR/SACRAL,W/WO CNTRST injections APPENDECTOMY GASTRIC BYPASS [...] Vitamin D deficiency Type 2 diabetes mellitus Borderl ine controlled by diet Fibromyalgia Dry eye syndrome [...] drink = 0.6 oz pur e alcohol) [facility] Utilities Answer Date Recorded In the past 12 months has th e electric, gas, oil, or water company threatened to shut off services in your home? No 02/27/2025 Social Connection and Isolation Panel Answer Date Recorded In a typical week, how many times do you talk on the phone with family, friends, or neighbors? More than three times a week 02/27/2025 How often do you get togethe r with friends or relatives? Once a week 02/27/2025 How often do you attend chur ch or voodoo services? Never 02/27/2025 Do you belong to any clubs o r organizations such as evangelical groups, unions, fraternal or athletic groups, or [...] place to sleep or slept in a fpc (including now)? No 02/13/2024 Housing Stability Vital Sign Answer Alec e Recorded In the last 12 months, was t here a time when you were not able to pay the mortgage or rent on time? No 02/27/2025 In the past 12 months, how m any times have you moved where you were living? 0 02/27/2025 At any time in the past 12 m [facility], were you homeless or living in a fpc (including now)? No 02/27/2025 Personal Safety Answer Date Recorded Have you ever been in or are you currently in a harmful physical or emotional relationship or is someone making you feel afraid or unsafe? Denies 08/29/2025 Comments No Sex and Gender Information Value Date Recorded Sex Assigned at Not on file Legal Sex Female 8:10 PM PROJECT CREW WORKER Gender Identity Not on file Sexual Orientation Not on file Obstetrics History Last Filed Vital Signs Vital Sign Reading Time Taken Comments Blood Pressure 120/91 08/30/2025 5:20 AM CDT Pulse 66 08/30/2025 5:20 AM CDT Temperature 36.4 C (97.6 F) 08/29/2025 8:07 PM CDT Respiratory Rate 18 08/30/2025 5:20 AM CDT Oxygen Saturation 96% 08/30/2025 5:20 AM CDT Inhaled Oxygen Concentration - - Weight 92.4 kg (203 lb 11.3 oz) 08/29/2025 8:05 PM CDT Height 149.9 cm (4' 11) 02/25/2025 3:00 PM CDT Body Mass Index 41.14 02/25/2025 3:00 PM CDT Plan of Treatment [...] Additional history exists Well Visit 65+ 02/12/2024 DTaP/Tdap/Td Vaccine (3 - Td or Tdap) 09/23/2024 09/23/2014, 09/23/2014 Depression Screening 02/05/2025 02/06/2024 Lipid Panel 02/13/2025 02/14/2024, 11/15, 12/04/2020, Additional history exists Covid-19 Vaccine (3 - 2024-2 6 season) 2025 02/10/2021, 01/11/2021 Influenza Vaccine (#1) 2025 , 09/16/2020, 12/19/2018, Additional history exists Hemoglobin A1C 08/27/2025 02/25/2025, 07/3 11/2022, 05/03/2022, Additional history exists Fall Risk Assessment 02/28/2026 02/28/2025 eGFR 08/29/2026 08/29/2025, 1011/2024, 02/27/2025, Additional history exists Colon Cancer Screening-Colonoscopy 09/24/2031 09/24/2021, 07/08/2020, 04/23/2016 [...] On track(2021 12:44 PM CDT) No Kirstie Ya, CONCHITA Note: Problem: Chronic Pain Goals: 1. Minimize further functional decline 2. Maximize quality of life 3. Control pain Strategies: - Activity/exercise program recommendation - Conservative stepwise pain medicine strategy with multi-disciplinary approach - Recommend healthy lifestyle strategies and compensatory methods as needed Medical Devices Implanted Type Area Pmp Device Identifier Shelf Expiration Date Model / Serial / Lot [employer] [id number] - [id number] - [id number] Implanted:Qty: 1 on 10/28/2021 by Dann Contreras MD at [facility] Advanced Medicine Lens Right: Eye [employer] [id number] 05/13/2024 [id number] / [id number] / [id number] Description:[id number] 18.5D Righ t eye Carlene [employer] [id number] 18.0 Tecnis Optiedge 6mm 13mm 3 Piece Anterior Aspheric Monofocal Uv - [id number] - [id number] Implanted:Qty: 1 on 12/30/2021 by Dann Contreras MD at [facility] Lens Left: Lens Carlene [employer] [id number] 02/15/2025 [id number] / [id number] / Knee Bilatera l: Knee Screw Right: Wrist Procedures Procedure Name Priority Date/Time Associated Diagnosis Comments DRUGS OF ABUSE SCREEN, URINE WITHOUT CONFIRMATION Routine 09/05/2025 3:29 PM CDT Low back pain with right-sided sciatica, unspecified back pain laterality, unspecified chronicity Chronic back pain, unspecified back location, unspecified back pain laterality Chronic pain syndrome Lumbosacral radiculopathy Sacroiliac joint pain Thoracic spine pain Spinal stenosis of lumbar region with neurogenic claudication TROPONIN T HIGH-SENSITIVITY 2-HOUR Timed 08/30/2025 1:34 AM CDT TROPONIN T HIGH-SENSITIVITY SERIES (BASELINE, 2HR, 4HR, 6HR) STAT 08/29/2025 11:21 PM CDT ECG 12-LEAD STAT 08/29/2025 11:16 PM CDT XR CHEST 1 VIEW ED 08/29/2025 10:10 PM CDT EGFR STAT 08/29/2025 10:03 PM CDT DIFFERENTIAL AUTO STAT 08/29/2025 10: 03 PM CDT SEPSIS LACTATE WITH REFLEX STAT 08/29/2025 10:03 PM CDT CBC WITH AUTO DIFFERENTIAL STAT 08/29/2025 10:03 PM CDT COMPREHENSIVE METABOLIC PANEL STAT 08/29/2025 10:[address] LUMBAR SPINE WO CONTRAST ED 08/29/2025 9:31 PM CDT XR SCOLIOSIS AP LAT Schedule Routine, Read Routine (OP Routine) 08/19/2025 2:37 PM CDT Chronic back pain, unspecified back location, unspecified back pain laterality CT ABDOMEN PELVIS W CONTRAST ED 08/14/2025 10:26 PM CDT EGFR STAT 08/14/2025 7:24 PM CDT URINALYSIS, MICROSCOPIC ONLY STAT 08/14/2025 7:24 PM CDT DIFFERENTIAL AUTO STAT 08/14/2025 7:2 4 PM CDT LIPASE STAT 08/14/2025 7:24 PM CDT COMPREHENSIVE METABOLIC PANEL STAT 08/14/2025 7:24 PM CDT CBC WITH AUTO DIFFERENTIAL STAT 08/14/2025 7:24 PM CDT URINALYSIS AND REFLEX TO MICROSCOPIC AND CULTURE STAT 08/14/2025 7:24 PM CDT HEMOGLOBIN A1C STAT 02/25/2025 11:16 AM CDT HEPATITIS C ANTIBODY Routine 02/07/2024 9:08 PM CDT COLONOSCOPY 09/24/2021 2:13 PM PROJECT CREW WORKER DEXA APPENDICULAR BONE DENSITY Schedule Routine, Read Routine (OP Routine) 08/04/2021 2:32 PM CDT Osteopenia of multiple sites LIPID PANEL STAT 12/09/2020 4:03 PM PROJECT CREW WORKER SCREENING MAMMOGRAM BILATERAL W SOTO Schedule Routine, Read Routine (OP Routine) 07/16/2020 11:16 AM CDT Screening for breast cancer from Last 3 Months or Most Recently Relevant to Health Maintenance Results * Drugs of Abuse Screen, Urine without Confirmation (09/05/2025 3:29 PM CDT) Urine us Twin Machado MD LAB URINE ORDERABLES Final Result EXTERNAL LAB * Troponin T high-sensitivity 2-hour (08/30/2025 1:34 AM CDT) Trop T hs 13 <=14 ng/L Comment: Interpretive Data For further hscTnT resources including the diagnostic algorithm and an aid in interpretation, copy and paste this link: https://nrl.testcatalog.org/show/hsTrop Current Interpretive Data last revised 2020. Testing performed by: [address] [address] Trop T hs delta -2 ng/L BLANCA REESE Comment:Testing performed by : [address] [address] Trop T hs interp Insignificant BLANCA REESE Comment:Testing performed by : [address] [id number] Blood 08/30/2025 1:34 AM CDT 08/30/2025 1:37 AM CDT us Gene Kennedy Jr., MD LAB BLOOD ORDERABLES F inal Result Performing Organization Address [facility] de Phone Number BLANCA [address] Department [place] [address] * (ABNORMAL) Troponin T high-sensitivity series (baseline, 2hr, 4hr, 6hr) (08/29/2025 11:21 PM CDT) Trop T hs 15(H) <=14 ng/L Comment: Interpretive Data For further hscTnT resources including the diagnostic algorithm and an aid in interpretation, copy and paste this link: https://nrl.testcatalog.org/show/hsTrop Current Interpretive Data last revised 2020. Testing performed by: [facility], [address] [place] [address]., [id number] Blood 08/29/2025 11:2 1 PM CDT 08/29/2025 11:26 PM CDT us Gene Kennedy Jr., MD LAB BLOOD ORDERABLES F inal Result Performing Organization Address [facility] Co de Phone Number BLANCA [address] Department [place] [address] * ECG 12 lead (08/29/2025 11:16 PM CDT) Ventricular Rate EKG/Min 68 BPM [facility] Atrial Rate 68 BPM [facility] WV-Interval (MSEC) 156 ms [facility] QRS-Interval (MSEC) 82 ms [facility] QT-Interval (MSEC) 420 ms [facility] QTc 446 ms [facility] P Cameron 15 degrees [facility] R Cameron 16 degrees [facility] T Cameron 71 degrees [facility] Diagnosis Normal sinus rhythm Normal ECG When compared with ECG of 25-FEB-2025 12:24, No significant change was found Confirmed by SULTAN SOLOMON M.D. ([id number]) on 08/30/2025 11:49:49 AM [facility] 08/29/2025 11:1 6 PM CDT 08/30/2025 11:49 AM CDT us Gene Kennedy Jr., MD ECG ORDERABLES Final Result [facility] * XR Chest 1 Vw Portable (08/29/2025 10:10 PM CDT) Anatomical Region Laterality Modality Body, Chest N/A Computed Radiogr aphy 08/29/2025 10:1 5 PM CDT Narrative 08/29/2025 10:16 PM CDT EXAM DESCRIPTION: XR CHEST 1 VIEW REASON FOR STUDY: low bp Pt came in for 1010 back pain. ordered CXR due to pt having low BP TECHNIQUE: Portable upright AP view of the chest. COMPARISON: 02/25/2025 FINDINGS: LUNGS AND PLEURA: No focal opacity, large effusion, or pneumothorax identified. HEART/MEDIASTINUM: Trachea midline. Cardiac silhouette normal in size. Mediastinal contours appear normal. BONES: Unremarkable. CHEST WALL: Unremarkable. UPPER ABDOMEN: Unremarkable. IMPRESSION: No acute abnormality identified. THIS IS AN ELECTRONICALLY VERIFIED FINAL REPORT 08/29/2025 10:16 PM - Electronically signed by Laureano Ballard M.D. AR: ALEKS Report ID: [id number] Reading Location: [id number] Procedure Note Laureano Ballard MD - 08/29/2025 EXAM DESCRIPTION: XR CHEST 1 VIEW REASON FOR STUDY: low bp Pt came in for 10/10 back pain. ordered CXR due to pt having low BP TECHNIQUE: Portable upright AP view of the chest. COMPARISON: 02/25/2025 FINDINGS: LUNGS AND PLEURA: No focal opacity, large effusion, orpneumothorax identified. HEART/MEDIASTINUM: Trachea midline. Cardiac silhouette normal in size. Mediastinal contours appear normal. BONES: Unremarkable. CHEST WALL: Unremarkable. UPPER ABDOMEN: Unremarkable. IMPRESSION: No acute abnormality identified. THIS IS AN ELECTRONICALLY VERIFIED FINAL REPORT 08/29/2025 10:16 PM - Electronically signed by Laureano Ballard M.D. AR: ALEKS Report ID: [id number] Reading Location: [id number] Radha John NP IMG XR PROCEDURES Final Result * Sepsis Lactate w/ Reflex (08/29/2025 10:03 PM CDT) Pathologist [facility] Sepsis Lactate 2.0 0.7 - 2.0 mmol/L Comment:Testing performed by : [facility], [address] [place] [address]., [id number] Blood 08/29/2025 10:0 3 PM CDT 08/29/2025 10:07 PM CDT Radha John NP LAB BLOOD ORDERABLES Final Resul t [facility] [address] Department [place] [address] * (ABNORMAL) eGFR (08/29/2025 10:03 PM CDT) Pathologist [facility] eGFR 42(L) >=60 mL/min/1. 73 m2 Comment: Interpretive Data [...] was last reviewed 2021. Testing performed by: [address] [address] Blood 08/29/2025 10:0 3 PM CDT 08/29/2025 10:07 PM CDT us Joshuaivan Dora ROGERS LAB BLOOD ORDERABLES Final Resul t [facility] [address] Department [place] [address] * (ABNORMAL) Differential, auto (08/29/2025 10:03 PM CDT) Neutrophil abs 2.65 1.50 - 6.50 K/cumm Comment:Testing performed by : [address] [address] Imm gran abs 0.02 0.00 - 0.10 K/cumm BLANCA Comment:Testing performed by : [address] [address] Lymphocyte abs 3.52(H) 0.80 - 3.30 K/cumm BLANCA Comment:Testing performed by : [address] [address] Monocyte abs 0.65 0.20 - 0.80 K/cumm BLANCA Comment:Testing performed by : [address] [address] Eosinophil abs 0.24 0.00 - 0.50 K/cumm BLANCA Comment:Testing performed by : [address] [address] Basophil abs 0.07 0.00 - 0.10 K/cumm BLANCA Comment:Testing performed by : [address] [address] Neutrophil pct 37.0 % BLANCA Comment: Interpretive Data Percent cell count reference ranges are not reported, since discordance with absolute values may lead to misinterpretation of CBC data. Current Interpretive Data was last revised on 2018. Testing performed by: [address] [address] Imm gran pct 0.3 % [facility] Comment: Interpretive Data Percent cell count reference ranges are not reported, since discordance with absolute values may lead to misinterpretation of CBC data. Current Interpretive Data was last revised on 2018. Testing performed by: [address] [address] Lymphocyte pct 49.2 % [facility] Comment: Interpretive Data Percent cell count reference ranges are not reported, since discordance with absolute values may lead to misinterpretation of CBC data. Current Interpretive Data was last revised on 2018. Testing performed by: [address] [address] Monocyte pct 9.1 % [facility] Comment: Interpretive Data Percent cell count reference ranges are not reported, since discordance with absolute values may lead to misinterpretation of CBC data. Current Interpretive Data was last revised on 2018. Testing performed by: [address] [address] Eosinophil pct 3.4 % [facility] Comment: Interpretive Data Percent cell count reference ranges are not reported, since discordance with absolute values may lead to misinterpretation of CBC data. Current Interpretive Data was last revised on 2018. Testing performed by: [address] [address] Basophil pct 1.0 % [facility] Comment: Interpretive Data Percent cell count reference ranges are not reported, since discordance with absolute values may lead to misinterpretation of CBC data. Current Interpretive Data was last revised on 2018. Testing performed by: [address] [address] Blood 08/29/2025 10:0 3 PM CDT 08/29/2025 10:07 PM CDT us Radha John NP LAB BLOOD ORDERABLES Final Resul t [facility] [address] [facility] Department of Laboratories [place], [place] [id number] * (ABNORMAL) CBC with auto differential (08/29/2025 10:03 PM CDT) [facility] WBC 7.15 3.80 - 9.90 K/cumm Comment:Testing performed by : [address] [address] Hgb 9.7(L) 11.9 - 15.5 g/dL [facility] Comment:Testing performed by : [address] [address] Hct 31.2(L) 35.6 - 45.5 % [facility] Comment:Testing performed by : [address] [address] Plt 285 150 - 400 K/cumm [facility] Comment:Testing performed by : [address], [address] MPV 10.5 9.1 - 12.3 fL [facility] Comment:Testing performed by : [address] [address] RBC 3.89(L) 3.90 - 5.20 M/cumm [facility] Comment:Testing performed by : [address] [address] MCV 80.2(L) 81.3 - 96.4 fL [facility] Comment:Testing performed by : [address] [address] MCH 24.9(L) 27.1 - 33.3 pg [facility] Comment:Testing performed by : [address], [address] MCHC 31.1(L) 32.3 - 35.7 g/dL [facility] Comment:Testing performed by : [address] [address] RDW CV 23.6(H) 11.1 - 14.9 % [facility] Comment:Testing performed by : [address], [address] RDW SD 67.9(H) 35.7 - 48.1 fL [facility] Comment:Testing performed by : [address], [address] NRBC abs 0.00 0.00 - 0.01 K/cumm [facility] Comment:Testing performed by : [address] [address] Blood 08/29/2025 10:0 3 PM CDT 08/29/2025 10:07 PM CDT us Radha John NP LAB BLOOD ORDERABLES Final Resul t [facility] [address] [facility] Department [place] [address] * (ABNORMAL) Comprehensive metabolic panel (08/29/2025 10:03 PM CDT) Sodium 140 135 - 145 mmol/L Comment:Testing performed by : [address] [address] Potassium, pl 3.1(L) 3.3 - 4.9 mmol/L [facility] Comment: Hemolyzed; Potassium value may be falsely elevated by as much as 1.0 mmol/L. Suggest redraw and reanalysis. Testing performed by: [address] [address] Chloride 102 97 - 110 mmol/L [facility] Comment:Testing performed by : [address] [address] CO2 24 22 - 32 mmol/L [facility] Comment:Testing performed by : [address] [address] Anion gap 14 2 - 15 mmol/L [facility] Comment:Testing performed by : [address] [address] BUN 20 6 - 25 mg/dL [facility] Comment:Testing performed by : [address] [address] Creatinine 1.39(H) 0.60 - 1.10 mg/dL [facility] Comment:Testing performed by : [address] [address] Glucose 164 70 - 199 mg/dL [facility] Comment: Interpretive [...] was last revised 2022. Testing performed by: [address] [address] Calcium 9.4 8.5 - 10.3 mg/dL [facility] Comment:Testing performed by : [address] [address] Bilirubin, total 0.2 0.1 - 1.2 mg/dL [facility] Comment:Testing performed by : [address] [address] Protein, pl 6.7 6.5 - 8.5 g/dL [facility] Comment:Testing performed by : [address] [address] Albumin 4.0 3.5 - 5.0 g/dL [facility] Comment:Testing performed by : [address] [address] Alk phos 92 40 - 130 Units/L [facility] Comment:Testing performed by : [address] [address] ALT 17 7 - 45 Units/L [facility] Comment:Testing performed by : [address] [address] AST 26 10 - 45 Units/L [facility] Comment: Hemolyzed; result may be falsely elevated Testing performed by: [address] [address] Blood 08/29/2025 10:0 3 PM CDT 08/29/2025 10:07 PM CDT us Radha John NP LAB BLOOD ORDERABLES Final Resul t [facility] [address] Department [place] [address] * CT Lumbar Spine WO Contrast (08/29/2025 9:31 PM CDT) Anatomical Region Laterality Modality Spine N/A Computed Tomogra phy 08/29/2025 9:42 PM CDT Narrative 08/29/2025 9:53 PM CDT EXAM DESCRIPTION: CT LUMBAR SPINE WO CONTRAST REASON FOR STUDY: low back pain c/o right lower back pain. Hx of herniated discs, stenosis, scoliosis, says that tonight she was making dinner, turned, and felt a pop and had immediate 08/23 pain. TECHNIQUE: Axial images acquired through the lumbar spine without intravenous contrast. Reconstructed coronal and sagittal MPR images reviewed. All images stored on PACS. Automated exposure control was used as a dose optimization technique for this examination. COMPARISON: 08/14/2025, 07/15/2021 FINDINGS: Motion degraded examination. Findings made within these confines. SEGMENTATION: No transitional anatomy. The lowest well-developed disc space is labeled L5-S1. SURGICAL HARDWARE: None in the spine. ALIGNMENT: Similar-appearing scoliotic curvature of the thoracolumbar spine. Mild right lateral listhesis of L2 on L3 and L3 on L4. No acute traumatic spondylolisthesis. VERTEBRAE: Multilevel mildly prominent Schmorl's nodes. Multilevel degenerative endplate changes. No acute displaced fracture. INTERVERTEBRAL DISCS: Multilevel intervertebral disc height loss. Multilevel vacuum phenomena. INDIVIDUAL LEVELS: No acute displace fracture or traumatic malalignment of the lumbar spine. T12/L1: No significant spinal canal or neuroforaminal narrowing. L1/L2: Concentric disc bulge asymmetric to the right and facet arthrosis results in severe left neural foraminal narrowing. L2/L3: Concentric disc bulge and facet arthrosis results in severe left and mild right neural foraminal narrowing. L3/L4: Concentric disc bulge, facet arthrosis, and ligamentum flavum thickening results in [id number] spinal canal narrowing. Degenerative changes contribute to severe left and moderate right neural foraminal narrowing. L4/L5: Concentric disc bulge, ligamentum flavum thickening, and facet arthrosis results in severe spinal canal narrowing. Degenerative changes contribute to moderate left and severe right neural foraminal narrowing. L5/S1: Concentric disc bulge, facet arthrosis, and ligamentum flavum thickening results in moderate bilateral neural foraminal narrowing. SOFT TISSUES: Scattered atherosclerotic changes. No definite acute abnormality in the visualized abdomen or pelvis. 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 OTHER: No other significant finding. IMPRESSION: 1. No acute displaced fracture or traumatic malalignment of the lumbar spine. 2. Multilevel degenerative changes of the lumbar spine with up to severe spinal canal narrowing at L4/L5 and multilevel severe neural foraminal narrowing as described above. THIS IS AN ELECTRONICALLY VERIFIED FINAL REPORT 08/29/2025 9:53 PM - Electronically signed by David Loza M.D. NS: NS Report ID: [id number] Reading Location: [place] [address] Procedure Note David Loza MD - 08/29/2025 EXAM DESCRIPTION: CT LUMBAR SPINE WO CONTRAST REASON FOR STUDY: low back pain c/o right lower back pain. Hx of herniated discs, stenosis, scoliosis,says that tonight she was making dinner, turned, and felt a pop and hadimmediate 10/10 pain. TECHNIQUE: Axial images acquired through the lumbar spine withoutintravenous contrast. Reconstructed coronal and sagittal MPR images reviewed. Allimages stored on PACS. Automated exposure control was used as a dose optimization technique forthis examination. COMPARISON: 08/14/2025, 07/15/2021 FINDINGS: Motion degraded examination. Findings made within these confines. SEGMENTATION: No transitional anatomy. The lowest well-developed discspace is labeled L5-S1. SURGICAL HARDWARE: None in the spine. ALIGNMENT: Similar-appearing scoliotic curvature of the thoracolumbarspine. Mild right lateral listhesis of L2 on L3 and L3 on L4. No acutetraumatic spondylolisthesis. VERTEBRAE: Multilevel mildly prominent Schmorl's nodes. Multilevel degenerative endplate changes. No acute displaced fracture. INTERVERTEBRAL DISCS: Multilevel intervertebral disc height loss. Multilevel vacuum phenomena. INDIVIDUAL LEVELS: No acute displace fracture or traumatic malalignmentof the lumbar spine. T12/L1: No significant spinal canal or neuroforaminal narrowing. L1/L2: Concentric disc bulge asymmetric to the right and facet arthrosis results in severe left neural foraminal narrowing. L2/L3: Concentric disc bulge and facet arthrosis results in severe leftand mild right neural foraminal narrowing. L3/L4: Concentric disc bulge, facet arthrosis, and ligamentum flavum thickening results in [id number] spinal canal narrowing.Degenerative changes contribute to severe left and moderate right neural foraminal narrowing. L4/L5: Concentric disc bulge, ligamentum flavum thickening, and facet arthrosis results in severe spinal canal narrowing. Degenerative changes contribute to moderate left and severe right neural foraminal narrowing. L5/S1: Concentric disc bulge, facet arthrosis, and ligamentum flavum thickening results in moderate bilateral neural foraminal narrowing. SOFT TISSUES: Scattered atherosclerotic changes. No definite acute abnormality in the visualized abdomen or pelvis. 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 OTHER: No other significant finding. IMPRESSION: 1. No acute displaced fracture or traumatic malalignment of the lumbarspine. 2. Multilevel degenerative changes of the lumbar spine with up to severe spinal canal narrowing at L4/L5 and multilevel severe neural foraminal narrowing as described above. THIS IS AN ELECTRONICALLY VERIFIED FINAL REPORT 08/29/2025 9:53 PM - Electronically signed by David Loza M.D. NS: NS Report ID: [id number] Reading Location: [place] [address] Radha John NP IM CT PROCEDURES Final Result * XR Scoliosis 2 or 3 Views (08/19/2025 2:37 PM CDT) Anatomical Region Laterality Modality Spine N/A Computed Radiogr aphy 08/19/2025 4:58 PM CDT Impressions 08/19/2025 4:58 PM CDT 1. Progressive thoracolumbar dextroscoliosis centered at L2 with anterior sagittal imbalance. 2. Multilevel degenerative changes throughout the imaged spine, greatest in the lumbar spine along the scoliotic curvature Electronically signed by: MD Jemal Soto 08/19/2025 4:58 PM CDT EXAMINATION: XR SCOLIOSIS AP AND LATERAL HISTORY: BACK PAIN COMPARISON: 07/11/2023 FINDINGS: Mildly progressive thoracolumbar dextroscoliosis centered at L2 without pelvic obliquity or coronal imbalance. There is anterior sagittal imbalance. Multilevel degenerative changes including including degenerative disc disease and facet arthropathy noted throughout the spine, greatest and severe along the scoliotic curvature, most notably at L2-L3. Procedure Note Leonel Pascal MD - 08/19/2025 EXAMINATION: XR SCOLIOSIS AP AND LATERAL HISTORY: BACK PAIN COMPARISON: 07/11/2023 FINDINGS: Mildly progressive thoracolumbar dextroscoliosis centered at L2 without pelvic obliquity or coronal imbalance. There is anterior sagittal imbalance. Multilevel degenerative changes including including degenerative disc disease and facet arthropathy noted throughout the spine, greatest and severe along the scoliotic curvature, most notably at L2-L3. IMPRESSION: 1. Progressive thoracolumbar dextroscoliosis centered at L2 with anterior sagittal imbalance. 2. Multilevel degenerative changes throughout the imaged spine, greatest in the lumbar spine along the scoliotic curvature Electronically signed by: Leonel Pascal MD us Twin Machado MD IMG XR PROCEDURES Final Res ult * CT Abdomen Pelvis W Contrast (08/14/2025 10:26 PM CDT) Anatomical Region Laterality Modality Body N/A Computed Tomogra phy 08/14/2025 11:1 6 PM CDT Narrative 08/14/2025 11:25 PM CDT EXAM DESCRIPTION: CT ABDOMEN PELVIS W CONTRAST REASON FOR STUDY: Abdominal/flank pain, stone suspected, UTI, recurrent/complicated (Female) Patient states she was recently treated for a kidney infection, was recently given another 3-day antibiotic but states she has had worsening pain to right flank, rates 9/10. TECHNIQUE: CT scan of the abdomen and pelvis performed with intravenous and without oral contrast using helical scanning technique with dynamic intravenous contrast injection. Reconstructed coronal and sagittal MPR images reviewed. All images stored on PACS. Automated exposure control was used as a dose optimization technique for this examination. CONTRAST TYPE/DOSE: 92mL of IOVERSOL 350 MG IODINE/ML INTRAVENOUS SYRINGE injected via intravenous COMPARISON: Comparison is made to multiple previous studies, the most recent CT of the abdomen and pelvis dated February 26, 2025. FINDINGS: LOWER CHEST: There is bibasilar atelectasis. There is a calcified granuloma in the right lung base. LIVER: The liver is normal in attenuation without focal lesion. GALLBLADDER: Surgically absent. BILE DUCTS: No intrahepatic or extrahepatic ductal dilatation. PANCREAS: Normal. SPLEEN: No focal lesions. Spleen is normal in size. ADRENALS: Normal. KIDNEYS/URINARY TRACT: No significant cystic or solid masses. No visualized renal or ureteral stones. There is no hydronephrosis or hydroureter. Urinary bladder is unremarkable. VASCULATURE: There is moderate atherosclerosis of the aorta and its pelvic branches. GI: The stomach appears normal. There is no significant small bowel dilation or visible thickening. There is increased stool throughout the colon. The appendix is not visualized, however, there are no pericecal inflammatory changes seen to suggest appendicitis. PERITONEUM/MESENTERY: No ascites or free air. LYMPH NODES: There are no enlarged lymph nodes seen by CT size criteria. RETROPERITONEUM: No retroperitoneal abnormalities. REPRODUCTIVE: The patient is status post hysterectomy. No adnexal pathology is seen. MUSCULOSKELETAL: Multilevel degenerative changes are present in the spine. No acute bony abnormalities are seen. There is moderate dextro scoliosis of the lumbar spine. OTHER: No other abnormality. IMPRESSION: 1. Increased stool throughout the colon may indicate constipation. 2. Moderate atherosclerosis. 3. Status post cholecystectomy and hysterectomy. 4. Multilevel degenerative changes in the spine with moderate dextroscoliosis of the lumbar spine. THIS IS AN ELECTRONICALLY VERIFIED FINAL REPORT 08/14/2025 11:25 PM - Electronically signed by Britney Linda M.D. SN: Report ID: [id number] Reading Location: [id number] Procedure Note Britney Linda MD - 08/14/2025 EXAM DESCRIPTION: CT ABDOMEN PELVIS W CONTRAST REASON FOR STUDY: Abdominal/flank pain, stone suspected, UTI, recurrent/complicated (Female) Patient states she was recently treated for a kidney infection, wasrecently given another 3-day antibiotic but states she has had worsening pain toright flank, rates 9/10. TECHNIQUE: CT scan of the abdomen and pelvis performed with intravenousand without oral contrast using helical scanning technique with dynamic intravenous contrast injection. Reconstructed coronal and sagittal MPRimages reviewed. All images stored on PACS. Automated exposure control was usedas a dose optimization technique for this examination. CONTRAST TYPE/DOSE: 92mL of IOVERSOL 350 MG IODINE/ML INTRAVENOUSSYRINGE injected via intravenous COMPARISON: Comparison is made to multiple previous studies, the mostrecent CT of the abdomen and pelvis dated February 26, 2025. FINDINGS: LOWER CHEST: There is bibasilar atelectasis. There is acalcified granuloma in the right lung base. LIVER: The liver is normal in attenuation without focal lesion. GALLBLADDER: Surgically absent. BILE DUCTS: No intrahepatic or extrahepatic ductal dilatation. PANCREAS: Normal. SPLEEN: No focal lesions. Spleen is normal in size. ADRENALS: Normal. KIDNEYS/URINARY TRACT: No significant cystic or solid masses. Novisualized renal or ureteral stones. There is no hydronephrosis or hydroureter. Urinary bladder is unremarkable. VASCULATURE: There is moderate atherosclerosis of the aorta and itspelvic branches. GI: The stomach appears normal. There is no significant small bowel dilation or visible thickening. There is increased stool throughout the colon. The appendix is not visualized, however, there are no pericecal inflammatory changes seen to suggest appendicitis. PERITONEUM/MESENTERY: No ascites or free air. LYMPH NODES: There are no enlarged lymph nodes seen by CT size criteria. RETROPERITONEUM: No retroperitoneal abnormalities. REPRODUCTIVE: The patient is status post hysterectomy. No adnexalpathology is seen. MUSCULOSKELETAL: Multilevel degenerative changes are present in thespine. No acute bony abnormalities are seen. There is moderate dextro scoliosis ofthe lumbar spine. OTHER: No other abnormality. IMPRESSION: 1. Increased stool throughout the colon may indicate constipation. 2. Moderate atherosclerosis. 3. Status post cholecystectomy and hysterectomy. 4. Multilevel degenerative changes in the spine with moderate dextroscoliosis of the lumbar spine. THIS IS AN ELECTRONICALLY VERIFIED FINAL REPORT 08/14/2025 11:25 PM - Electronically signed by Britney Linda M.D. SN: Report ID: [id number] Reading Location: [id number] us Dorothy Chino FORESTRY FIRE AIDE IMG CT PROCEDURES Final Result * eGFR (08/14/2025 7:24 PM CDT) eGFR 71 >=60 mL/min/1. 73 m2 Comment: Interpretive Data [...] was last reviewed 2021. Testing performed by: [address] [address] Blood 08/14/2025 7:24 PM CDT 08/14/2025 7:32 PM CDT us Conor Chamberlain DO LAB BLOOD ORDERABLES Final Res ult [facility] [address] [facility] Department [place] [address] * (ABNORMAL) Differential, auto (08/14/2025 7:24 PM CDT) Pathologist [facility] Neutrophil abs 3.94 1.50 - 6.50 K/cumm Comment:Testing performed by : [address] [address] Imm gran abs 0.03 0.00 - 0.10 K/cumm [facility] REESE Comment:Testing performed by : [address] [place] [address] Lymphocyte abs 3.59(H) 0.80 - 3.30 K/cumm C[facility] Comment:Testing performed by : [address] [address] Monocyte abs 0.51 0.20 - 0.80 K/cumm [facility] Comment:Testing performed by : [address] [address] Eosinophil abs 0.29 0.00 - 0.50 K/cumm [facility] Comment:Testing performed by : [address], [place]., [address] Basophil abs 0.10 0.00 - 0.10 K/cumm [facility] Comment:Testing performed by : [address] [address] Neutrophil pct 46.6 % [facility] Comment: Interpretive Data Percent cell count reference ranges are not reported, since discordance with absolute values may lead to misinterpretation of CBC data. Current Interpretive Data was last revised on 2018. Testing performed by: [address] [address] Imm gran pct 0.4 % [facility] Comment: Interpretive Data Percent cell count reference ranges are not reported, since discordance with absolute values may lead to misinterpretation of CBC data. Current Interpretive Data was last revised on 2018. Testing performed by: [address] [address] Lymphocyte pct 42.4 % [facility] Comment: Interpretive Data Percent cell count reference ranges are not reported, since discordance with absolute values may lead to misinterpretation of CBC data. Current Interpretive Data was last revised on 2018. Testing performed by: [address] [address] Monocyte pct 6.0 % [facility] Comment: Interpretive Data Percent cell count reference ranges are not reported, since discordance with absolute values may lead to misinterpretation of CBC data. Current Interpretive Data was last revised on 2018. Testing performed by: [address] [address] Eosinophil pct 3.4 % [facility] Comment: Interpretive Data Percent cell count reference ranges are not reported, since discordance with absolute values may lead to misinterpretation of CBC data. Current Interpretive Data was last revised on 2018. Testing performed by: [address] [address] Basophil pct 1.2 % [facility] Comment: Interpretive Data Percent cell count reference ranges are not reported, since discordance with absolute values may lead to misinterpretation of CBC data. Current Interpretive Data was last revised on 2018. Testing performed by: [address] [address] Blood 08/14/2025 7:24 PM CDT 08/14/2025 7:32 PM CDT us Conor Chamberlain DO LAB BLOOD ORDERABLES Final Res ult [facility] [address] [facility] Department [place] [address] * (ABNORMAL) Urinalysis reflex to microscopic and culture Urine (08/14/2025 7:24 PM CDT) Color, ur Yellow Yellow Comment:Testing performed by : [address] [address] Clarity, ur Clear Clear [facility] REESE Comment:Testing performed by : [address] [address] Specific gravity, ur 1.014 1.003 - 1.030 [facility] Comment:Testing performed by : [address] [address] pH, urine 5.0 [facility] Comment: Interpretive Data U rine pH is affected by diet, medications, systemic acid-base disturbances, and renal tubular function. pH may affect urinary stone formation. For example, urine pH below 6.0 may help reduce the tendency for calcium phosphate stones and pH greater than 6.0 may reduce the tendency for uric acid stone formation. Source: [facility] [employer] Current Interpretive Data was last revised on 2017 Testing performed by: [address] [address] Protein, ur ql Negative Negative [facility] REESE Comment:Testing performed by : [facility], [address] [place] [address], [place]., [address] Glucose, ur ql Negative Negative [facility] Comment:Testing performed by : [address], [place]., [address] Ketones, ur Negative Negative [facility] Comment:Testing performed by : [address], [place]., [address] Bilirubin, ur Negative Negative [facility] Comment:Testing performed by : [address], [place]., [address] Blood, ur Negative Negative [facility] Comment:Testing performed by : [address], [place]., [address] Urobilinogen, ur <2.0 <2.0 mg/dL [facility] REESE Comment:Testing performed by : [address], [place]., [address] Nitrite, ur Negative Negative [facility] Comment:Testing performed by : [address], [place]., [address] Leukocyte esterase, ur 3+(A) Negative [facility] Comment:Testing performed by : [address], [place]., [address] UA reflex comment Reflex to microscopic UA will be performed. [facility] Comment:Testing performed by : [address], [place]., [address] Urine 08/14/2025 7:24 PM CDT 08/14/2025 7:32 PM CDT Conor Chamberlain DO LAB MICROBIOLOGY - GENERAL ORD ERABLES Final Result [facility] [address] [facility] Department [place] [address] * (ABNORMAL) CBC with auto differential (08/14/2025 7:24 PM CDT) WBC 8.46 3.80 - 9.90 K/cumm Comment:Testing performed by : [address], [place]., [address] Hgb 10.8(L) 11.9 - 15.5 g/dL [facility] Comment:Testing performed by : [address] [address] Hct 35.0(L) 35.6 - 45.5 % [facility] Comment:Testing performed by : [address] [address] Plt 306 150 - 400 K/cumm [facility] Comment:Testing performed by : [address] [address] MPV 9.4 9.1 - 12.3 fL [facility] Comment:Testing performed by : [address] [address] RBC 4.38 3.90 - 5.20 M/cumm [facility] Comment:Testing performed by : [address] [address] MCV 79.9(L) 81.3 - 96.4 fL [facility] Comment:Testing performed by : [address] [address] MCH 24.7(L) 27.1 - 33.3 pg [facility] Comment:Testing performed by : [address] [address] MCHC 30.9(L) 32.3 - 35.7 g/dL [facility] Comment:Testing performed by : [address] [address] RDW CV 22.6(H) 11.1 - 14.9 % [facility] Comment:Testing performed by : [address] [address] RDW SD 62.8(H) 35.7 - 48.1 fL [facility] Comment:Testing performed by : [address] [id number] NRBC abs 0.00 0.00 - 0.01 K/cumm [facility] Comment:Testing performed by : [address] [address] Blood Venous blood specimen / Unknown 08/14/2025 7:24 PM CDT 08/14/2025 7:32 PM CDT Conor Chamberlain DO LAB BLOOD ORDERABLES Final Res ult Performing Organization Address City/[facility]/ZIP Co de Phone Number [facility] [place] [address] * (ABNORMAL) Urinalysis, microscopic only (08/14/2025 7:24 PM CDT) WBC, ur 6-10(A) 0 - 5 /HPF Comment:Testing performed by : [facility], [address] [place] [address]., [address] RBC, ur 0-2 0 - 2 /HPF [facility] Comment:Testing performed by : [address] [address] Epithelial cells, squamous, ur 6-10(A) 0 - 5 /HPF [facility] Comment:Testing performed by : [address] [address] Bacteria, ur 1+(A) [facility] Comment:Testing performed by : [address] [address] Mucous, ur Present(A) [facility] Comment:Testing performed by : [address] [address] Hyaline casts, ur 1-5 0 - 10 /LPF [facility] Comment:Testing performed by : [address] [address] Culture Reflex Comment Reflex conditions for urine culture (WBC >10) not met. [facility] Comment:Testing performed by : [address] [address] Urine 08/14/2025 7:24 PM CDT 08/14/2025 7:32 PM CDT Conor Chamberlain DO LAB URINE ORDERABLES Final Res ult Performing Organization Address [facility]/ZIP Co de Phone Number [facility] [place] [address] * Lipase (08/14/2025 7:24 PM CDT) Lipase 18 10 - 99 Units/L Comment:Testing performed by : [address] [address] Blood Venous blood specimen / Unknown 08/14/2025 7:24 PM CDT 08/14/2025 7:32 PM CDT us Conor Chamberlain DO LAB BLOOD ORDERABLES Final Res ult [facility] [address] [facility] Department [place] [address] * (ABNORMAL) Comprehensive metabolic panel (08/14/2025 7:24 PM CDT) Pathologist [facility] Sodium 139 135 - 145 mmol/L Comment:Testing performed by : [address] [address] Potassium, pl 4.6 3.3 - 4.9 mmol/L [facility] Comment:Testing performed by : [address] [address] Chloride 102 97 - 110 mmol/L [facility] Comment:Testing performed by : [address] [address] CO2 20(L) 22 - 32 mmol/L [facility] Comment:Testing performed by : [address] [address] Anion gap 17(H) 2 - 15 mmol/L [facility] Comment:Testing performed by : [address] [address] BUN 20 6 - 25 mg/dL [facility] Comment:Testing performed by : [address] [address] Creatinine 0.90 0.60 - 1.10 mg/dL [facility] Comment:Testing performed by : [address] [address] Glucose 138 70 - 199 mg/dL [facility] Comment: Interpretive [...] was last revised 2022. Testing performed by: [address] [address] Calcium 9.8 8.5 - 10.3 mg/dL [facility] Comment:Testing performed by : [address] [address] Bilirubin, total 0.2 0.1 - 1.2 mg/dL [facility] Comment:Testing performed by : [address] [address] Protein, pl 7.8 6.5 - 8.5 g/dL [facility] Comment:Testing performed by : [address] [address] Albumin 4.7 3.5 - 5.0 g/dL [facility] Comment:Testing performed by : [address] [address] Alk phos 122 40 - 130 Units/L [facility] Comment:Testing performed by : [address] [address] ALT 23 7 - 45 Units/L [facility] Comment:Testing performed by : [address] [address] AST 28 10 - 45 Units/L [facility] Comment:Testing performed by : [address] [address] Blood Venous blood specimen / Unknown 08/14/2025 7:24 PM CDT 08/14/2025 7:32 PM CDT us Conor Chamberlain DO LAB BLOOD ORDERABLES Final Res ult [facility] [address] [facility] Department [place] [address] * (ABNORMAL) Hemoglobin A1c (02/25/2025 11:16 AM CDT) Pathologist [facility] Hgb A1C 7.4(H) 4.0 - 5.6 % Comment:Testing performed by : [address] [address] Estimated Average Glucose 166 mg/dL [facility] Comment: The ADA recommends reporting an estimated Average Glucose (eAG) with all Hemoglobin A1c results using the equation derived from a study of 507 normal and diabetic adults. Minority populations were underrepresented and children were not included. (Diabetes Care 31:1700-3710, 2008). The eAG is not equivalent to a fasting glucose. Testing performed by: [address] [address] Blood 02/25/2025 11:1 6 AM CDT 02/25/2025 11:29 AM CDT us Carmen Nayak MD LAB BLOOD ORDERABLES Final Res ult [facility] [address] [facility] Department [place] [address] * Hepatitis C antibody Blood (02/07/2024 9:08 PM CDT) [facility] Hep C Ab Nonreactive Nonreactive Comment:Antibodies to HCV no t detected. Does NOT exclude the possibility of recent exposure to HCV. Current interpretive data was last revised on 22 Blood 02/07/2024 9:08 PM CDT 02/07/2024 9:43 PM CDT us Jim Rivera MD LAB MICROBIOLOGY - GENERAL ORDER RITIKA Final Result [facility] Department [place] [address] * COLONOSCOPY (09/24/2021 2:13 PM PROJECT CREW WORKER) Anatomical Region Laterality Modality Other Narrative Procedure Note Paul Chávez MD - 09/24/2021 2:13 PM CST ENDOSCOPY LAB Patient Name: Lourdes Simms Procedure Date: 09/24/2021 2:13 PM Date of : 1960 Admit Type: Outpatient Age: 61 Gender: Female Attending MD: Paul Chávez M.D. Room: [facility] ENDOSCOPY ROOM 05 Note Status: Finalized [...] The scope was passed under direct vision.The [id number] was introduced through the anusand advanced to [...] 09/24/2021 2:13 PM us Paul Chávez MD PhD ENDOSCOPY PROCEDURES Edit ed Result - Final * Dexa Appendicular Bone Density (08/04/2021 2:32 PM CDT) Anatomical Region Laterality Modality Wrist N/A Radiographic Dasia ging Narrative 08/04/2021 4:11 PM CDT Patient Name: Lourdes Simms Date of : 1960 Date of scan: 08/04/2021 Bone mineral density was performed on a HoloIntimate Bridge 2 Conception Discovery Densitometer. Based on machine cross-calibration and [...] by the International Society of Clinical Densitometry. [id number] Junior Aguirre MD IMG DXA PROCEDURES Final Result * Lipid panel (12/09/2020 4:03 PM PROJECT CREW WORKER) [facility] Cholesterol 151 30 - 199 mg/dL [facility] Comment: Interpretive Data Ages [...] on 2018. Triglycerides 90 <=149 mg/dL [facility] Comment: Interpretive Data Ages < or = [...] revised on 2018. HDL 76 >=40 mg/dL [facility] Comment: Interpretive Data Ages < or [...] on 2018. LDL, calculated 57 <=129 mg/dL [facility] Comment: Interpretive Data Ages < or [...] revised on 2018. Non-HDL Cholesterol 75 mg/dL [facility] Comment: Interpretive Data Ages < or [...] last revised on 2018. Chol/HDL ratio 2 [facility] Blood specimen (specimen) 12/09/2020 4:03 PM PROJECT CREW WORKER 12/09/2020 4:22 PM PROJECT CREW WORKER David Liz MD LAB BLOOD ORDERABLES Final Re sult [facility] Department [place] [address] * Screening Mammogram Bilateral W [place] (07/16/2020 11:16 AM CDT) Anatomical Region Laterality Modality Breast Bilateral Mammography Narrative 07/18/2020 12:37 PM CDT Mammogram Technique: Bilateral Digital Breast Tomosynthesis, Bilateral C-view 2D Screening mammogram. Views obtained: bilateral craniocaudal and bilateral mediolateral oblique. Computer Aided Detection was performed. Mammogram Findings: The present examination has been compared to prior imaging studies performed at [facility] on 05/13/2014, 07/04/2015 and 08/01/2019. There are [...] compared to prior imaging studies performed at [facility] on 05/13/2014, 07/04/2015 and 08/01/2019. There are scattered areas of fibroglandular density. There is no suspicious abnormality in either breast. Impression: Annual screening mammography is recommended. OVERALL FINAL ASSESSMENT: BI-RADS CATEGORY 1: Negative. Twin Tello MD IMG MAMMO PROCEDURES Final Re sult from Last 3 Months or Most Recently Relevant to Health Maintenance Insurance [facility] [place] [address] [facility] MEDICARE ADVANTAGE MEDICARE [facility] MCR SUPPLEMENT [place] [id number] MEDICARE MEDICARE [facility] [place]AKBRAYDEN YEN [id number] FORMERLY [facility] MEDICARE UHC MEDICARE ADVANTAGE Advance Directives For more information, please contact: [phone] Documents on File Type Date Recorded Patient Wealth Management Advisor Expl anation ADVANCE DIRECTIVE 01/09/2021 10:38 AM Lindsay r of Trailer Steerer-Medical ADVANCE DIRECTIVE 07/13/2019 5:35 AM POWER OF WELDING MACHINE OPERATOR HELPER GAS-MEDICAL ADVANCE DIRECTIVE 05/14/2019 10:01 AM * Full [...] 9:50 AM 12/30/2021 6:05 PM Care Teams Service Order Clerk Relationship Specialty Start Date End Date Kal Tellez MD [address] [facility] [address] [facility] [address] [place] [address] PCP - General Family Medicine 08/29/25 Israel Carrillo MD [address] [address] Referring Physician Endocrinology Diabetes & Metabolism 06/01/19 Manish Singer MD [address] [address] Consulting Physician Otolaryngology 01/17/22
--- OUTSIDE RECORDS SUMMARY | 2025-09-13 10:55 | XMS_ITS | Encounter Summary ---
Author Organization [facility] Healthcare Address [address] [place] [address] Care Team Providers Care Ceramic Sprayer Name Role Phone Israel Carrillo MD Primary Care Provider Gene Padilla MD Primary Care Provider [phone] Israel Carrillo MD Primary Care Provider [phone] Twin Tello MD Primary Care Provider Israel Carrillo MD Unavailable [phone] Twin Tello MD Primary Care Provider Miguel Field MD Primary Care Provider Israel Carrillo MD Primary Care Provider [phone] Miguel Field MD Primary Care Provider [phone] Israel Carrillo MD Primary Care Provider [phone] Darlene Saeed MD Primary Care Provider Manish Singer MD Unavailable [phone] Katya Carpenter RN Unavailable [phone] Kal Tellez MD Primary Care Provider Encounter Details Date Type Department Care Team (Late st Contact Info) Description 05/18/2018 Community Orders [facility] EpicCare Link Israel Carrillo MD [address] [address] Social History Tobacco Use Types Packs/Day Years Used Date Smoking Tobacco: Some Days Smokeless Tobacco: Never Alcohol Use Standard Drinks/Week Comments Yes 0 (1 standard drink = 0.6 oz pur e alcohol) Comments Unknown Sex and Gender Information Value Date Recorded Sex Assigned at Not on file Legal Sex Female 8:10 PM TOBACCO SHAKER Gender Identity Not on file Sexual Orientation Not on file documented as of this encounter Plan of Treatment Not on file documented as of this encounter Visit Diagnoses Not on filedocumented in this encounter Additional Health Concerns Infection Onset Date Last Indicated Resolved Time COVID: Suspected 12/17/2020 12/17/2020 12/17/2020 6:45 PM TOBACCO SHAKER Diarrhea 12/02/2023 12/02/2023 12/16/2023 3:06 AM TOBACCO SHAKER COVID: Suspected 02/06/2024 02/06/2024 02/06/2024 2:46 PM CDT documented as of this encounter Care Teams Ceramic Sprayer Relationship Specialty Start Date End Date Israel Carrillo MD [address] [address] PCP - General 08/02/07 09/26/18 Gene Padilla MD [address] [place] [address] [address] PCP - General Cardiovascular Disease 09/27/18 Israel Carrillo MD [address] [address] PCP - General 10/02/18 05/31/19 Twin Tello MD [address] [address] PCP - General Endocrinology Diabetes & Metabolism 06/01/19 07/03/19 Twin Tello MD [address] [address] PCP - General 07/04/19 05/04/20 Miguel Field MD [address] [address] PCP - General Internal Medicine 05/05/20 08/03/20 Israel Carrillo MD [address] [address] PCP - General Endocrinology Diabetes & Metabolism 08/04/20 09/02/20 Miguel Field MD [address] [address] PCP - General 09/03/20 10/05/20 Israel Carrillo MD [address] [address] PCP - General Endocrinology Diabetes & Metabolism 10/06/20 01/08/21 Darlene Saeed MD [address] [address] PCP - General Family Medicine 01/09/21 08/28/25 Kal Tellez MD [address] [address] PCP - General Family Medicine 08/29/25 Israel Carrillo MD [address] [address] Referring Physician Endocrinology Diabetes & Metabolism 06/01/19 Manish Singer MD [address] [place] [address] Consulting Physician Otolaryngology 01/17/22 Katya Carpenter, RN [address] [facility] [address] [place] [address] SHOP Outpatient Take Out Waiter/Waitress 02/13/24 02/19/24 documented as of this encounter
--- OUTSIDE RECORDS SUMMARY | 2025-09-13 10:55 | XMS_ITS | Encounter Summary ---
Author Organization [facility] Address [address] [place] [address] Care Team Providers Care Metal Reclamation Kettle Tender Name Role Phone Israel Carrillo MD Primary Care Provider Twin Smiley MD Primary Care Provider [phone] Darlene Saeed MD Primary Care Provider [phone] Kal Tellez MD Primary Care Provider [phone] Theresa Connors Primary Care Provider [phone] Encounter Details Date Type Department Care Team (Late st Contact Info) Description 09/17/2017 [place] [address] , Generic Conversion, Social History Tobacco Use Types Packs/Day Years Used Date Smoking Tobacco: Never Assessed Comments Unknown Sex and Gender Information Value Date Recorded Sex Assigned at Female 12/21/2024 4:56 PM WAREHOUSE SUPERVISOR Legal Sex Female 11:23 PM CDT Gender Identity Not on file Sexual Orientation Not on file documented as of this encounter Plan of Treatment Not on file documented as of this encounter Visit Diagnoses Not on filedocumented in this encounter Care Teams Metal Reclamation Kettle Tender Relationship Specialty Start Date End Date Israel Carrillo MD PCP - General 10/17/14 11/02/19 Twin Tello MD [address] [facility] [address] [address] PCP - General INTERNAL MEDICINE 11/03/19 09/26/21 Darlene Saeed MD [address] [facility] [address] [place] [address] PCP - General FAMILY PRACTICE 09/27/21 01/27/25 Kal Tellez MD [address] [place] [address] PCP - General 01/28/25 02/19/25 Theresa Connors PA [address] [place] [address] PCP - General PHYSICIAN WEIGH BOSS 02/20/25 documented as of this encounter
--- OUTSIDE RECORDS SUMMARY | 2025-09-13 10:55 | XMS_ITS | Encounter Summary ---
Author Organization [facility] Address [address] [place] [address] Care Team Providers Care Hop Strainer Name Role Phone Israel Carrillo MD Primary Care Provider Twin Smiley MD Primary Care Provider [phone] Darlene Saeed MD Primary Care Provider [phone] Kal Tellez MD Primary Care Provider [phone] Theresa Connors Primary Care Provider [phone] Encounter Details Date Type Department Care Team (Late st Contact Info) Description 11/12/2014 Abstract [facility] CONVERSION [address] [place] [address] , Generic ConversionMD Social History Tobacco Use Types Packs/Day Years Used Date Smoking Tobacco: Never Assessed Comments Unknown Sex and Gender Information Value Date Recorded Sex Assigned at Female 12/21/2024 4:56 PM SELF PAY REPRESENTATIVE Legal Sex Female 11:23 PM CDT Gender Identity Not on file Sexual Orientation Not on file documented as of this encounter Plan of Treatment Not on file documented as of this encounter Visit Diagnoses Not on filedocumented in this encounter Care Teams Hop Strainer Relationship Specialty Start Date End Date Israel Carrillo MD PCP - General 10/17/14 11/02/19 Twin Tello MD [address] [address] PCP - General INTERNAL MEDICINE 11/03/19 09/26/21 Darlene Saeed MD [address] [place] [address] PCP - General FAMILY PRACTICE 09/27/21 01/27/25 Kal Tellez MD [address] [place] [address] PCP - General 01/28/25 02/19/25 Theresa Connors PA [address] [place] [address] PCP - General PHYSICIAN TRANSPORTATION SUPERINTENDENT 02/20/25 documented as of this encounter
--- OUTSIDE RECORDS SUMMARY | 2025-09-13 10:55 | XMS_ITS | Encounter Summary ---
Author Organization [facility] Address [address] [place] [address] Care Team Providers Care Marine Equipment Research Engineer Name Role Phone Israel Carrillo MD Primary Care Provider Twin Smiley MD Primary Care Provider [phone] Darlene Saeed MD Primary Care Provider [phone] Kal Tellez MD Primary Care Provider [phone] Theresa Connors Primary Care Provider [phone] Encounter Details Date Type Department Care Team (Late st Contact Info) Description 11/07/2015 Abstract [facility] Conversion , Sujata Ingram MD Social History Tobacco Use Types Packs/Day Years Used Date Smoking Tobacco: Never Assessed Comments Unknown Sex and Gender Information Value Date Recorded Sex Assigned at Female 12/21/2024 4:56 PM STEMHOLE BORER Legal Sex Female 11:23 PM CDT Gender Identity Not on file Sexual Orientation Not on file documented as of this encounter Plan of Treatment Not on file documented as of this encounter Visit Diagnoses Not on filedocumented in this encounter Care Teams Marine Equipment Research Engineer Relationship Specialty Start Date End Date Israel Carrillo MD PCP - General 10/17/14 11/02/19 Twin Tello MD [address] [place] [address] PCP - General INTERNAL MEDICINE 11/03/19 09/26/21 Darlene Saeed MD [address] [place] [address] PCP - General FAMILY PRACTICE 09/27/21 01/27/25 Kal Tellez MD [address] [place] [address] PCP - General 01/28/25 02/19/25 Theresa Connors PA [address] [place] [address] PCP - General PHYSICIAN EDITOR IN CHIEF NEWSPAPER 02/20/25 documented as of this encounter
--- OUTSIDE RECORDS SUMMARY | 2025-09-13 10:55 | XMS_ITS | Encounter Summary ---
Author Organization [facility] Address [address] [place] [address] Phone Care Team Providers Care Slip Operator Name Role Phone Israel Carrillo MD Primary Care Provider Gene Padilla MD Primary Care Provider [phone] Israel Carrillo MD Primary Care Provider Twin Tello MD Primary Care Provider Israel Carrillo MD Unavailable [phone] Twin Tello MD Primary Care Provider [phone] Miguel Field MD Primary Care Provider [phone] Israel Carrillo MD Primary Care Provider [phone] Miguel Field MD Primary Care Provider [phone] Israel Carrillo MD Primary Care Provider Darlene Saeed MD Primary Care Provider Manish Singer MD Unavailable [phone] Katya Carpenter RN Unavailable [phone] Kal Tellez MD Primary Care Provider Encounter [...] on file Legal Sex Female 8:10 PM HOME HEALTH TRAVEL OT Gender Identity Not on file Sexual Orientation [...] COVID: Suspected 12/17/2020 12/17/2020 12/17/2020 6:45 PM HOME HEALTH TRAVEL OT Diarrhea 12/02/2023 12/02/2023 12/16/2023 3:06 AM HOME HEALTH TRAVEL OT COVID: Suspected 02/06/2024 02/06/2024 02/06/2024 2:46 PM CDT documented as of this encounter Care Teams Slip Operator Relationship Specialty Start Date End Date Israel Carrillo MD [address] [place] [address] PCP - General 08/02/07 09/26/18 Gene Padilla MD [address] [place] [address] [address] [address] PCP - General Cardiovascular Disease 09/27/18 Israel Carrillo MD [address] [place] [address] PCP - General 10/02/18 05/31/19 Twin Tello MD [address] [address] PCP - General Endocrinology Diabetes & Metabolism 06/01/19 07/03/19 Twin Tello MD [address] [address] PCP - General 07/04/19 05/04/20 Miguel Field MD [address] [address] PCP - General Internal Medicine 05/05/20 08/03/20 Israel Carrillo MD [address] [address] PCP - General Endocrinology Diabetes & Metabolism 08/04/20 09/02/20 Miguel Field MD [address] [address] PCP - General 09/03/20 10/05/20 Israel Carrillo MD [address] [address] PCP - General Endocrinology Diabetes & Metabolism 10/06/20 01/08/21 Darlene Saeed MD [address] [address] PCP - General Family Medicine 01/09/21 08/28/25 Kal Tellez MD [address] [address] PCP - General Family Medicine 08/29/25 Israel Carrillo MD [address] [facility] [address] [place] [address] Referring Physician Endocrinology Diabetes & Metabolism 06/01/19 Manish Singer MD [address] [place] [address] Consulting Physician Otolaryngology 01/17/22 Katya Carpenter, RN [address] [facility] [address] [place] [address] SHOP Outpatient Shipping Associate 02/13/24 02/19/24 documented as of this encounter
--- OUTSIDE RECORDS SUMMARY | 2025-09-13 10:55 | XMS_ITS | Clinical Summary ---
Author Organization [facility] Address [address] [place] [address] Care Team Providers Care District Fire Chief Name Role Phone Theresa Connors Primary Care Provider [phone] Allergies Active Allergy Reactions Criticality Noted Date [...] to recent stroke 02/04/2021 History of hemorrhagic stroke with residual saritha paresis 02/04/2021 Syncope due to sick sinus syndrome 02/04/2021 Hypoglycemia 12/10/2020 Overview (03/13/2024): Last Assessment [...] 9 Hyperlipidemia, unspecified 03/31/2019 Paroxysmal atrial fibrillation 03/31/2019 COPD (chronic obstructive pulmonary disease) Resolved Problems Problem Noted Date Diagnosed Date Resolved Date Chest pain 02/14/2024 03/20/2024 Near syncope 02/13/2024 03/20/2024 Immunizations Immunization Administration Dates Next Due Influenza (Generic) 11/09/2013 Influenza Adult (Generic) 09/16/2020,12/19/2018, 01/15/2018 Tdap (Generic) 09/23/2014 Social History Tobacco Use Types Packs/Day Years Used Date Smoking Tobacco: Every Day Cigarettes 0.3 51.6 Started: 02/18/1974 Smokeless Tobacco: Never Tobacco Cessation:Ready to Q uit: Not Asked; Counseling Given: Not Answered Alcohol Use Standard Drinks/Week Comments No 0 (1 standard drink = 0.6 oz pur e alcohol) [facility] Utilities Answer Date Recorded In the past 12 months has th e electric, gas, oil, or water [employer] threatened to shut off services in your [...] place to sleep or slept in a penitentiary (including now)? Patient unable to answer 02/13/2024 Housing Stability Vital Sign Answer Alec e Recorded Unable to Pay for Housing in the Last Year Not o n file 02/19/2024 In the past 12 months, how m any times have you moved where you were living? 0 02/19/2024 At any time in the past 12 m [facility], were you homeless or living in a penitentiary (including now)? No 02/19/2024 Comments Unknown Sex and Gender Information Value Date Recorded Sex Assigned at Female 12/21/2024 4:56 PM ASSISTANT ASSOCIATE FULL PROFESSOR Legal Sex Female 11:23 PM CDT Gender Identity Not on file Sexual Orientation Not on file Last Filed Vital Signs Vital Sign Reading Time Taken Comments Blood Pressure 142/88 01/09/2025 11:44 AM ASSISTANT ASSOCIATE FULL PROFESSOR Pulse 106 01/09/2025 11:44 AM ASSISTANT ASSOCIATE FULL PROFESSOR Temperature 36.4 C (97.6 F) 12/21/2024 4:58 PM ASSISTANT ASSOCIATE FULL PROFESSOR Respiratory Rate 21 12/21/2024 8:30 PM ASSISTANT ASSOCIATE FULL PROFESSOR Oxygen Saturation 98% 01/09/2025 11:44 AM ASSISTANT ASSOCIATE FULL PROFESSOR Inhaled Oxygen Concentration - - Weight 101.2 kg (223 lb) 01/09/2025 11:44 AM ASSISTANT ASSOCIATE FULL PROFESSOR Height 147.3 cm (4' 10) 01/09/2025 11:44 AM ASSISTANT ASSOCIATE FULL PROFESSOR Body Mass Index 46.61 01/09/2025 11:44 AM ASSISTANT ASSOCIATE FULL PROFESSOR Plan of Treatment Health Maintenance Due Date Last Done Comments ASCVD Statin 1960 Pneumococcal Vaccine: 50+ Years (1 of 2 - PCV) 1978 Zoster Vaccines (1 of 2) 2009 RSV Immunization or 60+ Years (1 - Risk 60-74 years 1-dose series) 2019 Mammogram Screening 07/16/2022 07/16/2020, 9 Annual Medicare Wellness Visit 02/12/2024 DTaP, Tdap and Td Vaccines (2 - Td or Tdap) 09/23/2024 09/23/2014 Colorectal Cancer Screening FIT/FOBT (1 Year) 02/12/2025 02/13/2024 ASCVD LDL 02/13/2025 02/14/2024 COVID-19 Vaccine ( season) 2025 Influenza Adult (#1) 2025 09/16/2020, 12/19/2018, 01/15/2018, Additional history exists Dexa Scan (General) Completed 08/04/2021, 06/16/2020, 05/08/2019, Additional history exists Hepatitis C Completed 02/07/2024 Hepatitis A Vaccines Aged Out No long er eligible based on patient's age to complete this topic Meningococcal B Vaccine Aged Out No l onger eligible based on patient's age to complete this topic Meningococcal Vaccine Aged Out No august eleuterio eligible based on patient's age to complete this topic RSV Immunizations Under 20 Months Aged Out No longer eligible based on patient's age to complete this topic Procedures Procedure Name Priority Date/Time Associated Diagnosis Comments LIPID PANEL STAT 02/14/2024 6:06 AM CDT OCCULT BLOOD, FECES STAT 02/13/2024 7 :26 PM CDT from Last 3 Months or Most Recently Relevant to Health Maintenance Results * LIPID PANEL (02/14/2024 6:06 AM CDT) CHOLESTEROL 161 <200 MG/DL 02/14/2024 7:25 AM CDT [facility] TRIGLYCERIDES 105 <150 MG/DL 02/14/2024 7:25 AM CDT [facility] HDL 68 >40.0 MG/DL 02/14/2024 7:25 AM CDT [facility] LDL (CALCULATED) 72 <100 MG/DL 02/14/20 7:25 AM CDT [facility] NON HDL CHOLESTEROL 93 <130 MG/DL 02/13 7:25 AM CDT [facility] CHOL/HDL RATIO 2.4 0.0 - 4.5 02/14/2024 7:25 AM CDT [facility] VLDL CALCULATION 21 5 - 55 MG/DL 02/14/2024 7:25 AM CDT [facility] LIPID INTERPRETATION 02/14/2024 7:25 AM CDT [facility] Comment: NIH CONCENSUS REPORT RECOMMENDATIONS: ADULT CHILD LOW RISK: CHOLESTEROL <200 <170 TRIGLYCERIDE <150 --- HDL >=60 --- LDL <100 <110 BORDERLINE: CHOLESTEROL 200-239 170-199 TRIGLYCERIDE 150-199 --- HDL 40-59 --- LDL 100-159 110-129 HIGH RISK: CHOLESTEROL >=240 >=200 TRIGLYCERIDE >=200 --- HDL <40 --- LDL >=160 >=130 02/14/2024 6:06 AM CDT Yuko Patel [employer] Final Resul t [facility] [address] [place] [address], [place] [phone] * OCCULT BLOOD, FECES (02/13/2024 7:26 PM CDT) OCCULT BLOOD FECAL NEGATIVE 02/13/2024 8:10 PM CDT [facility] STOOL SPECIMEN / Unknown 02/13/2024 7:26 PM CDT Kal Salinas MD,PHD BODY FLUIDS AND STOOLS ORD ERABLES Final Result [facility] [address] [place] [address], [place] [phone] from Last 3 Months or Most Recently Relevant to Health Maintenance Insurance MED REPLACE [facility] MEDICARE Advance Directives Documents on File Type Date Recorded Patient National Expansion Recruiter Expl anation Advance Directives and Living Will 02/29/2024 3:02 PM 05/02/2017 POA FOR HC * Full Code (Latest Code Status on File) Date Activated Date Inactivated Comments 02/19/2024 1:22 PM 02/25/2024 11:57 AM * Full Code Date Activated Date Inactivated Comments 02/16/2024 10:58 AM 02/19/2024 1:21 PM * Full Code Date Activated Date Inactivated Comments 02/14/2024 12:19 AM 02/16/2024 10:58 AM Care Teams District Fire Chief Relationship Specialty Start Date End Date Theresa Connors PA [address], [address] [place] [address] PCP - General PHYSICIAN HOSPITAL FELLOW 02/20/25
[2025-09-13 11:09] LABS: Hematocrit 31.8 % (37.0-47.0); Hemoglobin 9.4 g/dL (12.0-15.0); Immature Granulocyte Percent A 0.4 % (0-0.5); Lymphocytes Absolute Auto 2.59 K/mm3 (0.9-3.2); Mean Corpuscular HGB Conc 29.6 g/dl (32-36); Mean Corpuscular Hemoglobin 24.7 pg (26-34); Mean Corpuscular Volume 83.7 fl (80-100); Nucleated Red Blood Cells Absolute Auto 0.000 K/mm3 (0.0-0.012); Nucleated Red Blood Cells Perc 0.0 % (0.0-0.2); Platelet Count Result 198 k/mm3 (150-375); Red Blood Count 3.80 M/mm3 (4.2-5.4); White Blood Count 8.1 K/mm3 (4.5-10.0)
[2025-09-13 11:23] LABS: Anion Gap 7 mmol/L (4-12); Blood Urea Nitrogen 8 mg/dL (7-17); Calcium 8.7 mg/dL (8.4-10.2); Carbon Dioxide 28 mmol/L (22-30); Chloride 107 mmol/L (98-107); Estimated Glomerular Filt Rate > 60; Glucose 133 mg/dL (65-110); Potassium 3.2 mmol/L (3.4-5.0); Sodium 142 mmol/L (137-145)
[2025-09-13 11:25] LABS: Iron 31 ug/dL (37-170)
[2025-09-13 11:35] LABS: Percent Iron Saturation 9 % (20-50)
[2025-09-13 11:46] LABS: Anisocytosis 2+; Hypochromasia 1+; Schistocytes None Seen; Target Cells Occasional
[2025-09-13 12:19] LABS: Vitamin B12 > 1000.0 pg/mL (239-931)
== END 2025-09-13 10:24 | disposition home or self-care (01) ==
PROVIDERS: PCP Family Medicine; Visit Provider Physician Assistant
DX: D64.9 Anemia, unspecified (principal); E87.6 Hypokalemia
CPT/HCPCS: 36415; 80048; 82607; 83540; 83550; 85025

== ENCOUNTER 2025-09-26 11:24 | Outpatient (CLI) | payer MEDICARE, SELFPAY ==
--- OUTSIDE RECORDS SUMMARY | 2025-09-24 12:56 | XMS_ITS | Encounter Summary ---
Author Organization [facility] Healthcare Address [address] [place] [address] Care Team Providers Care First Sampler Name Role Phone Israel Carrillo MD Unavailable [phone] Manish Singer MD Unavailable [phone] Kal Tellez MD Primary Care Provider Reason for Referral * Diagnostic Imaging (Routine) - Closed Specialty Diagnoses / Procedures Referred By Contac t Referred To Contact Radiology Diagnoses Lumbosacral radiculopathy Procedures IR Transforaminal Epidural Injection Lumbar Sacral 1 Level Right Twin Machado MD [address] [place] [address] Phone: tel: fax: [facility] [address] [place] [address] Referral ID Status Reason Start Date Expiration Date Visits Re quested Visits Authorized [id number] Closed 09/10/2025 10/10/2026 1 1 ER APPRENTICE GAS Reason for Visit * Diagnostic Imaging (Routine) - Closed Specialty Diagnoses / Procedures Referred By Contac t Referred To Contact Radiology Diagnoses Lumbosacral radiculopathy Procedures IR Transforaminal Epidural Injection Lumbar Sacral 1 Level Right Twin Machado MD [address], [place] [address] Phone: tel: fax: [facility] [address] [facility] [place] [address] Referral ID Status Reason Start Date Expiration Date Visits Re quested Visits Authorized [id number] Closed 09/10/2025 10/10/2026 1 1 Encounter Details Date Type Department Care Team (Latest Contact Info) Description 09/24/2025 12:56 PM WELDER APPRENTICE GAS - 09/24/2025 11:59 PM WELDER APPRENTICE GAS Hospital Encounter [facility] [address] [place] [address] Twin Machado MD [address] [facility] [address] Lumbosacral radiculopathy (Primary Dx) Discharge Disposition: Discharge to home or self care Social History Tobacco Use Types Packs/Day Years Used Date Smoking Tobacco: Every Day Cigarettes 0.5 59.7 Started: 1962; Last attempted to quit: 07/23/2021 Smokeless Tobacco: Never Comments:pt reports started smoking at 11 years old Alcohol Use Standard Drinks/Week Comments Not Currently 0 (1 standard drink = 0.6 oz pur e alcohol) [facility] Utilities Answer Date Recorded In the past 12 months has [employer] electric, gas, oil, or water [employer] threatened to shut off services in your [...] often do you attend chur ch or protestant services? Never 02/27/2025 Do you belong to any clubs o r organizations such as denominational groups, unions, fraternal or athletic groups, or [...] place to sleep or slept in a fdc (including now)? No 02/13/2024 Housing Stability Vital Sign Answer Alec e Recorded In the last 12 months, was t here a time when you were not able to pay the mortgage or rent on time? No 02/27/2025 In the past 12 months, how m any times have you moved where you were living? 0 02/27/2025 At any time in the past 12 m [facility], were you homeless or living in a fdc (including now)? No 02/27/2025 Personal Safety Answer Date Recorded Have you ever been in or are you currently in a harmful physical or emotional relationship or is someone making you feel afraid or unsafe? Denies 08/29/2025 Comments No Sex and Gender Information Value Date Recorded Sex Assigned at Not on file Legal Sex Female 8:10 PM WELDER APPRENTICE GAS Gender Identity Not on file Sexual Orientation Not on file documented as of this encounter Last Filed Vital Signs Vital Sign Reading Time Taken Comments Blood Pressure 146/75 09/24/2025 1:50 PM WELDER APPRENTICE GAS Pulse 73 09/24/2025 1:50 PM WELDER APPRENTICE GAS Temperature - - Respiratory Rate 16 09/24/2025 1:50 PM WELDER APPRENTICE GAS Oxygen Saturation - - Inhaled Oxygen Concentration - - Weight - - Height - - Body Mass Index - - documented in this encounter Functional Status documented as of this encounter Discharge Instructions * Patient Instructions* Twin Machado MD - 09/24/2025 1:20 PM WELDER APPRENTICE GAS Post Procedure Instructions You received an epidural steroid injection to your lumbosacral spine on the right side. Your injection included: Lidocaine (numbing medicine). The numbing medicine usually lasts for 30- 45 minutes. During this time, your leg may feel weak and numb due to the effects of the numbing medicine. If this occurs, it is important to stay safe and do not stand or walk without assistance until the numbing medicine wears off. Do not drive for one hour after the injection. Dexamethasone (steroid medicine for inflammation and pain). The steroid will start working within the next three to five days and can take up to two weeks for the full effect. When you get home: Resume your medicine including any blood thinner you held prior to the injection. Resume your normal diet For soreness, you may place an ice pack once an hour at the injection site for 15-20 minutes. You may shower. To prevent infection, do not take a bath, swim or sit in a Jacuzzi or hot tub for the next two days. Drink plenty of fluids to decrease a chance of a headache associated with steroids. You may resume your physical therapy appointments in 24 hours. Do not exercise for 24 hours, regular day-to-day activities are OK to perform. Diabetic patients: Steroid injections may lead to higher blood glucose (sugar) levels temporarily. Most commonly, the higher levels will return to normal within 1-3 days, though effects may last longer. Rises in blood glucose levels may be more significant in patients with poorly controlled type 2 diabetes (those with HbA1c levels greater than 7) and those with type I diabetes. Check fasting (interactive media designer prior to first meal of the day) and post-prandial (following meals) blood glucose levels. Contact the physician who manages your diabetes if your blood sugar is significantly elevated (for example, over 100mg/dL higher than your pre- injection level) or if blood sugar levels remain significantly elevated 2 days after receiving the injection, to discuss whether a change in medication dosing is needed. For urgent concerns after hours, call our exchange at [phone]. For all other questions regarding the procedure, please call our office at [phone]. Pain Diary Please fill out the pain diary chart below and message via [employer] call or call the medical provider who requested the injection, Dr. Machado, in two weeks. By how much has your pain improved after your injection? Therapeutic Injection: NOT IMPROVED IMPROVED A LITTLE IMPROVED A LITTLE MORE IMPROVED A LOT NO PAIN Immediately? 0% 20% 50% 80% 100% 6 hours after? 0% 20% 50% 80% 100% 24 hours after? 0% 20% 50% 80% 100% 4 days after? 0% 20% 50% 80% 100% 1 week after? 0% 20% 50% 80% 100% 10 days after? 0% 20% 50% 80% 100% 2 weeks after? 0% 20% 50% 80% 100% ER APPRENTICE GAS documented in this encounter Medications at Time of Discharge acetaminophen (TYLENOL) 500 mg tablet Take 1 tablet (500 mg total) by mouth every 6 (six) hours as needed ARTIFICIAL TEARS,HYPROMELLOSE, OPHT Administer 1-2 drops into both eyes as needed furosemide (LASIX) 40 mg tablet 03/18/2025 HYDROcodone-acetami nophen (NORCO) 5-325 mg per tabletIndications:L umbosacral radiculopathy Take 1 tablet by mouth every 6 (six) hours as needed for pain MAX 4 A DAY for pain 120 tablet 08/30/2025 Jardiance 10 mg tablet 04/02/2025 lidocaine (LIDODERM) 5 % Place 1 patch on the skin daily as needed for pain Remove & discard patch within 12 hours or as directed by MD. metoprolol XL (TOPROL-XL) 25 mg extended release tablet Take 1 tablet (25 mg total) by mouth daily 10/16/2024 multivit,iron,credit union examiner als/lutein (CENTRUM SILVER ULTRA WOMEN'S ORAL) Take 1 tablet by mouth daily nitroglycerin (NITROSTAT) 0.4 mg SL tabletIndications:a cute episode of anginal pain Place 1 tablet (0.4 mg total) under the tongue every 5 (five) minutes as needed for chest pain (pt states she is taking for acid reflux) No more than 3 tablets within 15 mintues omeprazole (PriLOSEC) 40 mg capsule Take 1 capsule (40 mg total) by mouth 2 (two) times a day 06/16/2024 PARoxetine (PAXIL) 20 mg tablet Take 1 tablet (20 mg total) by mouth every morning 06/16/2024 predniSONE (DELTASONE) 20 mg tabletIndications:A nti-inflammatory Take 2 tablets (40 mg) by mouth daily 8 tablet 08/30/2025 rosuvastatin (CRESTOR) 5 mg tablet Take 1 tablet (5 mg total) by mouth daily 03/21/2023 SUMAtriptan (IMITREX) 50 mg tablet Take 1 tablet (50 mg total) by mouth 2 (two) times a day as needed 04/24/2024 tiZANidine (ZANAFLEX) 4 mg tabletIndications:S pasm of muscle Take 1 tablet (4 mg total) by mouth every 6 (six) hours as needed for muscle spasms 120 tablet 1 08/30/2025 documented as of this encounter Discharge Disposition Disposition Code Departure Means Destination Discharge to home or self care documented in this encounter Progress Notes * Twin Machado MD - 09/24/2025 1:20 PM CST Right S1 Transforaminal Epidural Steroid Injection [facility] Department of Orthopedic Surgery Division of Physical Medicine and Rehabilitation Patient name: Lourdes Vickers Date of : 1960 Date of service: 09/24/2025 Lourdes Vickers presents to the fluoroscopy suite for a fluoroscopically guided right S1 transforaminal epidural steroid injection for conservative treatment of lumbosacral radicular pain. After informed consent was obtained, the patient was positioned in the prone position on the fluoroscopy table. The area was prepped with chlorhexidine and draped in sterile fashion. Using a 25 gauge 2 inch nee dle, 1-2 mL of 1% lidocaine was infused subcutaneously to anesthetize the region. Then, a 25 gauge 3.5 inch spinal needle was advanced to the superolateral S1 transforaminal space and advanced into the epidural space under fluoroscopic guidance. Confirmation into the epidural space was obtained with infusion of 0.5 mL of Omnipaque contrast, which showed epidural flow as well as nerve sheath flow.Then a combination of 2 mL of 1% lidocaine and 10 mg of 10 mg/mL dexamethasone was infused. The patient tolerated the procedure without complications. Pre and post procedure blood pressure were stable. The patient was given verbal as well as written follow-up instructions. A pain diary was given tothe patient with follow-up instructions. At the time of discharge following today's procedure, the patient was able to ambulate at their pre- procedure level and denied ongoing nausea, vomiting, or dizziness. Prior to the start of the procedure, verbal verification by the procedure participant(s) confirmed (as applicable): correct patient identity; correct site/side marked and visible; agreement on the procedure to be done; correct patient positioning; an accurate signed procedure consent form, relevantimages and results correctly labeled and displayed; any safety precautions based on clinical history and/or medication use have been addressed. Fluoroscopic guidance used to assist right S1 transforaminal epidural steroid injection. Confirmation of needle placement into the epidural space via the right S1 neural foramen was obtained by injecting approximately 0.5 mL of Omnipaque contrast. There was no evidence of vascular uptake or subdural flow noted. I personally performed or was present for the entire procedure above. Twin Machado MD ER APPRENTICE GAS documented in this encounter Plan of Treatment [...] as needed documented as of this encounter Procedures Procedure Name Priority Date/Time Associated Diagnosis Comments TRANSFORAMINAL EPIDURAL INJECTION LUMBAR SACRAL 1 LEVEL RIGHT Schedule Routine, Read Routine (OP Routine) 09/24/2025 1:42 PM WELDER APPRENTICE GAS Lumbosacral radiculopathy documented in this encounter Results * IR Transforaminal Epidural Injection Lumbar Sacral 1 Level Right (09/24/2025 1:42 PM WELDER APPRENTICE GAS) Narrative [facility] - 09/24/2025 1:46 PM WELDER APPRENTICE GAS The images from this study are not interpreted by Radiology. Please refer to the physician's procedure / OR operative note. us Twin Machado MD IMG IR PROCEDURES Final Res ult [facility] documented in this encounter Visit Diagnoses Diagnosis Lumbosacral radiculopathy- Primary Thoracic or lumbosacral neuritis or radiculitis, unspecified documented in this encounter Administered Medications Inactive Administered Medications - up to 3 most recent administrations Medication Order MAR Action Action Date Dose Rate Site dexAMETHasone (DECADRON) preservative free solution Administer over 2 Minutes, As needed, Starting on Tue09/24/25 at 1341, Intra-Op Given 09/24/2025 1:41 PM WELDER APPRENTICE GAS 10 mg Lower Back iohexoL (OMNIPAQUE) 300 mg iodine/mL injection solution As needed, Starting on Tue09/24/25 at 1340, Intra-Op Given 09/24/2025 1:40 PM WELDER APPRENTICE GAS 2 mL Lower Back lidocaine (PF) (XYLOCAINE) 10 mg/mL (1 %) preservative free injection As needed, Starting on Tue09/24/25 at 1339, Intra-Procedure (IR), Indications: Administration of Local AnesthesiaIndications:Administ ration of Local Anesthesia Given 09/24/2025 1:39 PM WELDER APPRENTICE GAS 5 mL Lower Back documented in this encounter Care Teams First Sampler Relationship Specialty Start Date End Date Kal Tellez MD [address] [place] [address] PCP - General Family Medicine 08/29/25 Israel Carrillo MD [address] [place] [address] Referring Physician Endocrinology Diabetes & Metabolism 06/01/19 Manish Singer MD [address] [address] Consulting Physician Otolaryngology 01/17/22 documented as of this encounter
[2025-09-26 12:02] LABS: Hematocrit 30.7 % (37.0-47.0); Hemoglobin 9.1 g/dL (12.0-15.0); Mean Corpuscular HGB Conc 29.6 g/dl (32-36); Mean Corpuscular Hemoglobin 24.6 pg (26-34); Mean Corpuscular Volume 83.0 fl (80-100); Platelet Count Result 239 k/mm3 (150-375); Red Blood Count 3.70 M/mm3 (4.2-5.4); White Blood Count 8.3 K/mm3 (4.5-10.0)
[2025-09-26 12:23] LABS: Add Urine Microscopic? YES; Appearance Urine Clear (Clear); Glucose Urine UA Negative (Negative); Leukocyte Esterase Ur 2+ LEU/UL (Negative); Nitrate Urine Negative (Negative); Specific Grav Ur 1.023 (1.001-1.035)
[2025-09-26 12:28] LABS: Albumin Level 4.0 g/dL (3.5-5.1); Anion Gap 7 mmol/L (4-12); Blood Urea Nitrogen 14 mg/dL (7-17); Calcium 8.9 mg/dL (8.4-10.2); Carbon Dioxide 25 mmol/L (22-30); Chloride 107 mmol/L (98-107); Creatine Kinase 132 U/L (30-135); Estimated Glomerular Filt Rate > 60; Glucose 133 mg/dL (65-110); Potassium 2.8 mmol/L (3.4-5.0); Sodium 139 mmol/L (137-145)
[2025-09-26 12:32] LABS: Total Protein Urine Random 13 mg/dL; Ur Ttl Prot Creatinine Ratio 0.12 mg/mg (0-0.20)
[2025-09-26 12:35] LABS: Parathyroid Intact 54.7 pg/mL (14.5-75.2)
--- OUTSIDE RECORDS SUMMARY | 2025-09-26 12:35 | XMS_ITS | Encounter Summary ---
Author Organization [facility] Address [address] [place] [address] Care Team Providers Care Bill Sorter Name Role Phone Israel Carrillo MD Primary Care Provider Twin Smiley MD Primary Care Provider [phone] Darlene Saeed MD Primary Care Provider [phone] Kal Tellez MD Primary Care Provider [phone] Theresa Connors Primary Care Provider [phone] Encounter Details Date Type Department Care Team (Late st Contact Info) Description 09/17/2017 [place] [address] , Generic Conversion, Social History Tobacco Use Types Packs/Day Years Used Date Smoking Tobacco: Never Assessed Comments Unknown Sex and Gender Information Value Date Recorded Sex Assigned at Female 12/21/2024 4:56 PM TECHNICAL SPECIALIST CYTOGENETICS Legal Sex Female 11:23 PM CDT Gender Identity Not on file Sexual Orientation Not on file documented as of this encounter Plan of Treatment Not on file documented as of this encounter Visit Diagnoses Not on filedocumented in this encounter Care Teams Bill Sorter Relationship Specialty Start Date End Date Israel Carrillo MD PCP - General 10/17/14 11/02/19 Twin Tello MD [address] [facility] [address], [place] [address] PCP - General INTERNAL MEDICINE 11/03/19 09/26/21 Darlene Saeed MD [address] [facility] [address] [place] [address] PCP - General FAMILY PRACTICE 09/27/21 01/27/25 Kal Tellez MD [address] [place] [address] PCP - General 01/28/25 02/19/25 Theresa Connors PA [address] [place] [address] PCP - General PHYSICIAN BILINGUAL INTERPRETER 02/20/25 documented as of this encounter
--- OUTSIDE RECORDS SUMMARY | 2025-09-26 12:35 | XMS_ITS | Encounter Summary ---
Author Organization [facility] Address [address] [place] [address] Care Team Providers Care Stylist Apprentice Name Role Phone Israel Carrillo MD Primary Care Provider Twin Smiley MD Primary Care Provider [phone] Darlene Saeed MD Primary Care Provider [phone] Kal Tellez MD Primary Care Provider [phone] Theresa Connors Primary Care Provider [phone] Encounter Details Date Type Department Care Team (Late st Contact Info) Description 11/07/2015 Abstract [facility] Conversion , Sujata Ingram MD Social History Tobacco Use Types Packs/Day Years Used Date Smoking Tobacco: Never Assessed Comments Unknown Sex and Gender Information Value Date Recorded Sex Assigned at Female 12/21/2024 4:56 PM SENIOR ENVIRONMENTAL TECHNICIAN Legal Sex Female 11:23 PM CDT Gender Identity Not on file Sexual Orientation Not on file documented as of this encounter Plan of Treatment Not on file documented as of this encounter Visit Diagnoses Not on filedocumented in this encounter Care Teams Stylist Apprentice Relationship Specialty Start Date End Date Israel Carrillo MD PCP - General 10/17/14 11/02/19 Twin Tello MD [address] [place] [address] PCP - General INTERNAL MEDICINE 11/03/19 09/26/21 Darlene Saeed MD [address] [place] [address] PCP - General FAMILY PRACTICE 09/27/21 01/27/25 Kal Tellez MD [address] [place] [address] PCP - General 01/28/25 02/19/25 Theresa Connors PA [address] [place] [address] PCP - General PHYSICIAN CLINICAL REHAB SPECIALIST 02/20/25 documented as of this encounter
--- OUTSIDE RECORDS SUMMARY | 2025-09-26 12:35 | XMS_ITS | Encounter Summary ---
Author Organization [facility] Address [address] [place] [address] Care Team Providers Care Cosmetics Demonstrator Name Role Phone Israel Carrillo MD Primary Care Provider Twin Smiley MD Primary Care Provider [phone] Darlene Saeed MD Primary Care Provider [phone] Kal Tellez MD Primary Care Provider [phone] Theresa Connors Primary Care Provider [phone] Encounter Details Date Type Department Care Team (Late st Contact Info) Description 11/12/2014 Abstract [facility] CONVERSION [address] [place] [address] , Generic ConversionMD Social History Tobacco Use Types Packs/Day Years Used Date Smoking Tobacco: Never Assessed Comments Unknown Sex and Gender Information Value Date Recorded Sex Assigned at Female 12/21/2024 4:56 PM CLIENT APPLICATION SUPPORT SPECIALIST Legal Sex Female 11:23 PM CDT Gender Identity Not on file Sexual Orientation Not on file documented as of this encounter Plan of Treatment Not on file documented as of this encounter Visit Diagnoses Not on filedocumented in this encounter Care Teams Cosmetics Demonstrator Relationship Specialty Start Date End Date Israel Carrillo MD PCP - General 10/17/14 11/02/19 Twin Tello MD [address] [address] PCP - General INTERNAL MEDICINE 11/03/19 09/26/21 Darlene Saeed MD [address] [place] [address] PCP - General FAMILY PRACTICE 09/27/21 01/27/25 Kal Tellez MD [address] [place] [address] PCP - General 01/28/25 02/19/25 Theresa Connors PA [address] [place] [address] PCP - General PHYSICIAN ASSISTED LIVING HOUSEKEEPER 02/20/25 documented as of this encounter
--- OUTSIDE RECORDS SUMMARY | 2025-09-26 12:35 | XMS_ITS | Encounter Summary ---
Author Organization [facility] Address [address] [place] [address] Phone Care Team Providers Care Solid Tire Tuber Machine Operator Name Role Phone Israel Carrillo MD Primary Care Provider Gene Padilla MD Primary Care Provider [phone] Israel Carrillo MD Primary Care Provider [phone] Twin Tello MD Primary Care Provider Israel Carrillo MD Unavailable [phone] Twin Tello MD Primary Care Provider [phone] Miguel Field MD Primary Care Provider [phone] Israel Carrillo MD Primary Care Provider [phone] Miguel Field MD Primary Care Provider [phone] Israel Carrillo MD Primary Care Provider Darlene Saeed MD Primary Care Provider Manish Singer MD Unavailable [phone] Katya Carpenter RN Unavailable [phone] Kal Tellez MD Primary Care Provider Encounter [...] on file Legal Sex Female 8:10 PM LOADER MACHINE Gender Identity Not on file Sexual Orientation Not on file documented as of this encounter Functional Status documented as of this encounter Plan of [...] COVID: Suspected 12/17/2020 12/17/2020 12/17/2020 6:45 PM LOADER MACHINE Diarrhea 12/02/2023 12/02/2023 12/16/2023 3:06 AM LOADER MACHINE COVID: Suspected 02/06/2024 02/06/2024 02/06/2024 2:46 PM CDT documented as of this encounter Care Teams Solid Tire Tuber Machine Operator Relationship Specialty Start Date End Date Israel Carrillo MD [address] [address] PCP - General 08/02/07 09/26/18 Gene Padilla MD [address] [place] [address] [address] [address] PCP - General Cardiovascular Disease 09/27/18 Israel Carrillo MD [address] [address] PCP - General 10/02/18 05/31/19 Twin Tlelo MD [address] [address] PCP - General Endocrinology Diabetes & Metabolism 06/01/19 07/03/19 Twin Tello MD [address] [address] PCP - General 07/04/19 05/04/20 Miguel Field MD [address] [address] PCP - General Internal Medicine 05/05/20 08/03/20 Israel Carrillo MD [address] [address] PCP - General Endocrinology Diabetes & Metabolism 08/04/20 09/02/20 Miguel Field MD [address] [address] PCP - General 09/03/20 10/05/20 Israel Carrillo MD [address] [address] PCP - General Endocrinology Diabetes & Metabolism 10/06/20 01/08/21 Darlene Saeed MD [address] [address] PCP - General Family Medicine 01/09/21 08/28/25 Kal Tellez MD [address] [address] PCP - General Family Medicine 08/29/25 Israel Carrillo MD [address] [facility] [address] [place] [address] Referring Physician Endocrinology Diabetes & Metabolism 06/01/19 Manish Singer MD [address] [address] Consulting Physician Otolaryngology 01/17/22 Katya Carpenter, RN [address] [facility] [address] [place] [address] SHOP Outpatient Supervisor [facility] 02/13/24 02/19/24 documented as of this encounter
--- OUTSIDE RECORDS SUMMARY | 2025-09-26 12:35 | XMS_ITS | Encounter Summary ---
Author Organization [facility] Address [address] [place] [address] Phone Care Team Providers Care Book Retailer Name Role Phone Israel Carrillo MD Unavailable [phone] Darlene Saeed MD Primary Care Provider Manish Singer MD Unavailable [phone] Katya Carpenter RN Unavailable [phone] Kal Tellez MD Primary Care Provider Reason for Visit * Reason Onset Date Comments MedAbdirizak Clarification 07/14/2021 Encounter Details Date Type Department Care Team (Late st Contact Info) Description 07/14/2021 Telephone [facility] Orthopaedic Surgery [address] [facility] [address] [place] [address] Twin Machado MD [address] [facility] [address] [place] [address] Med.Allery Clarification Social History Tobacco Use Types [...] on file Legal Sex Female 8:10 PM FATBACK TRIMMER Gender Identity Not on file Sexual Orientation Not on file documented as of this encounter Miscellaneous Notes * Telephone Encounter - Narendra Singh CMA - 07/15/2021 1:57 PM CDT Rx canceled with [facility]. * Telephone Encounter - Scarlet Frazier - 07/15/2021 1:44 PM CDT Pharmacy is calling back needing a call back at [phone] option 2 reference number [id number] regarding drug/possible reaction * Telephone Encounter - Narendra Singh CMA - 07/14/2021 4:20 PM CDT Rx sent to Dr. Machado for e-scribe high priority. * Telephone Encounter - Scarlet Frazier - 07/14/2021 3:17 PM CDT Call [phone] before the end of the day regarding medication for the imaging that is tomorrow * Telephone Encounter - Brenda London - 07/14/2021 2:42 PM CDT Please see Prescription Clarification Request form that was received from [employer]. Possible drug allergy. Form placed in Dr [...] Time Diarrhea 12/02/2023 12/02/2023 12/16/2023 3:06 AM FATBACK TRIMMER COVID: Suspected 02/06/2024 02/06/2024 02/06/2024 2:46 PM CDT documented as of this encounter Care Teams Book Retailer Relationship Specialty Start Date End Date Darlene Saeed MD [address] [address] PCP - General Family Medicine 01/09/21 08/28/25 Kal Tellez MD [address] [address] PCP - General Family Medicine 08/29/25 Israel Carrillo MD [address] [facility] [address] [place] [address] Referring Physician Endocrinology Diabetes & Metabolism 06/01/19 Manish Singer MD [address] [place] [address] Consulting Physician Otolaryngology 01/17/22 Katya Carpenter, RN [address] [address] SHOP Outpatient Automated Teller Manager 02/13/24 02/19/24 documented as of this encounter
--- OUTSIDE RECORDS SUMMARY | 2025-09-26 12:35 | XMS_ITS | Clinical Summary ---
Author Organization [facility] Address [address] [place] [address] Care Team Providers Care Order Picker Name Role Phone Israel Carrillo MD Unavailable [phone] Manish Singer MD Unavailable [phone] Kal Tellez MD Primary Care Provider Allergies [...] High Medications nitroglycerin (NITROSTAT) 0.4 mg SL tabletIndications :acute episode of anginal pain Place 1 tablet (0.4 mg total) under the tongue every 5 (five) minutes as needed for chest pain (pt states she is taking for acid reflux) No more than 3 tablets within 15 mintues Active ARTIFICIAL TEARS,HYPROMELLOS E, OPHT Administer 1-2 drops into both eyes as needed Active acetaminophen (TYLENOL) 500 mg tablet Take 1 tablet (500 mg total) by mouth every 6 (six) hours as needed Active multivit,iron,min erals/lutein (CENTRUM SILVER ULTRA WOMEN'S ORAL) Take 1 [...] day 90 capsule 02/29/20 25 Active lisinopriL (PRINIVIL,ZESTRIL ) 20 mg tablet Take 1 tablet (20 mg total) by mouth daily 30 tablet 02/29/20 25 Active Jardiance 10 mg tablet 04/02/20 25 Active furosemide (LASIX) 40 mg tablet 03/18/20 25 Active predniSONE (DELTASONE) 20 mg tabletIndications :Anti-inflammator y Take 2 tablets (40 mg) by mouth daily 8 tablet 08/30/20 25 Active tiZANidine (ZANAFLEX) 4 mg tabletIndications :Spasm of muscle Take 1 tablet (4 mg total) by mouth every 6 (six) hours as needed for muscle spasms 120 tablet 1 08/30/20 25 Active HYDROcodone-aceta minophen (NORCO) 5-325 mg per tabletIndications :Lumbosacral radiculopathy Take 1 tablet by mouth every 6 (six) hours as needed for pain MAX 4 A DAY for pain 120 tablet 08/30/20 25 Active tiZANidine (ZANAFLEX) 4 mg tabletIndications :Spasm of muscle TAKE 1 TABLET BY MOUTH EVERY SIX HOURS NEEDED FOR MUSCLE SPASMS 120 tablet 1 08/01/20 25 025 Discontin ued(Reord er) HYDROcodone-aceta minophen (NORCO) 5-325 mg per tabletIndications :Lumbosacral radiculopathy Take 1 tablet by mouth every 6 (six) hours as needed for pain MAX 4 A DAY for pain 120 tablet 08/01/20 25 025 Discontin ued(Reord er) Active Problems Problem Noted Date Diagnosed Date [...] (03/23/2022): Added automatically from request for surgery [id number] Other secondary scoliosis, lumbar region 022 Overview (03/23/2022): Added automatically from request for surgery [id number] Kyphosis (acquired) (postural) 03/23/2022 Overview (03/23/2022): Added automatically from request for surgery [id number] Vertigo 02/26/2022 Fecal occult blood test positive 06/30/2021 Overview (06/30/2021): Added automatically from request for surgery [id number] Chronic maxillary sinusitis 06/22/2021 Overview (06/22/2021): Added automatically from request for surgery [id number] Lip lesion 06/22/2021 Overview (06/22/2021): Added automatically from request for surgery [id number] Allergic rhinitis 03/23/2021 Hypertrophy of nasal turbinates [...] 12/10/2020 Assessment & Plan (12/18/2020 11:25 AM TRAINER): - appears resolved now with discontinuation of [...] agreeable. Assessment & Plan (12/17/2020 11:03 AM TRAINER): - appears resolved now with discontinuation of [...] agreeable. Assessment & Plan (12/16/2020 11:06 AM TRAINER): - appears resolved now with discontinuation of [...] 12/10/2020 Assessment & Plan (12/18/2020 11:25 AM TRAINER): - resolved. - reported on admission that [...] levels. Assessment & Plan (12/17/2020 11:03 AM TRAINER): - resolved. - reported on admission that [...] levels. Assessment & Plan (12/15/2020 7:36 PM TRAINER): - resolved. - reported on admission that [...] DEANNE Assessment & Plan (12/18/2020 11:25 AM TRAINER): - given softer BPs (likely related to ativan/haldol) holding antihypertensive meds amlodipine, 2.5, aldactone 100, and lasix 40 bid (stopped after recent discharge) Assessment & Plan (12/17/2020 11:04 AM TRAINER): - given softer BPs (likely related to ativan/haldol) holding antihypertensive meds amlodipine, 2.5, aldactone 100, and lasix 40 bid (stopped after recent discharge) Assessment & Plan (12/12/2020 5:27 PM TRAINER): - given softer BPs (likely related to ativan/haldol) holding antihypertensive meds amlodipine, 2.5, aldactone 100, and lasix 40 bid (stopped after recent discharge) History of pseudoseizure 12/10/2020 Assessment & Plan (12/18/2020 11:25 AM TRAINER): - vEEG in 2019 with no epileptiform [...] doses. Assessment & Plan (12/17/2020 11:04 AM TRAINER): - vEEG in 2019 with no epileptiform [...] doses. Assessment & Plan (12/14/2020 1:15 PM TRAINER): - vEEG in 2019 with no epileptiform [...] 12/10/2020 Assessment & Plan (12/18/2020 11:25 AM TRAINER): - Pt previously overweight and on meds, but none recently - said patient has no access to insulin. Hgb a1c is 4.9 Assessment & Plan (12/17/2020 11:04 AM TRAINER): - Pt previously overweight and on meds, but none recently - said patient has no access to insulin. Hgb a1c is 4.9 Assessment & Plan (12/12/2020 5:27 PM TRAINER): - Pt previously overweight and on meds, [...] hydration Assessment & Plan (12/12/2020 5:36 PM TRAINER): - resolved. Cr up from 0.9 to 1.32 on admission. - renal function improved with IV fluid. Moderate malnutrition 06/25/2020 Overview (06/25/2020): Added automatically from request for surgery [id number] Assessment & Plan (12/18/2020 11:25 AM TRAINER): - due to poor oral intake. RD consulted. Encourage better oral intake. Assessment & Plan (12/17/2020 11:03 AM TRAINER): - due to poor oral intake. RD consulted. Encourage better oral intake. Assessment & Plan (12/15/2020 7:32 PM TRAINER): - due to poor oral intake. RD [...] 12/17/2015 Assessment & Plan (12/18/2020 11:25 AM TRAINER): - has chronic back pain - given altered mental status, will hold meds that may cloud picture: these include pregabalin 100 tid, morphine 15mg q8h, hyoscyamine 0.375 bid (abd pain). Also on baclofen 20 mg TID, changed to 5 mg TID to avoid withdrawal effect. Assessment & Plan (12/17/2020 11:03 AM TRAINER): - has chronic back pain - given altered mental status, will hold meds that may cloud picture: these include pregabalin 100 tid, morphine 15mg q8h, hyoscyamine 0.375 bid (abd pain). Also on baclofen 20 mg TID, changed to 5 mg TID to avoid withdrawal effect. Assessment & Plan (12/12/2020 5:31 PM TRAINER): - has chronic back pain - given [...] 03/2023 Assessment & Plan (12/18/2020 11:25 AM TRAINER): Removed 12/16 and has urinated since Assessment & Plan (12/17/2020 11:04 AM TRAINER): Removed 12/16 and has urinated since Assessment & Plan (12/16/2020 11:07 AM TRAINER): Ordered for removal Will follow I/Os Hypoxia 12/10/2020 12/14/2020 Assessment & Plan (12/12/2020 5:21 PM TRAINER): - resolved. Presented on admission. Likely related to mental status/somnolence. No distress, CXR wnl. VSS. covid negative Hypokalemia 12/09/2020 12/16/2020 Assessment & Plan (12/18/2020 11:25 AM TRAINER): - At recent hospitalization at [facility], had hyperkalemia. Discontinued lasix and potassium [...] CTM Assessment & Plan (12/15/2020 7:45 PM TRAINER): - At recent hospitalization at [facility], had hyperkalemia. Discontinued lasix and potassium [...] Encounters Date Type Department Care Team Description 09/24/2025 12:56 PM TRAINER - 09/24/2025 11:59 PM TRAINER Hospital Encounter [facility] [address] [place] [address] Twin Machado MD Lumbosacral radiculopathy (Primary Dx) Discharge Disposition: Discharge to home or self care 09/19/2025 Telephone [facility] Medicine Otolaryngology [address] [place] [address] Elizabet Hoover MS 09/10/2025 12:00 PM CDT Office Visit [facility] Medicine Orthopaedic Surgery [address] [facility] 6th [place] [address] [place] [address] Twin Machado MD Lumbosacral radiculopathy (Primary Dx) 09/06/2025 Telephone [facility] Orthopaedic Surgery [address] [facility] 1st Floor [address] [place] [address] Twin Machado MD 09/03/2025 Telephone [facility] Orthopaedic Surgery [address] [facility] 6th [place] [address] [place] [address] Twin Machado MD 08/29/2025 9:36 PM CDT - 08/30/2025 6:12 AM CDT [facility] Emergency Department [address] [place] [id number] Gene Kennedy Jr., MD Right sided sciatica (Primary Dx) Discharge Disposition: Discharge to home or self care 08/19/2025 2:24 PM CDT - 08/19/2025 11:59 PM CDT Hospital Encounter [facility] [address] [place] [address] Twin Machado MD Chronic back pain, unspecified back location, unspecified back pain laterality Discharge Disposition: Discharge to home or self care 08/19/2025 1:20 PM CDT Office Visit [facility] Medicine Orthopaedic Surgery [address] [facility] 6th [place] [address] [place] [address] Twin Machado MD Chronic pain syndrome (Primary Dx); Low back pain with right-sided sciatica, unspecified back pain laterality, unspecified chronicity; Chronic back pain, unspecified back location, unspecified back pain laterality; Lumbosacral radiculopathy; Sacroiliac joint pain; Thoracic spine pain; Spinal stenosis of lumbar region with neurogenic claudication 08/14/2025 9:40 PM CDT - 08/15/2025 12:46 AM CDT [facility] Emergency Department [address] [place] [id number] Right flank pain (Primary Dx) Discharge Disposition: Discharge to home or self care from Last 3 Months Immunizations Immunization Administration Dates Next Due Influenza, Quadrivalent, Spl it, Preservative Free, Intramuscular 09/16/2020,09/16/2020,12/19/2018,01/15,01/15/2018 Influenza, Trivalent, IM (MDV) 11/09/2013 Influenza, Unspecified 12/19/2018,11/09/2013 Tdap 09/23/2014,09/23/2014 Surgical History Surgery Date Site/Laterality Comments TONSILLECTOMY age 15 J-TUBE EXCHANGE 10/15/2013 N/A J-TUBE EXCHANGE 05/02/2013 N/A ENTERIC TUBE INJECTION 03/27/2013 N/A NM DILATION & CURETTAGE DX&/THER NONOBSTETRIC NM NEUROPLASTY &/TRANSPOS MEDIAN NRV CARPAL TUNNE 11/14/1985 - 11/13/1986 Neuroplasty Decompression Median Nerve At Carpal Tunnel NM INJ LUMBAR/SACRAL,W/WO CNTRST injections APPENDECTOMY GASTRIC BYPASS s/p reversal HERNIA REPAIR PERCUTANEOUS J TUBE PLACEMENT LAPAROSCOPIC LYSIS INTESTINAL ADHESIONS age 19 x3 through age 23 1982,1982, 1983 BREAST BIOPSY REPLACEMENT TOTAL KNEE 11/14/2013 - [...] COMPLETE W LIVER DOPPLER (C) 01/10/2025 Right TRANSFORAMINAL EPIDURAL INJECTION LUMBAR SACRAL 1 LEVEL RIGHT 09/24/2025 Right Medical History Medical History Date Comments [...] drink = 0.6 oz pur e alcohol) [facility] Utilities Answer Date Recorded In the [...] often do you attend chur ch or mandaen services? Never 02/27/2025 Do you belong to any clubs o r organizations such as baptist groups, unions, fraternal or athletic groups, or [...] place to sleep or slept in a usp (including now)? No 02/13/2024 Housing Stability Vital Sign Answer Alec e Recorded In the last 12 months, was t here a time when you were not able to pay the mortgage or rent on time? No 02/27/2025 In the past 12 months, how m any times have you moved where you were living? 0 02/27/2025 At any time in the past 12 m [place], were you homeless or living in a usp (including now)? No 02/27/2025 Personal Safety Answer Date Recorded Have you ever been in or are you currently in a harmful physical or emotional relationship or is someone making you feel afraid or unsafe? Denies 08/29/2025 Comments No Sex and Gender Information Value Date Recorded Sex Assigned at Not on file Legal Sex Female 8:10 PM TRAINER Gender Identity Not on file Sexual Orientation Not on file Last Filed Vital Signs Vital Sign Reading Time Taken Comments Blood Pressure 146/75 09/24/2025 1:50 PM TRAINER Pulse 73 09/24/2025 1:50 PM TRAINER Temperature 36.4 C (97.6 F) 08/29/2025 8:07 PM CDT Respiratory Rate 16 09/24/2025 1:50 PM TRAINER Oxygen Saturation 96% 08/30/2025 5:20 AM CDT [...] as needed Medical Devices Implanted Type Area Motion Picture Photographer Device Identifier Shelf Expiration Date Model / Serial / Lot [employer] [id number] - [id number] - [id number] Implanted:Qty: 1 on 10/28/2021 by Dann Contreras MD at [facility] Lens Right: Eye [employer] [id number] 05/13/2024 [id number] / [id number] / [id number] Description:[id number] 18.5D Righ t eye Carlene [employer] Assist [id number] 18.0 Tecnis Optiedge 6mm 13mm 3 Piece Anterior Aspheric Monofocal Uv - [id number] - [id number] Implanted:Qty: 1 on 12/30/2021 by Dann Contreras MD at [facility] Lens Left: Lens [place] [employer] [id number] 02/15/2025 [id number] / [id number] / Knee Bilatera l: Knee Screw Right: Wrist Procedures Procedure Name Priority Date/Time Associated Diagnosis Comments TRANSFORAMINAL EPIDURAL INJECTION LUMBAR SACRAL 1 LEVEL RIGHT Schedule Routine, Read Routine (OP Routine) 09/24/2025 1:42 PM TRAINER Lumbosacral radiculopathy DRUGS OF ABUSE SCREEN, URINE WITHOUT CONFIRMATION [...] 10:03 PM CDT DIFFERENTIAL AUTO STAT 08/29/2025 10:03 PM CDT SEPSIS LACTATE WITH REFLEX STAT [...] 9:08 PM CDT COLONOSCOPY 09/24/2021 2:13 PM TRAINER DEXA APPENDICULAR BONE DENSITY Schedule Routine, Read Routine (OP Routine) 08/04/2021 2:32 PM CDT Osteopenia of multiple sites LIPID PANEL STAT 12/09/2020 4:03 PM TRAINER SCREENING MAMMOGRAM BILATERAL W SOTO Schedule Routine, Read Routine (OP Routine) 07/16/2020 11:16 AM CDT Screening for breast cancer from Last 3 Months or Most Recently Relevant to Health Maintenance Results * IR Transforaminal Epidural Injection Lumbar Sacral 1 Level Right (09/24/2025 1:42 PM TRAINER) Narrative [facility] - 09/24/2025 1:46 PM TRAINER The images from this study are not interpreted by Radiology. Please refer to the physician's procedure / OR operative note. us Twin Machado MD IMG IR PROCEDURES Final Res ult Performing Organization Address [facility]/ZIP Co de Phone Number [facility] * Drugs of Abuse Screen, Urine without Confirmation (09/05/2025 3:29 PM CDT) Urine us Twin Machado MD LAB URINE ORDERABLES Final Result Performing Organization Address [facility]/ZIP Co de Phone Number EXTERNAL LAB * Troponin T high-sensitivity 2-hour (08/30/2025 1:34 AM CDT) Trop T hs 13 <=14 ng/L Comment: Interpretive Data For further hscTnT resources including the diagnostic algorithm and an aid in interpretation, copy and paste this link: [email or web address] Current Interpretive Data last revised 2020. Testing performed by: [facility], [address] [place] [address]., [id number] Trop T hs delta -2 ng/L [facility] Comment:Testing performed by : [facility], [address] [place] [address]., [id number] Trop T hs interp Insignificant [facility] REESE Comment:Testing performed by : [facility], [address] [place] [address]., [id number] Blood 08/30/2025 1:34 AM CDT 08/30/2025 1:37 AM CDT us Gene Kennedy Jr., MD LAB BLOOD ORDERABLES F inal Result Performing Organization Address [facility] de Phone Number [facility] [address] [facility] [place] [address] * (ABNORMAL) Troponin T high-sensitivity series (baseline, 2hr, 4hr, 6hr) (08/29/2025 11:21 PM CDT) Trop T hs 15(H) <=14 ng/L Comment: Interpretive Data For further hscTnT resources including the diagnostic algorithm and an aid in interpretation, copy and paste this link: [email or web address]/[email or web address] Current Interpretive Data last revised 2020. Testing performed by: [address] [id number] Blood 08/29/2025 11:2 1 PM CDT 08/29/2025 11:26 PM CDT Gene Kennedy Jr., MD LAB BLOOD ORDERABLES F inal Result Performing Organization Address [facility] Co de Phone Number RIR[address] [place] [address] * ECG 12 lead (08/29/2025 11:16 PM CDT) Ventricular Rate EKG/Min 68 BPM [facility] Atrial Rate 68 BPM [facility] NM-Interval (MSEC) 156 ms [facility] QRS-Interval (MSEC) 82 ms [facility] QT-Interval (MSEC) 420 ms [facility] QTc 446 ms [facility] P [place] 15 degrees [facility] R [place] 16 degrees [facility] T [place] 71 degrees [facility] Diagnosis Normal sinus rhythm Normal ECG When compared with ECG of 25-FEB-2025 12:24, No significant change was found Confirmed by SULTAN SOLOMON M.D. ([id number]) on 08/30/2025 11:49:49 AM [facility] 08/29/2025 11:1 6 PM CDT 08/30/2025 11:49 AM CDT Gene Kennedy Jr., MD ECG ORDERABLES Final Result [facility] * XR Chest 1 Vw Portable (08/29/2025 10:10 PM CDT) Anatomical Region Laterality Modality Body, Chest N/A Computed Radiogr aphy 08/29/2025 10:1 5 PM CDT Narrative 08/29/2025 10:16 PM CDT EXAM DESCRIPTION: XR CHEST 1 VIEW REASON FOR STUDY: low bp Pt came in for 08/23 back pain. ordered CXR due to pt [...] Laureano Ballard M.D. AR: ALEKS Report ID: [id number] Reading Location: [id number] Procedure Note Laureano Ballard MD - 08/29/2025 EXAM DESCRIPTION: XR CHEST 1 VIEW REASON FOR STUDY: low bp Pt came in for 08/[address] ordered CXR due to pt having low [...] Laureano Ballard M.D. AR: ALEKS Report ID: [id number] Reading Location: [id number] Radha John NP IMG XR PROCEDURES Final Result * Sepsis Lactate w/ Reflex (08/29/2025 10:03 PM CDT) [facility] Sepsis Lactate 2.0 0.7 - 2.0 mmol/L Comment:Testing performed by : [facility], [address] [place] [address]., [id number] Blood 08/29/2025 10:0 3 PM CDT 08/29/2025 10:07 PM CDT Radha John NP LAB BLOOD ORDERABLES Final Resul t [facility] [address] [facility] Department [place] [address] * (ABNORMAL) eGFR (08/29/2025 10:03 PM CDT) [facility] eGFR 42(L) >=60 mL/min/1. 73 m2 Comment: [...] was last reviewed 2021. Testing performed by: [address] [address] Blood 08/29/2025 10:0 3 PM CDT 08/29/2025 10:07 PM CDT us Radha John NP LAB BLOOD ORDERABLES Final Resul t [facility] REESE [address] [facility] Department [place] [address] * (ABNORMAL) Differential, auto (08/29/2025 10:03 PM CDT) Neutrophil abs 2.65 1.50 - 6.50 K/cumm Comment:Testing performed by : [address] [address] Imm gran abs 0.02 0.00 - 0.10 K/cumm BL[place] REESE Comment:Testing performed by : [address] [address] Lymphocyte abs 3.52(H) 0.80 - 3.30 K/cumm [place] REESE Comment:Testing performed by : [address] [address] Monocyte abs 0.65 0.20 - 0.80 K/cumm [place] REESE Comment:Testing performed by : [address] [address] Eosinophil abs 0.24 0.00 - 0.50 K/cumm BL[facility] Comment:Testing performed by : [address], [place]., [address] Basophil abs 0.07 0.00 - 0.10 K/cumm BLANCA Comment:Testing performed by : [address] [address] Neutrophil pct 37.0 % [facility] Comment: Interpretive Data Percent cell count reference ranges are not reported, since discordance with absolute values may lead to misinterpretation of CBC data. Current Interpretive Data was last revised on 2018. Testing performed by: [address] [address] Imm gran pct 0.3 % [facility] Comment: Interpretive Data Percent cell count reference ranges are not reported, since discordance with absolute values may lead to misinterpretation of CBC data. Current Interpretive Data was last revised on 2018. Testing performed by: [address] [address] Lymphocyte pct 49.2 % [facility] Comment: Interpretive Data Percent cell count reference ranges are not reported, since discordance with absolute values may lead to misinterpretation of CBC data. Current Interpretive Data was last revised on 2018. Testing performed by: [address] [address] Monocyte pct 9.1 % [facility] Comment: Interpretive Data Percent cell count reference ranges are not reported, since discordance with absolute values may lead to misinterpretation of CBC data. Current Interpretive Data was last revised on 2018. Testing performed by: [address] [address] Eosinophil pct 3.4 % [facility] Comment: Interpretive Data Percent cell count reference ranges are not reported, since discordance with absolute values may lead to misinterpretation of CBC data. Current Interpretive Data was last revised on 2018. Testing performed by: [address] [address] Basophil pct 1.0 % [facility] Comment: Interpretive Data Percent cell count reference ranges are not reported, since discordance with absolute values may lead to misinterpretation of CBC data. Current Interpretive Data was last revised on 2018. Testing performed by: [address] [address] Blood 08/29/2025 10:0 3 PM CDT 08/29/2025 10:07 PM CDT us Radha John TREE EXPERT LAB BLOOD ORDERABLES Final Resul t [facility] [address] [facility] Department [place] [address] * (ABNORMAL) CBC with auto differential (08/29/2025 10:03 PM CDT) WBC 7.15 3.80 - 9.90 K/cumm Comment:Testing performed by : [address] [address] Hgb 9.7(L) 11.9 - 15.5 g/dL [facility] Comment:Testing performed by : [address] [address] Hct 31.2(L) 35.6 - 45.5 % [facility] Comment:Testing performed by : [address] [address] Plt 285 150 - 400 K/cumm [facility] Comment:Testing performed by : [address] [address] MPV 10.5 9.1 - 12.3 fL [facility] Comment:Testing performed by : [address] [address] RBC 3.89(L) 3.90 - 5.20 M/cumm [facility] Comment:Testing performed by : [address] [address] MCV 80.2(L) 81.3 - 96.4 fL [facility] Comment:Testing performed by : [address] [address] MCH 24.9(L) 27.1 - 33.3 pg [facility] REESE Comment:Testing performed by : [address] [address] MCHC 31.1(L) 32.3 - 35.7 g/dL [facility] REESE Comment:Testing performed by : [address] [address] RDW CV 23.6(H) 11.1 - 14.9 % [facility] REESE Comment:Testing performed by : [address] [address] RDW SD 67.9(H) 35.7 - 48.1 fL [facility] REESE Comment:Testing performed by : [address] [address] NRBC abs 0.00 0.00 - 0.01 K/cumm [place] REESE Comment:Testing performed by : [address] [address] Blood 08/29/2025 10:0 3 PM CDT 08/29/2025 10:07 PM CDT us Radha John NP LAB BLOOD ORDERABLES Final Resul t [facility] REESE [facility] Department [place] [address] * (ABNORMAL) Comprehensive metabolic panel (08/29/2025 10:03 PM CDT) Sodium 140 135 - 145 mmol/L Comment:Testing performed by : [address] [address] Potassium, pl 3.1(L) 3.3 - 4.9 mmol/L [facility] REESE Comment: Hemolyzed; Potassium value may be falsely elevated by as much as 1.0 mmol/L. Suggest redraw and reanalysis. Testing performed by: [address] [address] Chloride 102 97 - 110 mmol/L [facility] REESE Comment:Testing performed by : [address] [address] CO2 24 22 - 32 mmol/L [facility] Comment:Testing performed by : [address] [address] Anion gap 14 2 - 15 mmol/L [facility] Comment:Testing performed by : [address] [address] BUN 20 6 - 25 mg/dL [facility] Comment:Testing performed by : [address] [address] Creatinine 1.39(H) 0.60 - 1.10 mg/dL [facility] Comment:Testing performed by : [address] [address] Glucose 164 70 - 199 mg/dL BLANCA [...] was last revised 2022. Testing performed by: [address] [address] Calcium 9.4 8.5 - 10.3 mg/dL [facility] Comment:Testing performed by : [address] [address] Bilirubin, total 0.2 0.1 - 1.2 mg/dL [facility] Comment:Testing performed by : [address] [address] Protein, pl 6.7 6.5 - 8.5 g/dL [facility] Comment:Testing performed by : [address] [address] Albumin 4.0 3.5 - 5.0 g/dL [facility] Comment:Testing performed by : [address] [address] Alk phos 92 40 - 130 Units/L [facility] REESE Comment:Testing performed by : [address] [address] ALT 17 7 - 45 Units/L [facility] REESE Comment:Testing performed by : [address] [address] AST 26 10 - 45 Units/L [facility] REESE Comment: Hemolyzed; result may be falsely elevated Testing performed by: [address] [address] Blood 08/29/2025 10:0 3 PM CDT 08/29/2025 10:07 PM CDT us Radha John NP LAB BLOOD ORDERABLES Final Resul t [facility] RE[facility] [address] [facility] Department [place] [address] * CT Lumbar Spine WO Contrast (08/29/2025 9:31 PM CDT) Anatomical Region Laterality Modality Spine N/A Computed Tomogra phy 08/29/2025 9:4 2 PM CDT Narrative 08/29/2025 9:53 PM CDT EXAM DESCRIPTION: CT LUMBAR SPINE WO CONTRAST REASON FOR STUDY: low back pain c/o right lower back pain. Hx of herniated discs, stenosis, scoliosis, says that tonight she was making dinner, turned, and felt a pop and had immediate 10/10 pain. TECHNIQUE: Axial images acquired through [...] arthrosis, and ligamentum flavum thickening results in [id number] spinal canal narrowing. Degenerative changes contribute to [...] David Loza M.D. NS: NS Report ID: [id number] Reading Location: [id number] Procedure Note David Loza MD - 08/29/2025 [...] arthrosis, and ligamentum flavum thickening results in hebn-dm-rrnatowu spinal canal narrowing.Degenerative changes contribute to severe [...] David Loza M.D. NS: NS Report ID: [id number] Reading Location: [id number] us Radha John NP IMG CT PROCEDURES Final Result * XR Scoliosis [...] curvature Electronically signed by: Leonel Pascal MD Narrative 08/19/2025 4:58 PM CDT EXAMINATION: XR SCOLIOSIS [...] by Britney Linda M.D. SN: Report ID: [id number] Reading Location: [place] [address] Procedure Note Britney Linda MD - 08/14/2025 [...] by Britney Linda M.D. SN: Report ID: [id number] Reading Location: [place] [address] Dorothy Chino NP IMG CT PROCEDURES Final Result * eGFR [...] was last reviewed 2021. Testing performed by: [facility], [address] [place] [address], [place]., [address] Blood 08/14/2025 7:24 PM CDT 08/14/2025 7:32 PM CDT us Conor Crissdenton LAB BLOOD ORDERABLES Final Res ult [facility] [address] [facility] Department [place] [address] * (ABNORMAL) Differential, auto (08/14/2025 7:24 PM CDT) Neutrophil abs 3.94 1.50 - 6.50 K/cumm Comment:Testing performed by : [address] [address] Imm gran abs 0.03 0.00 - 0.10 K/cumm [facility] Comment:Testing performed by : [address] [address] Lymphocyte abs 3.59(H) 0.80 - 3.30 K/cumm [facility] Comment:Testing performed by : [address] [address] Monocyte abs 0.51 0.20 - 0.80 K/cumm [facility] Comment:Testing performed by : [address] [address] Eosinophil abs 0.29 0.00 - 0.50 K/cumm [facility] Comment:Testing performed by : [address] [address] Basophil abs 0.10 0.00 - 0.10 K/cumm [facility] Comment:Testing performed by : [address] [address] Neutrophil pct 46.6 % [facility] Comment: Interpretive Data Percent cell count reference ranges are not reported, since discordance with absolute values may lead to misinterpretation of CBC data. Current Interpretive Data was last revised on 2018. Testing performed by: [address] [address] Imm gran pct 0.4 % [facility] Comment: Interpretive Data Percent cell count reference ranges are not reported, since discordance with absolute values may lead to misinterpretation of CBC data. Current Interpretive Data was last revised on 2018. Testing performed by: [address] [address] Lymphocyte pct 42.4 % [facility] Comment: Interpretive Data Percent cell count reference ranges are not reported, since discordance with absolute values may lead to misinterpretation of CBC data. Current Interpretive Data was last revised on 2018. Testing performed by: [address] [address] Monocyte pct 6.0 % [facility] Comment: Interpretive Data Percent cell count reference ranges are not reported, since discordance with absolute values may lead to misinterpretation of CBC data. Current Interpretive Data was last revised on 2018. Testing performed by: [address] [address] Eosinophil pct 3.4 % [facility] Comment: Interpretive Data Percent cell count reference ranges are not reported, since discordance with absolute values may lead to misinterpretation of CBC data. Current Interpretive Data was last revised on 2018. Testing performed by: [address] [address] Basophil pct 1.2 % [facility] Comment: Interpretive Data Percent cell count reference ranges are not reported, since discordance with absolute values may lead to misinterpretation of CBC data. Current Interpretive Data was last revised on 2018. Testing performed by: [address] [address] Blood 08/14/2025 7:24 PM CDT 08/14/2025 7:32 PM CDT us Conor Chamberlain DO LAB BLOOD ORDERABLES Final Res ult [facility] [address] [facility] Department [place] [address] * (ABNORMAL) Urinalysis reflex to microscopic and culture Urine (08/14/2025 7:24 PM CDT) Color, ur Yellow Yellow Comment:Testing performed by : [address] [address] Clarity, ur Clear Clear [facility] Comment:Testing performed by : [address] [address] Specific gravity, ur 1.014 1.003 - 1.030 [facility] Comment:Testing performed by : [address] [address] pH, urine 5.0 [facility] Comment: Interpretive Data U rine pH is affected by diet, medications, systemic acid-base disturbances, and renal tubular function. pH may affect urinary stone formation. For example, urine pH below 6.0 may help reduce the tendency for calcium phosphate stones and pH greater than 6.0 may reduce the tendency for uric acid stone formation. Source: [facility] Current Interpretive Data was last revised on 2017 Testing performed by: [address] [address] Protein, ur ql Negative Negative [facility] Comment:Testing performed by : [address] [address] Glucose, ur ql Negative Negative [facility] Comment:Testing performed by : [address] [address] Ketones, ur Negative Negative [facility] Comment:Testing performed by : [address] [address] Bilirubin, ur Negative Negative [facility] Comment:Testing performed by : [address] [address] Blood, ur Negative Negative [facility] Comment:Testing performed by : [address] [address] Urobilinogen, ur <2.0 <2.0 mg/dL [facility] Comment:Testing performed by : [address] [address] Nitrite, ur Negative Negative [facility] Comment:Testing performed by : [address] [address] Leukocyte esterase, ur 3+(A) Negative [facility] Comment:Testing performed by : [address] [address] UA reflex comment Reflex to microscopic UA will be performed. [facility] Comment:Testing performed by : [address] [place]., [address] Urine 08/14/2025 7:24 PM CDT 08/14/2025 7:32 PM CDT Conor Chamberlain DO LAB MICROBIOLOGY - GENERAL ORD ERABLES Final Result [facility] [address] [facility] Department [place] [address] * (ABNORMAL) CBC with auto differential (08/14/2025 7:24 PM CDT) WBC 8.46 3.80 - 9.90 K/cumm Comment:Testing performed by : [address] [address] Hgb 10.8(L) 11.9 - 15.5 g/dL [facility] Comment:Testing performed by : [address] [address] Hct 35.0(L) 35.6 - 45.5 % [facility] Comment:Testing performed by : [address] [address] Plt 306 150 - 400 K/cumm [facility] Comment:Testing performed by : [address] [address] MPV 9.4 9.1 - 12.3 fL [facility] Comment:Testing performed by : [address] [address] RBC 4.38 3.90 - 5.20 M/cumm [facility] Comment:Testing performed by : [address] [address] MCV 79.9(L) 81.3 - 96.4 fL [facility] Comment:Testing performed by : [address] [address] MCH 24.7(L) 27.1 - 33.3 pg [facility] Comment:Testing performed by : [address] [address] MCHC 30.9(L) 32.3 - 35.7 g/dL [facility] REESE Comment:Testing performed by : [address] [address] RDW CV 22.6(H) 11.1 - 14.9 % [facility] REESE Comment:Testing performed by : [address] [address] RDW SD 62.8(H) 35.7 - 48.1 fL [facility] Comment:Testing performed by : [address] [address] NRBC abs 0.00 0.00 - 0.01 K/cumm [facility] Comment:Testing performed by : [address] [address] Blood Venous blood specimen / Unknown 08/14/2025 7:24 PM CDT 08/14/2025 7:32 PM CDT us Conor Chamberlain DO LAB BLOOD ORDERABLES Final Res ult [facility] [address] [facility] Department of Laboratories [place], [place] [id number] * (ABNORMAL) Urinalysis, microscopic only (08/14/2025 7:24 PM CDT) WBC, ur 6-10(A) 0 - 5 /HPF Comment:Testing performed by : [address] [address] RBC, ur 0-2 0 - 2 /HPF [facility] Comment:Testing performed by : [address] [address] Epithelial cells, squamous, ur 6-10(A) 0 - 5 /HPF [facility] Comment:Testing performed by : [address] [address] Bacteria, ur 1+(A) [facility] Comment:Testing performed by : [address] [address] Mucous, ur Present(A) [facility] REESE Comment:Testing performed by : [address] [address] Hyaline casts, ur 1-5 0 - 10 /LPF [facility] Comment:Testing performed by : [address] [address] Culture Reflex Comment Reflex conditions for urine culture (WBC >10) not met. [facility] Comment:Testing performed by : [address] [address] Urine 08/14/2025 7:24 PM CDT 08/14/2025 7:32 PM CDT [facility] LAB URINE ORDERABLES Final Res ult Performing Organization Address City/[facility]/ZIP Co de Phone Number [address] [place] [address] * Lipase (08/14/2025 7:24 PM CDT) Lipase 18 10 - 99 Units/L Comment:Testing performed by : [address] [address] Blood Venous blood specimen / Unknown 08/14/2025 7:24 PM CDT 08/14/2025 7:32 PM CDT [facility] LAB BLOOD ORDERABLES Final Res ult Performing Organization Address [facility]/ZIP Co de Phone Number [address] [place] [address] * (ABNORMAL) Comprehensive metabolic panel (08/14/2025 7:24 PM CDT) Sodium 139 135 - 145 mmol/L Comment:Testing performed by : [address] [address] Potassium, pl 4.6 3.3 - 4.9 mmol/L [facility] REESE Comment:Testing performed by : [address] [address] Chloride 102 97 - 110 mmol/L [facility] Comment:Testing performed by : [address] [address] CO2 20(L) 22 - 32 mmol/L [facility] Comment:Testing performed by : [address] [address] Anion gap 17(H) 2 - 15 mmol/L [facility] Comment:Testing performed by : [address] [address] BUN 20 6 - 25 mg/dL [facility] Comment:Testing performed by : [address], [place]., [address] Creatinine 0.90 0.60 - 1.10 mg/dL [facility] Comment:Testing performed by : [address] [address] Glucose 138 70 - 199 mg/dL [facility] [...] was last revised 2022. Testing performed by: [address] [address] Calcium 9.8 8.5 - 10.3 mg/dL [facility] Comment:Testing performed by : [address] [address] Bilirubin, total 0.2 0.1 - 1.2 mg/dL [facility] Comment:Testing performed by : [address] [address] Protein, pl 7.8 6.5 - 8.5 g/dL [facility] Comment:Testing performed by : [address] [address] Albumin 4.7 3.5 - 5.0 g/dL [facility] Comment:Testing performed by : [address] [address] Alk phos 122 40 - 130 Units/L [place] Comment:Testing performed by : [address] [address] ALT 23 7 - 45 Units/L [place] REESE Comment:Testing performed by : [address] [address] AST 28 10 - 45 Units/L [place] REESE Comment:Testing performed by : [address] [address] Blood Venous blood specimen / Unknown 08/14/2025 7:24 PM CDT 08/14/2025 7:32 PM CDT Conor Chamberlain DO LAB BLOOD ORDERABLES Final Res ult Performing Organization Address City/[facility] Co de Phone Number [address] [place] [address] * (ABNORMAL) Hemoglobin A1c (02/25/2025 11:16 AM CDT) Pathologist [facility] Hgb A1C 7.4(H) 4.0 - 5.6 % Comment:Testing performed by : [address] [address] Estimated Average Glucose 166 mg/dL [facility] Comment: The ADA recommends reporting an estimated Average Glucose (eAG) with all Hemoglobin A1c results using the equation derived from a study of 507 normal and diabetic adults. Minority populations were underrepresented and children were not included. (Diabetes Care 31:8026-1043, 2008). The eAG is not equivalent to a fasting glucose. Testing performed by: [address] [address] Blood 02/25/2025 11:1 6 AM CDT 02/25/2025 11:29 AM CDT Carmen Nayak MD LAB BLOOD ORDERABLES Final Res ult Performing Organization Address City/[facility] Co de Phone Number [address] [place] [address] * Hepatitis C antibody Blood (02/07/2024 9:08 PM CDT) Hep C Ab Nonreactive Nonreactive Comment:Antibodies to HCV no t detected. Does NOT exclude the possibility of recent exposure to HCV. Current interpretive data was last revised on 22 Blood 02/07/2024 9:08 PM CDT 02/07/2024 9:43 PM CDT us Jim Rivera MD LAB MICROBIOLOGY - GENERAL ORDER RITIKA Final Result [facility] Department [place] [address] * COLONOSCOPY (09/24/2021 2:13 PM TRAINER) Anatomical Region Laterality Modality Other Narrative Procedure Note Paul Chávez MD - 09/24/2021 2:13 PM CST ENDOSCOPY LAB Patient Name: Lourdes Simms Procedure Date: 09/24/2021 2:13 PM Date of : 1960 Admit Type: Outpatient Age: 61 Gender: Female Attending MD: Paul Chávez M.D. Room: [facility] ENDOSCOPY ROOM 05 Note Status: Finalized [...] The scope was passed under direct vision.The [id number] was introduced through the anusand advanced to [...] 0 Note Initiated On: 09/24/2021 2:13 PM Paul Chávez MD PhD ENDOSCOPY PROCEDURES Edit ed Result - Final * Dexa Appendicular Bone Density (08/04/2021 2:32 PM CDT) Anatomical Region Laterality Modality Wrist N/A Radiographic Dasia ging Narrative 08/04/2021 4:11 PM CDT Patient Name: Lourdes Simms Date of : 1960 Date of scan: 08/04/2021 Bone mineral density was performed on a [employer] Densitometer. Based on machine cross-calibration and [...] density scan were prepared by Katya Brown (R)([facility]) who is accredited by the International Society of Clinical Densitometry. The overall patient assessment and scan interpretation were performed by Junior Aguirre M.D. who is certified by the International Society of Clinical Densitometry. [id number] us Junior Aguirre MD [facility] DXA PROCEDURES Final Result * Lipid panel (12/09/2020 4:03 PM TRAINER) [facility] Cholesterol 151 30 - 199 mg/dL [facility] Comment: Interpretive Data Ages < or [...] revised on 2018. Non-HDL Cholesterol 75 mg/dL [facility] Comment: Interpretive [...] last revised on 2018. Chol/HDL ratio 2 [facility] Blood specimen (specimen) 12/09/2020 4:03 PM TRAINER 12/09/2020 4:22 PM TRAINER David Liz MD LAB BLOOD ORDERABLES Final Re sult [facility] Department [place] [address] * Screening Mammogram Bilateral W [place] (07/16/2020 11:16 AM CDT) Anatomical Region Laterality Modality Breast Bilateral Mammography Narrative 07/18/2020 12:37 PM CDT Mammogram Technique: Bilateral Digital Breast Tomosynthesis, Bilateral C-view 2D Screening mammogram. Views obtained: bilateral craniocaudal and bilateral mediolateral oblique. Computer Aided Detection was performed. Mammogram Findings: The present examination has been compared to prior imaging studies performed at [facility] on 05/13/2014, 07/04/2015 and 08/01/2019. There are [...] compared to prior imaging studies performed at [facility] on 05/13/2014, 07/04/2015 and 08/01/2019. There are scattered areas of fibroglandular density. There is no suspicious abnormality in either breast. Impression: Annual screening mammography is recommended. OVERALL FINAL ASSESSMENT: BI-RADS CATEGORY 1: Negative. Twin Tello MD IMG MAMMO PROCEDURES Final Re sult from Last 3 Months or Most Recently Relevant to Health Maintenance Insurance FORMERLY [facility] SUPPLEMENT UHC MEDICARE ADVANTAGE [facility] MEDICARE Address: [address] [address] [place] [address] MEDICARE [facility] MEDICARE MEDICARE FORMERLY [facility] [place] [address] FORMERLY [facility] SUPPLEMENT MEDICARE [facility] MEDICARE ADVANTAGE [facility] MEDICARE Address: [address] [address] Advance Directives For more information, please contact: [phone] Documents on File Type Date Recorded Patient Hr Business Partner Consultant Expl anation ADVANCE DIRECTIVE 01/09/2021 10:38 AM Lindsay r of Bone Process Operator-Medical ADVANCE DIRECTIVE 07/13/2019 5:35 AM P[employer] HEATER-MEDICAL ADVANCE DIRECTIVE 05/14/2019 10:01 AM * Full [...] 9:50 AM 12/30/2021 6:05 PM Care Teams Order Picker Relationship Specialty Start Date End Date Kal Tellez MD [address] [place] [address] PCP - General Family Medicine 08/29/25 Israel Carrillo MD [address] [facility] [address] [place] [address] Referring Physician Endocrinology Diabetes & Metabolism 06/01/19 Manish Singer MD [address] [address] Consulting Physician Otolaryngology 01/17/22
--- OUTSIDE RECORDS SUMMARY | 2025-09-26 12:36 | XMS_ITS | Encounter Summary ---
Author Organization [facility] Healthcare Address [address] [place] [address] Care Team Providers Care Software Test Specialist Name Role Phone Israel Carrillo MD Primary Care Provider Gene Padilla MD Primary Care Provider [phone] Israel Carrillo MD Primary Care Provider Twin Tello MD Primary Care Provider Israel Carrillo MD Unavailable [phone] Twin Tello MD Primary Care Provider Miguel Field MD Primary Care Provider Israel Carrillo MD Primary Care Provider [phone] Miguel Field MD Primary Care Provider [phone] Israel Carrillo MD Primary Care Provider Darlene Saeed MD Primary Care Provider Manish Singer MD Unavailable [phone] Katya Carpenter RN Unavailable [phone] Kal Tellez MD Primary Care Provider Encounter Details Date Type Department Care Team (Late st Contact Info) Description 05/18/2018 Community Orders [facility] EpicCare Link Israel Carrillo MD [address] [address] Social History Tobacco Use Types Packs/Day Years Used Date Smoking Tobacco: Some Days Smokeless Tobacco: Never Alcohol Use Standard Drinks/Week Comments Yes 0 (1 standard drink = 0.6 oz pur e alcohol) Comments Unknown Sex and Gender Information Value Date Recorded Sex Assigned at Not on file Legal Sex Female 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 Gender Identity Not on file Sexual Orientation Not on file documented as of this encounter Plan of Treatment Not on file documented as of this encounter Visit Diagnoses Not on filedocumented in this encounter Additional Health Concerns Infection Onset Date Last Indicated Resolved Time COVID: Suspected 12/17/2020 12/17/2020 12/17/2020 6:45 PM INDUSTRIAL DESIGN ENGINEER Diarrhea 12/02/2023 12/02/2023 12/16/2023 3:06 AM INDUSTRIAL DESIGN ENGINEER COVID: Suspected 02/06/2024 02/06/2024 02/06/2024 2:46 PM CDT documented as of this encounter Care Teams Software Test Specialist Relationship Specialty Start Date End Date Israel Carrillo MD [address] [address] PCP - General 08/02/07 09/26/18 Gene Padilla MD [address] [place] [address] [address] PCP - General Cardiovascular Disease 09/27/18 Israel Carrillo MD [address] [address] PCP - General 10/02/18 05/31/19 wTin Tello MD [address] [address] PCP - General Endocrinology Diabetes & Metabolism 06/01/19 07/03/19 Twin Tello MD [address] [address] PCP - General 07/04/19 05/04/20 Miguel Field MD [address] [address] PCP - General Internal Medicine 05/05/20 08/03/20 Israel Carrillo MD [address] [address] PCP - General Endocrinology Diabetes & Metabolism 08/04/20 09/02/20 Miguel Field MD [address] [address] PCP - General 09/03/20 10/05/20 Israel Carrillo MD [address] [address] PCP - General Endocrinology Diabetes & Metabolism 10/06/20 01/08/21 Darlene Saeed MD [address] [address] PCP - General Family Medicine 01/09/21 08/28/25 Kal Tellez MD [address] [address] PCP - General Family Medicine 08/29/25 Israel Carrillo MD [address] [address] Referring Physician Endocrinology Diabetes & Metabolism 06/01/19 Manish Singer MD [address] [place] [address] Consulting Physician Otolaryngology 01/17/22 Katya Carpenter, RN [address] [facility] [address] [place] [address] SHOP Outpatient Condenser Tester 02/13/24 02/19/24 documented as of this encounter
--- OUTSIDE RECORDS SUMMARY | 2025-09-26 12:36 | XMS_ITS | Encounter Summary ---
Author Organization [facility] Address [address] [place] [address] Care Team Providers Care Furniture Rental Consultant Name Role Phone Israel Carrillo MD Primary Care Provider Twin Tello MD Primary Care Provider [phone] Israel Carrillo MD Unavailable [phone] Twin Tello MD Primary Care Provider Miguel Field MD Primary Care Provider Israel Carrillo MD Primary Care Provider Miguel Field MD Primary Care Provider Israel Carrillo MD Primary Care Provider [phone] Darlene Saeed MD Primary Care Provider Manish Singer MD Unavailable [phone] Katya Carpenter RN Unavailable [phone] Kal Tellez MD Primary Care Provider Reason for Referral * Diagnostic Imaging (Routine) - Closed Specialty Diagnoses / Procedures Referred By Contac t Referred To Contact Diagnoses Osteoarthritis of spine with radiculopathy, lumbar region Procedures Dexa Axial Skeleton Bone Density 1 or 2 Site Israel Carrillo MD Phone: tel: fax: [facility] [address] [place] [address] Referral ID Status Reason Start Date Expiration Date Visits Re quested Visits Authorized [id number] Closed 10/03/2018 04/13/2020 1 1 [employer] Encounter Details Date Type Department Care Team (Latest Contact Info) Description 10/03/2018 Community Orders [facility] EpicCare Link Israel Carrillo MD [address] [facility] [address] [place], [place] [id number] Osteoarthritis of spine with radiculopathy, lumbar region (Primary Dx) Social History Tobacco Use Types Packs/Day Years Used Date Smoking Tobacco: Some Days Smokeless Tobacco: Never Alcohol Use Standard Drinks/Week Comments Yes 0 (1 standard drink = 0.6 oz pur e alcohol) Comments No Sex and Gender Information Value Date Recorded Sex Assigned at Not on file Legal Sex Female 8:10 PM SUPER[employer]OR INTER[employer] Gender Identity Not on file Sexual Orientation Not on file documented as of this encounter Functional Status documented as of this encounter Plan of Treatment Not on file documented as of this encounter Results * Dexa Axial Skeleton Bone Density 1 or 2 Site (10/17/2018 10:05 AM [employer]) Anatomical Region Laterality Modality Body N/A Digital Radiogra phy 10/17/2018 10:0 5 AM [employer] Impressions 10/17/2018 12:28 PM [employer] 1. The bone mineral density of the [...] Simona Fink M.D. Narrative 10/17/2018 12:28 PM [employer] BONE DENSITOMETRY OF THE SPINE AND HIP [...] COVID: Suspected 12/17/2020 12/17/2020 12/17/2020 6:45 PM SUPER[employer] Diarrhea 12/02/2023 12/02/2023 12/16/2023 3:06 AM SU[employer] COVID: Suspected 02/06/2024 02/06/2024 02/06/2024 2:46 PM CDT documented as of this encounter Care Teams Furniture Rental Consultant Relationship Specialty Start Date End Date Israel Carrillo MD [address] [address] PCP - General 10/02/18 05/31/19 Twin Tello MD [address] [address] PCP - General Endocrinology Diabetes & Metabolism 06/01/19 07/03/19 Twin Tello MD [address] [address] PCP - General 07/04/19 05/04/20 Miguel Field MD [address] [address] PCP - General Internal Medicine 05/05/20 08/03/20 Israel Carrillo MD [address] [address] PCP - General Endocrinology Diabetes & Metabolism 08/04/20 09/02/20 Miguel Field MD [address] [address] PCP - General 09/03/20 10/05/20 Israel Carrillo MD [address] [address] PCP - General Endocrinology Diabetes & Metabolism 10/06/20 01/08/21 Darlene Saeed MD [address] [place] [address] PCP - General Family Medicine 01/09/21 08/28/25 Kal Tellez MD [address] [place] [address] PCP - General Family Medicine 08/29/25 Israel Carrillo MD [address] [address] Referring Physician Endocrinology Diabetes & Metabolism 06/01/19 Manish Singer MD [address] [place] [address] Consulting Physician Otolaryngology 01/17/22 Katya Carpenter, RN [address] [facility] [address] [place] [address] SHOP Outpatient Power Electronics Engineer 02/13/24 02/19/24 documented as of this encounter
--- OUTSIDE RECORDS SUMMARY | 2025-09-26 12:36 | XMS_ITS | Encounter Summary ---
Author Organization [facility] Address [address] [place] [address] Care Team Providers Care Rn Behavioral Health Name Role Phone Israel Carrillo MD Primary Care Provider Gene Padilla MD Primary Care Provider [phone] Israel Carrillo MD Primary Care Provider Twin Tello MD Primary Care Provider [phone] Israel Carrillo MD Unavailable [phone] Twin Tello MD Primary Care Provider [phone] Miguel Field MD Primary Care Provider [phone] Israel Carrillo MD Primary Care Provider Miguel Field MD Primary Care Provider Israel Carrillo MD Primary Care Provider Darlene Saeed MD Primary Care Provider Manish Singer MD Unavailable [phone] Katya Carpenter RN Unavailable [phone] Kal Tellez MD Primary Care Provider Reason for Visit * Reason Onset Date Comments FYI 09/26/2018 Encounter Details Date Type Department Care Team (Late st Contact Info) Description 09/26/2018 Telephone [facility] [address] [facility] [address] [place] [address] Momo Pérez MD [address] [facility] [phone] [place] [address] FYI Social History Tobacco Use Types Packs/Day Years Used Date Smoking Tobacco: Some Days Smokeless Tobacco: Never Alcohol Use Standard Drinks/Week Comments Yes 0 (1 standard drink = 0.6 oz pur e alcohol) Comments No Sex and Gender Information Value Date Recorded Sex Assigned at Not on file Legal Sex Female 8:10 PM CATEGORY SPECIALIST Gender Identity Not on file Sexual Orientation Not on file documented as of this encounter Plan of Treatment Not on file documented as of this encounter Visit Diagnoses Not on filedocumented in this encounter Additional Health Concerns Infection Onset Date Last Indicated Resolved Time COVID: Suspected 12/17/2020 12/17/2020 12/17/2020 6:45 PM CATEGORY SPECIALIST Diarrhea 12/02/2023 12/02/2023 12/16/2023 3:06 AM CATEGORY SPECIALIST COVID: Suspected 02/06/2024 02/06/2024 02/06/2024 2:46 PM CDT documented as of this encounter Care Teams Rn Behavioral Health Relationship Specialty Start Date End Date Israel Carrillo MD [address] [facility] [address] [place] [address] PCP - General 08/02/07 09/26/18 Gene Padilla MD [address] [place] [address] [address] [facility] [address] [place] [address] PCP - General Cardiovascular Disease 09/27/18 Israel Carrillo MD [address] [facility] [address] [place] [address] PCP - General 10/02/18 05/31/19 Twin Tello MD [address] [address] PCP - General Endocrinology Diabetes & Metabolism 06/01/19 07/03/19 Twin Tello MD [address] [address] PCP - General 07/04/19 05/04/20 Miguel Field MD [address] [address] PCP - General Internal Medicine 05/05/20 08/03/20 Israel Carrillo MD [address] [address] PCP - General Endocrinology Diabetes & Metabolism 08/04/20 09/02/20 Miguel Field MD [address] [address] PCP - General 09/03/20 10/05/20 Israel Carrillo MD [address] [address] PCP - General Endocrinology Diabetes & Metabolism 10/06/20 01/08/21 Darlene Saeed MD [address] [place] [address] PCP - General Family Medicine 01/09/21 08/28/25 Kal Tellez MD [address] [place] [address] PCP - General Family Medicine 08/29/25 Israel Carrillo MD [address] [facility] [address] [place] [address] Referring Physician Endocrinology Diabetes & Metabolism 06/01/19 Manish Singer MD [address] [place], [place] [id number] Consulting Physician Otolaryngology 01/17/22 Katya Carpenter, RN [address] [facility] [address] [place] [address] SHOP Outpatient Gyn Physician 02/13/24 02/19/24 documented as of this encounter
--- OUTSIDE RECORDS SUMMARY | 2025-09-26 12:36 | XMS_ITS | Clinical Summary ---
Author Organization [facility] Address [address] [place] [address] Care Team Providers Care Active Directory Engineer Name Role Phone Theresa Connors Primary Care Provider [phone] Allergies Active Allergy Reactions Criticality Noted Date [...] drink = 0.6 oz pur e alcohol) [facility] Utilities Answer Date Recorded In the past 12 months has th e electric, gas, oil, or water 2C2P threatened to shut off services in your [...] place to sleep or slept in a intermediate (including now)? Patient unable to answer 02/13/2024 Housing Stability Vital Sign Answer Alec e Recorded Unable to Pay for Housing in the Last Year Not o n file 02/19/2024 In the past 12 months, how m any times have you moved where you were living? 0 02/19/2024 At any time in the past 12 m [facility], were you homeless or living in a intermediate (including now)? No 02/19/2024 Comments Unknown Sex and Gender Information Value Date Recorded Sex Assigned at Female 12/21/2024 4:56 PM LIGHT COIL WINDER Legal Sex Female 11:23 PM CDT Gender Identity Not on file Sexual Orientation Not on file Last Filed Vital Signs Vital Sign Reading Time Taken Comments Blood Pressure 142/88 01/09/2025 11:44 AM LIGHT COIL WINDER Pulse 106 01/09/2025 11:44 AM LIGHT COIL WINDER Temperature 36.4 C (97.6 F) 12/21/2024 4:58 PM LIGHT COIL WINDER Respiratory Rate 21 12/21/2024 8:30 PM LIGHT COIL WINDER Oxygen Saturation 98% 01/09/2025 11:44 AM LIGHT COIL WINDER Inhaled Oxygen Concentration - - Weight 101.2 kg (223 lb) 01/09/2025 11:44 AM LIGHT COIL WINDER Height 147.3 cm (4' 10) 01/09/2025 11:44 AM LIGHT COIL WINDER Body Mass Index 46.61 01/09/2025 11:44 AM LIGHT COIL WINDER Plan of Treatment Health Maintenance Due Date Last Done Comments ASCVD Statin 1960 Hepatitis C 1977 Pneumococcal Vaccine: 50+ Years (1 of 2 [...] 08/04/2021, 06/16/2020, 05/08/2019, Additional history exists Hepatitis A Vaccines Aged Out No long [...] 161 <200 MG/DL 02/14/2024 7:[address] [facility] TRIGLYCERIDES 105 <150 MG/DL 02/14/2024 7:[address] [facility] HDL 68 >40.0 MG/DL 02/14/2024 7:[address] [facility] LDL (CALCULATED) 72 <100 MG/DL 02/14/20 24 7:[address] [facility] NON HDL CHOLESTEROL 93 <130 MG/DL 02/13 7:[address] [facility] CHOL/HDL RATIO 2.4 0.0 - 4.5 02/14/2024 7:[address] [facility] VLDL CALCULATION 21 5 - 55 MG/DL 02/14/2024 7:[address] [facility] LIPID INTERPRETATION 02/14/2024 7:[address] [facility] Comment: [facility] CONCENSUS REPORT RECOMMENDATIONS: ADULT CHILD LOW RISK: CHOLESTEROL <200 <170 TRIGLYCERIDE <150 --- HDL >=60 --- LDL <100 <110 BORDERLINE: CHOLESTEROL 200-239 170-199 TRIGLYCERIDE 150-199 --- HDL 40-59 --- LDL 100-159 110-129 HIGH RISK: CHOLESTEROL >=240 >=200 TRIGLYCERIDE >=200 --- HDL <40 --- LDL >=160 >=130 02/14/2024 6:06 AM CDT Yuko Patel MEDICAL AIDES TEACHER LABORATORY Final Resul t [facility] [address] [place] [address], [place] [phone] * OCCULT BLOOD, FECES (02/13/2024 7:26 PM CDT) OCCULT BLOOD FECAL NEGATIVE 02/13/2024 8:[address] [facility] STOOL SPECIMEN / Unknown 02/13/2024 7:26 PM CDT Kal Salinas MD,PHD BODY FLUIDS AND STOOLS ORD ERABLES Final Result [facility] [address] [place] [address], [place] [phone] from Last 3 Months or Most Recently Relevant to Health Maintenance Insurance MED [facility] MEDICARE Advance Directives Documents on File Type Date Recorded Patient Ecg Technician Expl anation Advance Directives and Living Will 02/29/2024 3:02 PM 05/02/2017 POA FOR HC * Full Code (Latest Code Status on File) Date Activated Date Inactivated Comments 02/19/2024 1:22 PM 02/25/2024 11:57 AM * Full Code Date Activated Date Inactivated Comments 02/16/2024 10:58 AM 02/19/2024 1:21 PM * Full Code Date Activated Date Inactivated Comments 02/14/2024 12:19 AM 02/16/2024 10:58 AM Care Teams Active Directory Engineer Relationship Specialty Start Date End Date Theresa Connors PA [address] [facility] [address] [place] [address] PCP - General PHYSICIAN RETURNS PROCESSOR 02/20/25
[2025-09-26 12:55] LABS: Thyroid Stimulating Hormone Reflex 0.071 uIU/mL (0.465-4.68)
[2025-09-26 14:15] LABS: Free T4 Free Thyroxine Reflex 0.93 ng/dL (0.78-2.19)
[2025-09-26 19:04] LABS: Total Triiodothyronine (T3) 1.15 NG/ML (0.82-1.58)
[2025-09-27 18:08] LABS: ANA by IFA Rfx Titer/Pattern Negative (.)
[2025-09-30 16:08] LABS: Immunoglobulin A, Qn 137 mg/dL (87-352); Immunoglobulin G, Qn 676 mg/dL (586-1602); Immunoglobulin M, Qn 161 mg/dL (26-217)
== END 2025-09-26 11:25 | disposition home or self-care (01) ==
LOC: ANHLAB 11:25
PROVIDERS: PCP Family Medicine; Visit Provider Internal Medicine Nephrology
DX: N17.9 Acute kidney failure, unspecified (principal); R53.83 Other fatigue; I95.9 Hypotension, unspecified
CPT/HCPCS: 36415; 80069; 81001; 82533; 82550; 82570; 82784; 83970; 84156; 84439; 84443; 84480; 85027; 85652; 86038; 86160; 86162; 86334; 86335

== ENCOUNTER 2025-09-28 12:17 | Outpatient (NON) | payer MEDICARE, SELFPAY ==
[2025-09-28 14:34] LABS: Total Volume 24 Hour Urine 700 ml
== END 2025-09-28 12:18 | disposition home or self-care (01) ==
PROVIDERS: PCP Family Medicine; Visit Provider Internal Medicine Nephrology
DX: N17.9 Acute kidney failure, unspecified (principal); R53.83 Other fatigue; I95.9 Hypotension, unspecified
CPT/HCPCS: 81050; 84540

== ENCOUNTER 2025-10-22 09:53 | Outpatient (CLI) | payer MEDICARE, SELFPAY ==
[2025-10-22 10:41] LABS: Anion Gap 6 mmol/L (4-12); Blood Urea Nitrogen 13 mg/dL (7-17); Calcium 9.3 mg/dL (8.4-10.2); Carbon Dioxide 27 mmol/L (22-30); Chloride 108 mmol/L (98-107); Estimated Glomerular Filt Rate > 60; Glucose 163 mg/dL (65-110); Iron 29 ug/dL (37-170); Potassium 2.9 mmol/L (3.4-5.0); Sodium 141 mmol/L (137-145)
[2025-10-22 10:50] LABS: Percent Iron Saturation 8 % (20-50)
[2025-10-22 11:23] LABS: Ferritin 7.04 ng/mL (11.1-264)
[2025-10-22 11:53] LABS: Vitamin B12 670.0 pg/mL (239-931)
[2025-10-22 12:40] LABS: Cortisol 60 Minute 33.60 ug/dL
[2025-10-22 12:44] LABS: Cortisol 60 Minute 33.60 ug/dL
== END 2025-10-22 09:54 | disposition home or self-care (01) ==
PROVIDERS: PCP Family Medicine; Visit Provider Internal Medicine Nephrology
DX: I95.9 Hypotension, unspecified (principal); R79.89 Other specified abnormal findings of blood chemistry; D64.9 Anemia, unspecified
CPT/HCPCS: 36415; 80048; 82533; 82607; 82728; 82746; 83540; 83550

== ENCOUNTER 2025-10-24 14:21 | Outpatient (CLI) | payer MEDICARE, SELFPAY ==
--- NOTE | ~2025-10-24 | CT_ITS ---
EXAMINATION: CT lung screening DATE: 10/24/2025 15:06 INDICATION: Z87.891 - Personal history of nicotine dependence TECHNIQUE: Computed tomography (CT) of the chest was performed without intravenous contrast. Additional 3D reconstructions utilizing coronal maximum intensity projection (MIP) were performed. Automated exposure control and iterative reconstruction technique were employed. The dose-length product was 14 6.87 mGy-cm. COMPARISON: None FINDINGS: Mild emphysema. Again seen is minimal peripheral septal line thickening primarily at the lung bases Calcified right lower lobe nodule consistent with old granulomatous disease. No other noncalcified pulmonary nodules. No pleural effusion. Heart size is normal. Atherosclerotic coronary artery calcific l ocation. No pericardial effusion. Thoracic aorta is normal in caliber. No pathologically enlarged thoracic lymphadenopathy. Cholecystectomy clips the gallbladder fossa. Moderate lower thoracic predominant spondylosis. IMPRESSION: 1. Lung-RADS category 1: Negative. Continue annual screening with noncontrast low-dose chest CT in 12 months. Reviewed, dictated and finalized at location A. EAR EQUIPMENT OPERATOR IMPRESSION: 1. Lung-RADS category 1: Negative. Continue annual screening with noncontrast l ow-dose chest CT in 12 months.
[2025-10-30 15:09] LABS: Renin Activity, Plasma 0.877 ng/mL/hr (0.167-5.380)
== END 2025-10-24 14:22 | disposition home or self-care (01) ==
LOC: ANHIMG 14:24
PROVIDERS: Internal Medicine Nephrology; PCP Family Medicine; Visit Provider Physician Assistant
DX: Z12.2 Encounter for screening for malignant neoplasm of respiratory organs (principal); Z87.891 Personal history of nicotine dependence; E87.6 Hypokalemia
CPT/HCPCS: 71271; 82088; 82570; 84133; 84244